=== PATIENT | male | born 1945 | race Caucasian/White ===

== ENCOUNTER → 2016-11-29 | Outpatient (CLI) | payer OTHER ==
[~2016-11-29] MED LIST: ASPEC81 PO; ATOR10TA88 PO; CLOP1TAB15 PO; GLIM4TAB2 PO; HYDR25TA4 PO; LISI40TA PO; LPD600 PO; METF-384 PO; METO100T14 PO; PRLSR20 PO; TAMS0.4C38 PO
[2016-11-29 12:49] LABS: HEMATOCRIT 42.7 % (42-52); MEAN CELL VOLUME 89.9 fL (80-100); MEAN CORPUSCULAR HGB CONC 35.6 g/dl (32-36); MEAN PLATELET VOLUME 10.4 fL (7.4-10.4); PLATELET COUNT 207 K/uL (130-400); RED BLOOD COUNT 4.75 M/uL (4.7-6.1); WHITE BLOOD COUNT 6.74 K/uL (4.8-10.8)
[2016-11-29 13:20] LABS: RATIO 7.8 mcg/mg (0-30.0)
[2016-11-29 13:27] LABS: ESTIMATED AVERAGE GLUCOSE 306 mg/dl; HA1C FLAG Normal (Normal)
[2016-11-29 14:09] LABS: ALB/GLOB RATIO 0.9 (0.9-2); ALKALINE PHOSPHATASE 84 U/L (45-117); ALT/SGPT 34 U/L (12-78); AST/SGOT 17 U/L (15-37); BLOOD UREA NITROGEN 25 mg/dl (7-18); BUN/CREATININE RATIO 17.9 (10-20); CALCIUM 8.7 mg/dl (8.5-10.1); CARBON DIOXIDE 31 mmol/L (21-32); CHLORIDE 94 mmol/L (98-107); CHOLESTEROL 276 mg/dl (0-200); CHOLESTEROL/HDL RATIO 7.9; GLUCOSE 435 mg/dl (70-99); HDL CHOLESTEROL 35 mg/dl; SODIUM 135 mmol/L (136-145); TRIGLYCERIDES 1386 mg/dl (0-150)
[2016-11-29 14:34] LABS: BETA-HYDROXYBUTYRATE 5.13 mg/dL (0.2-2.81)
== END | disposition home or self-care (01) ==
LOC: C.LABBFT 10:16
PROVIDERS: ATTEND Internal Medicine
DX: E11.9 Type 2 diabetes mellitus without complications (principal)

== ENCOUNTER 2016-12-29 15:06 | Inpatient (IN) | payer OTHER ==
[~2016-12-29] VITALS: Ht 172.7 cm; Wt 102.5 kg
[~2016-12-29 15:06] MED LIST changes: -ASPEC81 PO; +ATOR10TA82 PO; -ATOR10TA88 PO; -GLIM4TAB2 PO; -LPD600 PO; -METF-384 PO
[2016-12-29] MEDS ORDERED: SODIUM CHLORIDE 0.9% 1000ML 1,000 ML IV SCH (15:20)
--- NOTE | 2016-12-29 15:26 | EMERGENCY ROOM VISIT NOTE ---
History Report prepared by Lia: Angelina Cuenca Under the Supervision of: Dr. Xenia Singer, Anna MarieO. First contact with patient: 15:13 Chief Complaint: STROKE SYMPTOMS Stated Complaint: STROKE SYMPTOMS History of Present Illness The patient is a 71 year old male who presents to the Emergency Room with complaints of constant slurred speech that started 30 minutes ago while shopping. The patient states that he felt normal earlier today. Pt states some chronic vision changes/blurred - no acute change. No isolated extremity weakness/paresthesias. Pt denies WU. Denies dizziness. Patient's states that the patient suffered from a stroke 2 years ago, which showed similar symptoms. The patient denies cp, sob, n/v/d, leg swelling, or any other associated symptoms. He take Plavix 75 regularly as prescribed. He denies use of Aspirin. Had previously taken following first TIA, then changed. Recent new dx of DM, new additional meds added. 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 A total of 10 systems reviewed and were otherwise negative. Past Medical & Surgical Medical Problems: (1) Coronary artery disease (2) Gastroesophageal reflux disease (3) GERD (gastroesophageal reflux disease) (4) History of CVA (cerebrovascular accident) (5) Hyperlipidemia (6) Ischemic stroke (7) TIA (transient ischemic attack) Family History Unknown family medical history Social History Smoking Status: Never Smoker Alcohol Use: none Drug Use: none Marital Status: Housing Status: lives with family Occupation Status: employed Current/Historical Medications Scheduled Aspirin (Aspirin EC Low Dose), 81 MG PO QAM Atorvastatin (Lipitor), 10 MG PO QAM Clopidogrel (Plavix), 75 MG PO QAM Gemfibrozil (Gemfibrozil), 1 TAB PO BID Hydrochlorothiazide (Hctz), 25 MG PO QAM Lisinopril (Zestril), 40 MG PO QAM Metformin Hcl (Glucophage), 500 MG PO BID Metoprolol Tartrate (Lopressor) (Lopressor), 100 MG PO QAM Omeprazole (Prilosec), 20 MG PO QAM Tamsulosin Hcl (Flomax), 2 CAP PO QAM Allergies Coded Allergies: No Known Allergies (Verified , 12/29/16) Physical Exam Vital Signs Date Time Temp Pulse Resp B/P Pulse Ox O2 Delivery O2 Flow Rate FiO2 12/29/16 16:30 71 16 147/79 96 Room Air 12/29/16 16:02 78 20 122/77 97 Room Air 12/29/16 15:51 82 12/29/16 15:37 74 16 118/71 96 Room Air 12/29/16 15:21 Room Air 12/29/16 15:08 36.5 77 16 120/68 92 Room Air Physical Exam GENERAL: alert, non toxic appearing. slurred speech noted upon exam. EYE EXAM: normal conjunctiva, PERRL and EOM's grossly intact OROPHARYNX: no exudate, no erythema, lips, buccal mucosa, and tongue normal and mucous membranes are moist NECK: supple, no nuchal rigidity, no adenopathy, non-tender LUNGS: Clear to auscultation. Normal chest wall mechanics HEART: no murmurs, S1 normal and S2 normal ABDOMEN: abdomen soft, non-tender, normo-active bowel sounds, no masses, no rebound or guarding. BACK: Back is symmetrical on inspection and there is no deformity, no midline tenderness, no CVA tenderness. SKIN: no rashes and no bruising UPPER EXTREMITIES: upper extremities are grossly normal. LOWER EXTREMITIES: No pitting edema. NEURO EXAM: Left finger to nose intact. Gross sensation intact. Normal sensorium , cranial nerves II-XII grossly intact, normal speech, no gross weakness of arms, no gross weakness of legs. No drift. Slight deviation with right finger to nose. NIH Stroke Scale Score: 2. Medical Decision & Procedures ER Provider Diagnostic Interpretation: CT results have been interpreted by the radiologist and reviewed by me. CT HEAD WITHOUT CONTRAST (CT) CLINICAL HISTORY: Stroke COMPARISON STUDY: 06/14/2013 TECHNIQUE: Axial CT of the brain is performed from the vertex to the skull base. IV contrast was not administered for this examination. CT DOSE: 614.27 mGy.cm FINDINGS: No intra or extra-axial mass lesions are visualized. There is no CT evidence of acute cortical infarction. There is no evidence of midline shift. There is no acute hemorrhage. No calvarial fractures are visualized. There are patchy white matter hypodensities likely on a small vessel basis. There are multiple old lacunar infarcts including involvement of the left thalamus and both basal ganglia. There is no evidence of pathologic ventricular dilatation. There is sphenoid sinus mucosal thickening. There is trace sphenoid sinus fluid. IMPRESSION: Multiple old lacunar infarcts. No acute intracranial findings. Electronically signed by: Oli Llanos M.D. 12/29/2016 3:37 PM Dictated Date/Time: 12/29/2016 3:35 PM Laboratory Results Test 12/29/16 15:20 12/29/16 15:26 Prothrombin Time 10.9 SECONDS (9.0-12.0) Prothromb Time International Ratio 1.0 (0.9-1.1) Activated Partial Thromboplast Time 29.7 SECONDS (21.0-31.0) Partial Thromboplastin Ratio 1.1 Estimated Average Glucose 217 mg/dl Hemoglobin A1c 9.2 % (4.5-5.6) Total Creatine Kinase 55 U/L (39-308) Creatine Kinase MB 1.1 ng/ml (0.5-3.6) Creatine Kinase MB Ratio 2.0 (0-3.0) Troponin I < 0.015 ng/ml (0-0.045) Bedside Prothrombin Time INR 1.0 (0.9-1.1) Laboratory results per my review. Medications Administered Medications (Trade) Dose Ordered Sig/Nikko Route Start Time Stop Time Status Last Admin Dose Admin Sodium Chloride (Nss 1000ml) 1,000 ml @ 50 mls/hr Q20H IV 12/29/16 15:20 12/29/16 18:57 DC 12/29/16 15:51 50 MLS/HR Aspirin (Aspirin Supp) 300 mg ONE STAT MI 12/29/16 16:02 12/29/16 16:03 DC 12/29/16 16:12 300 MG ECG Indication: other (Stroke- like Symptoms) Rate (beats per minute): 76 Rhythm: sinus rhythm Findings: no acute ischemic change, no ectopy, other (Normal axis, normal interval ) ED Course 1515: The patient was evaluated in room A1. A complete history and physical exam was performed. 1517: Called a stroke alert 1519: After reviewing the chart, I found that the patient presented in June 2013 with similar slurred speech. NIH stroke scale was determined to be 2 at this time. Patient was not given TPA at this time. He did find improvement of symptoms. He was admitted for additional evaluation. 1520: Ordered Sodium Chloride 1,000 ml @ 50 mls/hr IV. 1522: I updated the patient's of the treatment plan and notes from my review of the patient's past medical records. 1525. Upon reevaluation, the patient's speech has not showed signs of improvement. 1540: Upon reevaluation, the patient's speech was found to be improving. 1542: I discussed the patient's case with Dr. Ordonez ([facility]). He does not recommend TPA at this time. 1545: Ordered Aspirin 325 mg PO. 1546: I updated the patient and his family. 1602: Ordered Aspirin 300 mg MI. 1610: I reviewed the patient's case with Dr. Burks ([facility]). He will evaluate the patient for further management. Medical Decision Differential diagnosis: Etiologies such as metabolic, infection, hypoglycemia, electrolyte abnormalities , cardiac sources, intracerebral event, toxicologic, neurologic, as well as others were entertained. Pt presented within window for stroke alert. NIHSS <4, symptoms improving by time came back from CT. Discussed with telestroke doc. No tPA given. Discussed with pt and . They verbalized understanding. Pt sx improved here. Pt with risk factors for CVA/TIA. Given ASA here. Doubt dissection, infectious etiology. Glucose within reasonable range. Similar presentation to prior. No chronic deficits from prior. Consults Time Called: 1538 Consulting Physician: Dr. Ordonez (Neurology) Returned Call: 1542 I discussed the patient's case with Dr. Ordonez ([facility]). He does not recommend TPA at this time. Additional Consults: Time Called: 1555 Consulted Physician: Dr. Burks ([facility]) Returned Call: 1610 Additional Comments: I reviewed the patient's case with Dr. Burks ([facility]). He will evaluate the patient for further management. Impression Primary Impression: CVA (cerebral vascular accident) Critical Care I have personally spent 35 minutes of critical care time in the direct management of this patient. This includes bedside care, interpretation of diagnostic studies, and testing, discussion with consultants, patient, and family members, and other required patient management activities. This 35 minutes is in excess of all separately billable procedures. Scribe Attestation The scribe's documentation has been prepared under my direction and personally reviewed by me in its entirety. I confirm that the note above accurately reflects all work, treatment, procedures, and medical decision making performed by me. Departure Information Dispostion Being Evaluated By Hospitalist Prescriptions Aspirin (Aspirin EC Low Dose) 81 Mg Ectab 81 MG PO QAM for 30 Days, #30 Prov: Sidra Lacy MD 12/30/16 Referrals Sebastián Bond M.D. (PCP) Patient Instructions My [facility] Stroke History Time Last Known Well 1445 Stroke t-PA Criteria Reviewed Does NOT meet criteria for t-PA Reason t-PA Not Given Treatment not indicated Problem Qualifiers Primary Impression: CVA (cerebral vascular accident) CVA mechanism: unspecified Qualified Codes: I63.9 - Cerebral infarction, unspecified
[2016-12-29 15:36] LABS: BASO % 0.6 %; BASO ABS # 0.03 K/uL (0-0.2); COMPLETE YES; EOS % 0.9 %; HEMATOCRIT 34.3 % (42-52); IG% 0.2 %; LYMPH % 37.8 %; LYMPH ABS # 2.06 K/uL (1.2-3.4); MEAN CELL VOLUME 93.5 fL (80-100); MEAN CORPUSCULAR HEMOGLOBIN 31.9 pg (25-34); MEAN CORPUSCULAR HGB CONC 34.1 g/dl (32-36); MEAN PLATELET VOLUME 8.7 fL (7.4-10.4); MONO % 5.3 %; NEUT % 55.2 %; PLATELET COUNT 203 K/uL (130-400); RED BLOOD COUNT 3.67 M/uL (4.7-6.1); WHITE BLOOD COUNT 5.45 K/uL (4.8-10.8)
--- NOTE | 2016-12-29 15:39 | DIAGNOSTIC IMAGING REPORT ---
CT HEAD WITHOUT CONTRAST (CT) CLINICAL HISTORY: Stroke COMPARISON STUDY: 06/14/2013 TECHNIQUE: Axial CT of the brain is performed from the vertex to the skull base. IV contrast was not administered for this examination. CT DOSE: 614.27 mGy.cm FINDINGS: No intra or extra-axial mass lesions are visualized. There is no CT evidence of acute cortical infarction. There is no evidence of midline shift. There is no acute hemorrhage. No calvarial fractures are visualized. There are patchy white matter hypodensities likely on a small vessel basis. There are multiple old lacunar infarcts including involvement of the left thalamus and both basal ganglia. There is no evidence of pathologic ventricular dilatation. There is sphenoid sinus mucosal thickening. There is trace sphenoid sinus fluid. IMPRESSION: Multiple old lacunar infarcts. No acute intracranial findings. Electronically signed by: Oli Llanos M.D. 12/29/2016 3:37 PM Dictated Date/Time: 12/29/2016 3:35 PM
[2016-12-29 15:45] LABS: PARTIAL THROMBOPLASTIN RATIO 1.1; PROTHROMBIN TIME (PATIENT) 10.9 SECONDS (9.0-12.0)
[2016-12-29] MEDS ORDERED: ASPIRIN 325 MG ECTAB PO STA (15:45)
[2016-12-29 15:52] LABS: BLOOD UREA NITROGEN 22 mg/dl (7-18); BUN/CREATININE RATIO 16.7 (10-20); CALCIUM 8.7 mg/dl (8.5-10.1); CARBON DIOXIDE 29 mmol/L (21-32); CHLORIDE 107 mmol/L (98-107); GLUCOSE 143 mg/dl (70-99); SODIUM 143 mmol/L (136-145)
[2016-12-29] MEDS ORDERED: ASPIRIN 300 MG SUPP PR STA (16:02)
[2016-12-29] MEDS ORDERED: ONDANSETRON INJ 2 MG/ML 2 ML VIAL IV PRN (16:30)
[2016-12-29] MEDS ORDERED: ACETAMINOPHEN 325 MG TAB PO PRN (16:30)
[2016-12-29] MEDS ORDERED: PHARMACIST DISCHARGE MED REC CONSULT PRN (16:30)
[2016-12-29 16:50] VITALS: O2SAT 96; Ht 172.7 cm; Wt 102.5 kg
[2016-12-29] MEDS ORDERED: LPD600 PO (17:09)
[2016-12-29] MEDS ORDERED: GLIM4TAB2 PO (17:09)
[2016-12-29] MEDS ORDERED: METF-384 PO (17:09)
--- NOTE | 2016-12-29 17:10 | History and Physical ---
History & Physical Date & Time of Service: Dec 29, 2016 at 16:46 Chief Complaint: Stroke Symptoms Primary Care Physician: Sebastián Bond M.D. History of Present Illness Source: patient, spouse, hospital records 71 yo male who was feeling well this morning, started suddenly with slurred speech and blurred vision at precisely 245pm, his was with him and knew the exact time. The patient has a small left sided stroke in 2012 and presented at that time with similar symptoms of slurred speech and weakness. The patient's evaluated what was going on and immediately called EMS and a stroke alert was called prior to the patient's arrival. CT scan did not show any hemorrhage. He was evaluated for tPA. During initial evaluation his speech started to improve and his vision returned to normal so he was ruled out for tPA. CBC and BMP were normal. Currently the patient's speech is slow but clear, not back to normal yet. He denies any other focal weakness. No loss of balance. He did fail his initial speech test and was given aspirin rectally. Old records from his hospitalization in 2012 show that he had a left lacunar ischemic stroke. Echo at that time was normal and carotid doppler only showed moderate plaque bilaterally, no severe stenosis. He was treated with aspirin and Plavix initially and then titrated to just Plavix. He has been compliant with his Plavix, Lipitor and BP medications. On November 29, 2016 he had blood work that showed an A1c of 12.3, diagnosing him with DM type II. He was notified by his PCP and he was started on Metformin 1000mg BID and Glimepiride. A few days later he had violent vomiting so he was told to stop the glimepiride and decrease Metformin to 500mg BID. He has made drastic dietary changes, he stopped alcohol and cut back significantly on carbohydrates. His has been very involved in his care, she is at the bedside now. Past Medical/Surgical History Ischemic stroke, left lacunar, 2012 Hyperlipidemia Hypertension DM type II (diagnosed November 2016) GERD BPH Family History HTN Coronary artery disease Social History Smoking Status: Never Smoker Smokeless Tobacco Use: No Alcohol Use: none Drug Use: none Marital Status: Occupational Status: employed Immunizations History of Influenza Vaccine: No Influenza Vaccine Date: Jun 16, 2013 History of Tetanus Vaccine?: Unknown History of Pneumococcal: No History of Hepatitis B Vaccine: No Multi-Drug Resistant Organisms History of MDRO: No Allergies Coded Allergies: No Known Allergies (Verified , 10/09/16) Home Medications Scheduled Atorvastatin (Lipitor), 10 MG PO QAM Clopidogrel (Plavix), 75 MG PO QAM Hydrochlorothiazide (Hctz), 25 MG PO QAM Lisinopril (Zestril), 40 MG PO QAM Metoprolol Tartrate (Lopressor) (Lopressor), 100 MG PO QAM Omeprazole (Prilosec), 20 MG PO QAM Tamsulosin Hcl (Flomax), 2 CAP PO QAM Review of Systems Constitutional: No chills, No fatigue, No fever, No problem reported, No sweats , No weakness, No weight loss Eyes: + worsening of vision (blurred vision at 245, has completely resolved), No diplopia, No discharge, No eye pain, No redness ENT: No dental problems, No hearing loss, No nasal symptoms, No problem reported, No sore throat, No tinnitus, No trouble swallowing, No unusual epistaxis Respiratory: No cough, No dyspnea at rest, No dyspnea on exertion, No hemoptysis, No problem reported, No shortness of breath, No sputum, No wheezing Cardiovascular: No PND, No chest pain, No claudication, No edema, No orthopnea , No palpitations, No problem reported Abdomen: No GI bleeding, No constipation, No diarrhea, No nausea, No pain, No problem reported, No vomiting Musculoskeletal: No calf pain, No joint pain, No muscle pain, No problem reported, No swelling Genitourinary - Male: No dysuria, No hematuria, No urinary frequency, No urinary urgency Neurologic: + problem reported (slurred speech, mumbled incoherent words, improving quickly now), No balance problems, No memory loss, No numbness/ tingling, No paralysis, No vertigo, No weakness Psychiatric: No anhedonism, No anxiety, No depression symptoms, No insomnia, No problem reported, No substance abuse Endocrine: No excessive thirst, No excessive urination, No fatigue, No problem reported Hematologic / Lymphatic: No abnormal bleeding/bruising, No clotting problems, No night sweats, No problem reported, No swollen lymph nodes Integumentary: No bleeding, No color change, No itch, No new/changing skin lesions, No problem reported, No rash Allergic / Immunologic: No environmental allergies, No food allergies, No frequent infections, No hives, No pet sensitivities, No poor healing, No problem reported, No prolonged convalescence, No seasonal allergies Physical Exam Vital Signs Date Time Temp Pulse Resp B/P Pulse Ox O2 Delivery O2 Flow Rate FiO2 12/29/16 16:30 71 16 147/79 96 Room Air 12/29/16 16:02 78 20 122/77 97 Room Air 12/29/16 15:51 82 12/29/16 15:37 74 16 118/71 96 Room Air 12/29/16 15:21 Room Air 12/29/16 15:08 36.5 77 16 120/68 92 Room Air General Appearance: WD/WN, no apparent distress Head: normocephalic, atraumatic Eyes: normal inspection, EOMI, sclerae normal ENT: normal ENT inspection, hearing grossly normal, pharynx normal Neck: supple, no adenopathy, no JVD, trachea midline Respiratory/Chest: chest non-tender, lungs clear, normal breath sounds, no respiratory distress, no accessory muscle use Cardiovascular: regular rate, rhythm, no edema, no gallop, no JVD, no murmur, normal peripheral pulses Abdomen/GI: normal bowel sounds, non tender, soft, no organomegaly Back: normal inspection, no CVA tenderness, no muscle spasm, normal range of motion Extremities/Musculoskelatal: normal inspection, no calf tenderness, normal capillary refill, no pedal edema, normal range of motion, pelvis stable Neurologic/Psych: dolphin trainer II-XII nml as tested, no motor/sensory deficits, alert, normal mood/affect, normal reflexes, oriented x 3 Skin: normal color, warm/dry, no rash Lymphatic: no adenopathy Diagnostics Laboratory Results Results Past 24 Hours Test 12/29/16 15:20 12/29/16 15:24 12/29/16 15:26 Range/Units White Blood Count 5.45 4.8-10.8 K/uL Red Blood Count 3.67 4.7-6.1 M/uL Hemoglobin 11.7 14.0-18.0 g/dL Hematocrit 34.3 42-52 % Mean Corpuscular Volume 93.5 80-100 fL Mean Corpuscular Hemoglobin 31.9 25-34 pg Mean Corpuscular Hemoglobin Concent 34.1 32-36 g/dl Platelet Count 203 130-400 K/uL Mean Platelet Volume 8.7 7.4-10.4 fL Neutrophils (%) (Auto) 55.2 % Lymphocytes (%) (Auto) 37.8 % Monocytes (%) (Auto) 5.3 % Eosinophils (%) (Auto) 0.9 % Basophils (%) (Auto) 0.6 % Neutrophils # (Auto) 3.01 1.4-6.5 K/uL Lymphocytes # (Auto) 2.06 1.2-3.4 K/uL Monocytes # (Auto) 0.29 0.11-0.59 K/uL Eosinophils # (Auto) 0.05 0-0.5 K/uL Basophils # (Auto) 0.03 0-0.2 K/uL RDW Standard Deviation 46.5 36.4-46.3 fL RDW Coefficient of Variation 13.5 11.5-14.5 % Immature Granulocyte % (Auto) 0.2 % Immature Granulocyte # (Auto) 0.01 0.00-0.02 K/uL Prothrombin Time 10.9 9.0-12.0 SECONDS Prothromb Time International Ratio 1.0 0.9-1.1 Activated Partial Thromboplast Time 29.7 21.0-31.0 SECONDS Partial Thromboplastin Ratio 1.1 Sodium Level 143 136-145 mmol/L Potassium Level 4.0 3.5-5.1 mmol/L Chloride Level 107 98-107 mmol/L Carbon Dioxide Level 29 21-32 mmol/L Anion Gap 7.0 3-11 mmol/L Blood Urea Nitrogen 22 7-18 mg/dl Creatinine 1.30 0.60-1.40 mg/dl Est Creatinine Clear Calc Drug Dose 62.7 ml/min Estimated GFR () 64.5 Estimated GFR (Non- 55.7 BUN/Creatinine Ratio 16.7 10-20 Random Glucose 143 70-99 mg/dl Calcium Level 8.7 8.5-10.1 mg/dl Total Creatine Kinase 55 39-308 U/L Creatine Kinase MB 1.1 0.5-3.6 ng/ml Creatine Kinase MB Ratio 2.0 0-3.0 Troponin I < 0.015 0-0.045 ng/ml Bedside Glucose 143 70-99 mg/dl Bedside Prothrombin Time INR 1.0 0.9-1.[address] HEAD WITHOUT CONTRAST (CT) CLINICAL HISTORY: Stroke COMPARISON STUDY: 06/14/2013 TECHNIQUE: Axial CT of the brain is performed from the vertex to the skull base. IV contrast was not administered for this examination. CT DOSE: 614.27 mGy.cm FINDINGS: No intra or extra-axial mass lesions are visualized. There is no CT evidence of acute cortical infarction. There is no evidence of midline shift. There is no acute hemorrhage. No calvarial fractures are visualized. There are patchy white matter hypodensities likely on a small vessel basis. There are multiple old lacunar infarcts including involvement of the left thalamus and both basal ganglia. There is no evidence of pathologic ventricular dilatation. There is sphenoid sinus mucosal thickening. There is trace sphenoid sinus fluid. IMPRESSION: Multiple old lacunar infarcts. No acute intracranial findings. Normal EKG Impression Assessment and Plan 71 yo male with slurred speech and blurred vision, symptoms quickly resolving in the ED, CT head with evidence of prior lacunar infarcts - Acute ischemic stroke, symptoms resolving admit to tele, urgent MRI brain, carotid dopplers had a normal Echo in 2012, would not repeat at this point hold Lisinopril and HCTZ to allow for permissive HTN, continue metoprolol continue Plavix once he passes formal speech evaluation with therapy continue Lipitor once he passes swallow - DM type II: new diagnosis, HbA1c 12.3, clearly not at goal with stroke patient continue Metformin once he can take pills Novolog SS, diabetic diet patient literally just started diet changes and trying to lose weight however, with second stroke and elevated A1c, would have low threshold to start a basal insulin - HTN: normal BP, continue metoprolol, hold Lisinopril and HCTZ to allow for some permissive HTN in acute stroke - Hyperlipidemia: Lipitor once cleared by speech - DVT prophylaxis: Lovenox Level of Care Telemetry Resuscitation Status FULL RESUSCITATION VTE Prophylaxis VTE Risk Assessment Done? Y/N: Yes Risk Level: High Given or contraindicated: Enoxaparin (Lovenox)SQ Additional Copies To Sebastián Bond M.D.
[2016-12-29] MEDS ORDERED: ENOXAPARIN 40 MG/0.4 ML SYR SC SCH (18:00)
[2016-12-29 18:14] VITALS: BP 132/80; PULSE 75; TEMP 36.8; O2SAT 98
[2016-12-29] MEDS: SODIUM CHLORIDE 0.9% 1000ML 1,000 ML IV SCH (18:21)
[2016-12-29] MEDS ORDERED: DEXTROSE 50% 50 ML SYR IV PRN (19:00)
[2016-12-29] MEDS ORDERED: GLUCOSE 40% GEL 15 GM TUBE PO PRN (19:00)
[2016-12-29] MEDS ORDERED: GLUCOSE 10 TABS/TUBE PO PRN (19:00)
[2016-12-29] MEDS ORDERED: GLUCAGON FOR INJ 1 MG VIAL SQ PRN (19:00)
[2016-12-29] MEDS ORDERED: GADAVIST IV PRN (19:45)
[2016-12-29 19:51] LABS: BENZODIAZEPINE, URINE NEG (NEG); COCAINE,URINE NEG (NEG); PHENCYCLIDINE, URINE NEG (NEG)
--- NOTE | 2016-12-29 19:57 | DIAGNOSTIC IMAGING REPORT ---
MRI OF THE BRAIN WITHOUT AND WITH IV CONTRAST CLINICAL HISTORY: Stroke mental status change COMPARISON STUDY: 06/14/2013 TECHNIQUE: Utilizing a 1.5 Kacy magnet and dedicated coil, multiplanar, multiecho imaging of the brain was performed pre and postcontrast administration. IV administration of 10 mL of Gadavist contrast was uneventful. FINDINGS: No evidence for an acute ischemic event. Moderate cerebellar as well as cerebral atrophy. Moderate chronic small vessel change. No evidence for abnormal postcontrast enhancement. Sella and parasellar regions are unremarkable. IMPRESSION: Age-related change. Atrophy. No acute intracranial abnormality. Electronically signed by: Walker Duron M.D. 12/29/2016 7:54 PM Dictated Date/Time: 12/29/2016 7:53 PM
[2016-12-29 20:00] VITALS: O2SAT 98
--- NOTE | 2016-12-29 20:25 | DIAGNOSTIC IMAGING REPORT ---
BILATERAL CAROTID DOPPLER STUDY HISTORY: Mental status change Stroke COMPARISON: None. TECHNIQUE: Real-time, grayscale, and color Doppler sonography of the carotid arteries was performed. Imaging reviewed in the transverse and longitudinal planes. All measurements were calculated based on NASCET criteria. FINDINGS: Antegrade flow is seen in the bilateral vertebral arteries. The brachial pressures are hemodynamically similar. Moderate plaque formation bilaterally The peak systolic velocity within the right ICA is 62. The right systolic ratio is 0.7. The peak systolic velocity within the left ICA is 77. The left systolic ratio is 0.8. IMPRESSION: No hemodynamically significant stenosis seen within the carotid arteries. Moderate plaque formation bilaterally Electronically signed by: Walker Duron M.D. 12/29/2016 8:22 PM Dictated Date/Time: 12/29/2016 8:22 PM
[2016-12-29 20:30] VITALS: BP 117/69; PULSE 82; TEMP 36.6; O2SAT 97
[2016-12-29] MEDS: INSULIN ASPART 100 UNITS/ML 3 ML PEN SC SCH (20:37)
[2016-12-29] MEDS ORDERED: PNEUMOCOCCAL POLYSACCHARIDES 25 MCG/0.5 ML VIAL/SYR IM. ONE (21:00)
[2016-12-29] MEDS ORDERED: PNEUMOCOCCAL ADMINISTRATION CHARGE ONE (21:00)
[2016-12-29 23:15] VITALS: BP 139/85; PULSE 73; TEMP 37.3; O2SAT 98
[2016-12-30 00:01] VITALS: O2SAT 98
[2016-12-30 03:30] VITALS: BP 124/77; PULSE 70; TEMP 37; O2SAT 97
[2016-12-30 04:00] VITALS: O2SAT 97
[2016-12-30] MEDS: SODIUM CHLORIDE 0.9% 1000ML 1,000 ML IV SCH (05:49)
[2016-12-30 05:55] LABS: BASO % 0.4 %; BASO ABS # 0.02 K/uL (0-0.2); COMPLETE YES; EOS % 1.3 %; HEMATOCRIT 33.1 % (42-52); IG% 0.2 %; LYMPH % 40.2 %; LYMPH ABS # 1.92 K/uL (1.2-3.4); MEAN CELL VOLUME 92.5 fL (80-100); MEAN CORPUSCULAR HGB CONC 33.5 g/dl (32-36); MEAN PLATELET VOLUME 8.7 fL (7.4-10.4); MONO % 9.6 %; NEUT % 48.3 %; PLATELET COUNT 176 K/uL (130-400); RED BLOOD COUNT 3.58 M/uL (4.7-6.1); WHITE BLOOD COUNT 4.78 K/uL (4.8-10.8)
[2016-12-30 06:26] LABS: ESTIMATED AVERAGE GLUCOSE 217 mg/dl; HA1C FLAG Normal (Normal)
[2016-12-30 06:34] LABS: CALCIUM 8.1 mg/dl (8.5-10.1); CREATININE 1.1 mg/dl (0.60-1.40); POTASSIUM 3.5 mmol/L (3.5-5.1)
[2016-12-30] MEDS: INSULIN ASPART 100 UNITS/ML 3 ML PEN SC SCH (07:00)
[2016-12-30 08:00] VITALS: O2SAT 97
[2016-12-30 08:21] VITALS: BP 126/80; PULSE 72; TEMP 36.8; O2SAT 95
--- NOTE | 2016-12-30 08:29 | Neurology Consultation ---
Neurology Consultation Date of Consultation: Dec 30, 2016. Attending Physician: Duc Burks D.O. Primary Care Physician: Sebastián Bond M.D. Reason for Consultation: Patient is a 71-year-old, who was asked to see the request of Dr. Burks, for neurologic consultation regarding new onset neurologic symptoms, question stroke versus TIA History of Present Illness Source: patient, caregiver, clinic records, hospital records In June 2013, the patient had the onset of slurred speech and unsteady gait. Evaluation revealed a small left durant radiata stroke and the patient was put on Plavix instead of the aspirin he had been taking. MRI at that time showed old small vessel ischemic changes of a mild to moderate nature. Carotid ultrasound showed some plaque but no significant stenoses. MRA of the head was unremarkable. He saw Dr. Garnett in consultation and follow-up later that fall showed that he was stable. He was kept on Plavix alone ever since. Patient has a history of hypertension fairly well controlled with medication. His hemoglobin A1c recently was 12.3 and he was recently put on medication for diabetes. He has significantly changed his diet and discontinued alcohol 3 weeks ago. He tells me that for decades he has drank about one case of beer per week or more. He has never had withdrawal symptoms that he relates, seizures, or blackout spells. Patient was shopping at [employer] on December 29 when at exactly 1445 hrs. she had the onset of slurred speech. His was with him and marked the time. He also noted some blurry vision. He did not have double vision or loss of vision. He specifically tells me he had no weakness, numbness, clumsiness, balance issues, pain, or headache. He was not confused and he could understand but his speech was slurred. He arrived in the emergency room December 29 at 1//08 hours with a temperature 36.5, pulse 77, respiratory rate 16, blood pressure 120/68, and O2 saturation 92 %. Neurologically he was improved by the time he arrived at the emergency room and he believes that his vision completely cleared up by 1 hour from the onset. Although his speech was improved by the time he got to the emergency room he felt that that did not completely clear up until 4-5 hours. On examination and his speech was described as "slow" but otherwise unremarkable. He had some dysmetria with finger to nose testing on the right but had no elin weakness and in 8 stroke scale of 2. Tele-stroke consultation with [facility] was performed and no TPA was given because of his rapidly resolving symptoms. CBC showed mild anemia and chemistry profile revealed a glucose of between 1:30 and 140. Cholesterol was low at 141 and triglycerides were high at 313. Urinalysis was unremarkable. Carotid ultrasound was unremarkable, with no significant stenoses. MRI of the brain showed no acute stroke. There was mild to moderate old diffuse ischemia as well as moderate generalized atrophy. Today the patient is asymptomatic. He feels back to baseline with no vision or speech problems. He has no new issues such as pain or headache. Past Medical/Surgical History Medical Problems: (1) CVA (cerebral vascular accident) Status: Acute Hypertension Type 2 diabetes Dyslipidemia Gastroesophageal reflux disease History of coronary artery disease with no other cardiac issues Benign prostatic hypertrophy Tonsillectomy History of right carpal tunnel syndrome repair Family History Patient has no medical information or knowledge about his mother. Patient's father age 40 after having been hit by a train. 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 He does not believe he is been exposed to any significant toxins or chemicals Smoking Status: Former smoker Smokeless Tobacco Use: No Alcohol Use: none Drug Use: none Marital Status: Housing Status: lives with family Occupation Status: employed Allergies Coded Allergies: No Known Allergies (Verified , 12/29/16) Current Inpatient Medications Current Inpatient Medications Medications (Trade) Dose Ordered Sig/Nikko Route Start Time Stop Time Status Last Admin Dose Admin Miscellaneous Information (Pharmacist Discharge Med Rec Consult) 1 ea UD PRN N/A 12/29/16 16:30 01/28/17 16:29 Enoxaparin Sodium (Lovenox Inj) 40 mg Q24H SC 12/29/16 18:00 01/28/17 17:59 12/29/16 20:31 40 MG Acetaminophen (Tylenol Tab) 650 mg Q4H PRN PO 12/29/16 16:30 01/28/17 16:29 Ondansetron HCl (Zofran Inj) 4 mg Q6H PRN IV 12/29/16 16:30 01/28/17 16:29 Atorvastatin Calcium (Lipitor Tab) 10 mg QAM PO 12/30/16 09:00 01/29/17 08:59 Clopidogrel Bisulfate (plAVix TAB) 75 mg QAM PO 12/30/16 09:00 01/29/17 08:59 Metoprolol Tartrate (Lopressor Tab) 100 mg QAM PO 12/30/16 09:00 01/29/17 08:59 Tamsulosin HCl (Flomax Cap) 0.8 mg QAM PO 12/30/16 09:00 01/29/17 08:59 Pantoprazole Sodium (Protonix Tab) 40 mg QAM PO 12/30/16 09:00 01/29/17 08:59 Insulin Aspart SLIDING SCALE G... ACHS SC 12/29/16 21:00 01/28/17 20:59 12/29/16 20:37 6 UNITS Sodium Chloride (Nss 1000ml) 1,000 ml @ 80 mls/hr [id number] IV 12/29/16 17:00 01/28/17 16:59 12/30/16 05:49 80 MLS/HR Glucose (Glucose 40% Gel) 15-30 GRAMS 15 GRAMS... UD PRN PO 12/29/16 19:00 01/28/17 18:59 Glucose (Glucose Chew Tab) 4-8 Tablets 4 Tabl... UD PRN PO 12/29/16 19:00 01/28/17 18:59 Dextrose (Dextrose 50% 50ML Syringe) 25-50ML OF 50% DW IV FOR... UD PRN IV 12/29/16 19:00 01/28/17 18:59 Glucagon (Glucagon Inj) 1 mg UD PRN SQ 12/29/16 19:00 01/28/17 18:59 Gadobutrol (Gadavist) 10 mmol UD PRN IV 12/29/16 19:45 01/02/17 19:44 Review of Systems Constitutional: No fatigue, No weakness Eyes: No diplopia, No worsening of vision ENT: No hearing loss, No tinnitus, No trouble swallowing Respiratory: No cough, No shortness of breath Cardiovascular: No chest pain, No palpitations Abdomen: No nausea, No pain Musculoskeletal: No joint pain, No muscle pain Genitourinary - Male: No dysuria, No urinary incontinence Neurologic: No balance problems, No memory loss, No numbness/tingling, No vertigo, No weakness Psychiatric: No anxiety, No depression symptoms Endocrine: No fatigue Hematologic / Lymphatic: No abnormal bleeding/bruising Integumentary: No rash Allergic / Immunologic: No hives Physical Exam Vital Signs (Past 24 Hrs): Date Time Temp Pulse Resp B/P Pulse Ox O2 Delivery O2 Flow Rate FiO2 12/30/16 04:00 97 Room Air 12/30/16 03:30 37.0 70 18 124/77 97 Room Air 12/30/16 00:01 98 Room Air 12/29/16 23:15 37.3 73 18 139/85 98 Room Air 12/29/16 20:30 36.6 82 117/69 97 Room Air 12/29/16 20:00 98 Room Air 12/29/16 18:14 36.8 75 16 132/80 98 Room Air 12/29/16 18:02 74 20 143/75 96 12/29/16 17:00 74 20 152/80 97 Room Air 12/29/16 16:50 96 Room Air 12/29/16 16:30 71 16 147/79 96 Room Air 12/29/16 16:02 78 20 122/77 97 Room Air 12/29/16 15:51 82 12/29/16 15:37 74 16 118/71 96 Room Air 12/29/16 15:21 Room Air 12/29/16 15:08 36.5 77 16 120/68 92 Room Air The patient is right-handed. The patient is awake and alert. Speech is normal without aphasia or dysarthria. Mentation and thought processes are intact with orientation and normal fund of knowledge. Mood and affect are normal and appropriate. Appearance and grooming are normal. The discs are sharp with positive venous pulsations. There are no exudates, hemorrhages, or blood vessel changes seen. Pupils are 4mm bilaterally and reactive to light. Extraocular eye muscles are intact without nystagmus. Visual acuity and visual uribe seem normal grossly to confrontation. There are no deficits to sensation of the face bilaterally. Corneal reflexes are positive bilaterally. Facial strength and symmetry is normal bilaterally. Hearing seems intact grossly to voice and finger rub. Palate moves well without asymmetry. There is normal sternocleidomastoid and trapezius strength bilaterally. Tongue is midline with good strength bilaterally. Neck is with full range of motion without discomfort. There are no cervical bruits. There are no cranial or ocular bruits. Heart is without murmur. Cervical, thoracic, and lumbar spine are nontender to palpation. Gait is normal. There is good are swing, turn, stance, and balance. Stance is normal eyes open or closed. With outstretched arms there is no drift. There are no resting tremors. The patient has mild left greater than right postural and action tremor bilaterally. There is no ataxia with [id number] testing. There is good facility in the hands. There are no abnormal involuntary movements noted. Motor strength is 5/5 diffusely in the arms bilaterally including deltoids, biceps, brachioradialis, wrist flexors and extensors, mellowing machine operator, and intrinsic hand muscles. Motor strength is 5/5 diffusely in the legs bilaterally including hip flexors, quadriceps, hamstring, gastrocnemius, tibialis anterior, tibialis posterior, and peroneii muscles bilaterally. Toe extensors are normal and there is good bulk in the extensor digitorum brevis muscle bilaterally. The limbs have good tone without rigidity or spasticity, and there is no atrophy noted. Muscle bulk is normal, there is no tenderness, no myotonia noted to percussion, and no fasciculations seen. Sensory examination is intact to pin and touch throughout all four limbs. Reflexes are 2/4 in the biceps, triceps, and quadriceps tendons bilaterally. Brachial radialis tendon reflexes are 1/4 and Achilles tendon reflexes are absent bilaterally. Toes are downgoing with plantar stimulation bilaterally. Peripheral pulses are present and of normal quality distally in all four limbs. There is no peripheral edema noted. Laboratory Results Past 24 Hours: 12/30/16 05:30 Red Blood Count 3.58, Mean Corpuscular Volume 92.5, Mean Corpuscular Hemoglobin 31.0, Mean Corpuscular Hemoglobin Concent 33.5, Mean Platelet Volume 8.7, Neutrophils (%) (Auto) 48.3, Lymphocytes (%) (Auto) 40.2, Monocytes (%) (Auto) 9.6, Eosinophils (%) (Auto) 1.3, Basophils (%) (Auto) 0.4, Neutrophils # (Auto) 2.31, Lymphocytes # (Auto) 1.92, Monocytes # (Auto) 0.46, Eosinophils # (Auto) 0.06, Basophils # (Auto) 0.02 12/30/16 05:30 Test 12/29/16 15:20 12/29/16 15:26 12/29/16 19:00 12/30/16 05:30 Prothrombin Time 10.9 SECONDS (9.0-12.0) Prothromb Time International Ratio 1.0 (0.9-1.1) Activated Partial Thromboplast Time 29.7 SECONDS (21.0-31.0) Partial Thromboplastin Ratio 1.1 Estimated Average Glucose 217 mg/dl Hemoglobin A1c 9.2 % (4.5-5.6) Total Creatine Kinase 55 U/L (39-308) Creatine Kinase MB 1.1 ng/ml (0.5-3.6) Creatine Kinase MB Ratio 2.0 (0-3.0) Troponin I < 0.015 ng/ml (0-0.045) Bedside Prothrombin Time INR 1.0 (0.9-1.1) Urine Opiates Screen NEG (NEG) Urine Methadone, Qualitative NEG (NEG) Urine Barbiturates NEG (NEG) Urine Phencyclidine (PCP) Level NEG (NEG) Ur Amphetamine/Methamphetamine NEG (NEG) MDMA (Ecstasy) Screen NEG (NEG) Urine Benzodiazepines Screen NEG (NEG) Urine Cocaine Metabolite NEG (NEG) Urine Marijuana (THC) NEG (NEG) White Blood Count 4.78 K/uL (4.8-10.8) Red Blood Count 3.58 M/uL (4.7-6.1) Hemoglobin 11.1 g/dL (14.0-18.0) Hematocrit 33.1 % (42-52) Mean Corpuscular Volume 92.5 fL (80-100) Mean Corpuscular Hemoglobin 31.0 pg (25-34) Mean Corpuscular Hemoglobin Concent 33.5 g/dl (32-36) Platelet Count 176 K/uL (130-400) Mean Platelet Volume 8.7 fL (7.4-10.4) Neutrophils (%) (Auto) 48.3 % Lymphocytes (%) (Auto) 40.2 % Monocytes (%) (Auto) 9.6 % Eosinophils (%) (Auto) 1.3 % Basophils (%) (Auto) 0.4 % Neutrophils # (Auto) 2.31 K/uL (1.4-6.5) Lymphocytes # (Auto) 1.92 K/uL (1.2-3.4) Monocytes # (Auto) 0.46 K/uL (0.11-0.59) Eosinophils # (Auto) 0.06 K/uL (0-0.5) Basophils # (Auto) 0.02 K/uL (0-0.2) RDW Standard Deviation 45.8 fL (36.4-46.3) RDW Coefficient of Variation 13.5 % (11.5-14.5) Immature Granulocyte % (Auto) 0.2 % Immature Granulocyte # (Auto) 0.01 K/uL (0.00-0.02) Anion Gap 9.0 mmol/L (3-11) Est Creatinine Clear Calc Drug Dose 73.5 ml/min Estimated GFR () 79.0 Estimated GFR (Non- 68.1 BUN/Creatinine Ratio 16.0 (10-20) Calcium Level 8.1 mg/dl (8.5-10.1) Triglycerides Level 313 mg/dl (0-150) Cholesterol Level 141 mg/dl (0-200) HDL Cholesterol 35 mg/dl LDL Cholesterol, Calculated 43 mg/dl VLDL Cholesterol, Calculated 63 mg/dl Cholesterol/HDL Ratio 4.0 Test 12/30/16 06:49 Bedside Glucose 133 mg/dl (70-99) Imaging [~ rep ct add3]] MRI OF THE BRAIN WITHOUT AND WITH IV CONTRAST CLINICAL HISTORY: Stroke mental status change COMPARISON STUDY: 06/14/2013 TECHNIQUE: Utilizing a 1.5 Kacy magnet and dedicated coil, multiplanar, multiecho imaging of the brain was performed pre and postcontrast administration. IV administration of 10 mL of Gadavist contrast was uneventful. FINDINGS: No evidence for an acute ischemic event. Moderate cerebellar as well as cerebral atrophy. Moderate chronic small vessel change. No evidence for abnormal postcontrast enhancement. Sella and parasellar regions are unremarkable. IMPRESSION: Age-related change. Atrophy. No acute intracranial abnormality. Electronically signed by: Walker Duron M.D. 12/29/2016 7:54 PM Impression 1. Acute onset dysarthria and blurry vision Katt 21, consistent with transient ischemic attack (TIA) . Symptoms are now resolved Neurologic examination is unremarkable with no focal neurologic findings, meningeal signs, or encephalopathy. NIH stroke scale equals 0 MRI of the brain showed no acute stroke. CT scan of the head showed no hemorrhage Carotid ultrasound showed no significant stenoses. Patient was not a TPA candidate because of his rapidly resolving symptoms 2. Multiple risk factors for stroke including hypertension, diabetes, and dyslipidemia. His diabetes has been much better recently but had been very [id number]. He quit cigarette smoking in 1992. 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 I note that he has moderate atrophy on MRI and alcoholic damage is probable. 3. Old small vessel ischemia including old small stroke in June 2013 4. Tremor. The patient has an essential tremor which could be familial from his father. There are no signs of Parkinson's disease with no rest tremor, rigidity, bradykinesia, or gait disturbance. Plan 1. Continue with 81 mg aspirin +75 mg Plavix daily. There is literature to suggest that this combination is useful for stroke and TIA prevention in the first 2-3 months. After 2-3 months I will likely keep him on Plavix alone. 2. Control risk factors. Keep blood pressure with the mean arterial pressure of about 100 Control glucose 2 fasting less than 1/20 possible and hemoglobin A1c less than 6.0 if possible Continue with current statin dose. With his cholesterol level of 141, high- dose statins are contraindicated. There is contraindication with low cholesterol as it may increase SHOWROOM CONSULTANT bleeding risk in elderly patients. 3. His tremor is mild and I see no need for medication treatment of this problem, at this time I have no further neurologic testing or treatment recommendations to make at this time. I would be happy to follow this patient as an outpatient in the next 1-2 weeks. I have spoken with Dr. Augustine regarding this case including differential diagnosis and treatment options.
[2016-12-30] MEDS ORDERED: TAMSULOSIN HCL 0.4 MG CAP PO SCH (09:00)
[2016-12-30] MEDS ORDERED: ATORVASTATIN 10 MG TAB PO SCH (09:00)
[2016-12-30] MEDS ORDERED: PANTOprazole SOD 40 MG TAB PO SCH (09:00)
[2016-12-30] MEDS ORDERED: METOPROLOL TARTRATE 100 MG TAB PO SCH (09:00)
[2016-12-30] MEDS ORDERED: CLOPIDOGREL BISULFATE 75 MG TAB PO SCH ×2 (09:00)
[2016-12-30] MEDS ORDERED: MAGNESIUM SULFATE 1GM / D5W 1 GM in PREMIXED IN D5W 100 ML IV STA (09:12)
--- NOTE | 2016-12-30 09:15 | Discharge Instructions ---
Discharge Instructions Date of Service Dec 30, 2016. Admission Reason for Admission: CVA Discharge Discharge Diagnosis / Problem: TIA ( warning stroke) Discharge Goals Goal(s): Improve function, Improve disease control, Improve nutritional status , Learn about illness, Therapeutic intervention Activity Recommendations Activity Limitations: per Instructions/Follow-up section Lifting Limitations: none Exercise/Sports Limitations: gradually increase as tolerated May Resume Sexual Activity: when tolerated Shower/Bathe: no limitations Follow up with PCP on sunday. Please schedule appointment with Dr Harris (Neurology). Metformin should be held for 72 hour because of contrast given for MRI Brain. . Instructions / Follow-Up Instructions / Follow-Up Risk Factors for Stroke: You can reduce your chances of stroke by working with your medical provider to adopt a healthy lifestyle. Some specific ways to lower your chance of stroke are: * If you are a smoker, now is the time to stop smoking cigarettes * If you are diabetic, improve the control of your blood sugars * Avoid excessive amounts of alcohol * Control high blood pressure * Lose weight if you are overweight * Be sure to lead an active lifestyle * Eat a healthy diet low in salt, cholesterol and fat You should know about other risk factors for stroke that you are unable to control. These include: * Age 55 years or older * Male gender * Certain racial groups: , or / * Family History of Stroke, Mini stroke or Heart Attack * Sickle Cell Disease Follow Up: It is important for you to keep your follow up appointments with your medical provider. Current Hospital Diet Patient's current hospital diet: AHA Diet (Heart Healthy), Diabetes Type 2 Diet Discharge Diet Recommended Diet: AHA Diet (Heart Healthy), Diabetes Type 2 Diet Fluid Restriction: None Procedures Procedures Performed: none Pending Studies Studies pending at discharge: no Laboratory Results Hemoglobin A1c Test 12/29/16 15:20 Range/Units Estimated Average Glucose 217 mg/dl Hemoglobin A1c 9.2 H 4.5-5.6 % Lipid Panel Test 12/30/16 05:30 Range/Units Triglycerides Level 313 H 0-150 mg/dl Cholesterol Level 141 0-200 mg/dl HDL Cholesterol 35 mg/dl Cholesterol/HDL Ratio 4.0 LDL Cholesterol, Calculated 43 mg/dl Work Instructions Return To Work: after follow-up Lifting Limitations: none Medical Emergencies . Who to Call and When: Medical Emergencies: Call 911 immediately if you experience any of the following warning signs and symptoms of Stroke: * Sudden numbness or weakness of the face, arm or leg, especially on one side of the body * Sudden confusion, trouble speaking or understanding * Sudden trouble seeing in one or both eyes * Sudden trouble walking, dizziness, loss of balance or coordination * Sudden severe headache with no cause Do not delay calling 911 if you experience any warning signs or symptoms of a stroke. Delay in seeking medical attention may affect what treatments can be given to you. . Non-Emergent Contact Non-Emergency issues call your: Primary Care Provider Call Non-Emergent contact if: you have a fever, you have any medication questions . Past History Medical & Surgical History: (1) Gastroesophageal reflux disease (2) Hyperlipidemia (3) History of CVA (cerebrovascular accident) (4) GERD (gastroesophageal reflux disease) . "Provider Documentation" section prepared by Sidra Peter . Door Serviceman Recommendations Door Serviceman Recommendations: Aspirin 81 mg by mouth daily Stroke Core Measures Reason no t-PA for Stroke: Treatment not indicated Reason no antithrom by day 2: Treatment not indicated Reason no antithrom at D/C: Treatment not indicated Reason no statin at D/C: Treatment provided - N/A Reason no anticoag w/a fib: Treatment not indicated VTE Core Measure Inpt VTE Proph given/why not?: Enoxaparin (Lovenox)SQ
[2016-12-30] MEDS ORDERED: ASPEC81 PO (10:59)
[2016-12-30 11:51] VITALS: BP 125/78; PULSE 65; TEMP 36.4; O2SAT 95
--- NOTE | 2016-12-30 12:39 | Discharge Summary ---
Discharge Summary Date of Service Dec 30, 2016. Discharge Summary Admission Date: Dec 29, 2016 at 16:30 Discharge Date: Dec 30, 2016 Discharge Disposition: Home Principal Diagnosis: TIA Problems/Secondary Diagnoses: HTN DM type 2 DLP Immunizations: Have You Had Influenza Vaccine: No Influenza Vaccine Date: Jun 16, 2013 History of Tetanus Vaccine?: Unknown History of Pneumococcal: No History of Hepatitis B Vaccine: No Procedures: none Consultations: Neurology Medication Reconciliation New Medications: Aspirin (Aspirin EC Low Dose) 81 Mg Ectab 81 MG PO QAM for 30 Days, #30 Continued Medications: Atorvastatin (Lipitor) 10 Mg Tab 10 MG PO QAM, TAB Clopidogrel (Plavix) 75 Mg Tab 75 MG PO QAM, TAB Gemfibrozil (Gemfibrozil) 600 Mg Tab 1 TAB PO BID, #60 Hydrochlorothiazide (Hctz) 25 Mg Tab 25 MG PO QAM, TAB Lisinopril (Zestril) 40 Mg Tab 40 MG PO QAM, TAB Metformin Hcl (Glucophage) 1,000 Mg Tab 500 MG PO BID, #60 Started within the past month Metoprolol Tartrate (Lopressor) (Lopressor) 100 Mg Tab 100 MG PO QAM, TAB Omeprazole (Prilosec) 20 Mg Capcr 20 MG PO QAM, CAP Tamsulosin Hcl (Flomax) 0.4 Mg Cap 2 CAP PO QAM, CAP Referrals At Discharge Follow up Referrals: Family Practice Referral - Within 1 Week with Sebastián Bond M.D. Neurologist Referral - Within a Month with Manda Harris M.D. Discharge Exam Medications (Trade) Dose Ordered Sig/Nikko Route Start Time Stop Time Status Last Admin Dose Admin Sodium Chloride (Nss 1000ml) 1,000 ml @ 50 mls/hr Q20H IV 12/29/16 15:20 12/29/16 18:57 DC 12/29/16 15:51 50 MLS/HR Aspirin (Aspirin Supp) 300 mg ONE STAT WI 12/29/16 16:02 12/29/16 16:03 DC 12/29/16 16:12 300 MG Enoxaparin Sodium (Lovenox Inj) 40 mg Q24H SC 12/29/16 18:00 01/28/17 17:59 12/29/16 20:31 40 MG Atorvastatin Calcium (Lipitor Tab) 10 mg QAM PO 12/30/16 09:00 01/29/17 08:59 12/30/16 08:25 10 MG Clopidogrel Bisulfate (plAVix TAB) 75 mg QAM PO 12/30/16 09:00 01/29/17 08:59 12/30/16 08:26 75 MG Metoprolol Tartrate (Lopressor Tab) 100 mg QAM PO 12/30/16 09:00 01/29/17 08:59 12/30/16 08:25 100 MG Tamsulosin HCl (Flomax Cap) 0.8 mg QAM PO 12/30/16 09:00 01/29/17 08:59 12/30/16 08:25 0.8 MG Pantoprazole Sodium (Protonix Tab) 40 mg QAM PO 12/30/16 09:00 01/29/17 08:59 12/30/16 08:26 40 MG Insulin Aspart SLIDING SCALE G... ACHS SC 12/29/16 21:00 01/28/17 20:59 12/30/16 07:00 4 UNITS Sodium Chloride 1,000 ml @ 80 mls/hr [id number] IV 12/29/16 17:00 01/28/17 16:59 12/30/16 05:49 80 MLS/HR Magnesium Sulfate/ Prmx (Magnesium Sulfate/Premixed D5W) 100 ml @ 100 mls/hr NOW STAT IV 12/30/16 09:12 12/30/16 10:11 DC 12/30/16 09:38 100 MLS/HR Aspirin (Ecotrin Tab) 81 mg QAM PO 12/31/16 09:00 01/30/17 08:59 12/30/16 11:48 81 MG Review of Systems: Constitutional: No chills, No fever Eyes: No diplopia, No worsening of vision ENT: No hearing loss, No sore throat, No trouble swallowing Respiratory: No cough, No dyspnea at rest, No dyspnea on exertion, No shortness of breath, No sputum, No wheezing Cardiovascular: No chest pain, No orthopnea Abdomen: No diarrhea, No nausea, No pain, No vomiting Genitourinary - Male: No hematuria, No urinary frequency, No urinary urgency Neurologic: No balance problems, No memory loss, No numbness/tingling, No paralysis, No problem reported, No vertigo, No weakness Psychiatric: No anxiety, No depression symptoms Endocrine: No fatigue Integumentary: No rash Physical Exam: General Appearance: WD/WN, no apparent distress Eyes: normal inspection, PERRL, EOMI Neck: supple, no adenopathy, thyroid normal Respiratory/Chest: chest non-tender, lungs clear, normal breath sounds, no respiratory distress, no accessory muscle use Cardiovascular: regular rate, rhythm, no edema, no gallop, no JVD, no murmur , normal peripheral pulses Abdomen / GI: normal bowel sounds, non tender, soft, no organomegaly, no pulsatile mass Extremities: normal inspection, no calf tenderness, no pedal edema Neurologic/Psychiatric: intensivist II-XII nml as tested, no motor/sensory deficits , alert, normal mood/affect, normal reflexes, oriented x 3 Skin: normal color, warm/dry, no rash Lymphatic: no adenopathy Hospital Course 71 yo male with slurred speech and blurred vision, symptoms quickly resolving in the ED, CT head with evidence of prior lacunar infarcts, no acute stroke in CT scan as well MRI of the brain with IV contrast. Pt doppler carotid US is unremarkable for stenosis.Pt was seen by neurology Dr Harris, and full and detail comprehensive neurology history and exam was done in my presence. Pt was told that he suffered with TIA, and was advised to have a strict control of risk factor, such as diabetes, Hypertension and dyslipidemia.Pt was started on dual therapy both aspirin and Plavix. Pt was advised to follow up with the PCP and neurology as out patient.Pt was at the bedside at discharge.Pt was elevated by PT/OT while in patient. - DM type II: new diagnosis, HbA1c 12.3, clearly not at goal with stroke patient continue Metformin once he can take pills Novolog SS, diabetic diet patient literally just started diet changes and trying to lose weight however, with second stroke and elevated A1c, would have low threshold to start a basal insulin, also at time of discharge patient was not to take metformin for 72 hours. - HTN: normal BP, continue metoprolol, hold Lisinopril and HCTZ to allow for some permissive HTN in acute stroke - Hyperlipidemia: Lipitor as prescribed, follow as per PCP. Pt left the hospital in stable condition. Total Time Spent: Greater than 30 minutes This includes examination of the patient, discharge planning, medication reconciliation, and communication with other providers. Discharge Instructions Discharge Discharge Diagnosis / Problem: TIA ( warning stroke) Discharge Goals Goal(s): Improve function, Improve disease control, Improve nutritional status , Learn about illness, Therapeutic intervention Activity Recommendations Activity Limitations: per Instructions/Follow-up section Lifting Limitations: none Exercise/Sports Limitations: gradually increase as tolerated May Resume Sexual Activity: when tolerated Shower/Bathe: no limitations Follow up with PCP on sunday. Please schedule appointment with Dr Harris (Neurology). Metformin should be held for 72 hour because of contrast given for MRI Brain. . Instructions / Follow-Up Instructions / Follow-Up Risk Factors for Stroke: You can reduce your chances of stroke by working with your medical provider to adopt a healthy lifestyle. Some specific ways to lower your chance of stroke are: * If you are a smoker, now is the time to stop smoking cigarettes * If you are diabetic, improve the control of your blood sugars * Avoid excessive amounts of alcohol * Control high blood pressure * Lose weight if you are overweight * Be sure to lead an active lifestyle * Eat a healthy diet low in salt, cholesterol and fat You should know about other risk factors for stroke that you are unable to control. These include: * Age 55 years or older * Male gender * Certain racial groups: , or / * Family History of Stroke, Mini stroke or Heart Attack * Sickle Cell Disease Follow Up: It is important for you to keep your follow up appointments with your medical provider. Current Hospital Diet Patient's current hospital diet: AHA Diet (Heart Healthy), Diabetes Type 2 Diet Discharge Diet Recommended Diet: AHA Diet (Heart Healthy), Diabetes Type 2 Diet Fluid Restriction: None Please refer to the electronic Patient Visit Report (Discharge Instructions) for additional information. Additional Copies To Manda Harris M.D.; Sebastián Bond M.D.
--- NOTE | 2016-12-30 17:46 | Pharmacy Progress Note ---
Pharmacist Stroke Counseling Date of Service Dec 30, 2016. Scope Pharmacy has been consulted to provide medication discharge counseling for this patient admitted with ischemic stroke/hemorrhagic stroke/ transient ischemic attack as per the Pharmacist Discharge Counseling for Stroke Patients Protocol. Medications on Discharge New Medications: Aspirin (Aspirin EC Low Dose) 81 Mg Ectab 81 MG PO QAM for 30 Days, #30 Continued Medications: Atorvastatin (Lipitor) 10 Mg Tab 10 MG PO QAM, TAB Clopidogrel (Plavix) 75 Mg Tab 75 MG PO QAM, TAB Gemfibrozil (Gemfibrozil) 600 Mg Tab 1 TAB PO BID, #60 Hydrochlorothiazide (Hctz) 25 Mg Tab 25 MG PO QAM, TAB Lisinopril (Zestril) 40 Mg Tab 40 MG PO QAM, TAB Metformin Hcl (Glucophage) 1,000 Mg Tab 500 MG PO BID, #60 Started within the past month Metoprolol Tartrate (Lopressor) (Lopressor) 100 Mg Tab 100 MG PO QAM, TAB Omeprazole (Prilosec) 20 Mg Capcr 20 MG PO QAM, CAP Tamsulosin Hcl (Flomax) 0.4 Mg Cap 2 CAP PO QAM, CAP Action The above medications, specifically ones for stroke treatment/prophylaxis, have been reviewed in detail with the patient and/or patient representative phlebotomy services(s) prior to discharge. This includes indication, common adverse reactions, drug interactions, and medication administration. Medication counseling has been employed using the teach-back method to ensure understanding. Outcome The patient and/or patient representative phlebotomy services(s) have demonstrated understanding of the medications. Please note, they are aware that the pharmacist will call them within 72 hours post-discharge to confirm that the appropriate medications are being taken and answer any further medication related questions the patient might have at that time. Contact information Individual to be contacted: Miles Relationship to patient (if applicable): N/A Phone number: [phone] Best time to call: Sunday AM or early afternoon (has f/u appt with Dr Bond [phone] Additional comments: N/A Thank you for allowing pharmacy to be involved in the care of this patient. Please call [phone] or [phone] with any additional questions
[2016-12-31] MEDS ORDERED: ASPIRIN 81 MG ECTAB PO SCH (09:00)
--- NOTE | 2017-01-02 14:40 | Pharmacy Progress Note ---
Pharmacist Post D/C Phone Note Date of phone call: Jan 02, 2017. Individual with whom pharmacist spoke to: The following questions were reviewed during the phone call with responses listed below each: Can you tell me the medications that you are currently taking as well as when and how you take each medication? Medications Dose Route/Sig Max Daily Dose Days Date Category Dose Instructions Aspirin EC Low Dose (Aspirin) 81 Mg Ectab 81 Mg PO QAM 30 12/30/16 Rx Gemfibrozil 600 Mg Tab 1 Tab PO BID 12/29/16 Reported Glucophage (Metformin Hcl) 1,000 Mg Tab 500 Mg PO BID 12/29/16 Reported Started within the past month Flomax (Tamsulosin Hcl) 0.4 Mg Cap 2 Cap PO QAM 10/09/16 Reported Zestril (Lisinopril) 40 Mg Tab 40 Mg PO QAM 10/09/16 Reported Hctz (Hydrochlorothiazide) 25 Mg Tab 25 Mg PO QAM 10/15/13 Reported Lipitor (Atorvastatin Calcium) 10 Mg Tab 10 Mg PO QAM 10/15/13 Reported Plavix (Clopidogrel Bisulfate) 75 Mg Tab 75 Mg PO QAM 10/15/13 Reported Prilosec (Omeprazole) 20 Mg Capcr 20 Mg PO QAM 06/14/13 Reported Lopressor (Metoprolol Tartrate) 100 Mg Tab 100 Mg PO QAM 06/14/13 Reported When have you missed any doses of your medications? - denies missed doses What side effects are you having from your medications? - denies side effects - specifically questioned regarding s/s of bleeding since patient is on dual antiplatelet therapy - denied What questions do you have about your medications? - denied questions What problems are you having obtaining your medications? - denies problems, purchased OTC ASA When is your next appointment with your primary care doctor? - Patient had follow up with PCP, Dr. Bond on 01/01/17. Patient's reported that Dr. Bond was pleased with lifestyle changes he has made in an effort to control T2DM. I reminded her that metformin should be taken with food to limit GI side effects. Additional comments: - Upon review of discharge medication list, it was found that the patient was continued on omeprazole 20 mg po qam. His reports he has taken this medication for years for GERD. I educated her that omeprazole reduces the effect of Plavix and recommended that she call Dr. Bond's office to discuss changing to Protonix. As per the Pharmacist Discharge Counseling for Stroke Patients Protocol, this phone call has been completed within 72 hours of discharge. Thank you for allowing us to be involved in the care of this patient.
== END 2016-12-30 12:20 | disposition home or self-care (01) | DRG 69 ==
LOC: ENRESERVTM → ENRESERVDT → C.EDB 15:07 → C.2T 16:30
PROVIDERS: ADMIT Internal Medicine; ATTEND Internal Medicine
DX: G45.9 Transient cerebral ischemic attack, unspecified (principal); R47.1 Dysarthria and anarthria; E78.5 Hyperlipidemia, unspecified; Z86.73 Personal history of transient ischemic attack (TIA), and cerebral infarction without residual deficits; E11.9 Type 2 diabetes mellitus without complications; I10 Essential (primary) hypertension; K21.9 Gastro-esophageal reflux disease without esophagitis; N40.0 Benign prostatic hyperplasia without lower urinary tract symptoms; Z87.891 Personal history of nicotine dependence; Z79.82 Long term (current) use of aspirin; Z79.899 Other long term (current) drug therapy

== ENCOUNTER → 2017-07-31 | Outpatient (CLI) | payer OTHER ==
[~2017-07-31] MED LIST changes: +LPD600 PO; +METF-384 PO
[2017-07-31 12:53] LABS: HEMATOCRIT 38.6 % (42-52); MEAN CELL VOLUME 93.5 fL (80-100); MEAN CORPUSCULAR HEMOGLOBIN 31.5 pg (25-34); MEAN CORPUSCULAR HGB CONC 33.7 g/dl (32-36); MEAN PLATELET VOLUME 9.7 fL (7.4-10.4); PLATELET COUNT 198 K/uL (130-400); RED BLOOD COUNT 4.13 M/uL (4.7-6.1); WHITE BLOOD COUNT 5.06 K/uL (4.8-10.8)
[2017-07-31 13:20] LABS: ALT/SGPT 23 U/L (12-78); BLOOD UREA NITROGEN 24 mg/dl (7-18); BUN/CREATININE RATIO 14.6 (10-20); CARBON DIOXIDE 30 mmol/L (21-32); CHLORIDE 100 mmol/L (98-107); CREATININE 1.66 mg/dl (0.60-1.40); GLUCOSE 131 mg/dl (70-99); SODIUM 137 mmol/L (136-145)
[2017-07-31 13:22] LABS: ESTIMATED AVERAGE GLUCOSE 111 mg/dl; HA1C FLAG Normal (Normal)
[2017-07-31 13:30] LABS: ALB/GLOB RATIO 1.1 (0.9-2); ALKALINE PHOSPHATASE 58 U/L (45-117); AST/SGOT 14 U/L (15-37); CHOLESTEROL 143 mg/dl (0-200); CHOLESTEROL/HDL RATIO 3.2; HDL CHOLESTEROL 45 mg/dl; LDL CHOLESTEROL CALCULATED 59 mg/dl; PROSTATE SPECIFIC ANTIGEN 0.655 ng/ml (0.000-4.000); TRIGLYCERIDES 197 mg/dl (0-150); VERY LOW DENSITY LIPOPROT CALC 39 mg/dl
== END | disposition home or self-care (01) ==
LOC: C.LABBFT 09:39
PROVIDERS: ATTEND Internal Medicine
DX: E11.9 Type 2 diabetes mellitus without complications (principal); Z12.5 Encounter for screening for malignant neoplasm of prostate

== ENCOUNTER 2018-01-09 17:24 | Inpatient (IN) | payer OTHER ==
[~2018-01-09] VITALS: Ht 172.7 cm; Wt 102.7 kg
--- NOTE | 2018-01-09 17:36 | EMERGENCY ROOM VISIT NOTE ---
History Report prepared by Lia: Howard De Paz Under the Supervision of: Dr. Juanito Borges M.D. First contact with patient: 17:25 Chief Complaint: NEURO SYMPTOMS Stated Complaint: CONFUSION, STROKE SX History of Present Illness The patient is a 72 year old male who presents to the Emergency Room via ALS with concerns of possible stroke-like symptoms that began 1 hour ago. Per EMS, the patient's phoned for them at 1630 because she thought the patient was "slurring his speech" and had an unsteady gait. Upon arrival to the ED the patient does believe his speech is slurred as well, which has persisted for the past hour. He denies any other headaches or focal weakness. The patient does have a history TIAs and is on Plavix. His last episode was a year or two ago. He denies any recent cold symptoms such as cough, congestion, chest pain, or shortness of breath. Source of History: patient Onset: 1 hour ago Position: head Quality: other (strokey sx, slurring speech) Timing: other (Persistant) Associated Symptoms: No cough, No weakness Review of Systems See HPI for pertinent positives & negatives. A total of 10 systems reviewed and were otherwise negative. Past Medical & Surgical Medical Problems: (1) Coronary artery disease (2) Gastroesophageal reflux disease (3) GERD (gastroesophageal reflux disease) (4) History of CVA (cerebrovascular accident) (5) Hyperlipidemia (6) Ischemic stroke (7) TIA (transient ischemic attack) Family History Unknown family medical history Social History Smoking Status: Never Smoker Alcohol Use: none Drug Use: none Marital Status: Housing Status: lives with family Occupation Status: employed Current/Historical Medications Scheduled Atorvastatin (Lipitor), 10 MG PO QAM Clopidogrel (Plavix), 75 MG PO QAM Hydrochlorothiazide (Hctz), 25 MG PO QAM Lisinopril (Zestril), 10 MG PO QAM Metoprolol Tartrate (Lopressor) (Lopressor), 100 MG PO QAM Omeprazole (Prilosec), 20 MG PO QAM Tamsulosin Hcl (Flomax), 1 CAP PO QAM Allergies Coded Allergies: No Known Allergies (Verified , 01/09/18) Physical Exam Vital Signs Date Time Temp Pulse Resp B/P (MAP) Pulse Ox O2 Delivery O2 Flow Rate FiO2 01/09/18 19:01 76 18 156/89 97 Room Air 01/09/18 18:15 83 18 145/86 99 Room Air 01/09/18 17:51 77 18 117/68 96 Room Air 01/09/18 17:34 77 01/09/18 17:25 36.9 80 17 97/71 96 Room Air 01/09/18 17:25 96 Room Air Physical Exam GENERAL: Patient is in no acute distress. HEENT: No acute trauma, normocephalic atraumatic, mucous membranes moist, no nasal congestion, no scleral icterus. NECK: No stridor, no adenopathy, no meningismus, trachea is midline. LUNGS: Clear to auscultation bilaterally, no wheeze, no rhonchi, breath sounds equal. HEART: 3/6 systolic murmur appreciated, regular rate and rhythm. ABDOMEN: Soft, nontender, bowel sounds positive, no hernias, no peritonitis. EXTREMITIES: No cyanosis or edema, full range of motion of all the joints without pain or difficulty, no signs for acute trauma. NEUROLOGIC: Awake and alert, Very subtle right facial droop noted. Slight speech slur. There is mild right leg drift. No upper extremity drift. No upper extremity cerebellar dysfunction. SKIN: No rash, no jaundice, no diaphoresis. Medical Decision & Procedures ER Provider Diagnostic Interpretation: Radiology results as stated below per my review and radiologist interpretation: CHEST ONE VIEW PORTABLE HISTORY: 72 years-old Male Stroke acute strokelike symptoms with confusion COMPARISON: Chest radiograph 6 10/15/2013 TECHNIQUE: Portable AP view of the chest FINDINGS: Cardiomediastinal and hilar silhouettes are within normal limits. Atherosclerosis of the aorta. There is no pneumothorax, pleural effusion, overt pulmonary edema or lobar airspace consolidation. There is minimal linear subsegmental bibasilar atelectasis. Degenerative changes of the shoulders and spine. The bones appear grossly intact. IMPRESSION: No acute process. The above report was generated using voice recognition software. It may contain grammatical, syntax or spelling errors. Electronically signed by: Colten Barrera M.D. 01/09/2018 6:06 PM Dictated Date/Time: 01/09/2018 6:[address] SCAN OF THE BRAIN WITHOUT IV CONTRAST CLINICAL HISTORY: Strokelike symptoms. COMPARISON STUDY: CT of the brain dated 12/29/2016. TECHNIQUE: Unenhanced axial CT scan of the brain is performed from the vertex to the skull base. A dose lowering technique was utilized adhering to the principles of ALARA. CT DOSE: 601.98 mGy.cm FINDINGS: Brain parenchyma: There are age-related involutional changes noting mild to moderate subcortical and periventricular microangiopathic change. Chronic lacunar infarct identified in the left caudate head, both thalami, and the anterior limb of the right internal capsule. There is no hemorrhage, mass effect, or evidence of acute territorial ischemia by CT criteria. Scott-white matter is preserved. No extra-axial fluid collection is seen. Ventricles, sulci, cisterns: Prominent secondary to involutional change. Intracranial vasculature: There is atherosclerotic calcification of the cavernous carotid and vertebral arteries. Calvarium: Unremarkable. Sinuses and mastoids: The visualized paranasal sinuses are clear. The mastoid air cells are well pneumatized. Orbits: The bony orbits are grossly intact. IMPRESSION: There is no hemorrhage, mass effect, or evidence of acute territorial ischemia by CT criteria. Electronically signed by: Juanito Moore M.D. 01/09/2018 5:47 PM Dictated Date/Time: 01/09/2018 5:40 PM Laboratory Results 01/09/18 17:05 Red Blood Count 3.61, Mean Corpuscular Volume 92.8, Mean Corpuscular Hemoglobin 32.1, Mean Corpuscular Hemoglobin Concent 34.6, Mean Platelet Volume 9.2, Neutrophils (%) (Auto) 53.9, Lymphocytes (%) (Auto) 36.0, Monocytes (%) (Auto) 8.6, Eosinophils (%) (Auto) 0.8, Basophils (%) (Auto) 0.5, Neutrophils # (Auto) 3.25, Lymphocytes # (Auto) 2.17, Monocytes # (Auto) 0.52, Eosinophils # (Auto) 0.05, Basophils # (Auto) 0.03 01/09/18 17:05 Test 01/09/18 17:05 01/09/18 17:31 White Blood Count 6.03 K/uL (4.8-10.8) Red Blood Count 3.61 M/uL (4.7-6.1) Hemoglobin 11.6 g/dL (14.0-18.0) Hematocrit 33.5 % (42-52) Mean Corpuscular Volume 92.8 fL (80-100) Mean Corpuscular Hemoglobin 32.1 pg (25-34) Mean Corpuscular Hemoglobin Concent 34.6 g/dl (32-36) Platelet Count 213 K/uL (130-400) Mean Platelet Volume 9.2 fL (7.4-10.4) Neutrophils (%) (Auto) 53.9 % Lymphocytes (%) (Auto) 36.0 % Monocytes (%) (Auto) 8.6 % Eosinophils (%) (Auto) 0.8 % Basophils (%) (Auto) 0.5 % Neutrophils # (Auto) 3.25 K/uL (1.4-6.5) Lymphocytes # (Auto) 2.17 K/uL (1.2-3.4) Monocytes # (Auto) 0.52 K/uL (0.11-0.59) Eosinophils # (Auto) 0.05 K/uL (0-0.5) Basophils # (Auto) 0.03 K/uL (0-0.2) RDW Standard Deviation 44.8 fL (36.4-46.3) RDW Coefficient of Variation 13.2 % (11.5-14.5) Immature Granulocyte % (Auto) 0.2 % Immature Granulocyte # (Auto) 0.01 K/uL (0.00-0.02) Prothrombin Time 10.6 SECONDS (9.0-12.0) Prothromb Time International Ratio 1.0 (0.9-1.1) Activated Partial Thromboplast Time 28.8 SECONDS (21.0-31.0) Partial Thromboplastin Ratio 1.1 Anion Gap 7.0 mmol/L (3-11) Est Creatinine Clear Calc Drug Dose 44.2 ml/min Estimated GFR () 42.4 Estimated GFR (Non- 36.6 BUN/Creatinine Ratio 20.5 (10-20) Calcium Level 8.7 mg/dl (8.5-10.1) Magnesium Level 1.6 mg/dl (1.8-2.4) Total Bilirubin 0.3 mg/dl (0.2-1) Direct Bilirubin < 0.1 mg/dl (0-0.2) Aspartate Amino Transf (AST/SGOT) 11 U/L (15-37) Alanine Aminotransferase (ALT/SGPT) 18 U/L (12-78) Alkaline Phosphatase 50 U/L (45-117) Troponin I < 0.015 ng/ml (0-0.045) Total Protein 7.0 gm/dl (6.4-8.2) Albumin 3.6 gm/dl (3.4-5.0) Thyroid Stimulating Hormone (TSH) 1.170 uIu/ml (0.300-4.500) Laboratory results reviewed by me. Medications Administered Medications (Trade) Dose Ordered Sig/Nikko Route Start Time Stop Time Status Last Admin Dose Admin Sodium Chloride 500 ml @ 999 mls/hr Q31M STAT IV 01/09/18 18:50 01/09/18 19:20 DC 01/09/18 18:57 999 MLS/HR Magnesium Sulfate (Magnesium Sulfate 1gm / D5W) 2 gm NOW STAT IV 01/09/18 18:50 01/09/18 18:52 DC 01/09/18 18:56 2 GM ECG Per My Interpretation Indication: other (Stroke-like Sx) Rate (beats per minute): 78 Rhythm: normal sinus Findings: no ectopy, other (No STACEY, No PVCs) ED Course 1725: The patient was evaluated in room B11B. A complete history and physical exam was performed. 175: I discussed the case with Dr. Ordonez - Neurology. He will evaluate the patient via TeleStroke. He states no TPA at this time, based off of initial story. 1848: I discussed the case with Dr. Ordonez again. He states no TPA. Suggests IV fluids and an MRI with inpatient stay. I will consult with [facility] [place]. 1849: Ordered Sodium Chloride 500 mL @ 999 mL/hr IV. 1917: I discussed the case with Dr. Fernandez - [facility] [place]. He will evaluate the patient for further treatment. Medical Decision Differential Diagnosis includes; CVA, infection, intracranial bleeding, electrolyte abnormality, anemia, and dehydration. There is no leukocytosis or concerning anemia. Renal panel testing shows a slight elevation to the creatinine consistent possibly with dehydration. Magnesium is low at 1.6. No hepatitis. No evidence for thyroid dysfunction. Urinalysis and urine tox are pending. There was no coagulopathy. EKG shows a normal sinus rhythm, no acute ischemia. Cardiac enzyme testing 1 is not consistent with acute cardiac injury. Chest x-ray does not show pneumonia or mediastinal widening. Brain CT shows no acute bleed or mass-effect. The patient presents with strokelike symptoms. Patient was aggressively managed. A stroke alert was called. Patient was seen by the tele-stroke neurologist. TPA was not recommended. The cause for the presentation was not completely clear and thought possibly secondary to some dehydration rather than CVA/TIA. Patient received IV saline, he was given IV magnesium. I talked with the patient and his family, case management has been involved. I did consult the on -call hospitalist. Medication Reconcilliation Current Medication List: was personally reviewed by me Blood Pressure Screening Patient's blood pressure: Elevated blood pressure Referred to inpatient staff. Consults Time Called: 1749 Consulting Physician: Dr. Ordonez - Neurology Returned Call: [phone]: I discussed the case with Dr. Ordonez - Neurology. He will evaluate the patient via TeleStroke. He states no TPA at this time, based off of initial story. 1849: I discussed the case with Dr. Ordonez again. He states no TPA. Suggests IV fluids and an MRI with inpatient stay. Additional Consults: Time Called: 1917 Consulted Physician: Dr. Rebecca PACHECO Hospitalist Returned Call: 1917 Additional Comments: I discussed the case with Dr. Rebecca PACHECO Hospitalist. He will evaluate the patient for further treatment. Impression Primary Impression: Stroke-like symptom Additional Impressions: Hypomagnesemia Dehydration Scribe Attestation The scribe's documentation has been prepared under my direction and personally reviewed by me in its entirety. I confirm that the note above accurately reflects all work, treatment, procedures, and medical decision making performed by me. Departure Information Dispostion Being Evaluated By Hospitalist Referrals Sebastián Bond M.D. (PCP) Patient Instructions My [facility] Stroke History Time Last Known Well 1 hour [address] Stroke t-PA Criteria Reviewed Does NOT meet criteria for t-PA Reason t-PA Not Given Treatment not indicated Problem Qualifiers
[2018-01-09] MEDS ORDERED: LISI-461 PO (17:47)
--- NOTE | 2018-01-09 17:48 | DIAGNOSTIC IMAGING REPORT ---
CT SCAN OF THE BRAIN WITHOUT IV CONTRAST CLINICAL HISTORY: Strokelike symptoms. COMPARISON STUDY: CT of the brain dated 12/29/2016. TECHNIQUE: Unenhanced axial CT scan of the brain is performed from the vertex to the skull base. A dose lowering technique was utilized adhering to the principles of ALARA. CT DOSE: 601.98 mGy.cm FINDINGS: Brain parenchyma: There are age-related involutional changes noting mild to moderate subcortical and periventricular microangiopathic change. Chronic lacunar infarct identified in the left caudate head, both thalami, and the anterior limb of the right internal capsule. There is no hemorrhage, mass effect, or evidence of acute territorial ischemia by CT criteria. Scott-white matter is preserved. No extra-axial fluid collection is seen. Ventricles, sulci, cisterns: Prominent secondary to involutional change. Intracranial vasculature: There is atherosclerotic calcification of the cavernous carotid and vertebral arteries. Calvarium: Unremarkable. Sinuses and mastoids: The visualized paranasal sinuses are clear. The mastoid air cells are well pneumatized. Orbits: The bony orbits are grossly intact. IMPRESSION: There is no hemorrhage, mass effect, or evidence of acute territorial ischemia by CT criteria. Electronically signed by: uJanito Moore M.D. 01/09/2018 5:47 PM Dictated Date/Time: 01/09/2018 5:40 PM
[2018-01-09 17:55] LABS: BASO % 0.5 %; BASO ABS # 0.03 K/uL (0-0.2); EOS % 0.8 %; EOS ABS # 0.05 K/uL (0-0.5); HEMATOCRIT 33.5 % (42-52); HEMOGLOBIN 11.6 g/dL (14.0-18.0); IG# 0.01 K/uL (0.00-0.02); LYMPH ABS # 2.17 K/uL (1.2-3.4); MEAN CELL VOLUME 92.8 fL (80-100); MEAN CORPUSCULAR HEMOGLOBIN 32.1 pg (25-34); MEAN CORPUSCULAR HGB CONC 34.6 g/dl (32-36); MEAN PLATELET VOLUME 9.2 fL (7.4-10.4); MONO % 8.6 %; MONO ABS # 0.52 K/uL (0.11-0.59); NEUT % 53.9 %; NEUT ABS # 3.25 K/uL (1.4-6.5); PLATELET COUNT 213 K/uL (130-400); RED CELL DISTRIBUTION WIDTH CV 13.2 % (11.5-14.5); RED CELL DISTRIBUTION WIDTH SD 44.8 fL (36.4-46.3); WHITE BLOOD COUNT 6.03 K/uL (4.8-10.8)
[2018-01-09 18:07] LABS: PTT PATIENT 28.8 SECONDS (21.0-31.0)
--- NOTE | 2018-01-09 18:07 | DIAGNOSTIC IMAGING REPORT ---
CHEST ONE VIEW PORTABLE HISTORY: 72 years-old Male Stroke acute strokelike symptoms with confusion COMPARISON: Chest radiograph 6 10/15/2013 TECHNIQUE: Portable AP view of the chest FINDINGS: Cardiomediastinal and hilar silhouettes are within normal limits. Atherosclerosis of the aorta. There is no pneumothorax, pleural effusion, overt pulmonary edema or lobar airspace consolidation. There is minimal linear subsegmental bibasilar atelectasis. Degenerative changes of the shoulders and spine. The bones appear grossly intact. IMPRESSION: No acute process. The above report was generated using voice recognition software. It may contain grammatical, syntax or spelling errors. Electronically signed by: Colten Barrera M.D. 01/09/2018 6:06 PM Dictated Date/Time: 01/09/2018 6:05 PM
[2018-01-09 18:14] LABS: ALBUMIN 3.6 gm/dl (3.4-5.0); ALT/SGPT 18 U/L (12-78); AST/SGOT 11 U/L (15-37); BLOOD UREA NITROGEN 37 mg/dl (7-18); CALCIUM 8.7 mg/dl (8.5-10.1); CARBON DIOXIDE 26 mmol/L (21-32); CREATININE 1.83 mg/dl (0.60-1.40); GLUCOSE 96 mg/dl (70-99); POTASSIUM 4.1 mmol/L (3.5-5.1); SODIUM 135 mmol/L (136-145)
[2018-01-09 18:25] LABS: ALKALINE PHOSPHATASE 50 U/L (45-117)
[2018-01-09] MEDS ORDERED: MAGNESIUM SULFATE 1GM / D5W 1 GM BAG IV STA (18:50)
[2018-01-09] MEDS ORDERED: SODIUM CHLORIDE 0.9% 500ML 500 ML IV STA (18:50)
--- NOTE | 2018-01-09 19:55 | History and Physical ---
History & Physical Date & Time of Service: January 09, 2018 at 19:55 Chief Complaint: Confusion, Stroke Sx Primary Care Physician: Sebastián Bond M.D. History of Present Illness Source: patient, hospital records 72 yo M with h/o HLD, HTN, DM II, GERD, CVA (2012), admitted 12/2016 for TIA, currently on Plavix, presenting with stroke-like symptoms. According to patient' s , around 4:30 pm today , patient exhibited slurred speech, after which she checked BSG was 233. She hydrated him, and speech didn't improve. Given stroke hx , decided to call 911. She also reports difficulty walking due to loss of balance. He denies any numbness weakness, or tingling loss of bladder or bowel continue. He denies chest pain, palpitation, abdominal pain. He was previously seen by Dr. Medina previously, but has not followed with her since. PCP is Dr. Bond. Pt arrived afebrile, mildly hypotensive 97/71, which later increased to 156/89. Labwork showed no leukocytosis, unremarkable h/h, elevated Cr 1.83 , (1.66 during 12/25 admission), prior to 1.1-1.4 Past Medical/Surgical History Medical Problems: (1) Acute febrile illness (2) Coronary artery disease (3) CVA (cerebral vascular accident) (4) Gastroesophageal reflux disease (5) GERD (gastroesophageal reflux disease) (6) History of CVA (cerebrovascular accident) (7) Hyperlipidemia (8) Influenza (9) Ischemic stroke (10) TIA (transient ischemic attack) (11) URI (upper respiratory infection) Family History Unknown family medical history Social History Smoking Status: Unknown if Ever Smoked Smokeless Tobacco Use: No Alcohol Use: none Drug Use: none Marital Status: Occupational Status: employed Immunizations History of Influenza Vaccine: No Influenza Vaccine Date: Jun 16, 2013 History of Tetanus Vaccine?: Unknown History of Pneumococcal: No History of Hepatitis B Vaccine: No Allergies Coded Allergies: No Known Allergies (Verified , 01/09/18) Home Medications Scheduled Aspirin (Aspirin Ec), 81 MG PO DAILY Atorvastatin (Lipitor), 1 TAB PO DAILY Clopidogrel (Plavix), 75 MG PO QAM Hydrochlorothiazide (Hctz), 25 MG PO QAM Lisinopril (Zestril), 10 MG PO QAM Metoprolol Tartrate (Lopressor) (Lopressor), 100 MG PO QAM Pantoprazole (Pantoprazole Sodium), 20 MG PO QAM Tamsulosin Hcl (Flomax), 1 CAP PO QAM Review of Systems Constitutional: No fever, No chills, No weakness Eyes: No worsening of vision, No diplopia Respiratory: No cough, No shortness of breath Cardiovascular: No chest pain, No edema, No palpitations Abdomen: No pain, No nausea, No vomiting, No diarrhea Genitourinary - Male: No dysuria, No urinary frequency, No urinary urgency Neurologic: + balance problems, No paralysis, No weakness, No numbness/tingling Endocrine: No fatigue, No excessive urination Hematologic / Lymphatic: No abnormal bleeding/bruising, No clotting problems Integumentary: No rash, No itch Physical Exam Vital Signs Date Time Temp Pulse Resp B/P (MAP) Pulse Ox O2 Delivery O2 Flow Rate FiO2 01/09/18 19:01 76 18 156/89 97 Room Air 01/09/18 18:15 83 18 145/86 99 Room Air 01/09/18 17:51 77 18 117/68 96 Room Air 01/09/18 17:34 77 01/09/18 17:25 36.9 80 17 97/71 96 Room Air 01/09/18 17:25 96 Room Air GENERAL: alert, well appearing, no distress, non-toxic EYE EXAM: normal conjunctiva, PERRL and EOM's grossly intact FACE: facial asymmetry( no-acute per family) OROPHARYNX: no exudate, no erythema, lips, buccal mucosa, and tongue normal and mucous membranes are moist NECK: supple,, no adenopathy, non-tender LUNGS: Clear to auscultation. Normal chest wall mechanics HEART: no murmurs, S1 normal and S2 normal ABDOMEN: abdomen soft, non-tender, normo-active bowel sounds, no masses, no rebound or guarding. BACK: Back is symmetrical on inspection and there is no deformity SKIN: no rashes and no bruising UPPER EXTREMITIES: upper extremities are grossly normal. LOWER EXTREMITIES: No pitting edema. NEURO EXAM: Normal sensorium, cranial nerves II-XII intact, normal speech, normal strength of arms, normal weakness of legs bilaterally Finger to nose intact. Gross sensation intact Diagnostics Laboratory Results Results Past 24 Hours Test 01/09/18 17:05 01/09/18 17:31 Range/Units White Blood Count 6.03 4.8-10.8 K/uL Red Blood Count 3.61 4.7-6.1 M/uL Hemoglobin 11.6 14.0-18.0 g/dL Hematocrit 33.5 42-52 % Mean Corpuscular Volume 92.8 80-100 fL Mean Corpuscular Hemoglobin 32.1 25-34 pg Mean Corpuscular Hemoglobin Concent 34.6 32-36 g/dl Platelet Count 213 130-400 K/uL Mean Platelet Volume 9.2 7.4-10.4 fL Neutrophils (%) (Auto) 53.9 % Lymphocytes (%) (Auto) 36.0 % Monocytes (%) (Auto) 8.6 % Eosinophils (%) (Auto) 0.8 % Basophils (%) (Auto) 0.5 % Neutrophils # (Auto) 3.25 1.4-6.5 K/uL Lymphocytes # (Auto) 2.17 1.2-3.4 K/uL Monocytes # (Auto) 0.52 0.11-0.59 K/uL Eosinophils # (Auto) 0.05 0-0.5 K/uL Basophils # (Auto) 0.03 0-0.2 K/uL RDW Standard Deviation 44.8 36.4-46.3 fL RDW Coefficient of Variation 13.2 11.5-14.5 % Immature Granulocyte % (Auto) 0.2 % Immature Granulocyte # (Auto) 0.01 0.00-0.02 K/uL Prothrombin Time 10.6 9.0-12.0 SECONDS Prothromb Time International Ratio 1.0 0.9-1.1 Activated Partial Thromboplast Time 28.8 21.0-31.0 SECONDS Partial Thromboplastin Ratio 1.1 Sodium Level 135 136-145 mmol/L Potassium Level 4.1 3.5-5.1 mmol/L Chloride Level 102 98-107 mmol/L Carbon Dioxide Level 26 21-32 mmol/L Anion Gap 7.0 3-11 mmol/L Blood Urea Nitrogen 37 7-18 mg/dl Creatinine 1.83 0.60-1.40 mg/dl Est Creatinine Clear Calc Drug Dose 44.2 ml/min Estimated GFR () 42.4 Estimated GFR (Non- 36.6 BUN/Creatinine Ratio 20.5 10-20 Random Glucose 96 70-99 mg/dl Calcium Level 8.7 8.5-10.1 mg/dl Magnesium Level 1.6 1.8-2.4 mg/dl Total Bilirubin 0.3 0.2-1 mg/dl Direct Bilirubin < 0.1 0-0.2 mg/dl Aspartate Amino Transf (AST/SGOT) 11 15-37 U/L Alanine Aminotransferase (ALT/SGPT) 18 12-78 U/L Alkaline Phosphatase 50 45-117 U/L Troponin I < 0.015 0-0.045 ng/ml Total Protein 7.0 6.4-8.2 gm/dl Albumin 3.6 3.4-5.0 gm/dl Thyroid Stimulating Hormone (TSH) 1.170 0.300-4.500 uIu/ml Diagnostic Radiology ] CT SCAN OF THE BRAIN WITHOUT IV CONTRAST CLINICAL HISTORY: Strokelike symptoms. COMPARISON STUDY: CT of the brain dated 12/29/2016. TECHNIQUE: Unenhanced axial CT scan of the brain is performed from the vertex to the skull base. A dose lowering technique was utilized adhering to the principles of ALARA. CT DOSE: 601.98 mGy.cm FINDINGS: Brain parenchyma: There are age-related involutional changes noting mild to moderate subcortical and periventricular microangiopathic change. Chronic lacunar infarct identified in the left caudate head, both thalami, and the anterior limb of the right internal capsule. There is no hemorrhage, mass effect, or evidence of acute territorial ischemia by CT criteria. Scott-white matter is preserved. No extra-axial fluid collection is seen. Ventricles, sulci, cisterns: Prominent secondary to involutional change. Intracranial vasculature: There is atherosclerotic calcification of the cavernous carotid and vertebral arteries. Calvarium: Unremarkable. Sinuses and mastoids: The visualized paranasal sinuses are clear. The mastoid air cells are well pneumatized. Orbits: The bony orbits are grossly intact. IMPRESSION: There is no hemorrhage, mass effect, or evidence of acute territorial ischemia by CT criteria. Electronically signed by: Juanito Moore M.D. 01/09/2018 5:47 PM Dictated Date/Time: 01/09/2018 5:40 PM ] CHEST ONE VIEW PORTABLE HISTORY: 72 years-old Male Stroke acute strokelike symptoms with confusion COMPARISON: Chest radiograph 6 10/15/2013 TECHNIQUE: Portable AP view of the chest FINDINGS: Cardiomediastinal and hilar silhouettes are within normal limits. Atherosclerosis of the aorta. There is no pneumothorax, pleural effusion, overt pulmonary edema or lobar airspace consolidation. There is minimal linear subsegmental bibasilar atelectasis. Degenerative changes of the shoulders and spine. The bones appear grossly intact. IMPRESSION: No acute process. The above report was generated using voice recognition software. It may contain grammatical, syntax or spelling errors. Electronically signed by: Colten Barrera M.D. 01/09/2018 6:06 PM Dictated Date/Time: 01/09/2018 6:05 PM ] MR ANGIOGRAM OF THE BRAIN CLINICAL HISTORY: Strokelike symptoms. COMPARISON STUDY: MRI of the brain performed concurrently on 01/09/2018. TECHNIQUE: 3-D [id number] MR angiography of the intracranial circulation is performed. 3-D tumble views are created and assessed. IV contrast was not administered for this examination. The examination is modestly degraded by motion artifact. FINDINGS: The internal carotid arteries are widely patent bilaterally, as are the anterior and middle cerebral arteries. The vertebrobasilar system and posterior cerebral arteries are widely patent. The vertebral arteries are codominant. There is no aneurysm, high-grade stenosis, or focal vessel cutoff seen throughout the intracranial circulation. The brain parenchyma is normal as visualized. IMPRESSION: Unremarkable MR angiogram of the brain. Electronically signed by: Juanito Moore M.D. 01/09/2018 10:13 PM ] ULTRASOUND OF THE CAROTID ARTERIES CLINICAL HISTORY: Strokelike symptoms. COMPARISON STUDY: Carotid artery ultrasound dated 12/29/2016. TECHNIQUE: Real-time, grayscale, and color Doppler sonography of the carotid arteries is performed. Images are reviewed in the transverse and longitudinal planes. FINDINGS: Blood pressure in the right arm measures 113/64 and blood pressure in the left arm measures 108/60. The carotid arteries are patent bilaterally and demonstrate antegrade flow. There is mild atherosclerotic plaque seen in the carotid bulbs bilaterally. Normal doppler arterial waveforms are seen throughout. Velocity measurements are listed below. Common carotid peak systolic velocity (cm/sec): RIGHT: 114 LEFT: 124 ICA proximal peak systolic velocity (cm/sec): RIGHT: 45 LEFT: 99 ICA mid peak systolic velocity (cm/sec): RIGHT: 69 LEFT: 84 ICA distal peak systolic velocity (cm/sec): RIGHT: 63 LEFT: 94 ICA/CC peak systolic ratio: RIGHT: 0.6 LEFT: 0.8 Antegrade flow was shown in the vertebral arteries. The external carotid arteries are patent. IMPRESSION: 1. There is no sonographic evidence of hemodynamically significant stenosis in the right or left carotid arterial system. 2. Antegrade flow is shown in the vertebral arteries. ] MRI OF THE BRAIN WITHOUT IV CONTRAST CLINICAL HISTORY: Strokelike symptoms. COMPARISON STUDY: CT of the brain dated 01/09/2018. MRI of the brain dated 12/29/2016. TECHNIQUE: MRI of the brain was performed utilizing various T1 and T2-weighted sequences in the axial, sagittal, and coronal planes. IV contrast was not administered for this examination. FINDINGS: Brain parenchyma: There are age-related involutional changes noting moderate subcortical and periventricular microangiopathic disease. Chronic lacunar infarcts are identified in the right internal capsule, the left thalamus, and the left caudate head. There is no hemorrhage or mass effect. There is no restricted diffusion to suggest acute ischemia. Scott-white matter differentiation is preserved. No extra-axial fluid collection is seen. The cerebellar tonsils are normal in configuration. Ventricles, sulci, and cisterns: Prominent secondary to involutional change. Pituitary and sella: Unremarkable. Intracranial vasculature: Normal flow voids are maintained at the skull base. Orbits: The bony orbits are grossly intact. Orbital contents are normal in appearance. Sinuses and mastoids: Clear. Calvarium: Unremarkable. Cervical cord: Partially visualized cervical spinal cord is normal in morphology and signal intensity. IMPRESSION: No acute intracranial abnormality. Electronically signed by: Juanito Moore M.D. 01/09/2018 10:16 PM Dictated Date/Time: 01/09/2018 10:13 PM Impression Assessment and Plan 72 yo M with h/o HLD, HTN, DM II, GERD, CVA (2012), admitted 12/2016 for TIA, currently on Plavix, presenting with episode of expressive aphasia Admit to Telemetry Aphasia, Suspected TIA - aphasia resolved, no significant acute focal neural signs, - given history of TIA/.CVA with similar presentations, TIA etiology likely - Previous history of CVA (2012), tia (2016), currently on Plavix - c/w Plavix, Lipitor 10 mg daily -q4h neuro checks -Ct Head ,MRI Brain, MRA Head Carotid Dopplers unremarkable -Neurology consult - NPO pending swallow eval JERAMY - Cr 1.83 on arrival. 1.66 on previous admission 07/27. otherwise 1.1-1.4 previously - likely prerenal - IV fluids - recheck BMP in AM - HCTZ, Lisinopril held HTN held HCTZ, Lisinopril fro JERAMY switched from Metoprol 100 qam to 50 mg bid T2DM Held Metformin 1000 mg bid Start ISS GERD c/w ppi BPH c/w Flomax DVT PPX Lovenox Code status: Full Attending addendum: I have physically seen this patient, have supervised the medical residents activities, and agree with the H&P unless as otherwise noted. Assessment and Plan: A fascia/TIA/history of CVA-- The patient will be admitted to telemetry for serial cardiac enzymes, serial EKG's, cardiac rhythm monitoring and a 2-D echocardiogram with Dopplers. All studies so far including CT of head, MRI of brain MRA head and carotid Dopplers are negative. Continue Plavix 75 mg daily. Neurochecks every 4 hours per protocol. Consult neurology. Acute kidney injury/hypertension-- Hold HCTZ and lisinopril. NSS at 100 mils per hour. For now, change metoprolol succinate 5 mg p.o. every morning to 50 mg p.o. twice daily with hold parameters. Serial BMP and magnesium levels. Diabetes mellitus-- Hold metformin, and do not restart it unless creatinine is less than 1.4. Placed on Accu-Cheks before meals and at bedtime with NovoLog coverage per scale. Advanced Directives Existing Advance Directive: No Existing Living Will: No Existing Power of Insulation Sprayer: No Resuscitation Status VTE Prophylaxis Will order VTE Prophylaxis: Yes Social Service Consult None Apply Resident Tracking Resident Involvement: Resident Care Provided Care Provided: Adult Hospital Medicine
[2018-01-09] MEDS ORDERED: ONDANSETRON INJ 2 MG/ML 2 ML VIAL IV PRN (20:00)
[2018-01-09] MEDS ORDERED: MAGNESIUM HYDROXIDE SUSP 30 ML UDC PO PRN (20:00)
[2018-01-09] MEDS ORDERED: ACETAMINOPHEN 325 MG TAB PO PRN (20:00)
[2018-01-09] MEDS ORDERED: PHARMACIST DISCHARGE MED REC CONSULT PRN (20:00)
[2018-01-09] MEDS ORDERED: ALUMINUM/MAGNESIUM/SIMETH (MAALOX MAX) 30 ML UDC PO PRN (20:00)
[2018-01-09] MEDS ORDERED: NITROGLYCERIN 0.4 MG SL PER TAB CHARGE SL PRN (20:00)
[2018-01-09 20:55] VITALS: O2SAT 98
[2018-01-09 21:53] VITALS: BP 141/77; PULSE 84; TEMP 36.8; Ht 172.7 cm; Wt 102.7 kg
--- NOTE | 2018-01-09 22:14 | DIAGNOSTIC IMAGING REPORT ---
MR ANGIOGRAM OF THE BRAIN CLINICAL HISTORY: Strokelike symptoms. COMPARISON STUDY: MRI of the brain performed concurrently on 01/09/2018. TECHNIQUE: 3-D [id number] MR angiography of the intracranial circulation is performed. 3-D tumble views are created and assessed. IV contrast was not administered for this examination. The examination is modestly degraded by motion artifact. FINDINGS: The internal carotid arteries are widely patent bilaterally, as are the anterior and middle cerebral arteries. The vertebrobasilar system and posterior cerebral arteries are widely patent. The vertebral arteries are codominant. There is no aneurysm, high-grade stenosis, or focal vessel cutoff seen throughout the intracranial circulation. The brain parenchyma is normal as visualized. IMPRESSION: Unremarkable MR angiogram of the brain. Electronically signed by: Juanito Moore M.D. 01/09/2018 10:13 PM Dictated Date/Time: 01/09/2018 10:11 PM
--- NOTE | 2018-01-09 22:17 | DIAGNOSTIC IMAGING REPORT ---
MRI OF THE BRAIN WITHOUT IV CONTRAST CLINICAL HISTORY: Strokelike symptoms. COMPARISON STUDY: CT of the brain dated 01/09/2018. MRI of the brain dated 12/29/2016. TECHNIQUE: MRI of the brain was performed utilizing various T1 and T2-weighted sequences in the axial, sagittal, and coronal planes. IV contrast was not administered for this examination. FINDINGS: Brain parenchyma: There are age-related involutional changes noting moderate subcortical and periventricular microangiopathic disease. Chronic lacunar infarcts are identified in the right internal capsule, the left thalamus, and the left caudate head. There is no hemorrhage or mass effect. There is no restricted diffusion to suggest acute ischemia. Scott-white matter differentiation is preserved. No extra-axial fluid collection is seen. The cerebellar tonsils are normal in configuration. Ventricles, sulci, and cisterns: Prominent secondary to involutional change. Pituitary and sella: Unremarkable. Intracranial vasculature: Normal flow voids are maintained at the skull base. Orbits: The bony orbits are grossly intact. Orbital contents are normal in appearance. Sinuses and mastoids: Clear. Calvarium: Unremarkable. Cervical cord: Partially visualized cervical spinal cord is normal in morphology and signal intensity. IMPRESSION: No acute intracranial abnormality. Electronically signed by: Juanito Moore M.D. 01/09/2018 10:16 PM Dictated Date/Time: 01/09/2018 10:13 PM
--- NOTE | 2018-01-09 23:06 | DIAGNOSTIC IMAGING REPORT ---
ULTRASOUND OF THE CAROTID ARTERIES CLINICAL HISTORY: Strokelike symptoms. COMPARISON STUDY: Carotid artery ultrasound dated 12/29/2016. TECHNIQUE: Real-time, grayscale, and color Doppler sonography of the carotid arteries is performed. Images are reviewed in the transverse and longitudinal planes. FINDINGS: Blood pressure in the right arm measures 113/64 and blood pressure in the left arm measures 108/60. The carotid arteries are patent bilaterally and demonstrate antegrade flow. There is mild atherosclerotic plaque seen in the carotid bulbs bilaterally. Normal doppler arterial waveforms are seen throughout. Velocity measurements are listed below. Common carotid peak systolic velocity (cm/sec): RIGHT: 114 LEFT: 124 ICA proximal peak systolic velocity (cm/sec): RIGHT: 45 LEFT: 99 ICA mid peak systolic velocity (cm/sec): RIGHT: 69 LEFT: 84 ICA distal peak systolic velocity (cm/sec): RIGHT: 63 LEFT: 94 ICA/CC peak systolic ratio: RIGHT: 0.6 LEFT: 0.8 Antegrade flow was shown in the vertebral arteries. The external carotid arteries are patent. IMPRESSION: 1. There is no sonographic evidence of hemodynamically significant stenosis in the right or left carotid arterial system. 2. Antegrade flow is shown in the vertebral arteries. Electronically signed by: Juanito Moore M.D. 01/09/2018 11:05 PM Dictated Date/Time: 01/09/2018 11:03 PM
[2018-01-09] MEDS ORDERED: SODIUM CHLORIDE 0.9% 1000ML 1,000 ML IV SCH (23:59)
[2018-01-10] MEDS ORDERED: GLUCOSE 10 TABS/TUBE PO PRN (00:15)
[2018-01-10] MEDS ORDERED: DEXTROSE 50% 50 ML SYR IV PRN (00:15)
[2018-01-10] MEDS ORDERED: GLUCOSE 40% GEL 15 GM TUBE PO PRN (00:15)
[2018-01-10] MEDS ORDERED: GLUCAGON FOR INJ 1 MG VIAL IM PRN (00:15)
[2018-01-10] MEDS ORDERED: CARBOHYDRATES FOR HYPOGLYCEMIA PO PRN (00:15)
[2018-01-10 04:17] VITALS: BP 108/68; PULSE 69; TEMP 36.6; O2SAT 97
[2018-01-10 06:49] LABS: HEMOGLOBIN A1C 5.5 % (4.5-5.6)
[2018-01-10 07:20] LABS: BASO % 0.5 %; BASO ABS # 0.03 K/uL (0-0.2); EOS % 1.2 %; EOS ABS # 0.07 K/uL (0-0.5); HEMATOCRIT 32.9 % (42-52); HEMOGLOBIN 11.5 g/dL (14.0-18.0); IG# 0.02 K/uL (0.00-0.02); LYMPH % 40.9 %; LYMPH ABS # 2.32 K/uL (1.2-3.4); MEAN CELL VOLUME 92.7 fL (80-100); MEAN CORPUSCULAR HEMOGLOBIN 32.4 pg (25-34); MONO % 10.1 %; MONO ABS # 0.57 K/uL (0.11-0.59); NEUT % 46.9 %; NEUT ABS # 2.66 K/uL (1.4-6.5); PLATELET COUNT 165 K/uL (130-400); RED CELL DISTRIBUTION WIDTH SD 44.1 fL (36.4-46.3); WHITE BLOOD COUNT 5.67 K/uL (4.8-10.8)
[2018-01-10 07:33] VITALS: BP 120/74; PULSE 70; TEMP 36.4; O2SAT 98
[2018-01-10 07:45] LABS: CALCIUM 8.2 mg/dl (8.5-10.1); CREATININE 1.49 mg/dl (0.60-1.40); POTASSIUM 3.9 mmol/L (3.5-5.1)
[2018-01-10] MEDS: INSULIN ASPART 100 UNITS/ML 3 ML PEN SC SCH ×2 (08:32→12:43)
[2018-01-10] MEDS ORDERED: ATORVASTATIN 10 MG TAB PO SCH (09:00)
[2018-01-10] MEDS ORDERED: METOPROLOL TARTRATE 50 MG TAB PO SCH (09:00)
[2018-01-10] MEDS ORDERED: TAMSULOSIN HCL 0.4 MG CAP PO SCH (09:00)
[2018-01-10] MEDS ORDERED: ENOXAPARIN 40 MG/0.4 ML SYR SC SCH (09:00)
[2018-01-10] MEDS ORDERED: PANTOprazole SOD 40 MG TAB PO SCH (09:00)
[2018-01-10] MEDS ORDERED: CLOPIDOGREL BISULFATE 75 MG TAB PO SCH (09:00)
--- NOTE | 2018-01-10 09:18 | Neurology Consultation ---
Neurology Consultation Date of Consultation: January 10, 2018. Attending Physician: Zeeshan Whitney D.O. Primary Care Physician: Sebastián Bond M.D. Reason for Consultation: Patient is a 72-year-old, was asked to see the request of Dr. Fernandez, for neurologic consultation regarding TIA History of Present Illness Source: patient, caregiver, hospital records This patient had a small left durant radiata area stroke in 2012 on aspirin. He was switched to Plavix. He had mild old small vessel ischemic changes on MRI at that time. Carotid ultrasound showed no significant stenosis and MRA of the head was unremarkable. He has a history of hypertension, diabetes, and dyslipidemia. In December of 2016 he had an episode of dysarthria blurry vision that was diagnosed as a TIA. At that time MRI of the brain showed no acute stroke and carotid ultrasound was unremarkable. He was put on aspirin plus Plavix for about 2 months then was put on Plavix alone. He has been on this ever since and has been doing well with no episodes or problems. He got up on January 09 of this year feeling well. 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 Sometime around 1630 hours he was noted to have the onset of slurred speech. His balance may been off a little bit and there may have been of facial droop on the right. He was brought by ambulance to the emergency room. At 1725 hours temperature was 36.9, pulse 80 and regular, respiratory rate 17, blood pressure 97/71, and O2 saturation 96 percent. In the emergency room he was felt to have a right facial droop, slight dysarthria, mild right lower extremity drift. The patient felt that the speech was getting better over time and by the time he got to the emergency room was much better. It finally faded completely away by 4 hours and he feels back to baseline since. He has had no new issues or problems. Chest x-ray was unremarkable CT scan of the head was unremarkable Carotid ultrasound showed no significant stenoses MRI of the brain showed no acute stroke. There was mild atrophy and old small vessel ischemia in general. MR angiography of the head was unremarkable. CBC showed mild anemia. Magnesium was mildly low and BUN creatinine were mildly high. TSH was normal. Triglyceride was elevated 217 and cholesterol is normal at 132 Patient denies having had any weakness or numbness of the limbs and has no pain or headache before during or after the spell. He could understand everything although his speech was slurred. He had no balance problems, vision problems, or incontinence. Past Medical/Surgical History Medical Problems: (1) CVA (cerebral vascular accident) Status: Acute (2) Dehydration Status: Acute (3) Hypomagnesemia Status: Acute (4) Stroke-like symptom Status: Acute Hypertension Type 2 diabetes Dyslipidemia Gastroesophageal reflux disease Coronary artery disease BPH Post tonsillectomy and right carpal tunnel syndrome repair Family History Patient's father age 40 after having been hit by a train. He is used alcohol and had a tremor. He has 2 half brothers 1 of which has severe diabetes. We know little about his mother's medical history. Social History The patient smokes cigarettes in his teenage years and about a pack per day quitting in 1992. He was a heavy alcohol user since his teenage years quitting last year. He would drink a case of beer per week. 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 He does not recall being exposed any significant toxins or chemicals. Smoking Status: Former smoker Smokeless Tobacco Use: No Alcohol Use: none Drug Use: none Marital Status: Housing Status: lives with family Occupation Status: employed Allergies Coded Allergies: No Known Allergies (Verified , 01/09/18) Current Inpatient Medications Current Inpatient Medications Medications (Trade) Dose Ordered Sig/Nikko Route Start Time Stop Time Status Last Admin Dose Admin Miscellaneous Information (Pharmacist Discharge Med Rec Consult) 1 ea UD PRN N/A 01/09/18 20:00 02/08/18 19:59 Enoxaparin Sodium (Lovenox Inj) 40 mg Q24H SC 01/10/18 09:00 02/09/18 08:59 01/10/18 08:32 40 MG Acetaminophen (Tylenol Tab) 650 mg Q4H PRN PO 01/09/18 20:00 02/08/18 19:59 Al Hydrox/Mg Hydrox/Simethicone (Maalox Max Susp) 15 ml Q4H PRN PO 01/09/18 20:00 02/08/18 19:59 Magnesium Hydroxide (Milk Of Magnesia Susp) 30 ml Q12H PRN PO 01/09/18 20:00 02/08/18 19:59 Ondansetron HCl (Zofran Inj) 4 mg Q6H PRN IV 01/09/18 20:00 02/08/18 19:59 Nitroglycerin (Nitrostat Tab) 0.4 mg UD PRN SL 01/09/18 20:00 02/08/18 19:59 Atorvastatin Calcium (Lipitor Tab) 10 mg QAM PO 01/10/18 09:00 02/09/18 08:59 01/10/18 08:32 10 MG Clopidogrel Bisulfate (plAVix TAB) 75 mg QAM PO 01/10/18 09:00 02/09/18 08:59 01/10/18 08:32 75 MG Tamsulosin HCl (Flomax Cap) 0.4 mg QAM PO 01/10/18 09:00 02/09/18 08:59 01/10/18 08:32 0.4 MG Pantoprazole Sodium (Protonix Tab) 40 mg QAM PO 01/10/18 09:00 02/09/18 08:59 01/10/18 08:32 40 MG Insulin Aspart (novoLOG ASPART) SLIDING SCALE ACHS SC 01/10/18 06:30 02/09/18 06:29 Glucose (Glucose 40% Gel) 15-30 GRAMS 15 GRAMS... UD PRN PO 01/10/18 00:15 02/09/18 00:14 Glucose (Glucose Chew Tab) 4-8 Tablets 4 Tabl... UD PRN PO 01/10/18 00:15 02/09/18 00:14 Dextrose (Dextrose 50% 50ML Syringe) 25-50ML 25ML FOR ... UD PRN IV 01/10/18 00:15 02/09/18 00:14 Glucagon (Glucagon Inj) 1 mg UD PRN IM 01/10/18 00:15 02/09/18 00:14 Carbohydrates (Carbohydrates For Hypoglycemia) 15-30 GRAMS 15 grams if BSG 54-69... UD PRN PO 01/10/18 00:15 02/09/18 00:14 Metoprolol Tartrate (Lopressor Tab) 50 mg BID PO 01/10/18 09:00 02/09/18 08:59 01/10/18 08:32 50 MG Review of Systems Constitutional: No weakness, No fatigue Eyes: No worsening of vision, No diplopia ENT: No sore throat, No trouble swallowing Respiratory: No cough, No shortness of breath Cardiovascular: No chest pain, No palpitations Abdomen: No pain, No nausea Musculoskeletal: No joint pain, No muscle pain Genitourinary - Male: No dysuria, No urinary incontinence Neurologic: No memory loss, No weakness, No numbness/tingling, No vertigo, No balance problems Psychiatric: No depression symptoms, No anxiety Endocrine: No fatigue Hematologic / Lymphatic: No abnormal bleeding/bruising Integumentary: No rash Allergic / Immunologic: No hives Physical Exam Vital Signs (Past 24 Hrs): Date Time Temp Pulse Resp B/P (MAP) Pulse Ox O2 Delivery O2 Flow Rate FiO2 01/10/18 08:03 Room Air 01/10/18 07:33 36.4 70 18 120/74 (89) 98 Room Air 01/10/18 04:17 36.6 69 16 108/68 (81) 97 Room Air 01/10/18 04:00 Room Air 01/10/18 00:00 Room Air 01/09/18 21:53 36.8 84 20 141/77 Room Air 01/09/18 20:55 81 18 116/66 98 Room Air 01/09/18 20:17 84 20 135/80 96 Room Air 01/09/18 19:01 76 18 156/89 97 Room Air 01/09/18 18:15 83 18 145/86 99 Room Air 01/09/18 17:51 77 18 117/68 96 Room Air 01/09/18 17:34 77 01/09/18 17:25 36.9 80 17 97/71 96 Room Air 01/09/18 17:25 96 Room Air Patient is right-handed. The patient is awake and alert. Speech is normal without aphasia or dysarthria. Mentation and thought processes are intact with full orientation and normal fund of knowledge. Mood and affect are normal and appropriate. Appearance and grooming are normal. Long and short-term memory are intact. The discs are sharp with positive venous pulsations. There are no exudates, hemorrhages, or blood vessel changes seen. Pupils are 4mm bilaterally and reactive to light. Extraocular eye muscles are intact without nystagmus. Visual acuity and visual uribe seem normal grossly to confrontation. There are no deficits to sensation of the face bilaterally. Corneal reflexes are positive bilaterally. Facial strength and symmetry is normal bilaterally although the right corner of the mouth does not raise quite as much with voluntary smile as the left. Hearing seems intact grossly to voice and finger rub. Palate moves well without asymmetry. There is normal sternocleidomastoid and trapezius strength bilaterally. Tongue is midline with good strength bilaterally. Neck is with full range of motion without discomfort. There are no cervical bruits. There are no cranial or ocular bruits. Heart is without murmur. Cervical, thoracic, and lumbar spine are nontender to palpation. Gait is normal. There is good arm swing, turn, stance, and balance. With outstretched arms there is no drift. There are no resting, postural, or action tremors. There is no ataxia with [id number] testing. There is good facility in the hands. There are no abnormal involuntary movements noted. Motor strength is 5/5 diffusely in the arms bilaterally including deltoids, biceps, brachioradialis, wrist flexors and extensors, quality improvement engineer, and intrinsic hand muscles. Motor strength is 5/5 diffusely in the legs bilaterally including hip flexors, quadriceps, hamstring, gastrocnemius, tibialis anterior, tibialis posterior, and peroneii muscles bilaterally. Toe extensors are normal and there is good bulk in the extensor digitorum brevis muscle bilaterally. The limbs have good tone without rigidity or spasticity, and there is no atrophy noted. Muscle bulk is normal, there is no tenderness, no myotonia noted to percussion, and no fasciculations seen. Sensory examination is intact to pin and touch throughout all four limbs. Reflexes are 1/4 in the biceps, triceps, brachioradialis, quadriceps, and Achilles tendons bilaterally. Toes are downgoing with plantar stimulation bilaterally. Peripheral pulses are present and of normal quality distally in all four limbs. There is no peripheral edema noted. Laboratory Results Past 24 Hours: 01/10/18 06:33 Red Blood Count 3.55, Mean Corpuscular Volume 92.7, Mean Corpuscular Hemoglobin 32.4, Mean Corpuscular Hemoglobin Concent 35.0, Mean Platelet Volume 9.0, Neutrophils (%) (Auto) 46.9, Lymphocytes (%) (Auto) 40.9, Monocytes (%) (Auto) 10.1, Eosinophils (%) (Auto) 1.2, Basophils (%) (Auto) 0.5, Neutrophils # (Auto ) 2.66, Lymphocytes # (Auto) 2.32, Monocytes # (Auto) 0.57, Eosinophils # (Auto ) 0.07, Basophils # (Auto) 0.03 01/10/18 06:33 Test 01/09/18 17:05 01/10/18 00:00 01/10/18 06:33 01/10/18 07:29 Prothrombin Time 10.6 SECONDS (9.0-12.0) Prothromb Time International Ratio 1.0 (0.9-1.1) Activated Partial Thromboplast Time 28.8 SECONDS (21.0-31.0) Partial Thromboplastin Ratio 1.1 Estimated Average Glucose 111 mg/dl Hemoglobin A1c 5.5 % (4.5-5.6) Magnesium Level 1.6 mg/dl (1.8-2.4) Total Bilirubin 0.3 mg/dl (0.2-1) Direct Bilirubin < 0.1 mg/dl (0-0.2) Aspartate Amino Transf (AST/SGOT) 11 U/L (15-37) Alanine Aminotransferase (ALT/SGPT) 18 U/L (12-78) Alkaline Phosphatase 50 U/L (45-117) Troponin I < 0.015 ng/ml (0-0.045) Total Protein 7.0 gm/dl (6.4-8.2) Albumin 3.6 gm/dl (3.4-5.0) Thyroid Stimulating Hormone (TSH) 1.170 uIu/ml (0.300-4.500) Urine Color YELLOW Urine Appearance CLEAR (CLEAR) Urine pH 5.5 (4.5-7.5) Urine Specific [place] 1.011 (1.000-1.030) Urine Protein NEG (NEG) Urine Glucose (UA) NEG (NEG) Urine Ketones NEG (NEG) Urine Occult Blood NEG (NEG) Urine Nitrite NEG (NEG) Urine Bilirubin NEG (NEG) Urine Urobilinogen NEG (NEG) Urine Leukocyte Esterase NEG (NEG) Urine Opiates Screen NEG (NEG) Urine Methadone, Qualitative NEG (NEG) Urine Barbiturates NEG (NEG) Urine Phencyclidine (PCP) Level NEG (NEG) Ur Amphetamine/Methamphetamine NEG (NEG) MDMA (Ecstasy) Screen NEG (NEG) Urine Benzodiazepines Screen NEG (NEG) Urine Cocaine Metabolite NEG (NEG) Urine Marijuana (THC) NEG (NEG) White Blood Count 5.67 K/uL (4.8-10.8) Red Blood Count 3.55 M/uL (4.7-6.1) Hemoglobin 11.5 g/dL (14.0-18.0) Hematocrit 32.9 % (42-52) Mean Corpuscular Volume 92.7 fL (80-100) Mean Corpuscular Hemoglobin 32.4 pg (25-34) Mean Corpuscular Hemoglobin Concent 35.0 g/dl (32-36) Platelet Count 165 K/uL (130-400) Mean Platelet Volume 9.0 fL (7.4-10.4) Neutrophils (%) (Auto) 46.9 % Lymphocytes (%) (Auto) 40.9 % Monocytes (%) (Auto) 10.1 % Eosinophils (%) (Auto) 1.2 % Basophils (%) (Auto) 0.5 % Neutrophils # (Auto) 2.66 K/uL (1.4-6.5) Lymphocytes # (Auto) 2.32 K/uL (1.2-3.4) Monocytes # (Auto) 0.57 K/uL (0.11-0.59) Eosinophils # (Auto) 0.07 K/uL (0-0.5) Basophils # (Auto) 0.03 K/uL (0-0.2) RDW Standard Deviation 44.1 fL (36.4-46.3) RDW Coefficient of Variation 13.0 % (11.5-14.5) Immature Granulocyte % (Auto) 0.4 % Immature Granulocyte # (Auto) 0.02 K/uL (0.00-0.02) Anion Gap 5.0 mmol/L (3-11) Est Creatinine Clear Calc Drug Dose 53.6 ml/min Estimated GFR () 54.3 Estimated GFR (Non- 46.9 BUN/Creatinine Ratio 18.9 (10-20) Calcium Level 8.2 mg/dl (8.5-10.1) Triglycerides Level 217 mg/dl (0-150) Cholesterol Level 132 mg/dl (0-200) HDL Cholesterol 35 mg/dl LDL Cholesterol, Calculated 54 mg/dl VLDL Cholesterol, Calculated 43 mg/dl Cholesterol/HDL Ratio 3.8 Bedside Glucose 141 mg/dl (70-99) Imaging [~ rep ct add3]] MRI OF THE BRAIN WITHOUT IV CONTRAST CLINICAL HISTORY: Strokelike symptoms. COMPARISON STUDY: CT of the brain dated 01/09/2018. MRI of the brain dated 12/29/2016. TECHNIQUE: MRI of the brain was performed utilizing various T1 and T2-weighted sequences in the axial, sagittal, and coronal planes. IV contrast was not administered for this examination. FINDINGS: Brain parenchyma: There are age-related involutional changes noting moderate subcortical and periventricular microangiopathic disease. Chronic lacunar infarcts are identified in the right internal capsule, the left thalamus, and the left caudate head. There is no hemorrhage or mass effect. There is no restricted diffusion to suggest acute ischemia. Scott-white matter differentiation is preserved. No extra-axial fluid collection is seen. The cerebellar tonsils are normal in configuration. Ventricles, sulci, and cisterns: Prominent secondary to involutional change. Pituitary and sella: Unremarkable. Intracranial vasculature: Normal flow voids are maintained at the skull base. Orbits: The bony orbits are grossly intact. Orbital contents are normal in appearance. Sinuses and mastoids: Clear. Calvarium: Unremarkable. Cervical cord: Partially visualized cervical spinal cord is normal in morphology and signal intensity. IMPRESSION: No acute intracranial abnormality. Electronically signed by: Juanito Moore M.D. 01/09/2018 10:16 PM Impression 1. Episode acute onset dysarthria and other features May 2nd, subsequently resolved, consistent with transient ischemic attack. NIH stroke scale equals 0 He has no focal neurologic signs, meningeal signs, or encephalopathy. MRI of the brain showed no acute stroke and vascular study shows no significant stenoses of the head or neck. He has multiple risk factors for stroke including hypertension, diabetes, dyslipidemia. There was a heavy alcohol user in the past and he quit smoking in 1992. 2. History of small left durant radiata stroke in 2012 he had a TIA in December 2016 MRI shows old, mild small vessel ischemic changes. Plan 1. Focus on controlling his multiple risk factors including blood pressure, glucose, and triglycerides. He could have his atorvastatin increased. 2. For now, I would use 81 milligram aspirin plus 75milligram clopidogrel together for 3 months and then switch him back to Plavix alone. I am not certain that any other treatment change will make that much difference in his course otherwise. Return to clinic in 1-2 weeks after discharge I can follow up.
[2018-01-10 11:30] VITALS: BP 112/72; PULSE 71; TEMP 36.9; O2SAT 97
[2018-01-10] MEDS ORDERED: ASPI81TA28 PO (11:31)
[2018-01-10] MEDS ORDERED: ATOR-24 PO (11:54)
--- NOTE | 2018-01-10 12:08 | Discharge Instructions ---
Discharge Instructions Date of Service January 10, 2018. Admission Reason for Admission: Tia (Transient Ischemic Attack) Discharge Discharge Diagnosis / Problem: TIA (transient ischemic attack) Discharge Goals Goal(s): Improve disease control, Diagnostic testing Activity Recommendations Activity Limitations: resume your previous activity . Instructions / Follow-Up Instructions / Follow-Up You were seen in hospital for stroke like symptoms. These resolved. Imaging was reassuring as no new concerning findings were found. On discharge continue clopidogrel (Plavix) and neurology recommends adding a daily baby aspirin for 3 months as well. Additionally, atorvastatin is increased to 40mg daily as this medication keeps plaques stable and will hopefully help to reduce risk of recurrence. Finally omeprazole has been discontinued and switched to pantoprazole (same class of medication, same dose) . Omeprazole has been noted in recent literature to decreased the effectiveness of clopidogrel, thus switching will again minimize this risk. Neurology follow up will be scheduled in 1-2 weeks. During admission, it was noted that you had a small bump in your creatinine. Please have a blood test tomorrow to recheck your kidney function, and make an appointment with your PCP next week to discuss results and possible changes in your blood pressure medication if creatinine is still elevated (these medications can affect kidney function). Otherwise, continue a healthy lifestyle with a balanced diet and exercise. Thank you for allowing us to participate in your care. Risk Factors for Stroke: You can reduce your chances of stroke by working with your medical provider to adopt a healthy lifestyle. Some specific ways to lower your chance of stroke are: * If you are a smoker, now is the time to stop smoking cigarettes * If you are diabetic, improve the control of your blood sugars * Avoid excessive amounts of alcohol * Control high blood pressure * Lose weight if you are overweight * Be sure to lead an active lifestyle * Eat a healthy diet low in salt, cholesterol and fat You should know about other risk factors for stroke that you are unable to control. These include: * Age 55 years or older * Male gender * Certain racial groups: , or / * Family History of Stroke, Mini stroke or Heart Attack * Sickle Cell Disease Follow Up: It is important for you to keep your follow up appointments with your medical provider. Current Hospital Diet Patient's current hospital diet: AHA Diet (Heart Healthy), Diabetes Type 2 Diet Discharge Diet Recommended Diet: AHA Diet (Heart Healthy), Diabetes Type 2 Diet Pending Studies Studies pending at discharge: no Laboratory Results Hemoglobin A1c Test 01/09/18 17:05 Range/Units Estimated Average Glucose 111 mg/dl Hemoglobin A1c 5.5 4.5-5.6 % Lipid Panel Test 01/10/18 06:33 Range/Units Triglycerides Level 217 H 0-150 mg/dl Cholesterol Level 132 0-200 mg/dl HDL Cholesterol 35 mg/dl Cholesterol/HDL Ratio 3.8 LDL Cholesterol, Calculated 54 mg/dl Medical Emergencies . Who to Call and When: Medical Emergencies: Call 911 immediately if you experience any of the following warning signs and symptoms of Stroke: * Sudden numbness or weakness of the face, arm or leg, especially on one side of the body * Sudden confusion, trouble speaking or understanding * Sudden trouble seeing in one or both eyes * Sudden trouble walking, dizziness, loss of balance or coordination * Sudden severe headache with no cause Do not delay calling 911 if you experience any warning signs or symptoms of a stroke. Delay in seeking medical attention may affect what treatments can be given to you. . Non-Emergent Contact Non-Emergency issues call your: Primary Care Provider, Neurologist . . "Provider Documentation" section prepared by Amairani Harris. . Stroke Core Measures Reason no t-PA for Stroke: Treatment not indicated Reason no antithrom by day 2: Treatment provided - N/A Reason no antithrom at D/C: Treatment provided - N/A Reason no statin at D/C: Treatment provided - N/A Reason no anticoag w/a fib: Treatment not indicated Resident Tracking Resident Involvement: Resident Care Provided Care Provided: Adult Hospital Medicine
[2018-01-10] MEDS ORDERED: PRT40 PO (12:49)
[2018-01-10 13:05] VITALS: BP 120/74; PULSE 70; TEMP 36.4; O2SAT 98
--- NOTE | 2018-01-10 13:22 | Discharge Summary ---
Discharge Summary Date of Service January 10, 2018. Discharge Summary Admission Date: January 09, 2018 at 20:28 Discharge Date: January 10, 2018 Discharge Disposition: Home Principal Diagnosis: TIA Immunizations: Have You Had Influenza Vaccine: No Influenza Vaccine Date: Jun 16, 2013 History of Tetanus Vaccine?: Unknown History of Pneumococcal: No History of Hepatitis B Vaccine: No Consultations: Neurology Medication Reconciliation New Medications: Aspirin (Aspirin Ec) 81 Mg Tab 81 MG PO DAILY, #60 TAB Atorvastatin (Lipitor) 40 Mg Tab 1 TAB PO DAILY for 30 Days, #30 TAB 5 Refills Pantoprazole (Pantoprazole Sodium) 40 Mg Tab 20 MG PO QAM, #30 TAB 3 Refills Continued Medications: Clopidogrel (Plavix) 75 Mg Tab 75 MG PO QAM Hydrochlorothiazide (Hctz) 25 Mg Tab 25 MG PO QAM Lisinopril (Zestril) 10 Mg Tab 10 MG PO QAM Metoprolol Tartrate (Lopressor) (Lopressor) 100 Mg Tab 100 MG PO QAM Tamsulosin Hcl (Flomax) 0.4 Mg Cap 1 CAP PO QAM Discontinued Medications: Atorvastatin (Lipitor) 10 Mg Tab 10 MG PO QAM Omeprazole (Prilosec) 20 Mg Capcr 20 MG PO QAM Discharge Exam Patient well. Describes complete resolution of symptoms. Denies fevers/chills, headaches, CP, palpitations, dyspnea, abdominal pain, lower extremity swelling or rashes. He is tolerating diet without nausea or vomiting, ambulating without exacerbating symptoms, and voiding and stooling appropriately. ROS is unremarkable except as noted above. Physical Exam: General Appearance: WD/WN, no apparent distress Eyes: PERRL, EOMI, sclerae normal ENT: hearing grossly normal Neck: supple Respiratory/Chest: normal breath sounds, no respiratory distress, no accessory muscle use Cardiovascular: regular rate, rhythm, no murmur, normal peripheral pulses Abdomen / GI: normal bowel sounds, non tender, soft Extremities: no calf tenderness, no pedal edema Neurologic/Psychiatric: freelance designer II-XII nml as tested, no motor/sensory deficits , alert, normal mood/affect, oriented x 3, + facial droop (mild on the left) Skin: normal color, warm/dry, no rash Hospital Course 72 yo M with h/o HLD, HTN, DM II, GERD, CVA (2012), admitted 12/2016 for TIA, currently on Plavix, presenting with episode of expressive aphasia TIA - history of CVA (2013), TIA (2017), currently on Plavix. Neurology consulted. - Aphasia resolved, no significant acute focal neural signs, Passed swallow eval. - CT Head, MRI Brain, MRA Head Carotid Dopplers unremarkable On discharge: - Continue clopidogrel and prescribed aspirin daily for 3 months as well. - Prescribed increased dose atorvastatin 40mg daily - Switched from omeprazole to pantoprazole given decreased effectiveness of clopidogrel in combination with omeprazole - Neurology follow in 1-2 weeks. JERAMY - Cr 1.83 on arrival. 1.66 on previous admission 07/27. Otherwise 1.1-1.4 previously - likely prerenal - Check BMP and follow up with PCP to discuss (?anti-HTN med alterations) HTN - Continue metoprolol, hydrochlorothiazide, lisinopril T2DM - Resume home regimen GERD - Prescribed pantoprazole to replace omeprazole, as above BPH - Continue tamsulosin Code status: Full Resident Physician Supervision Note: I interviewed and examined the patient. Discussed with Dr. Harris and agree with findings and plan as documented in the note. Any exceptions or clarifications are listed here: None Documented By: Zeeshan Whitney feeling fine now extensive d/w pt and on recurrent TIA and secondary prevention, discussed rationale for current med changes desirae noted nad breathing unlabored no pallor or icterus no focal neuro deficits recurrent TIA w established vascular disease - asa + plavix during high risk period of near term future then reduce per neuro on follow up; increase lipitor to 40mg for plaque stabilization stable for home Total Time Spent: Less than 30 minutes This includes examination of the patient, discharge planning, medication reconciliation, and communication with other providers. Discharge Instructions Please refer to the electronic Patient Visit Report (Discharge Instructions) for additional information. Additional Copies To Sebastián Bond M.D. Resident Tracking Resident Involvement: Resident Care Provided Care Provided: Adult Hospital Medicine
--- NOTE | 2018-01-10 13:29 | Pharmacy Progress Note ---
Pharmacist Stroke Counseling Date of Service January 10, 2018. Scope Pharmacy has been consulted to provide medication discharge counseling for this patient admitted with ischemic stroke/hemorrhagic stroke/ transient ischemic attack as per the Pharmacist Discharge Counseling for Stroke Patients Protocol. Medications on Discharge New Medications: Aspirin (Aspirin Ec) 81 Mg Tab 81 MG PO DAILY, #60 TAB Atorvastatin (Lipitor) 40 Mg Tab 1 TAB PO DAILY for 30 Days, #30 TAB 5 Refills Pantoprazole (Pantoprazole Sodium) 40 Mg Tab 20 MG PO QAM, #30 TAB 3 Refills Continued Medications: Clopidogrel (Plavix) 75 Mg Tab 75 MG PO QAM Hydrochlorothiazide (Hctz) 25 Mg Tab 25 MG PO QAM Lisinopril (Zestril) 10 Mg Tab 10 MG PO QAM Metoprolol Tartrate (Lopressor) (Lopressor) 100 Mg Tab 100 MG PO QAM Tamsulosin Hcl (Flomax) 0.4 Mg Cap 1 CAP PO QAM Discontinued Medications: Atorvastatin (Lipitor) 10 Mg Tab 10 MG PO QAM Omeprazole (Prilosec) 20 Mg Capcr 20 MG PO QAM Action The above medications, specifically ones for stroke treatment/prophylaxis, have been reviewed in detail with the patient and/or patient manufacturer representative(s) prior to discharge. This includes indication, common adverse reactions, drug interactions, and medication administration. Medication counseling has been employed using the teach-back method to ensure understanding. Outcome The patient and/or patient manufacturer representative(s) have demonstrated understanding of the medications. Please note, they are aware that the pharmacist will call them within 72 hours post-discharge to confirm that the appropriate medications are being taken and answer any further medication related questions the patient might have at that time. Contact information Individual to be contacted: Patient Relationship to patient (if applicable): self Phone number: [phone] Best time to call: Anytime Additional comments: Mr. Fitzgerald was previously on omeprazole outpatient, called and discussed change to protonix with Dr. Harris due to potential interaction. Dr. Harris changed to pantoprazole 20 mg qAM. Mr. Fitzgerald was very pleasant to speak with. He had previously been on atorvastatin and plavix. Discussed change to atorvastatin dose and reviewed potential side effects, although since previously tolerating will likely tolerate higher dose. Discussed addition of baby aspirin for 3 months, common side effects. Discussed change from prilosec/omeprazole to pantoprazole/ protonix due to potential interaction with plavix. No changes to other medications. Patient demonstrated understanding and had no further questions. Thank you for allowing pharmacy to be involved in the care of this patient. Please call [phone] or [phone] with any additional questions
--- NOTE | 2018-01-14 14:59 | Pharmacy Progress Note ---
Pharmacist Post D/C Phone Note Date of phone call: January 14, 2018. The patient and/or patient unit support representative(s) were unable to be reached for a follow-up phone call within the 72 hour time frame. Left message on voicemail for patient. Discharge counseling pharmacist contact information has already been provided to the patient should questions arise. Thank you for allowing us to be involved in the care of this patient.
== END 2018-01-10 14:15 | disposition home or self-care (01) | DRG 69 ==
LOC: EDBD 17:24 → C.EDB 17:25 → C.MED 20:28 → ENRESERV 20:51
PROVIDERS: ADMIT Hospitalist; ATTEND Family Medicine
DX: G45.9 Transient cerebral ischemic attack, unspecified (principal); R47.01 Aphasia; N17.9 Acute kidney failure, unspecified; R29.810 Facial weakness; I25.10 Atherosclerotic heart disease of native coronary artery without angina pectoris; E78.5 Hyperlipidemia, unspecified; I10 Essential (primary) hypertension; E11.9 Type 2 diabetes mellitus without complications; K21.9 Gastro-esophageal reflux disease without esophagitis; N40.0 Benign prostatic hyperplasia without lower urinary tract symptoms; Z79.02 Long term (current) use of antithrombotics/antiplatelets; Z79.899 Other long term (current) drug therapy; Z86.73 Personal history of transient ischemic attack (TIA), and cerebral infarction without residual deficits; Z87.891 Personal history of nicotine dependence; Z83.3 Family history of diabetes mellitus

== ENCOUNTER → 2018-01-11 | Outpatient (CLI) | payer OTHER ==
[~2018-01-11] MED LIST changes: +ASPI81TA28 PO; +ATOR-24 PO; -ATOR10TA82 PO; +LISI-461 PO; -LISI40TA PO; -LPD600 PO; -METF-384 PO; -PRLSR20 PO; +PRT40 PO
[2018-01-11 17:25] LABS: BLOOD UREA NITROGEN 25 mg/dl (7-18); CARBON DIOXIDE 26 mmol/L (21-32); CREATININE 1.44 mg/dl (0.60-1.40); GLUCOSE 211 mg/dl (70-99); POTASSIUM 3.7 mmol/L (3.5-5.1); SODIUM 135 mmol/L (136-145)
== END | disposition home or self-care (01) ==
LOC: C.LABBFT 11:20
PROVIDERS: ATTEND Family Medicine
DX: I10 Essential (primary) hypertension (principal); R79.89 Other specified abnormal findings of blood chemistry

== ENCOUNTER → 2018-01-18 | Outpatient (CLI) | payer OTHER ==
[2018-01-18 12:15] LABS: BASO % 0.4 %; BASO ABS # 0.02 K/uL (0-0.2); EOS % 0.8 %; EOS ABS # 0.04 K/uL (0-0.5); HEMATOCRIT 35.9 % (42-52); HEMOGLOBIN 12.1 g/dL (14.0-18.0); IG# 0.01 K/uL (0.00-0.02); LYMPH % 32.4 %; LYMPH ABS # 1.67 K/uL (1.2-3.4); MEAN CORPUSCULAR HEMOGLOBIN 31.7 pg (25-34); MEAN CORPUSCULAR HGB CONC 33.7 g/dl (32-36); MEAN PLATELET VOLUME 9.6 fL (7.4-10.4); MONO % 8.3 %; MONO ABS # 0.43 K/uL (0.11-0.59); NEUT % 57.9 %; NEUT ABS # 2.98 K/uL (1.4-6.5); PLATELET COUNT 212 K/uL (130-400); RED CELL DISTRIBUTION WIDTH SD 44.5 fL (36.4-46.3); WHITE BLOOD COUNT 5.15 K/uL (4.8-10.8)
[2018-01-18 12:43] LABS: HEMOGLOBIN A1C 5.5 % (4.5-5.6)
[2018-01-18 12:45] LABS: ALBUMIN 3.7 gm/dl (3.4-5.0); ALT/SGPT 20 U/L (12-78); AST/SGOT 11 U/L (15-37); BLOOD UREA NITROGEN 27 mg/dl (7-18); CALCIUM 8.5 mg/dl (8.5-10.1); CARBON DIOXIDE 27 mmol/L (21-32); CHOLESTEROL 136 mg/dl (0-200); CREATININE 1.68 mg/dl (0.60-1.40); GLUCOSE 190 mg/dl (70-99); POTASSIUM 4.1 mmol/L (3.5-5.1); SODIUM 139 mmol/L (136-145)
[2018-01-18 12:55] LABS: ALKALINE PHOSPHATASE 52 U/L (45-117); LDL CHOLESTEROL CALCULATED 63 mg/dl; TOTAL PROTEIN 7.2 gm/dl (6.4-8.2)
== END | disposition home or self-care (01) ==
LOC: C.LABBFT 09:50
PROVIDERS: ATTEND Physician Assistant Medical
DX: I10 Essential (primary) hypertension (principal); E11.9 Type 2 diabetes mellitus without complications

== ENCOUNTER → 2018-01-30 | Outpatient (CLI) | payer OTHER ==
[2018-01-30 12:40] LABS: BLOOD UREA NITROGEN 32 mg/dl (7-18); CALCIUM 8.8 mg/dl (8.5-10.1); CARBON DIOXIDE 28 mmol/L (21-32); CREATININE 1.59 mg/dl (0.60-1.40); GLUCOSE 163 mg/dl (70-99); POTASSIUM 3.9 mmol/L (3.5-5.1); SODIUM 137 mmol/L (136-145)
== END | disposition home or self-care (01) ==
LOC: C.LABBFT 10:22
PROVIDERS: ATTEND Physician Assistant Medical
DX: I10 Essential (primary) hypertension (principal); D64.9 Anemia, unspecified

== ENCOUNTER 2019-05-08 16:44 | Inpatient (IN) ==
--- NOTE | 2019-05-08 17:03 | CT Scan Report ---
CT OF THE HEAD WITHOUT CONTRAST CLINICAL HISTORY: Stroke evaluation. Right-sided weakness. COMPARISON STUDY: Head CT May 03, 2019. MRI of the brain January 09, 2018. CT DOSE: 773.57 mGy.cm TECHNIQUE: Helical axial images of the head were obtained without IV contrast. Automated exposure con trol was utilized for the study. A dose lowering technique was utilized adhering to the principles o f ALARA. FINDINGS: No acute intracranial hemorrhage, midline shift or mass effect is present. The ventricular system is unremarkable. Basilar cisterns are patent. There are no extra axial collections. Multiple o ld infarcts within the bilateral basal ganglia are again noted. These appear unchanged. There are no findings to suggest acute dural sinus thrombosis or acute territorial infarct. There are no calvarial fractures. There is mild sinus mucosal thickening. IMPRESSION: 1. No acute intracranial findings. 2. Multiple old infarcts within the bilateral basal ganglia. Electronically signed by: Sawyer Ennis M.D. 05/08/2019 5:01 PM
[2019-05-08 17:10] LABS: Basophils # (auto) 0.03 K/uL (0-0.2); Basophils % (auto) 0.5 %; Eosinophils # (auto) 0.05 K/uL (0-0.5); Eosinophils % (auto) 0.8 %; Hematocrit (blood only) 33.9 % (42-52); Hemoglobin 11.3 g/dL (14.0-18.0); Immature Granulocytes # (auto) 0.02 K/uL (0.00-0.02); Immature Granulocytes % (auto) 0.3 %; Lymphocytes # (auto) 1.67 K/uL (1.2-3.4); Lymphocytes % (auto) 27.4 %; Mean Corpuscular Hgb Conc 33.3 g/dL (32-36); Mean Corpuscular Volume 92.9 fL (80-100); Monocytes # (auto) 0.47 K/uL (0.11-0.59); Monocytes % (auto) 7.7 %; Neutrophils # (auto) 3.85 K/uL (1.4-6.5); Neutrophils % (auto) 63.3 %; Platelet Count 200 K/uL (130-400); RDW Coefficient of Variation 13.5 % (11.5-14.5); RDW Standard Deviation 46.1 fL (36.4-46.3); Red Blood Count 3.65 M/uL (4.7-6.1); White Blood Count 6.09 K/uL (4.8-10.8)
[2019-05-08] MEDS ORDERED: SODIUM CHLORIDE 0.9% 1000ML 1,000 ML IV ONE (17:13)
[2019-05-08] MEDS ORDERED: ALTEPLASE For Stroke IV STA (17:22)
[2019-05-08 17:26] LABS: Alanine Aminotransferase 21 U/L (12-78); Albumin Level 3.5 gm/dl (3.4-5.0); Aspartate Aminotransferase 9 U/L (15-37); BUN Creatinine Ratio 14.8 (10-20); Blood Urea Nitrogen 24 mg/dl (7-18); Calcium 8.7 mg/dl (8.5-10.1); Carbon Dioxide 28 mmol/L (21-32); Chloride 103 mmol/L (98-107); Creatinine Clr Calc Pharmacy 46.7 ml/min; Est GFR (Non-African American) 41.5; Glucose 205 mg/dl (70-99); INR 1.1 (0.9-1.1); Magnesium 1.6 mg/dl (1.8-2.4); Partial Thromboplastin Time 27.8 Seconds (21.0-31.0); Potassium 4.4 mmol/L (3.5-5.1); Prothrombin Time 11.1 Seconds (9.0-12.0); Sodium 138 mmol/L (136-145)
[2019-05-08 17:31] LABS: Albumin Globulin Ratio 1.1 (0.9-2); Alkaline Phosphatase 55 U/L (45-117); Bilirubin,Total 0.5 mg/dl (0.2-1); Globulin 3.2 gm/dl (2.5-4.0); Total Protein 6.7 gm/dl (6.4-8.2); Troponin I < 0.015 ng/ml (0-0.045)
[2019-05-08] MEDS ORDERED: ALTEPLASE BOLUS IV ONE (17:32)
[2019-05-08] MEDS ORDERED: RECOMBINANT IV ONE (17:33)
[2019-05-08] MEDS ORDERED: PRIMARY PLUMSET, PE LINED TUBING, 113 IN, NON-DEHP (2260-0500) IV ONE (17:33)
[2019-05-08] MEDS ORDERED: ALTEPLASE IV ONE (17:33)
--- NOTE | 2019-05-08 17:58 | History & Physical Report ---
Date of Service May 08, 2019 Assessment & Plan (1) Stroke: Main symptom is that of dysarthria. Surprisingly he does not have additional motor weakness or other neurological symptoms/signs. His presentation could be consistent with another lacunar infarct of the brainstem. He has an extensive stroke history (past MRIs/CTs have demonstrated multiple lacunar strokes). These have been thrombotic in nature based on records. He has no history of a.fib or carotid disease. Given his symptoms and the timing of his presentation he was deemed a TPA candidate. This was being given during my admission assessment. Plan - * TPA per protocol * admit to ICU * dysphagia screen; keep NPO if he does not pass such * avoid hypotension thus provide IV fluids and hold home BP meds * lipids, hemoglobin a1c in am * MRI brain * MRA head/neck (will defer on CTA given his mild-moderate renal impairment) * echo * telemetry to r/o PAF * if he passes dysphagia screen then continue asa/plavix until neurology sees; uncertain if aggrenox would be any better than the current combo of asa/plavix * high-intensity statin * PT, OT, speech evals * will need repeat head CT at 24 hours post-TPA * follow-up on EKG; however, EKG on 05/03 was wnl Of note - retrospectively the altered MS last Sunday could have been a TIA event but it would be hard to prove such given the nonspecific nature of his symptoms then. Present on Admission?: Yes (2) Essential (primary) hypertension: HOLD home BP meds (lisinopril, metoprolol, flomax). Allow permissive HTN (BP actually on low side during my assessment - provide IV fluids as relative hypotension will make symptoms worse). Present on Admission?: Yes (3) Hyperlipidemia: Check lipid profile in am. Resume statin once cleared to take PO. Present on Admission?: Yes (4) Chronic kidney disease, stage III (moderate): Baseline Cr is about 1.5 to 1.7. Cr stable at presentation. BMP in am. Present on Admission?: Yes (5) Hypomagnesemia: Replace with 2 grams of mag sulfate. Repeat mag level in am. (6) BPH (benign prostatic hyperplasia): HOLD flomax given the relative hypotension in the setting of his suspected stroke. Present on Admission?: Yes (7) Type 2 diabetes, uncontrolled, with neuropathy: Check hemoglobin a1c. BSGs ac/hs. Novolog correction. Keep euglycemic. Resume gabapentin for neuropathy once allowed to take PO. Hold metformin. Present on Admission?: Yes (8) GERD (gastroesophageal reflux disease): Hold PPI. Change to IV H2 jocelyn for now. (9) DVT prophylaxis: SCDs for now; cannot give chemical anticoagulation due to TPA given this afternoon. Can start lovenox or heparin SC if 24-hour CT head is negative for blood tomorrow. extensively updated at bedside. History of Present Illness Chief Complaint: slurred speech Primary Care Provider: Sebastián Bond MD 73yo male with history of HTN, hyperlipidemia, T2DM, and prior lacunar strokes - currently on chronic aspirin and plavix - who presents with the acute onset of dysarthria beginning sometime between 2 and 3pm. Much of the history was provided by the patient's who was at bedside during the visit. Apparently the patient was in his usual state of health this morning. He had breakfast and lunch in the usual fashion. About 2pm he and his got in their car for a drive. His does not recall the exact time but he developed the slurred speech while driving. The slurred speech continued and she brought him home to their house. While at home he had some difficulty standing and ambulating but he consistently denied that he had focal motor weakness. Denied any headache, sensory loss/paresthesias, vertigo, ataxia, visual field cuts. His ultimately dialed 911. Upon EMS arrival again he had a hard time standing to get up to the rhospers. Once in the [facility] ER a Code Stroke Alert was called and [facility] was consulted. They were concerned about acute stroke. CT head was obtained showing no ICH. He was deemed a TPA candidate and this was given starting at about 1730. When I visited with him in the ER he was actively receiving the TPA. By report his initial NIH stroke score was 4 and later improved to 2. Lastly, the patient was in the [facility] ER last Sunday after having had transient mental status changes. Apparently he had been out to dinner with his family when he started to act strangely and was confused. By the time of ER arrival last weekend the symptoms had resolved. Allergies Allergy/AdvReac Type Severity Reaction Status Date / Time No Known Allergies Allergy Verified 05/03/19 21:14 Home Medications Home Medications Medication Instructions Recorded Confirmed Type aspirin [Aspir-81] 81 mg PO QAM 05/03/19 05/08/19 History clopidogrel 75 mg PO QAM 05/03/19 05/08/19 History gabapentin 300 mg PO TID 05/03/19 05/08/19 History lisinopril 40 mg PO QAM 05/03/19 05/08/19 History metformin 1,000 mg PO BID 05/03/19 05/08/19 History metoprolol tartrate 100 mg PO QAM 05/03/19 05/08/19 History pantoprazole 40 mg PO QAM 05/03/19 05/08/19 History tamsulosin 0.8 mg PO QAM 05/03/19 05/08/19 History atorvastatin 40 mg tablet 40 mg PO HS #90 tab 05/08/19 05/08/19 Rx Past Med/Surg History Medical History GERD (gastroesophageal reflux disease) History of CVA (cerebrovascular accident) Ischemic stroke Chronic kidney disease, stage III (moderate) (Chronic) Essential (primary) hypertension (Chronic) Hyperlipidemia (Chronic) Influenza (Inactive) URI (upper respiratory infection) (Inactive) Surgical History No pertinent past surgical history Family History Brother Hypertension Social History Preferred Language: Guyanese marital status: marital status details: 1 daughter - now Current Living Situation: Spouse current occupational status: retired 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 Feels Safe at Home: Yes Smoking Status: Former smoker Age Started Using Tobacco: 12 ; packs per day: 1 ; Years Smoked: 30 ; Number of Years Since Quit: 30 ; Hx Alcohol Use: No (drank heavily in the past however) Hx Substance Use: No Review of Systems Constitutional: no fever, no chills, no fatigue and no anorexia Eyes: no loss of peripheral vision and no worsening vision Ear, Nose, Mouth, Throat: no nasal congestion and no sore throat Respiratory: no cough, no dyspnea and no dyspnea on exertion Cardiovascular: no chest pain, no orthopnea, no paroxysmal nocturnal dyspnea and no edema Gastrointestinal: no abdominal pain, no nausea, no vomiting and no diarrhea/loose stools Genitourinary: no dysuria Musculoskeletal: no joint pain Integumentary: no rash Neurologic: + gait abnormality and + abnormal speech; no localized weakness, no paralysis, no numbness, no seizure-like activity, no dizziness, no headache(s) and no confusion Psychiatric: no behavioral changes Endocrine: diabetes has been under good control Hematologic / Lymphatic: no easy bruising Physical Exam Constitutional: cooperative, comfortable and + overweight; no acute distress and no altered mental status dysarthric speech Eyes: PERRL; no nystagmus extraocular movements intact; visual uribe full by direct confrontation ENMT: external ear and nose normal, oropharynx normal Mouth: + tongue abnormality (large; crowded posterior pharynx) Neck: trachea midline, no thyromegaly Respiratory: normal respiratory effort, lungs clear to auscultation Cardiovascular: Rate/Rhythm: regular rate and regular rhythm Heart Sounds: normal S1, normal S2 and + murmur (1/6 LSB) Vessels: posterior tibial pulses present and dorsalis pedis pulses present; no JVD Extremities: no edema Gastrointestinal (Abdomen): normal bowel sounds, soft, nontender, no hepatosplenomegaly Musculoskeletal: Extremities: + clubbing Skin: no rashes, warm and dry Neurologic: patellar DTR's 2+ bilat, sensation intact normal touch/pain/proprioception, CN's II-XI intact bilaterally, moves all extremities and awake; no focal motor deficits Speech / Cognition: + abnormal speech (dysarthria ) Motor/Sensory: + tremor; no pronator drift Coordination: normal [id number] test Psychiatric: Orientation: alert Lymphatic: no cervical lymphadenopathy Results & Data Vital Signs (Past 12 Hours) Vital Signs Temp Pulse Pulse Resp BP BP Pulse Ox 05/08/19 17:52 78 16 117/71 96 05/08/19 17:45 75 20 115/70 96 05/08/19 17:37 74 20 115/70 96 05/08/19 17:30 74 83 21 129/72 129/72 96 05/08/19 17:16 75 19 121/51 L 96 05/08/19 17:15 76 76 16 121/51 L 96 05/08/19 17:13 78 25 H 96 05/08/19 17:00 80 80 17 91/62 L 91/62 L 96 05/08/19 16:44 36.7 C 80 82 18 114/70 114/70 94 Laboratory Results Laboratory Results - last 24 hr 05/08/19 05/08/19 05/08/19 16:56 17:02 17:02 WBC 6.09 RBC 3.65 L Hgb 11.3 L Hct 33.9 L MCV 92.9 MCH 31.0 MCHC 33.3 RDW Std Deviation 46.1 RDW Coeff of Laureen 13.5 Plt Count 200 MPV 9.0 Immature Gran % (Auto) 0.3 Neut % (Auto) 63.3 Lymph % (Auto) 27.4 Preston % (Auto) 7.7 Eos % (Auto) 0.8 Baso % (Auto) 0.5 Immature Gran # (Auto) 0.02 Neut # (Auto) 3.85 Lymph # (Auto) 1.67 Preston # (Auto) 0.47 Eos # (Auto) 0.05 Baso # (Auto) 0.03 PT 11.1 INR 1.1 APTT 27.8 PTT Ratio 1.0 Sodium Potassium Chloride Carbon Dioxide Anion Gap BUN Creatinine Est Cr Clr Drug Dosing Est GFR ( Amer) Est GFR (Non-Af Amer) BUN/Creatinine Ratio Glucose POC Glucose 193 H Calcium Magnesium Total Bilirubin AST ALT Alkaline Phosphatase Troponin I Total Protein Albumin Globulin Albumin/Globulin Ratio Blood Type Antibody Screen 05/08/19 05/08/19 17:02 17:02 WBC RBC Hgb Hct MCV MCH MCHC RDW Std Deviation RDW Coeff of Laureen Plt Count MPV Immature Gran % (Auto) Neut % (Auto) Lymph % (Auto) Preston % (Auto) Eos % (Auto) Baso % (Auto) Immature Gran # (Auto) Neut # (Auto) Lymph # (Auto) Preston # (Auto) Eos # (Auto) Baso # (Auto) PT INR APTT PTT Ratio Sodium 138 Potassium 4.4 Chloride 103 Carbon Dioxide 28 Anion Gap 6.0 BUN 24 H Creatinine 1.64 H Est Cr Clr Drug Dosing 46.7 Est GFR ( Amer) 48.0 Est GFR (Non-Af Amer) 41.5 BUN/Creatinine Ratio 14.8 Glucose 205 H POC Glucose Calcium 8.7 Magnesium 1.6 L Total Bilirubin 0.5 AST 9 L ALT 21 Alkaline Phosphatase 55 Troponin I < 0.015 Total Protein 6.7 Albumin 3.5 Globulin 3.2 Albumin/Globulin Ratio 1.1 Blood Type A Positive Antibody Screen NEGATIVE Diagnostic Findings CT head - IMPRESSION: 1. No acute intracranial findings. 2. Multiple old infarcts within the bilateral basal ganglia. Code Status & VTE Plan Code Status full code VTE Prophylaxis Plan VTE Prophylaxis will be ordered: Yes PG Care Time/CCT Total # of Minutes Spent Total Time Spent with Patient: Total time spent is greater than 50% in coordination of care (as documented) at patient's floor/unit and/or counseling patient: (1) Hyperlipidemia Hyperlipidemia type: mixed hyperlipidemia Qualified Code(s): E78.2 - Mixed hyperlipidemia (2) GERD (gastroesophageal reflux disease) Esophagitis presence: esophagitis presence not specified Qualified Code(s): K21.9 - Gastro-esophageal reflux disease without esophagitis (3) Stroke CVA mechanism: unspecified Qualified Code(s): I63.9 - Cerebral infarction, unspecified (4) BPH (benign prostatic hyperplasia) Lower urinary tract symptom presence: symptoms absent Qualified Code(s): N40.0 - Benign prostatic hyperplasia without lower urinary tract symptoms
--- NOTE | 2019-05-08 18:58 | Critical Care Consultation ---
Date of Consultation May 08, 2019 Assessment & Plan (1) Received intravenous tissue plasminogen activator (tPA) within last 24 hours: Reason Critically Ill: Miles is a 73-year-old male with a past medical history of GERD, CVA, type 2 diabetes mellitus not on insulin, TIA, and CKD who presented to the hospital with dysarthria and a NIH stroke scale of 4 and who was treated with TPA at 1732. Neuro - [facility] ICU: NEGATIVE Dysarthria, strokelike deficits status post TPA administration -Presented with dysarthria and a stroke scale of 4. He has a history of bilateral basal ganglia CVA without residual deficit at baseline, and has had and episode of confusion, dysarthria, and diaphoresis in the preceding week which may have been suggestive of a TIA His coordination, muscle strength, sensation is all intact and his deficits are limited to focal dysarthria which is improving CT head shows no acute changes, chronic changes consistent with his prior CVA Neurochecks every hour, post TPA protocol -Carotid MRA as below Neurology consulted MR head/brain pending Cardiac - He denies history of past coronary artery disease and arrhythmia Hypertension Blood pressure in low 100s over 80 on admission 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 mg and metoprolol tartrate 100 mg every morning MRA ordered over a CTA due to elevated creatinine TTE ordered Lipid profile pending Troponin negative Respiratory Denies history of respiratory disease or home oxygen requirement Upper airway wheeze appreciated during exam, [id number] smoking history Chest x-ray shows no acute disease GI - N.p.o., advance diet as tolerated following dysphagia screening and swallow eval Hold WELF[employer] ELIGIBILITY WORKER Protonix every morning RENAL/LYTES - CKD Creatinine elevated to 1.64 from a baseline of approximately 1.4 No sodium or potassium derangement BMP daily, replace electrolytes per protocol - Denies urinary symptoms ENDO - Type 2 diabetes mellitus on metformin monotherapy Hold W[employer] ELIGIBILITY WORKER metformin ICU hyperglycemia protocol HEME - Hemoglobin stable at approximately 11.3, no leukocytosis We will monitor for any drops following TPA administration CBC daily ID - Afebrile without leukocytosis, no infectious symptoms Follow fever curve INTEGUMENTARY - Intact, atraumatic LINES/IV ACCESS - PIVs intact. DVT PROPHYLAXIS - Contraindicated following TPA Thank you for allowing us to be part of this patient's care. Please refer to Dr. Khan's documentation for any further recommendations. (2) GERD (gastroesophageal reflux disease): (3) Coronary artery disease: (4) History of CVA (cerebrovascular accident): (5) Admitted to intensive care unit: Supervising Physician Co-Signing Physician Notes Dr. Noriega was resident physician during care of patient. I separately evaluated patient for bedolla portions of the history and the exam. I was present during the critical portion of medical decision making, and I discussed the case with the resident. I generally agree with the findings and plan. Patient admitted to the ICU status post TPA administration. History of Present Illness Reason for Consultation: TPA administration Requesting Physician: Roly Sethi Attending Physician: Roly Sethi History of Present Illness He was seen in the emergency departmentMiles is a 73-year-old male with past medical history of coronary artery disease, GERD, CVA, TIA, and baseline tremor who presented to the emergency department as a stroke alert when he developed dysarthria this morning. He reports his dysarthria started at around 11 AM, but his did not come home and noticed until about 2:58 PM. He denies other symptoms including vision loss, headache, focal weakness. On EMS arrival he was unable to stand due to weakness in both legs. He denies numbness, tingling, and aphasia. He reports that he has felt below his normal healthy baseline for the last month, and was seen in the emergency department 5 days ago after he developed an episode of confusion, nausea, vomiting, and sudden diaphoresis which had res olved by the time he reached the emergency department and during which she had a PSG of [address] normal pulse ox[address] CT head at that time did not show any intracranial abnormality, but did show old lacunar infarcts of the ventricular white matter and basal ganglia. Family had noted that between his episode of diaphoresis and weakness he had drank a soda before the entertainment musician arrived to check his blood sugar, and his family felt his presentation was likely due to low blood sugar. Pain that his CT did not show any acute changes, and his symptoms have all resolved by time of admission he was discharged with follow-up and return parameters. Patient's feels that he has been off of his normal baseline and may have had some slight dysarthria intermittently over the past month, but did not have any sudden or prominent episodes other than the emergency department previously mentioned in his current episode. He has a past medical history of type 2 diabetes mellitus with his last A1c approximately 7 on metformin oral therapy, he is not on insulin He denies history of cardiac disease and arrhythmia Endorses a past medical history of GERD and hypertension Home medications: Low-dose aspirin daily, atorvastatin 40 mg, Plavix, gabapentin 300 mg p.o. 3 times daily, lisinopril 40 mg, metformin 1 g twice daily, metoprolol 100 mg every morning, Protonix 40 mg daily, tamsulosin 0.8 mg daily Surgical history: Carpal tunnel decompression 20 years ago. Denies other surgery. Family history: Patient reports his parents when he was very young and he was raised by his paternal grandfather who had a stroke in old age, but otherwise he does not know his family history. Social: 30 pack/day former tobacco use, no tobacco use in the past 30 years Endorses heavy alcohol use in his youth, rare intermittent alcohol use subsequently Denies recreational drug use He lives in [facility] with his . They have a grandson who they raised due to their daughter passing away. Occupation: Former [employer] minor CODE STATUS: Full code, discussed and confirmed with patient and his Allergies Allergy/AdvReac Type Severity Reaction Status Date / Time No Known Allergies Allergy Verified 05/03/19 21:14 Home Medications Home Medications Medication Instructions Recorded Confirmed Type aspirin [Aspir-81] 81 mg PO QAM 05/03/19 05/08/19 History clopidogrel 75 mg PO QAM 05/03/19 05/08/19 History gabapentin 300 mg PO TID 05/03/19 05/08/19 History lisinopril 40 mg PO QAM 05/03/19 05/08/19 History metformin 1,000 mg PO BID 05/03/19 05/08/19 History metoprolol tartrate 100 mg PO QAM 05/03/19 05/08/19 History pantoprazole 40 mg PO QAM 05/03/19 05/08/19 History tamsulosin 0.8 mg PO QAM 05/03/19 05/08/19 History atorvastatin 40 mg tablet 40 mg PO HS #90 tab 05/08/19 05/08/19 Rx Patient History Medical History GERD (gastroesophageal reflux disease) History of CVA (cerebrovascular accident) Ischemic stroke Chronic kidney disease, stage III (moderate) (Chronic) Essential (primary) hypertension (Chronic) Hyperlipidemia (Chronic) Influenza (Inactive) URI (upper respiratory infection) (Inactive) Surgical History No pertinent past surgical history Family History Brother Hypertension Social History Preferred Language: Polish Communication Ability: Effective 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: No Beliefs That Will Affect Care: None marital status: marital status details: 1 daughter - now Current Living Situation: Spouse current occupational status: retired 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 Eyes: Denies double vision, vision change, eye pain, amaurosis ENT: Denies ear pain, sore throat, sinus pain. Endorses dysarthria Cardiovascular: Denies Chest pain, chest pressure, palpitations, extremity swelling Respiratory: Denies shortness of breath, cough, sputum production, difficulty breathing. Endorses some wheezing at baseline. Gastrointestinal: Denies abdominal pain, nausea, vomiting, constipation, diarrhea Genitourinary: Denies pain with urination, urinary urgency, urinary frequency Musculoskeletal: Denies weakness, muscle aches/pain, joint aches/pain Integumentary:Denies rash, lesions, bruising Neurological: Denies headache, numbness, tingling, focal weakness Physical Exam Physical Exam: General: A&Ox3. NAD. Cooperative. HEENT: Atraumatic, normocephalic. No facial asymmetry. Ear canals occluded by cerumen bilaterally. Pulm: Moderate air movement, expiratory upper wheeze otherwise CTAB A&P -rales, -rhonchi. Symmetrical chest rise. No increase work of breathing. No respiratory distress. Cardiac: RRR, -mrg. Radial pulses intact and symmetrical. Abdominal: Obese, nontender, nondistended, soft. BS present. Mental status: Alert, attentive, and oriented. Speech with mild dysarthria, otherwise fluent. Cranial nerves: Visual uribe are full to confrontation. Pupils are 2-3 mm, equal, and reactive to light and accommodation. No ocular deviation. Extraocular movements intact without nystagmus or saccades. No visual field cuts. Acuity grossly intact. Facial sensation is intact to soft touch in all 3 divisions bilaterally. Corneal responses are intact. Face is symmetric with normal eye closure, eyebrow raise, and smile. Hearing is grossly intact Palate elevates symmetrically. Head turning and shoulder shrug are intact Tongue protrudes midline Motor: There is no pronator drift of out-stretched arms. Resting 3-4 Hz tremor present bilaterally. Fittings Finisher strength, finger flexion/extension, interosseal, wrist flexion/extension, elbow flexion/extension, shoulder flexion/extension/internal rotation/external rotation, knee flexion/extension, hip flexion, ankle dorsiflexion/plantarflexion intact with 5/5 strength and no asymmetry. Sensation intact to soft touch without deficit in the distal arms and legs bila terally, no asymmetry. Coordination: Rapid alternating movements and fine finger movements are intact. There is no dysmetria on [id number] and [id number]. Tremors noted above. Results & Data Vital Signs (Past 12 Hours) Vital Signs Temp Pulse Pulse Resp BP BP Pulse Ox 05/08/19 18:37 36.7 C 74 74 20 128/78 128/78 97 05/08/19 18:22 74 74 20 106/73 106/73 97 05/08/19 18:15 80 16 121/76 97 05/08/19 18:07 72 75 24 125/91 125/91 96 05/08/19 18:00 73 17 96 05/08/19 17:52 75 78 19 117/71 117/71 97 05/08/19 17:45 75 20 115/70 96 05/08/19 17:37 74 20 115/70 96 05/08/19 17:30 74 83 21 129/72 129/72 96 05/08/19 17:16 75 19 121/51 L 96 05/08/19 17:15 76 76 16 121/51 L 96 05/08/19 17:13 78 25 H 96 05/08/19 17:00 80 80 17 91/62 L 91/62 L 96 05/08/19 16:44 36.7 C 80 82 18 114/70 114/70 94 PG Care Time/CCT Total # of Minutes Spent Total Time Spent with Patient: Total time spent is greater than 50% in coordination of care (as documented) at patient's floor/unit and/or counseling patient: Resident Activity Tracking Resident Involvement: Resident Care Provided Care Provided: Adult Hospital Medicine
--- NOTE | 2019-05-08 19:15 | Emergency Department Note ---
Entered by Lea Benton acting as a scribe for History of Present Illness General Chief complaint: Stroke Alert Stated complaint: STROKE SX Source: family History of Present Illness Onset (ago): hour(s) (2 hours 45 minutes) Location: head Pain Consistency: + other (sudden) Maximum Pain Intensity: 0 Quality: + other (stroke symptoms) Associated symptoms: + other (gargled speech, flat affect) The patient is a 73 year old male who presents to the Emergency Room with complaints of sudden stroke symptoms starting at 2 PM, 2 hours and 45 minutes ag o. The patients states that she got home at 1:40 PM. She states that they decided to go for a ride and he was acting fairly normally then. She notes that he was here about a week ago and he was dehydrated so she has been giving him water. She reports that at 2 they sat down to eat a restaurant with his sister and he started having difficulty speaking. She states that it seemed like his speech was gargled. The patients complains of the patient having a flat affect. She notes that he is on Plavix and Aspirin. The patients denies the patient being on Xarelto, Eliquis, or Coumadin and having a history of brain surgeries or masses. Home Medications Home Medications Medication Instructions Recorded Confirmed Type aspirin [Aspir-81] 81 mg PO QAM 05/03/19 05/08/19 History clopidogrel 75 mg PO QAM 05/03/19 05/08/19 History gabapentin 300 mg PO TID 05/03/19 05/08/19 History lisinopril 40 mg PO QAM 05/03/19 05/08/19 History metformin 1,000 mg PO BID 05/03/19 05/08/19 History metoprolol tartrate 100 mg PO QAM 05/03/19 05/08/19 History pantoprazole 40 mg PO QAM 05/03/19 05/08/19 History tamsulosin 0.8 mg PO QAM 05/03/19 05/08/19 History atorvastatin 40 mg tablet 40 mg PO HS #90 tab 05/08/19 05/08/19 Rx Allergies Allergy/AdvReac Type Severity Reaction Status Date / Time No Known Allergies Allergy Verified 05/03/19 21:14 Past Med/Surg History Medical History Acute febrile illness (Acute) Coronary artery disease GERD (gastroesophageal reflux disease) History of CVA (cerebrovascular accident) Influenza (Acute) Ischemic stroke TIA (transient ischemic attack) URI (upper respiratory infection) (Acute) Family History Brother Hypertension Social History Preferred Language: Citizen Of [place] marital status: Current Living Situation: Spouse current occupational status: retired Feels Safe at Home: Yes Smoking Status: Former smoker Review of Systems See HPI for pertinent positives & negatives. and A total of 10 systems reviewed and were otherwise negative Physical Exam Vital Signs Vital Signs - 24 hr 05/08/19 16:44 05/08/19 17:00 05/08/19 17:13 Temperature 36.7 C Temperature Source Oral Sepsis Recent Fever Within 48 Hours No Sepsis New/Unexplained Change in Mental Status No Sepsis Action Taken by Nursing No Action Required Pulse Rate 80 80 78 Pulse Rate [Apical] 82 80 Pulse Rate from SpO2 Sensor 75 77 Pulse Rhythm Regular Pulse Rhythm [Apical] Regular Regular Pulse Strength Normal Pulse Strength [Apical] Normal Normal Respiratory Rate 18 17 25 H Respiratory Effort / Characteristics Non-Labored Spontaneous Non-Labored Spontaneous Respiratory Depth Normal Normal Respiratory Pattern Regular Regular Blood Pressure 114/70 91/62 L Blood Pressure [Right Arm] 114/70 91/62 L Blood Pressure Mean 84 71 Blood Pressure Mean [Right Arm] 84 71 Blood Pressure Position Lying Blood Pressure Position [Right Arm] Lying Lying Pulse Oximetry 94 96 96 Oxygen Delivery Method Room Air Room Air 05/08/19 17:15 05/08/19 17:16 05/08/19 17:30 Temperature Temperature Source Sepsis Recent Fever Within 48 Hours Sepsis New/Unexplained Change in Mental Status Sepsis Action Taken by Nursing Pulse Rate 76 75 74 Pulse Rate [Apical] 76 83 Pulse Rate from SpO2 Sensor 74 82 75 Pulse Rhythm Pulse Rhythm [Apical] Regular Regular Pulse Strength Pulse Strength [Apical] Normal Normal Respiratory Rate 16 19 21 Respiratory Effort / Characteristics Non-Labored Spontaneous Non-Labored Spontaneous Respiratory Depth Normal Normal Respiratory Pattern Regular Regular Blood Pressure 121/51 L 129/72 Blood Pressure [Right Arm] 121/51 L 129/72 Blood Pressure Mean 74 91 Blood Pressure Mean [Right Arm] 74 91 Blood Pressure Position Blood Pressure Position [Right Arm] Lying Lying Pulse Oximetry 96 96 96 Oxygen Delivery Method Room Air Room Air 05/08/19 17:37 05/08/19 17:45 05/08/19 17:52 Temperature Temperature Source Sepsis Recent Fever Within 48 Hours Sepsis New/Unexplained Change in Mental Status Sepsis Action Taken by Nursing Pulse Rate 75 75 Pulse Rate [Apical] 74 78 Pulse Rate from SpO2 Sensor 74 75 Pulse Rhythm Pulse Rhythm [Apical] Regular Regular Pulse Strength Pulse Strength [Apical] Normal Normal Respiratory Rate 20 20 19 Respiratory Effort / Characteristics Non-Labored Spontaneous Non-Labored Spontaneous Respiratory Depth Normal Normal Respiratory Pattern Regular Regular Blood Pressure 115/70 117/71 Blood Pressure [Right Arm] 115/70 117/71 Blood Pressure Mean 85 86 Blood Pressure Mean [Right Arm] 85 86 Blood Pressure Position Blood Pressure Position [Right Arm] Lying Lying Pulse Oximetry 96 96 97 Oxygen Delivery Method Room Air Room Air 05/08/19 18:00 05/08/19 18:07 05/08/19 18:15 Temperature Temperature Source Sepsis Recent Fever Within 48 Hours Sepsis New/Unexplained Change in Mental Status Sepsis Action Taken by Nursing Pulse Rate 73 72 80 Pulse Rate [Apical] 75 Pulse Rate from SpO2 Sensor 72 73 76 Pulse Rhythm Pulse Rhythm [Apical] Regular Pulse Strength Pulse Strength [Apical] Normal Respiratory Rate 17 24 16 Respiratory Effort / Characteristics Non-Labored Spontaneous Respiratory Depth Normal Respiratory Pattern Regular Blood Pressure 125/91 121/76 Blood Pressure [Right Arm] 125/91 Blood Pressure Mean 102 91 Blood Pressure Mean [Right Arm] 102 Blood Pressure Position Blood Pressure Position [Right Arm] Lying Pulse Oximetry 96 96 97 Oxygen Delivery Method Room Air 05/08/19 18:22 05/08/19 18:37 05/08/19 18:52 Temperature 36.7 C Temperature Source Oral Sepsis Recent Fever Within 48 Hours Sepsis New/Unexplained Change in Mental Status Sepsis Action Taken by Nursing Pulse Rate 74 74 73 Pulse Rate [Apical] 74 74 73 Pulse Rate from SpO2 Sensor 73 73 73 Pulse Rhythm Pulse Rhythm [Apical] Regular Regular Regular Pulse Strength Pulse Strength [Apical] Normal Normal Normal Respiratory Rate 20 20 20 Respiratory Effort / Characteristics Non-Labored Spontaneous Non-Labored Spontaneous Non-Labored Spontaneous Respiratory Depth Normal Normal Normal Respiratory Pattern Regular Regular Regular Blood Pressure 106/73 128/78 123/80 Blood Pressure [Right Arm] 106/73 128/78 123/80 Blood Pressure Mean 84 94 94 Blood Pressure Mean [Right Arm] 84 94 94 Blood Pressure Position Blood Pressure Position [Right Arm] Lying Lying Lying Pulse Oximetry 97 97 97 Oxygen Delivery Method Room Air Room Air Room Air 05/08/19 19:07 Temperature Temperature Source Sepsis Recent Fever Within 48 Hours Sepsis New/Unexplained Change in Mental Status Sepsis Action Taken by Nursing Pulse Rate Pulse Rate [Apical] 74 Pulse Rate from SpO2 Sensor Pulse Rhythm Pulse Rhythm [Apical] Pulse Strength Pulse Strength [Apical] Respiratory Rate 20 Respiratory Effort / Characteristics Non-Labored Spontaneous Respiratory Depth Normal Respiratory Pattern Blood Pressure Blood Pressure [Right Arm] 121/82 Blood Pressure Mean Blood Pressure Mean [Right Arm] 95 Blood Pressure Position Blood Pressure Position [Right Arm] Pulse Oximetry 97 Oxygen Delivery Method Room Air HENT: Exam performed. - Head: Normocephalic and atraumatic. - Right Ear: External ear normal. No mastoid tenderness. - Left Ear: External ear normal. No mastoid tenderness. - Mouth/Throat: The oropharynx is clear and moist. No trismus in the jaw. No dental abscesses or uvula swelling. No oropharyngeal exudate or tonsillar abscesses. EYES: Conjunctivae and EOM are normal. Pupils are equal, round, and reactive to light. Right eye exhibits no discharge. Left eye exhibits no discharge. No scleral icterus. NECK: Normal range of motion. Neck supple. No JVD present. No spinous process tenderness present. No carotid bruit present. No rigidity. No tracheal deviation and normal range of motion present. No Brudzinski's sign and no Kernig's sign noted. CV: Normal rate, regular rhythm, normal heart sounds and intact distal pulses. There is no peripheral edema. Palpable radial pulses bue. PULM/CHEST: Effort normal and breath sounds normal. No respiratory distress. No stridor. He has no wheezes. He has no rales. - Chest Wall: He exhibits no tenderness. ABD: The abdomen is soft. Bowel sounds are normal. He has no distension. No mass is present. There is no tenderness. There is no rebound, no guarding, no Kenny's sign and no tenderness at McBurney's point. Rovsig negative. MUSC/SKEL: Normal range of motion. There is no peripheral edema, tenderness or deformity. LYMPH: No cervical adenopathy. NEURO: NIH stroke scale of 4. 2 for Level of Alertness (1B: not oriented to time or person), 1 for facial droop, and 1 for dysarthria. SKIN: Skin is warm and dry. He is not diaphoretic. Course 1630: I received a call from EMS for stroke like symptoms. The patient is having aphasia and abnormal gait starting at 2 PM. He was seen in the ED on May 04 for altered mental status and difficulty walking. Those symptoms resolved by the time he got to the ED. At that time, his labs and CT of his head were negative. Code stroke was called from the field. The patient is not on any blood thinners per EMS. 1646: Past medical records reviewed. The patient was evaluated in room A1. He was immediately sent to CT. 1653: The patient returned from CT. no intracranial hemorrhage on the CT viewed by me. Possible acute to subacute infarct on the CT viewed by me. 1658: I discussed the patient's case with Dr. Jarred Prasad Neurology. She states that the patient has been evaluated via telestroke many times and that she will evaluate him via telestroke at this time. 1700: I discussed the patient's case with Dr. Ennis- Victorino. He does not see an acute infarct, only old infarcts. 1709: I updated Dr. Solano on the finding of the CT scan via the telestroke. 1712: I reevaluated the patient and he is still being evaluated via telestroke. 1722: I discussed the patient's case with Dr. Solano again. She recommends pushing TPA. 1728: I discussed the patient's case with Dr. Khan- Technical Planner. He accepts the patient to the unit. 1730: I discussed the patient's case with Dr. Solano. She states that there is no need to do a CTA. She recommends an MRI, MRA, and echo in the morning. She doesn't feel the need to transfer him to [place] at this time. 1737: TPA was given at this time. 1742: I discussed the patient's case with Dr. Rosado [facility] Hospitalist. She will evaluate the patient for further management. Consultations Consultation #1: I discussed the patient's case with Dr. Jarred Prasad Neurology. She states that the patient has been evaluated via telestroke many times and that she will evaluate him via telestroke at this time. Time: 16:58 Consultation #2: I discussed the patient's case with Dr. Ennis- Radiology. He does not see an acute infarct. Time: 17:00 Consultation #3: I discussed the patient's case with Dr. Solano again. She recommends pushing TPA. Time: 17:22 Additional Consultation(s): 1728: I discussed the patient's case with Dr. Khan- Technical Planner. He accepts the patient to the unit. 1730: I discussed the patient's case with Dr. Solano. She states that there is no need to do a CTA. She recommends an MRI, MRA, and echo in the morning. She doesn't feel the need to transfer him to [place] at this time. 1742: I discussed the patient's case with Dr. Aguiar- [facility] Hospitalist. She will evaluate the patient for further management. Administered Medications Discontinued Medications Alteplase, Recombinant (Activase For Stroke) 1 ea IV NOW STA; Protocol Stop: 05/08/19 17:23 Last Admin: 05/08/19 17:47 Dose: Not Given Documented by: [id number] Sodium Chloride (Nss 1000ml) 1,000 mls @ 999 mls/hr IV .Q1H1M ONE Stop: 05/08/19 18:13 Last Infusion: 05/08/19 18:22 Dose: 0 mls/hr Documented by: [id number] Admin: 05/08/19 17:21 Dose: 999 mls/hr Documented by: [id number] Alteplase, Recombinant 79 mg/ (EMPTY BAG) 79 mls @ 79 mls/hr IV ONCE ONE Stop: 05/08/19 17:34 Last Infusion: 05/08/19 18:40 Dose: 0 mls/hr Documented by: [id number] Cosigned by: [id number] Admin: 05/08/19 17:40 Dose: 79 mls/hr Documented by: [id number] Cosigned by: [id number] Alteplase, Recombinant 8.8 mg/ (Syringe) 8.8 mls @ 8.8 mls/min IV ONCE ONE Stop: 05/08/19 17:33 Last Admin: 05/08/19 17:37 Dose: 8.8 mls/min Documented by: [id number] Cosigned by: [id number] Medical Decision Making Medical Records Attestation: I reviewed the patient's medical records. Home Medications Current Medication List: was personally reviewed by mn Laboratory Data Attestation: I reviewed the patient's lab results. Result diagrams: 05/08/19 17:02 05/08/19 17:02 Lab Results 05/08/19 05/08/19 05/08/19 Range/Units 16:56 17:02 17:02 WBC 6.09 (4.8-10.8) K/uL RBC 3.65 L (4.7-6.1) M/uL Hgb 11.3 L (14.0-18.0) g/dL Hct 33.9 L (42-52) % MCV 92.9 (80-100) fL MCH 31.0 (25-34) pg MCHC 33.3 (32-36) g/dL RDW Std Deviation 46.1 (36.4-46.3) fL RDW Coeff of Laureen 13.5 (11.5-14.5) % Plt Count 200 (130-400) K/uL MPV 9.0 (7.4-10.4) fL Immature Gran % (Auto) 0.3 % Neut % (Auto) 63.3 % Lymph % (Auto) 27.4 % Josephine % (Auto) 7.7 % Eos % (Auto) 0.8 % Baso % (Auto) 0.5 % Immature Gran # (Auto) 0.02 (0.00-0.02) K/uL Neut # (Auto) 3.85 (1.4-6.5) K/uL Lymph # (Auto) 1.67 (1.2-3.4) K/uL Josephine # (Auto) 0.47 (0.11-0.59) K/uL Eos # (Auto) 0.05 (0-0.5) K/uL Baso # (Auto) 0.03 (0-0.2) K/uL PT 11.1 (9.0-12.0) Seconds INR 1.1 (0.9-1.1) APTT 27.8 (21.0-31.0) Seconds PTT Ratio 1.0 Sodium (136-145) mmol/L Potassium (3.5-5.1) mmol/L Chloride (98-107) mmol/L Carbon Dioxide (21-32) mmol/L Anion Gap (3-11) BUN (7-18) mg/dl Creatinine (0.6-1.4) mg/dl Est Cr Clr Drug Dosing ml/min Est GFR ( Amer) Est GFR (Non-Af Amer) BUN/Creatinine Ratio (10-20) Glucose (70-99) mg/dl POC Glucose 193 H (70-99) Calcium (8.5-10.1) mg/dl Magnesium (1.8-2.4) mg/dl Total Bilirubin (0.2-1) mg/dl AST (15-37) U/L ALT (12-78) U/L Alkaline Phosphatase (45-117) U/L Troponin I (0-0.045) ng/ml Total Protein (6.4-8.2) gm/dl Albumin (3.4-5.0) gm/dl Globulin (2.5-4.0) gm/dl Albumin/Globulin Ratio (0.9-2) Blood Type Antibody Screen 05/08/19 05/08/19 Range/Units 17:02 17:02 WBC (4.8-10.8) K/uL RBC (4.7-6.1) M/uL Hgb (14.0-18.0) g/dL Hct (42-52) % MCV (80-100) fL MCH (25-34) pg MCHC (32-36) g/dL RDW Std Deviation (36.4-46.3) fL RDW Coeff of Laureen (11.5-14.5) % Plt Count (130-400) K/uL MPV (7.4-10.4) fL Immature Gran % (Auto) % Neut % (Auto) % Lymph % (Auto) % Josephine % (Auto) % Eos % (Auto) % Baso % (Auto) % Immature Gran # (Auto) (0.00-0.02) K/uL Neut # (Auto) (1.4-6.5) K/uL Lymph # (Auto) (1.2-3.4) K/uL Josephine # (Auto) (0.11-0.59) K/uL Eos # (Auto) (0-0.5) K/uL Baso # (Auto) (0-0.2) K/uL PT (9.0-12.0) Seconds INR (0.9-1.1) APTT (21.0-31.0) Seconds PTT Ratio Sodium 138 (136-145) mmol/L Potassium 4.4 (3.5-5.1) mmol/L Chloride 103 (98-107) mmol/L Carbon Dioxide 28 (21-32) mmol/L Anion Gap 6.0 (3-11) BUN 24 H (7-18) mg/dl Creatinine 1.64 H (0.6-1.4) mg/dl Est Cr Clr Drug Dosing 46.7 ml/min Est GFR ( Amer) 48.0 Est GFR (Non-Af Amer) 41.5 BUN/Creatinine Ratio 14.8 (10-20) Glucose 205 H (70-99) mg/dl POC Glucose (70-99) Calcium 8.7 (8.5-10.1) mg/dl Magnesium 1.6 L (1.8-2.4) mg/dl Total Bilirubin 0.5 (0.2-1) mg/dl AST 9 L (15-37) U/L ALT 21 (12-78) U/L Alkaline Phosphatase 55 (45-117) U/L Troponin I < 0.015 (0-0.045) ng/ml Total Protein 6.7 (6.4-8.2) gm/dl Albumin 3.5 (3.4-5.0) gm/dl Globulin 3.2 (2.5-4.0) gm/dl Albumin/Globulin Ratio 1.1 (0.9-2) Blood Type A Positive Antibody Screen NEGATIVE Imaging Data Radiologist's Impression: Radiology results as stated below per my review and the radiologist's interpretation: CT OF THE HEAD WITHOUT CONTRAST CLINICAL HISTORY: Stroke evaluation. Right-sided weakness. COMPARISON STUDY: Head CT May 03, 2019. MRI of the brain January 09, 2018. CT DOSE: 773.57 mGy.cm TECHNIQUE: Helical axial images of the head were obtained without IV contrast. Automated exposure control was utilized for the study. A dose lowering technique was utilized adhering to the principles of ALARA. FINDINGS: No acute intracranial hemorrhage, midline shift or mass effect is pres ent. The ventricular system is unremarkable. Basilar cisterns are patent. There are no extra axial collections. Multiple old infarcts within the bilateral basal ganglia are again noted. These appear unchanged. There are no findings to suggest acute dural sinus thrombosis or acute territorial infarct. There are no calvarial fractures. There is mild sinus mucosal thickening. IMPRESSION: 1. No acute intracranial findings. 2. Multiple old infarcts within the bilateral basal ganglia. Electronically signed by: Sawyer Ennis M.D. 05/08/2019 5:01 PM ECG Data Attestation: I personally reviewed and interpreted this ECG as follows: Indication: other (code stroke) Rate (beats per minute): 78 Rhythm: sinus with SA Findings: + other (NM, QRS, and QT-c intervals are within normal limits); no ST depression and no ST elevation Blood Pressure Blood Pressure Findings: Normal blood pressure Blood Pressure Disposition: did not require urgent referral MDM Narrative 1630: I received a call from EMS for stroke like symptoms. The patient is having aphasia and abnormal gait starting at 2 PM. He was seen in the ED on May 04 for altered mental status and difficulty walking. Those symptoms resolved by the time he got to the ED. At that time, his labs and CT of his head were negative. Code stroke was called from the field. The patient is not on any blood thinners per EMS. 1646: Past medical records reviewed. The patient was evaluated in room A1. He was immediately sent to CT. 1653: The patient returned from CT. no intracranial hemorrhage on the CT viewed by me. Possible acute to subacute infarct on the CT viewed by me. 1658: I discussed the patient's case with Dr. Solano- [place] [facility]. She states that the patient has been evaluated via telestroke many times and that she will evaluate him via telestroke at this time. 1700: I discussed the patient's case with Dr. Ennis- Radiology. He does not see an acute infarct, only old infarcts. 1709: I updated Dr. Solano on the finding of the CT scan via the telestroke. 1712: I reevaluated the patient and he is still being evaluated via telestroke. 1722: I discussed the patient's case with Dr. Solano again. She recommends pushing TPA. 1728: I discussed the patient's case with Dr. Khan- Technical Planner. He accepts the patient to the unit. 1730: I discussed the patient's case with Dr. Solano. She states that there is no need to do a CTA. She recommends an MRI, MRA, and echo in the morning. She doesn't feel the need to transfer him to [place] at this time. 1737: TPA was given at this time. 1742: I discussed the patient's case with Dr. Ashlee PACHECO Hospitalist. She will evaluate the patient for further management. Impression & Plan Stroke Critical Care Time Critical Care Time: Yes Total Critical Care Time: 58 I have personally spent 58 minutes of critical care time in the direct managem ent of this patient. This includes bedside care, interpretation of diagnostic studies, and testing, discussion with consultants, patient, and family members, and other required patient management activities. This 58 minutes is in excess of all separately billable procedures. Discharge Plan Visit Data Chief Complaint: Stroke Alert Stated Complaint: STROKE SX ED Provider: Андрей Luke Discharge Problem: Stroke Patient Disposition: Being Evaluated by Hospitalist Forms Stand Alone Forms: My [facility] Prescriptions Prescriptions: No Action atorvastatin 40 mg tablet 40 mg PO HS Qty: 90 RF: 3 aspirin [Aspir-81] 81 mg Tablet,Delayed Release (Dr/Ec) 81 mg PO QAM RF: 0 clopidogrel 75 mg tablet 75 mg PO QAM RF: 0 gabapentin 300 mg capsule 300 mg PO TID RF: 0 lisinopril 40 mg tablet 40 mg PO QAM RF: 0 metformin 1,000 mg tablet 1,000 mg PO BID RF: 0 metoprolol tartrate 100 mg tablet 100 mg PO QAM RF: 0 pantoprazole 40 mg tablet,delayed release (DR/EC) 40 mg PO QAM RF: 0 tamsulosin 0.4 mg capsule 0.8 mg PO QAM RF: 0 Referrals Referrals: Sebastián Bond III, MD [Primary Care Provider] - Discharge Problem: Stroke Qualifiers: CVA mechanism: unspecified Qualified Code(s): I63.9 - Cerebral infarction, unspecified The scribe's documentation has been prepared under my direction and personally reviewed by me in its entirety. I confirm that the note above accurately reflects all work, treatment, procedures, and medical decision making performed by me.
--- NOTE | 2019-05-08 19:38 | XRay Report ---
XR chest 1V portable CLINICAL HISTORY: 73 years-old Male presenting with stroke. TECHNIQUE: Portable upright AP view of the chest was obtained. COMPARISON: 05/03/2019. FINDINGS: Cardiomediastinal silhouette normal. No focal opacity. No large effusion or pneumothorax. Osseous str uctures normal. IMPRESSION: 1. No acute cardiopulmonary disease. Electronically signed by: Murtaza Jacome M.D. 05/08/2019 7:37 PM
[2019-05-08] MEDS ORDERED: ICU PROTOCOL FOR HYPERGLYCEMIA PRN (20:37)
[2019-05-08] MEDS ORDERED: PHARMACIST DISCHARGE MED REC CONSULT PRN (20:44)
[2019-05-08] MEDS: MAGNESIUM SULFATE / D5W 1 GM/100 ML BAG IV SCH ×2 (20:44→22:55)
[2019-05-08] MEDS ORDERED: INSULIN ASPART 100 UNITS/ML 3 ML PEN SC SCH (21:00)
[2019-05-08] MEDS ORDERED: Nursing to Pharmacy Communication ONE (21:29)
[2019-05-08] MEDS ORDERED: DEXTROSE 50% 50 ML SYRINGE IV PRN (21:45)
[2019-05-08] MEDS ORDERED: GLUCAGON FOR INJ 1 MG VIAL IM PRN (21:45)
[2019-05-08] MEDS ORDERED: GLUCOSE 40% GEL 15 GM TUBE PO PRN (21:45)
[2019-05-08] MEDS ORDERED: CARBOHYDRATES FOR HYPOGLYCEMIA PO PRN (21:45)
[2019-05-08] MEDS ORDERED: GLUCOSE 10 TABS/TUBE PO PRN (21:45)
[2019-05-08] MEDS ORDERED: GADOBUTROL 65ML VIAL IV PRN (21:50)
--- NOTE | 2019-05-08 21:56 | Magnetic Resonance Report ---
MR angio head wo con CLINICAL HISTORY: 73 years-old Male presenting with dysarthria, history of stroke. TECHNIQUE: MR angiography of the head was performed without the use of intravenous contrast using 3-D [id number] technique. 3-D volumetric and/or maximum intensity projection (MIP) images were subse quently reconstructed for review. IV contrast: None. COMPARISON: 01/09/2018. FINDINGS: Localizer images: Unremarkable. Anterior circulation: Intracranial portions of the internal carotid arteries patent to the level of t he termini. Anterior cerebral arteries patent. Middle cerebral arteries patent with mild diffuse irre gularity possibly related to atherosclerosis. Anterior communicating artery patent. Posterior circulation: Codominant vertebral arteries. Intradural portions of the vertebral arteries p atent with slight atherosclerotic plaque likely accounting for luminal irregularity. Posterior inferi or cerebellar arteries patent. Basilar artery patent. Anterior inferior cerebellar arteries poorly vi sualized. Superior cerebellar arteries patent. Posterior cerebral arteries patent. Posterior communic ating arteries hypoplastic or aplastic. IMPRESSION: 1. Suspected intracranial atherosclerosis. No significant stenosis, aneurysm, or focal vessel occlus ion. Electronically signed by: Murtaza Jacome M.D. 05/08/2019 9:55 PM
--- NOTE | 2019-05-08 22:01 | Magnetic Resonance Report ---
MR brain wo con CLINICAL HISTORY: 73 years-old Male presenting with stroke s/p TPA, dysarthria, history of stroke, TI A last week. TECHNIQUE: Multisequence, multiplanar MR imaging of the brain was performed without the use of intrav enous contrast. IV contrast: None. COMPARISON: 01/09/2018. FINDINGS: Localizer images: Unremarkable. Bone marrow signal intensity within the calvarium within normal limits. Mucosal thickening in paranas al sinuses. Normal midline sagittal structures. Proportional ventricular and sulcal prominence, likely age-relate d parenchymal volume loss. No mass effect or midline shift. No restricted diffusion or hemorrhage. Pe riventricular and subcortical white matter T2/FLAIR hyperintensity, nonspecific but likely indicative of chronic small vessel ischemic change. Old lacunar infarcts in the bilateral basal ganglia, caudat e head/body, and thalami. No extra-axial fluid collection. T2 skull base flow voids preserved. IMPRESSION: 1. Chronic small vessel ischemic change and scattered old lacunar infarcts. No acute intracranial ab normality. Electronically signed by: uMrtaza Jacome M.D. 05/08/2019 9:59 PM
[2019-05-08] MEDS: FAMOTIDINE 20 MG in SYRINGE 3 ML IV SCH (22:32)
[2019-05-08] MEDS: SODIUM CHLORIDE 0.9% 1000ML 1,000 ML IV SCH (22:32)
--- NOTE | 2019-05-08 22:56 | Magnetic Resonance Report ---
MR angio neck wo/w con CLINICAL HISTORY: 73 years-old Male presenting with TIA last week, history of stroke, dysarthria. TECHNIQUE: MR angiography of the neck was performed before and after the administration of intravenou s contrast. 3-D volumetric and/or maximum intensity projection (MIP) images were subsequently reconst ructed for review. IV contrast: 11 mL of Gadavist. Stenosis measurements were based on NASCET-like cr iteria (distal lumen diameter as the denominator for stenosis measurement). COMPARISON: Doppler ultrasound from 2018. FINDINGS: Localizer images: Unremarkable. Aortic arch: Atherosclerosis of the three-vessel aortic arch. Innominate artery: Patent. Right subclavian artery: Patent. Right common carotid artery: Patent. Right internal and external carotid arteries: Right carotid bifurcation patent. Right internal and ex ternal carotid arteries widely patent. Left common carotid artery: Patent. Left internal and external carotid arteries: Left carotid bifurcation with apparent stenosis of the o rigin of the right internal carotid artery. Left internal and external carotid arteries otherwise pat ent. Left subclavian artery: Patent. Vertebral arteries: Codominant vertebral arteries. Origins not well evaluated. Courses of the bilater al vertebral arteries patent. Other: Limited intracranial evaluation within normal limits. Soft tissues of the neck normal allowing for the phase of contrast. IMPRESSION: 1. Possible stenosis of the proximal left ICA. Doppler ultrasound to be considered for better charac terization, although no stenosis was evident in this region on prior Doppler ultrasound from 2018. Th is may relate to technique/artifact. Electronically signed by: Murtaza Jacome M.D. 05/08/2019 10:55 PM
[2019-05-09] MEDS: INSULIN ASPART 100 UNITS/ML 3 ML PEN SC SCH ×6 (00:19→21:26)
[2019-05-09 05:17] LABS: Chol HDL Ratio 4; Cholesterol 135 mg/dl (0-200); HDL Cholesterol 34 mg/dl; LDL Cholesterol Calculated 56 mg/dl; Triglycerides 224 mg/dl (0-150); VLDL Cholesterol 45 mg/dl
[2019-05-09 06:30] LABS: Estimated Average Glucose 126 mg/dl
[2019-05-09] MEDS: SODIUM CHLORIDE 0.9% 1000ML 1,000 ML IV SCH ×2 (07:57→14:31)
--- NOTE | 2019-05-09 08:05 | Critical Care Progress Note ---
Date of Service May 09, 2019 Assessment & Plan (1) Received intravenous tissue plasminogen activator (tPA) within last 24 hours: Reason Critically Ill: Miles is a 73-year-old male with a past medical history of GERD, CVA, type 2 diabetes mellitus not on insulin, TIA, and CKD who presented to the hospital with dysarthria and a NIH stroke scale of 4 and who was treated with TPA at 1732. Neuro - [facility]: NEGATIVE Dysarthria, strokelike deficits status post TPA administration -Presented with dysarthria and a stroke scale of 4. His coordination, muscle strength, sensation and extremities were intact at time of ICU admission Speech noticeably improved today with good volume, normal prosody, and decreased latency compared to yesterday. NIHSS 0. CT head shows no acute changes, chronic changes consistent with his prior CVA Neurochecks every hour until 24 hours post TPA -Carotid MRA suggestive of left ICA stenosis, carotid Dopplers ordered Neurology consulted. Recommend addition of high-dose statin, BP goal with map of 100, PT/OT, no indication for anticoagulation, and consider Plavix 75 mg daily versus Aggrenox twice daily MR head/brain shows no acute findings Pending CT head repeat and TPA day 2 orders (administration time 1737 hrs) Cardiac - He denies history of past coronary artery disease and arrhythmia Hypertension Blood pressure in low 100s over 80 on admission, currently with increased pressures Held [employer] WORK[employer] lisinopril and metoprolol, resume now that passed swallow study Troponin negative Respiratory Denies history of respiratory disease or home oxygen requirement Upper airway wheeze appreciated during exam, [id number] smoking history Chest x-ray shows no acute disease GI - Passed swallow eval, type II diabetic diet Continue famotidine 20 mg p.o. twice daily RENAL/LYTES - CKD Creatinine elevated from baseline 1.4, 1.6 today No sodium or potassium derangement BMP daily, replace electrolytes per protocol - Denies urinary symptoms ENDO - Type 2 diabetes mellitus on metformin monotherapy Hold [employer] metformin ICU hyperglycemia protocol HEME - Hemoglobin 11.3 on admit Follow for any signs of bleeding following TPA administration ID - Afebrile without leukocytosis, no infectious symptoms Follow fever curve INTEGUMENTARY - Intact, atraumatic LINES/IV ACCESS - PIVs intact. DVT PROPHYLAXIS - pharmacoprophylaxis contraindicated following TPA, SCDs Thank you for allowing us to be part of this patient's care. Please refer to Dr. Khan's documentation for any further recommendations. Supervising Physician Co-Signing Physician Notes Dr. Noriega was resident physician during care of patient. I separately evaluated patient for bedolla portions of the history and the exam. I was present during the critical portion of medical decision making, and I discussed the case with the resident. I generally agree with the findings and plan. I discussed the patient on multidisciplinary rounds and with neurology. MRI largely unremarkable, still having blood pressure fluctuations will transition to oral medication once the patient has been cleared and evaluated by speech therapy. Able to proceed with physical therapy today. Stable for downgrade once post 24 hours TPA. Results & Data Vital Signs (Past 12 Hours) Vital Signs Temp Pulse Pulse Resp BP BP Pulse Ox 05/09/19 05:00 69 15 159/97 H 99 05/09/19 04:00 36.6 C 72 18 150/95 H 100 05/09/19 03:00 62 17 157/79 H 98 05/09/19 02:30 65 14 159/91 H 99 05/09/19 02:00 70 14 157/97 H 97 05/09/19 01:30 70 13 157/92 H 98 05/09/19 01:00 74 12 168/88 H 95 05/09/19 00:31 70 17 147/93 H 98 05/09/19 00:05 36.4 C L 05/09/19 00:00 73 15 114/86 97 05/08/19 23:31 74 16 129/96 97 05/08/19 23:00 83 17 124/89 97 05/08/19 22:36 77 19 151/85 H 97 05/08/19 22:15 77 14 126/96 97 05/08/19 22:00 71 96 05/08/19 21:30 82 97 05/08/19 21:00 79 22 145/93 H 96 05/08/19 20:31 75 17 141/96 H 96 05/08/19 20:25 37 C 74 20 161/93 H 98 05/08/19 20:16 75 15 161/93 H 97 05/08/19 20:01 75 15 165/81 H 98 05/08/19 20:00 81 15 165/81 H 98 05/08/19 19:35 37.0 C 81 14 101/82 98 05/08/19 19:22 77 20 129/80 97 05/08/19 19:07 74 20 121/82 97 05/08/19 18:52 73 73 20 123/80 123/80 97 05/08/19 18:37 36.7 C 74 74 20 128/78 128/78 97 05/08/19 18:22 74 74 20 106/73 106/73 97 05/08/19 18:15 80 16 121/76 97 05/08/19 18:07 72 75 24 125/91 125/91 96 PG Care Time/CCT Total # of Minutes Spent Total Time Spent with Patient: Total time spent is greater than 50% in coordination of care (as documented) at patient's floor/unit and/or counseling patient: Resident Activity Tracking Resident Involvement: Resident Care Provided Care Provided: Adult Hospital Medicine
[2019-05-09] MEDS: METOPROLOL TARTRATE 1 MG/ML VIAL IV PRN ×2 (08:22→14:05)
[2019-05-09] MEDS ORDERED: METOPROLOL TARTRATE 1 MG/ML VIAL IV STA (09:17)
[2019-05-09] MEDS: FAMOTIDINE 20 MG in SYRINGE 3 ML IV SCH (09:21)
--- NOTE | 2019-05-09 09:39 | Neurology Consultation ---
Date of Consultation May 09, 2019 Assessment & Plan (1) TIA (transient ischemic attack): (2) Hypertension: (3) Type 2 diabetes, uncontrolled, with neuropathy: (4) History of CVA (cerebrovascular accident): This patient had the acute onset of dysarthria and some other nonspecific sympt oms May 08, which has resolved by today. He received tPA. Clinically he is back to baseline today with an NIH stroke scale of 0. MRI of the brain showed no acute stroke. It does show mild old small vessel ischemic changes and old small lacune owns as well as mild generalized atrophy. The patient has multiple risk factors for stroke including longstanding hypertension, diabetes, and dyslipidemia. He was a heavy cigarette smoker quitting in 1992. Unfortunately he had his event despite aspirin and Plavix. I am not convinced this patient had a true TIA although I cannot entirely exclu de this. He certainly does not have any source of embolus and this event was not consistent with an embolic phenomenon. Small vessel ischemia cannot be excluded although he has no significant stenoses on MR angiography. The patient had low blood pressure on admission and I wonder if the combination of gabapentin (to which he gets side effects) and the hypotension (which could cause decreased cerebral perfusion focally or globally) caused his symtoms. 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 This could give him a sensory ataxia and help add to his poor gait/stance. Recommendations: 1. Control blood pressure a meeting for a mean arterial pressure of approximately 100. 2. Hemoglobin A1c of 6.0 is reasonable but a little better glucose control would be beneficial, aiming for hemoglobin A1c of 5.8 or less. 3. The patient is a high dose statin candidate. 4. Increase activity as able and he needs physical, occupational, and speech therapy consults. 5. Echocardiogram, if not ordered. 6. I am not certain that changing his antiplatelet medication would be beneficial for him at this time. We could consider Aggrenox twice daily instead of aspirin and Plavix. In theory this may do better than either 1 alone. There is no neurologic literature to support the use of both Plavix and aspirin in the long-term as this does nothing more than Plavix alone and increases bleeding risk. Therefore the choices between continuing on clopidogrel 75 milligrams a day or switching to Aggrenox twice daily. I am not sure there is any solid literature supporting a clear choice here. 7. There is no indication for anticoagulation at this time. Overall, I spent a total of 110 minutes with this case including review of records, review of MRI films, direct evaluation the patient at bedside, and discussing the case with the patient at bedside, nursing staff, Dr. Khan, and Dr. Sethi, including differential diagnosis and treatment options. History of Present Illness Reason for Consultation: Patient is a 73-year-old, who I was asked to see at the request of Dr. Sethi, for neurologic consultation regarding possible stroke. Requesting Physician: Dr. Sethi Attending Physician: Romero Sethi History of Present Illness In June 2013 this patient had an episode of dysarthria and gait disturbance. He was on aspirin at the time and switch to Plavix. MRI of the brain showed an acute left durant radiata lacunar infarct. He had already had old lacune is by that time in the right basal ganglia, the right durant radiata, and left thalamus. There was mild old diffuse small vessel ischemic disease and atrophy only. Evaluation at that time revealed plaque on carotid ultrasound and negative MR angiography of the head. Echocardiogram was unremarkable as well. He was back to baseline by discharge and did well on Plavix. In December 2016 he had dysarthria blurry vision. MRI of the brain showed no acute stroke. He was placed on aspirin and Plavix for 2 months and then was put on Plavix alone. In January of 2018 he had an episode of slurred speech, right facial droop, right upper extremity drift, and gait disturbance. MRI of the brain did not show an acute stroke and showed a mild old small vessel ischemic disease and atrophy as before. MR angiography of the head was unremarkable. He has remained on aspirin and Plavix ever since. Emphasis at that time was on controlling risk factors, which included hypertension, diabetes, and dyslipidemia. He was a heavy cigarette smoker but quit in 1992. He was a heavy alcohol user and quit in 2016. Patient did well until recently. On May 03, he came to the emergency room with nausea, vomiting, diarrhea, nonspecific dizziness, and diaphoresis. He was sent home and felt the hydrated. Patient is on gabapentin technically at 300 milligrams 3 times a day. He does not take this regular and is not even sure what the medicines for although he takes that for his back pain. He claims the medicine give some side effects. On the morning of May 08 around 1000 he took to 300 milligram gabapentin pills. He felt that perhaps he was dizzy around 11 o'clock in the morning. However, when his came home at 1:30 in the afternoon she felt he was doing fairly well. Somewhere around 1400 he had the onset of slurred speech. A flat affect was noted and he had some trouble standing and leg weakness. He did not fall. He had no other focal weakness or other issues. He ride to the emergency room at 1644 with a temperature 36.7, pulse 80 and regular, respiratory rate 18, blood pressure 114/70, and O2 saturation 94 percent. He was described as not oriented to person or time, had a facial droop (side was not specified) and had dysarthria. He was given an NIH stroke scale of 4 and tPA was given. CBC showed some anemia of a mild degree. Magnesium was low at 1.6 and BUN and creatinine were mildly elevated. Glucose was 205. Triglycerides were 224, clue total cholesterol 135, LDL [address] scan of the head showed no acute changes. Chest x-ray was unremarkable. MR angiography of the head neck were performed and showed some plaque diffusely without significant stenosis in the head and a possible stenosis of the proximal left internal carotid artery but this was not clear either. MRI of the brain showed no acute stroke. It shows mild generalized atrophy and the mild old small vessel ischemic disease as before. Today he feels better with his speech and general condition. He has no fever, weakness, numbness, vision problems, or confusion. Blood pressure this morning was 182/111 and then later was 163/115. Allergies Allergy/AdvReac Type Severity Reaction Status Date / Time No Known Allergies Allergy Verified 05/03/19 21:14 Home Medications Home Medications Medication Instructions Recorded Confirmed Type aspirin [Aspir-81] 81 mg PO QAM 05/03/19 05/08/19 History clopidogrel 75 mg PO QAM 05/03/19 05/08/19 History gabapentin 300 mg PO TID 05/03/19 05/08/19 History lisinopril 40 mg PO QAM 05/03/19 05/08/19 History metformin 1,000 mg PO BID 05/03/19 05/08/19 History metoprolol tartrate 100 mg PO QAM 05/03/19 05/08/19 History pantoprazole 40 mg PO QAM 05/03/19 05/08/19 History tamsulosin 0.8 mg PO QAM 05/03/19 05/08/19 History atorvastatin 40 mg tablet 40 mg PO HS #90 tab 05/08/19 05/08/19 Rx Patient History Medical History GERD (gastroesophageal reflux disease) History of CVA (cerebrovascular accident) Ischemic stroke Chronic kidney disease, stage III (moderate) (Chronic) Essential (primary) hypertension (Chronic) Hyperlipidemia (Chronic) Influenza (Inactive) URI (upper respiratory infection) (Inactive) Surgical History H/O carpal tunnel repair No pertinent past surgical history S/P tonsillectomy Family History Brother Hypertension Brother Diabetes Father , age 40 in a train accident Benign familial tremor Social History Preferred Language: Qatari Communication Ability: Effective Croze Cutter Required: No Beliefs That Will Affect Care: None marital status: marital status details: 1 daughter - now Current Living Situation: Spouse current occupational status: retired 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 Feels Safe at Home: Yes Smoking Status: Former smoker Age Started Using Tobacco: 10 ; packs per day: 1 ; Years Smoked: 30 ; Number of Years Since Quit: 30 ; Second Hand Exposure: No ; Tobacco Cessation Education Requested by Patient: No Hx Alcohol Use: Yes Alcohol type: beer, wine and hard liquor Alcohol Intake Frequency Comment: Heavy alcohol user quitting in 2017 Hx Substance Use: No Review of Systems Constitutional: no fever, no fatigue and no weakness Eyes: no diplopia, no eye pain and no worsening vision Ear, Nose, Mouth, Throat: no ear pain, no tinnitus, no hearing loss, no dizziness, no snoring, no hoarseness and no dysphagia Respiratory: no cough and no dyspnea Cardiovascular: no chest pain, no palpitations and no lightheadedness Gastrointestinal: no abdominal pain, no nausea and no vomiting Musculoskeletal: + back pain; no neck pain, no radicular pain, no joint pain and no myalgia Integumentary: no rash and no lesions Neurologic: + gait abnormality; no localized weakness, no generalized weakness, no tingling, no numbness, no tremor(s), no abnormal movements, no headache(s), no abnormal speech, no confusion and no memory loss Psychiatric: no depression, no irritability, no anxiety, no difficulty concentrating, no confusion and no hallucinations Endocrine: no fatigue and no flushing Hematologic / Lymphatic: no easy bleeding and no easy bruising Allergy / Immunological: no urticaria and no problem reported Physical Exam Physical Exam: The patient is right-handed. The patient is awake, alert, and attentive. Speech is normal without any aphasia or significant dysarthria. he can name objects, repeat phrases, and has normal spontaneous speech. Mentation and thought processes are intact, with orientation to person, place and time, and normal fund of knowledge. Attention and concentration are normal. Mood and affect are normal and appropriate. General appearance and grooming are normal. Short and long-term memory are intact. The discs are sharp with positive venous pulsations bilaterally. There are no exudates, hemorrhages, or blood vessel changes seen. Pupils are 4 mm bilaterally and reactive to light. Extraocular eye muscles are intact without nystagmus. Visual acuity and visual uribe seem normal grossly to confrontation. There are no deficits to sensation in the face in all 3 distributions of the fifth cranial nerve bilaterally. Corneal reflexes are positive bilaterally. Facial strength and symmetry was normal bilaterally. Hearing seems normal to whisper and finger rub bilaterally. Palate moves well without asymmetry. There is normal sternocleidomastoid and trapezius (shoulder shrug) strength bilaterally. Tongue is midline with good strength bilaterally. Neck has a full range of motion without discomfort. There are no cervical bruits bilaterally. There are no cranial or ocular bruits. Heart is without murmur. There is a regular rhythm and rate. Cervical, thoracic, and lumbar spine are nontender to palpation. Gait is slightly wide-based and unsteady. He is cautious and needs assistance of at least 1 for support. Stance with eyes open is somewhat unsteady also. With outstretched arms there is no drift. There are no resting, postural, or action tremors. There is no ataxia with finger to nose testing. There is good facility in the hands. No other abnormal involuntary movements are noted. Motor strength is 5/5 diffusely in the arms bilaterally including deltoids, biceps, triceps, brachioradialis, wrist flexors and extensors, medication care manager, and intrinsic hand muscles. Motor strength is 5/5 diffusely in the legs bilaterally including hip flexors, quadriceps, hamstrings, gastrocnemius, tibialis anterior, tibialis posterior, and Peroneii muscles. Toe extensors are normal and there is good bulk in the extensor digitorum brevis muscles bilaterally. The limbs have good tone without rigidity or spasticity. There is no atrophy noted in the muscles. Muscle bulk is normal, there is no tenderness to palpation, no myotonia to percussion, and no fasciculations seen. Sensory examination is intact to touch and pin throughout all 4 limbs diffusely. Reflexes are 2/4 in the biceps, triceps, brachioradialis, and quadriceps tendons bilaterally. Achilles tendon reflexes were absent bilaterally There is no clonus bilaterally. Toes are downgoing with plantar stimulation bilaterally. Peripheral pulses are present and of normal quality distally in all 4 limbs. There is no peripheral edema noted in the limbs. Results & Data Vital Signs (Past 12 Hours) Vital Signs Temp Pulse Pulse Resp BP BP Pulse Ox 05/09/19 08:22 80 182/111 H 05/09/19 07:19 79 05/09/19 07:00 84 16 174/88 H 97 05/09/19 06:00 72 14 174/85 H 97 05/09/19 05:00 69 15 159/97 H 99 05/09/19 04:00 36.6 C 72 18 150/95 H 100 05/09/19 03:00 62 17 157/79 H 98 05/09/19 02:30 65 14 159/91 H 99 05/09/19 02:00 70 14 157/97 H 97 05/09/19 01:30 70 13 157/92 H 98 05/09/19 01:00 74 12 168/88 H 95 05/09/19 00:31 70 17 147/93 H 98 05/09/19 00:05 36.4 C L 05/09/19 00:00 73 15 114/86 97 05/08/19 23:31 74 16 129/96 97 05/08/19 23:00 83 17 124/89 97 05/08/19 22:36 77 19 151/85 H 97 05/08/19 22:15 77 14 126/96 97 05/08/19 22:00 71 96 05/08/19 21:30 82 97 Diagnostic Findings MR brain wo con CLINICAL HISTORY: 73 years-old Male presenting with stroke s/p TPA, dysarthria, history of stroke, TIA last week. TECHNIQUE: Multisequence, multiplanar MR imaging of the brain was performed without the use of intravenous contrast. IV contrast: None. COMPARISON: 01/09/2018. FINDINGS: Localizer images: Unremarkable. Bone marrow signal intensity within the calvarium within normal limits. Mucosal thickening in paranasal sinuses. Normal midline sagittal structures. Proportional ventricular and sulcal prominence, likely age-related parenchymal volume loss. No mass effect or midline shift. No restricted diffusion or hemorrhage. Periventricular and subcortical white matter T2/FLAIR hyperintensity, nonspecific but likely indicative of chronic small vessel ischemic change. Old lacunar infarcts in the bilateral basal ganglia, caudate head/body, and thalami. No extra-axial fluid collection. T2 skull base flow voids preserved. IMPRESSION: 1. Chronic small vessel ischemic change and scattered old lacunar infarcts. No acute intracranial abnormality. Electronically signed by: Murtaza Jacome M.D. 05/08/2019 9:59 PM PG Care Time/CCT Total # of Minutes Spent Total Time Spent with Patient: Total time spent is greater than 50% in coordination of care (as documented) at patient's floor/unit and/or counseling patient:
--- NOTE | 2019-05-09 11:01 | Ultrasound Report ---
US carotid doppler BI CLINICAL HISTORY: 73 years-old Male with ? L ICA stenosis on MRA. All of study in a patient with pos sible stenosis of the proximal left ICA described on MRA neck 05/08/2019 COMPARISON: MRA of the neck 05/08/2019 TECHNIQUE: Multiple real time sonographic images of the carotid bifurcations were obtained assessing villalba scale, color Doppler and spectral wave form appearance FINDINGS: RIGHT CAROTID: The peak systolic velocity within the right ICA measured 59 cm/sec. The end diastoli c velocity measured 18 cm/sec. The ICA to CCA ratio measured 1.0 which correlates with a stenosis of 0-50%. Severe mixed plaque of the carotid bulb and proximal right ICA. LEFT CAROTID: The peak systolic velocity within the left ICA measured 134 cm/sec. The end diastolic velocity measured 27 cm/sec. The ICA to CCA ratio measured 1.6 which correlates with a stenosis of 5 0-69%. Peak systolic velocity within the common carotid artery was measured at 85 cm/s, end diastolic velocity measured at 16 cm/s. Moderate to severe mixed plaque of the left carotid bulb and proximal left ICA. There is normal antegrade vertebral flow bilaterally. IMPRESSION: 1. Extensive mixed plaque about the bilateral carotid bulbs and proximal internal carotid arteries re sults in 50-69% stenosis of the proximal left ICA and less than 50 stenosis of the right ICA. 2. Antegrade flow of the bilateral vertebral arteries. The above report was generated using voice recognition software. It may contain grammatical, syntax o r spelling errors. Electronically signed by: Colten Barrera M.D. 05/09/2019 11:00 AM
[2019-05-09] MEDS: METOPROLOL TARTRATE 100 MG TAB PO SCH (11:23)
[2019-05-09] MEDS: LISINOPRIL 40 MG TAB PO SCH (11:23)
--- NOTE | 2019-05-09 16:56 | CT Scan Report ---
HEAD CT NONCONTRAST CT DOSE: 537.48 mGy.cm HISTORY: day 2 post tpa TECHNIQUE: Multiaxial CT images of the head were performed without the use of intravenous contrast. A utomated exposure control was utilized for this study. A dose lowering technique was utilized adheri ng to the principles of ALARA. Comparison: Head CT 05/08/2019. Findings: The paranasal sinuses and mastoid air cells are clear. The calvarium and skull base are int act. There is no mass, hematoma, midline shift, acute infarct. White matter hypodensity is nonspecifi c but suggestive of microvascular ischemic change. The ventricles and sulci demonstrate mild age-rela mp involutional changes. Old bilateral basal ganglia and left thalamus infarcts are again noted. Impression: No acute intracranial abnormality. Electronically signed by: Faizan Zaragoza M.D. 05/09/2019 4:53 PM
--- NOTE | 2019-05-09 20:15 | Hospitalist Progress Note ---
Date of Service May 09, 2019 Assessment & Plan (1) Stroke: Concern for such at time of ER presentation. s/p stroke alert; consultation with telestroke physician at [place] advised TPA administration. Dysarthria resolved several hours post-TPA. Interestingly his MRI brain is negative for acute stroke. Possibilities - TIA vs decreased hypoperfusion (BP was low-normal at presentation) to old stroke areas giving him neurological symptoms vs an "aborted stroke". Dr Harris favoring decreased hypoperfusion in setting of taking extra gabapentin. Either way all symptoms are resolved and he is stable/doing well. At this time Dr Harris recommending we simply continue the aspirin/plavix for se condary prevention rather than changing to aggrenox. Observe once again overnight. Possible d/c home tomorrow. Of note - 24-hour post-TPA CT head negative for bleeding. (2) Carotid artery stenosis: continue high-intensity statin. control HTN and T2DM well. no Rx at this time. continue asa/plavix. (3) Essential (primary) hypertension: Home BP meds resumed. (4) Hyperlipidemia: Lipids well-controlled. Cont high-intensity statin. (5) Chronic kidney disease, stage III (moderate): Baseline Cr is about 1.5 to 1.7. BMP in am. (6) Hypomagnesemia: Replaced with 2 grams of mag sulfate at admission. Repeat mag level in am. (7) BPH (benign prostatic hyperplasia): Resume flomax at d/c. (8) Type 2 diabetes, uncontrolled, with neuropathy: Hemoglobin a1c well-controlled. BSGs ac/hs thus far controlled. Novolog ac/hs. Keep euglycemic. Resume gabapentin for neuropathy tomorrow. See "stroke" for discussion on gabapentin. Resume metformin at d/c. (9) GERD (gastroesophageal reflux disease): H2 jocelyn. (10) DVT prophylaxis: SCDs for now d/c ICU status, change to tele status. possible d/c tomorrow. Subjective pt's dysarthria resolved several hours post-TPA. no bleeding complications noted. never developed weakness or sensory loss. feels good. cleared by PT/OT/speech. Review of Systems Constitutional: no fever Respiratory: no cough and no dyspnea Cardiovascular: no chest pain, no orthopnea and no paroxysmal nocturnal dyspnea Gastrointestinal: no abdominal pain Physical Exam Constitutional: well developed, well nourished and + obese; no acute distress dysarthria resolved ENMT: external ear and nose normal, oropharynx normal Respiratory: normal respiratory effort, lungs clear to auscultation Cardiovascular: RRR, no murmur, no edema Heart Sounds: normal S1 and normal S2 Vessels: no JVD Gastrointestinal (Abdomen): normal bowel sounds, soft, nontender, no hepatosplenomegaly Neurologic: no focal motor deficits Speech / Cognition: normal speech, no expressive aphasia and no receptive aphasia Motor/Sensory: + tremor Results & Data Vital Signs (Past 12 Hours) Vital Signs Temp Pulse Pulse Resp BP BP Pulse Ox 05/09/19 18:25 36.8 C 77 71 16 144/71 H 99 05/09/19 17:00 72 18 172/79 H 98 05/09/19 16:00 36.8 C 64 16 170/106 H 97 05/09/19 15:49 63 16 162/92 H 99 05/09/19 15:00 61 16 162/92 H 98 05/09/19 14:50 66 05/09/19 14:08 74 12 96 05/09/19 14:05 85 179/97 H 05/09/19 13:59 71 19 179/97 H 98 05/09/19 13:00 69 17 154/105 H 98 05/09/19 12:00 36.8 C 76 14 141/75 H 95 05/09/19 11:00 83 20 164/97 H 98 05/09/19 10:00 67 14 172/97 H 99 05/09/19 09:22 72 163/115 H 05/09/19 09:08 69 19 163/115 H 98 05/09/19 09:07 75 18 154/125 H 98 05/09/19 09:00 75 18 190/95 H 100 05/09/19 08:22 80 182/111 H 05/09/19 08:19 82 16 182/111 H 99 Laboratory Results Laboratory Results - last 24 hr 05/08/19 05/08/19 05/09/19 17:03 19:50 00:16 POC Glucose 169 H Estimat Average Glucose Hemoglobin A1c Triglycerides Cholesterol LDL Cholesterol, Calc VLDL Cholesterol, Calc HDL Cholesterol Cholesterol/HDL Ratio Nasal Screen MRSA (PCR) Negative Hepatitis C Ab Screen Neg 05/09/19 05/09/19 05/09/19 04:40 04:40 06:14 POC Glucose 160 H Estimat Average Glucose 126 Hemoglobin A1c 6.0 H Triglycerides 224 H Cholesterol 135 LDL Cholesterol, Calc 56 VLDL Cholesterol, Calc 45 HDL Cholesterol 34 Cholesterol/HDL Ratio 4 Nasal Screen MRSA (PCR) Hepatitis C Ab Screen 05/09/19 05/09/19 10:15 16:49 POC Glucose 167 H 133 H Estimat Average Glucose Hemoglobin A1c Triglycerides Cholesterol LDL Cholesterol, Calc VLDL Cholesterol, Calc HDL Cholesterol Cholesterol/HDL Ratio Nasal Screen MRSA (PCR) Hepatitis C Ab Screen PG Care Time/CCT Total # of Minutes Spent Total Time Spent with Patient: Total time spent is greater than 50% in coordination of care (as documented) at patient's floor/unit and/or counseling patient: (1) BPH (benign prostatic hyperplasia) Lower urinary tract symptom presence: symptoms absent Qualified Code(s): N40.0 - Benign prostatic hyperplasia without lower urinary tract symptoms (2) Hyperlipidemia Hyperlipidemia type: mixed hyperlipidemia Qualified Code(s): E78.2 - Mixed hyperlipidemia (3) GERD (gastroesophageal reflux disease) Esophagitis presence: esophagitis presence not specified Qualified Code(s): K21.9 - Gastro-esophageal reflux disease without esophagitis (4) Stroke CVA mechanism: unspecified Qualified Code(s): I63.9 - Cerebral infarction, unspecified (5) Carotid artery stenosis Laterality: bilateral Qualified Code(s): I65.23 - Occlusion and stenosis of bilateral carotid arteries
[2019-05-09] MEDS: ASPIRIN 81 MG ECTAB PO SCH (20:24)
[2019-05-09] MEDS: FAMOTIDINE 20 MG TAB PO SCH (20:24)
[2019-05-09] MEDS: CLOPIDOGREL BISULFATE 75 MG TAB PO SCH (20:24)
[2019-05-10 08:03] LABS: Calcium 8.5 mg/dl (8.5-10.1); Est GFR (African American) 55.8; Est GFR (Non-African American) 48.1; Potassium 3.8 mmol/L (3.5-5.1)
[2019-05-10] MEDS: CLOPIDOGREL BISULFATE 75 MG TAB PO SCH (08:12)
[2019-05-10] MEDS: ASPIRIN 81 MG ECTAB PO SCH (08:12)
[2019-05-10] MEDS: FAMOTIDINE 20 MG TAB PO SCH (08:12)
[2019-05-10] MEDS: LISINOPRIL 40 MG TAB PO SCH (08:13)
[2019-05-10] MEDS: METOPROLOL TARTRATE 100 MG TAB PO SCH (08:13)
[2019-05-10] MEDS: INSULIN ASPART 100 UNITS/ML 3 ML PEN SC SCH ×2 (08:16→13:16)
[2019-05-10] MEDS ORDERED: STROKE PATIENT DISCHARGE STA (15:09)
--- NOTE | 2019-05-10 16:34 | Pharmacy Report ---
Pharmacist Stroke Counseling - Date of Service May 10, 2019 - Scope: Pharmacy has been consulted to provide medication discharge counseling for this patient admitted with POSSIBLE ischemic stroke S/P TPA as per the Pharmacist Discharge Counseling for Stroke Patients Protocol. - Medications on Discharge: Home Medications Medication Instructions Recorded Confirmed aspirin [Aspir-81] 81 mg PO QAM 05/03/19 05/08/19 clopidogrel 75 mg PO QAM 05/03/19 05/08/19 gabapentin 300 mg PO TID 05/03/19 05/08/19 lisinopril 40 mg PO QAM 05/03/19 05/08/19 metformin 1,000 mg PO BID 05/03/19 05/08/19 metoprolol tartrate 100 mg PO QAM 05/03/19 05/08/19 pantoprazole 40 mg PO QAM 05/03/19 05/08/19 tamsulosin 0.8 mg PO QAM 05/03/19 05/08/19 New Rx's Medication Instructions Recorded atorvastatin 40 mg tablet 40 mg PO HS #90 tab 05/08/19 - Action: The above medications, specifically ones for stroke treatment/prophylaxis, have been reviewed in detail with the patient and HIS prior to discharge. This includes indication, common adverse reactions, drug interactions, and medication administration. Medication counseling has been employed using the teach-back method to ensure understanding. - Outcome: The patient and HIS have demonstrated understanding of the medications. Please note, they are aware that the pharmacist will call them within 72 hours post-discharge to confirm that the appropriate medications are being taken and answer any further medication related questions the patient might have at that time. Contact information Individual to be contacted: Relationship to patient (if applicable): -- Phone number: [phone] (PATIENT'S CELL IS [phone]) Best time to call: ANYTIME ON SUNDAY Additional comments: -PATIENT HAS BEEN ON ASPIRIN, PLAVIX, AND LIPITOR FOR SEVERAL YEARS. HE IS UNFAMILIAR WITH WHAT THESE MEDICATIONS DO. I REVIEWED THIS WITH HIM. REVIEWED SIDE EFFECTS OF ALL THREE MEDICATIONS. WHEN ASKED IF HE HAS ANY OF THESE SIDE EFFECTS HE DENIED. -PROVIDED PILL BOX -ENSURED ON PROTONIX NOT PRILOSEC OR NEXIUM - IS TAKING CARE OF MEDICATIONS NOW SO WE REQUESTED THAT WE CALL HER ON SUNDAY (ATTENDING ON SUNDAY) -PATIENT AND FAMILY VERY RECEPTIVE TO COUNSELING. Thank you for allowing pharmacy to be involved in the care of this patient. Please call [phone] or [phone] with any additional questions
--- NOTE | 2019-05-14 14:28 | Pharmacy Report ---
Pharmacist Post D/C Phone Note - Phone Note: Date of phone call: May 14, 2019. The patient and/or patient construction representative(s) were unable to be reached for a follow-up phone call within the 72 hour time frame. Discharge counseling pharmacist contact information has already been provided to the patient should questions arise. Thank you for allowing us to be involved in the care of this patient. - Home Medications: Home Medications Medication Instructions Recorded Confirmed aspirin [Aspir-81] 81 mg PO QAM 05/03/19 05/08/19 clopidogrel 75 mg PO QAM 05/03/19 05/08/19 gabapentin 300 mg PO TID 05/03/19 05/08/19 lisinopril 40 mg PO QAM 05/03/19 05/08/19 metformin 1,000 mg PO BID 05/03/19 05/08/19 metoprolol tartrate 100 mg PO QAM 05/03/19 05/08/19 pantoprazole 40 mg PO QAM 05/03/19 05/08/19 tamsulosin 0.8 mg PO QAM 05/03/19 05/08/19 New Rx's Medication Instructions Recorded atorvastatin 40 mg tablet 40 mg PO HS #90 tab 05/08/19
--- NOTE | 2019-05-18 22:31 | Discharge Summary ---
Date of Service date of admission - 05/08/19 date of discharge - 05/10/19 Admission HPI Per Admitting Provider 73yo male with history of HTN, hyperlipidemia, T2DM, and prior lacunar strokes - currently on chronic aspirin and plavix - who presents with the acute onset of dysarthria beginning sometime between 2 and 3pm. Much of the history was provided by the patient's who was at bedside during the visit. Apparently the patient was in his usual state of health this morning. He had breakfast and lunch in the usual fashion. About 2pm he and his got in their car for a drive. His does not recall the exact time but he developed the slurred speech while driving. The slurred speech continued and she brought him home to their house. While at home he had some difficulty standing and ambulating but he consistently denied that he had focal motor weakness. Denied any headache, sensory loss/paresthesias, vertigo, ataxia, visual field cuts. His ultimately dialed 911. Upon EMS arrival again he had a hard time standing to get up to the [facility] and the [facility]. Once in the [facility] ER a Code Stroke Alert was called and [place] [facility] was consulted. They were concerned about acute stroke. CT head was obtained showing no ICH. He was deemed a TPA candidate and this was given starting at about 1730. When I visited with him in the ER he was actively receiving the TPA. By report his initial NIH stroke score was 4 and later improved to 2. Lastly, the patient was in the [facility] ER last Sunday after having had transient mental status changes. Apparently he had been out to dinner with his family when he started to act strangely and was confused. By the time of ER arrival last the symptoms had resolved. Principal Diagnosis concern for acute stroke - ruled out Discharge Exam Constitutional well developed, well nourished, + obese, cooperative and comfortable; no acute distress and no altered mental status ENMT external ear and nose normal, oropharynx normal Neck trachea midline, no thyromegaly Respiratory normal respiratory effort, lungs clear to auscultation Cardiovascular RRR, no murmur, no edema Rate/Rhythm: regular rate and regular rhythm Heart Sounds: normal S1, normal S2 and + murmur (1/6 LSB) Vessels: posterior tibial pulses present and dorsalis pedis pulses present; no JVD Extremities: no edema Gastrointestinal (Abdomen) normal bowel sounds, soft, nontender, no hepatosplenomegaly Musculoskeletal Extremities: + clubbing Skin no rashes, warm and dry Neurologic patellar DTR's 2+ bilat, sensation intact normal touch/pain/proprioception, CN's II-XI intact bilaterally, moves all extremities and awake; no focal motor deficits Speech / Cognition: normal speech, no expressive aphasia and no receptive aphasia Motor/Sensory: + tremor; no pronator drift Coordination: normal [id number] test Discharge Data Allergies Allergy/AdvReac Type Severity Reaction Status Date / Time No Known Allergies Allergy Verified 05/03/19 21:14 Consultations 1. critical care 2. neurology 3. PT, OT, speech therapy Ordered Studies 1. MRI brain - FINDINGS: Localizer images: Unremarkable. Bone marrow signal intensity within the calvarium within normal limits. Mucosal thickening in paranasal sinuses. Normal midline sagittal structures. Proportional ventricular and sulcal prominence, likely age-related parenchymal volume loss. No mass effect or midline shift. No restricted diffusion or hemorrhage. Periventricular and subcortical white matter T2/FLAIR hyperintensity, nonspecific but likely indicative of chronic small vessel ischemic change. Old lacunar infarcts in the bilateral basal ganglia, caudate head/body, and thalami. No extra-axial fluid collection. T2 skull base flow voids preserved. IMPRESSION: 1. Chronic small vessel ischemic change and scattered old lacunar infarcts. No acute intracranial abnormality. 2. MRA neck - IMPRESSION: 1. Possible stenosis of the proximal left ICA. Doppler ultrasound to be considered for better characterization, although no stenosis was evident in this region on prior Doppler ultrasound from 2018. This may relate to technique/artifact. 3. MRA head - no aneurysm, stenosis, etc. 4. carotid ultrasound - IMPRESSION: 1. Extensive mixed plaque about the bilateral carotid bulbs and proximal internal carotid arteries results in 50-69% stenosis of the proximal left ICA and less than 50 stenosis of the right ICA. 2. Antegrade flow of the bilateral vertebral arteries. 5. echocardiogram - * EF 55-60% * mild aortic root dilatation * no PFO * no valvular abnormalities 6. CT head x 2 - no ICH. Old lacunar infarcts only. Hospital Course (1) Stroke: Concern for such at time of ER presentation due to dysarthria. s/p stroke alert; consultation with telestroke physician at [facility] advised TPA administration. Dysarthria resolved several hours post-TPA. His MRI brain was negative for acute stroke. Possibilities - TIA vs decreased hypoperfusion (BP was low-normal at presentation) to old stroke areas giving him neurological symptoms vs an "aborted stroke". Dr Hugh Harris from neurology saw the patient in consult. He favored hypoperfusion causing stroke-like symptoms as the cause of his presentation. Apparently the patient had taken extra gabapentin on the day of admission and this, too, could have contributed to some of his symptoms. Either way all symptoms resolved shortly after admission. Dr Harris recommended we simply continue the aspirin/plavix for secondary prevention rather than changing to aggrenox. (2) Carotid artery stenosis: continue high-intensity statin. control HTN and T2DM well. no Rx at this time. continue asa/plavix. will need follow-up CTA or carotid duplex study in 1 year for interval change. (3) Essential (primary) hypertension: Continue home BP meds. No changes made while here. (4) Hyperlipidemia: Lipids well-controlled. Cont high-intensity statin. LDL was 56. (5) Chronic kidney disease, stage III (moderate): Baseline Cr is about 1.5 to 1.7. Cr at discharge was 1.45. (6) Hypomagnesemia: Replaced with 2 grams of mag sulfate at admission. Normalized with such. (7) BPH (benign prostatic hyperplasia): Resumed flomax at d/c. (8) Type 2 diabetes, uncontrolled, with neuropathy: Hemoglobin a1c well-controlled. Continue metformin. (9) GERD (gastroesophageal reflux disease): H2 jocelyn. Total Time Total Time Spent Total Time Spent (In Minutes): 40 Total Time Includes: Examination of the Patient, Discharge Planning and Medication Reconciliation Discharge Plan Discharge Items Patient Disposition: Home - Self-Care Reason For Visit: Concern for stroke Discharge Diagnosis: Concern for stroke; TPA (clot-busting medication) given. Discharge Goals: Diagnostic testing, Learn about illness and Therapeutic intervention Activity: As commented below Activity Comment: no strenous activities for 4-5 days then gradually increase activity Exercise/Sports: Gradually increase as tolerated Driving/Machine Use Comment: Resume after you see your family doctor Non-emergency contact: Primary Care Provider Call non-emergency contact if: you have any medication questions, your symptoms worsen and your temperature is above 100.5 Follow-up/Referrals: Sebastián Bond III, MD [Primary Care Provider] - (see Dr Bond within 5-7 days) Diet: Carb Consistent or DM2 and Heart Healthy Addtl Provider Instructions: You presented to the hospital with slurred speech. A telestroke consult was held with [facility], and because of concern of a new stroke, it was recommended that you have "TPA" (an infusion of clot-busting drug). Within hours of the TPA your speech gradually returned to normal. Your MRI of the brain did not show stroke damage from this event. We did see multiple old strokes. There was no blood seen either. A repeat CAT scan of the brain 24 hours after the TPA was also negative for any blood. There were 2 possibilities for your presenting slurred speech - * you were indeed having a stroke but the TPA medication broke the clot up preventing you from having damage from the stroke (this is called an "aborted" stroke) * you took double your normal gabapentin and this made you sleepy/groggy; this, coupled with low-normal blood pressure, may have made your speech slurry Dr Harris, the neurologist who saw you in the hospital, was leaning towards the second possibility above as the cause of your symptoms. It would be difficult to prove, however, which one was the culprit cause. Either way all of your symptoms have resolved. Recommendations - 1. continue your aspirin and plavix as previous for prevention of a future stroke or stroke-like event. 2. have a repeat carotid ultrasound in 1 year. Your carotid ultrasound showed plaque build-up in both carotid arteries - worse on the left side. 3. take it easy the next 4-5 days then gradually increase your activities. 4. see Dr Bond in 5-7 days. 5. no driving until seen by Dr Bond. 6. be careful with your medications at home. Try to use a pill sorter box so that you don't accidentally take more medication than prescribed. Additional stroke instructions - Risk Factors for Stroke: You can reduce your chances of stroke by working with your medical provider to adopt a healthy lifestyle. Some specific ways to lower your chance of stroke are: * If you are a smoker, now is the time to stop smoking cigarettes * If you are diabetic, improve the control of your blood sugars * Avoid excessive amounts of alcohol * Control high blood pressure * Lose weight if you are overweight * Be sure to lead an active lifestyle * Eat a healthy diet low in salt, cholesterol and fat You should know about other risk factors for stroke that you are unable to control. These include: * Age 55 years or older * Male gender * Certain racial groups: , or / * Family History of Stroke, Mini stroke or Heart Attack * Sickle Cell Disease Follow Up: It is important for you to keep your follow up appointments with your medical p taco. Who to Call and When: Medical Emergencies: Call 911 immediately if you experience any of the following warning signs and symptoms of Stroke: * Sudden numbness or weakness of the face, arm or leg, especially on one side of the body * Sudden confusion, trouble speaking or understanding * Sudden trouble seeing in one or both eyes * Sudden trouble walking, dizziness, loss of balance or coordination * Sudden severe headache with no cause Do not delay calling 911 if you experience any warning signs or symptoms of a stroke. Delay in seeking medical attention may affect what treatments can be given to you. . Prescriptions: Continued atorvastatin 40 mg tablet 40 mg PO HS Qty: 90 RF: 3 aspirin [Aspir-81] 81 mg Tablet,Delayed Release (Dr/Ec) 81 mg PO QAM RF: 0 clopidogrel 75 mg tablet 75 mg PO QAM RF: 0 gabapentin 300 mg capsule 300 mg PO TID RF: 0 lisinopril 40 mg tablet 40 mg PO QAM RF: 0 metformin 1,000 mg tablet 1,000 mg PO BID RF: 0 metoprolol tartrate 100 mg tablet 100 mg PO QAM RF: 0 pantoprazole 40 mg tablet,delayed release (DR/EC) 40 mg PO QAM RF: 0 tamsulosin 0.4 mg capsule 0.8 mg PO QAM RF: 0 No Action primidone 50 mg tablet 50 mg PO DAILY Qty: 90 RF: 0 Stand-Alone Forms: Medications to Prevent Stroke, [facility] Discharge Orders: Discharge Order (Routine); Ordered 05/10/19 Ordered By: Romero Sethi Admission Data Admit Date/Time: 05/08/19 18:55 Attending Provider: Romero Sethi Admit Provider: Romero Sethi Primary Care Provider: Sebastián Bond III Other Providers: Bea Aguiar ; Trell Khan Emile Pierre III Service: Telemetry Other Interventions: Discharge Summary Assessment (RN) Last Done: 05/10/19 15:06 Pending Studies at Discharge: No DC Date/Time DO NOT enter until pt leaves facility: 05/10/19 16:02
== END 2019-05-10 16:02 | disposition home or self-care (01) | DRG 63 ==
LOC: ED 16:44 → 1E 18:55 → 2E 05-09 18:28

== ENCOUNTER 2022-04-20 21:12 | Inpatient (IN) ==
[2022-04-20] MEDS ORDERED: ONDANSETRON INJ 2 MG/ML 2 ML VIAL IV STA (21:30)
[2022-04-20] MEDS ORDERED: SODIUM CHLORIDE 0.9% 1000ML 1,000 ML IV ONE ×2 (21:30→22:30)
[2022-04-20 21:39] LABS: Basophils # (auto) 0.04 K/uL (0-0.2); Basophils % (auto) 0.5 %; Eosinophils # (auto) 0.02 K/uL (0-0.50); Eosinophils % (auto) 0.2 %; Hematocrit (blood only) 38.1 % (40.1-51.0); Hemoglobin 12.7 g/dl (14.0-18.0); Immature Granulocytes # (auto) 0.02 K/uL (0.00-0.02); Immature Granulocytes % (auto) 0.2 %; Lymphocytes # (auto) 0.97 K/uL (1.2-3.4); Lymphocytes % (auto) 11.2 %; Mean Corpuscular Hemoglobin 30.5 pg (25.0-34.0); Mean Corpuscular Hgb Conc 33.3 g/dL (32.0-36.0); Mean Corpuscular Volume 91.6 fL (80.0-100.0); Mean Platelet Volume 9.5 fL (9.4-12.4); Monocytes # (auto) 0.98 K/uL (0.24-0.82); Monocytes % (auto) 11.3 %; Neutrophils # (auto) 6.61 K/uL (1.4-6.5); Neutrophils % (auto) 76.6 %; Platelet Count 191 K/uL (130-400); RDW Coefficient of Variation 13.4 % (11.5-14.5); RDW Standard Deviation 45.2 fL (36.4-46.3); Red Blood Count 4.16 M/uL (4.63-6.08); White Blood Count 8.64 K/ul (4.8-10.8)
[2022-04-20 21:50] LABS: INR 1.1 (0.9-1.1); Partial Thromboplastin Time 28.5 Seconds (21.0-31.0); Prothrombin Time 11.6 Seconds (9.0-12.0)
[2022-04-20 22:07] LABS: Troponin I High Sensitivity 7.9 pg/ml (0-20)
[2022-04-20 22:21] LABS: Albumin Globulin Ratio 1.4 (0.9-2); Albumin Level 3.8 gm/dl (3.4-5.0); BUN Creatinine Ratio 13.2 (10-20); Bilirubin,Total 0.8 mg/dl (0.2-1.0); Calcium 8.5 mg/dl (8.5-10.1); Creatinine Clr Calc Pharmacy 63.8 ml/min; Est GFR (African American) 67.9 ml/min; Est GFR (Non-African American) 58.6 ml/min; Globulin 2.7 gm/dl (2.5-4.0); Potassium 4.1 mmol/L (3.5-5.1); Total Protein 6.5 gm/dl (6.0-8.3)
--- NOTE | 2022-04-20 22:30 | Emergency Department Note ---
History of Present Illness General Chief complaint: Illness Time Seen by Provider: 04/20/22 22:04 History of Present Illness This 76-year-old presents to the ER complaining of syncope was been feeling weak and dizzy for the past few weeks Location: Generalized Quality: Weak and dizzy Severity: Moderate Duration: Past few weeks Timing: Started few weeks ago Context: Patient passed out and family called EMS Modifying factors: better with rest; worse with activity Patient denies chest pain, dyspnea, abdominal pain, vomiting, diarrhea, headache, neck stiffness, neck pain. Per EMS report, patient is normally more interactive. He is slow to respond to questions but does follow commands. Home Medications Medication Instructions Recorded Confirmed Type aspirin 81 mg tablet,delayed 81 mg PO QAM #90 tabs 01/24/21 04/20/22 Rx release atorvastatin 80 mg tablet 80 mg PO DAILY #90 tabs 06/17/21 04/20/22 Rx clopidogrel 75 mg tablet 75 mg PO QAM #90 tabs 06/17/21 04/20/22 Rx lisinopril 40 mg tablet 40 mg PO QAM #90 tabs 06/17/21 04/20/22 Rx blood-glucose meter (True Metrix #1 ea 06/23/21 03/28/22 Rx Glucose Meter) lancets 33 gauge (TRUEplus Lancets) #100 ea 06/23/21 03/28/22 Rx amlodipine 5 mg tablet 5 mg PO DAILY #90 tabs 07/19/21 04/20/22 Rx metformin 1,000 mg tablet 1,000 mg PO BID #180 tabs 11/17/21 04/20/22 Rx blood sugar diagnostic (True #100 ea 12/07/21 03/28/22 Rx Metrix Glucose Test Strip) pen needle, diabetic 31 gauge x #100 ea 03/29/22 Rx 3/16" (Sure-Fine Pen [place]) insulin glargine 100 unit/mL 10 unit (0.1 mL) subcut QAM #10 mL 03/31/22 04/20/22 Rx subcutaneous solution (Lantus U-100 Insulin) metoprolol tartrate 100 mg tablet 100 mg PO QAM 04/20/22 04/20/22 History pantoprazole 40 mg tablet,delayed 40 mg PO QAM 04/20/22 04/20/22 History release tamsulosin 0.4 mg capsule 0.8 mg PO DAILY 04/20/22 04/20/22 History Allergies Allergy/AdvReac Type Severity Reaction Status Date / Time No Known Allergies Allergy Verified 04/20/22 22:10 Past Med/Surg History Medical History Chronic kidney disease, stage III (moderate) Essential (primary) hypertension GERD (gastroesophageal reflux disease) History of CVA (cerebrovascular accident) Hyperlipidemia Hypertension Hypomagnesemia Influenza Ischemic stroke Received intravenous tissue plasminogen activator (tPA) within last 24 hours TIA (transient ischemic attack) multiple occurrences Type 2 diabetes, uncontrolled, with neuropathy URI (upper respiratory infection) Surgical History H/O carpal tunnel repair No pertinent past surgical history S/P tonsillectomy Family History Brother Hypertension Brother Diabetes Father , age 40 in a train accident Benign familial tremor Denies family history of Ovarian cancer Prostate cancer Myocardial infarction Breast cancer Colorectal cancer Stroke Social History Smoking Status: Former smoker Age Started Using Tobacco: 18; Age Quit Using Tobacco: 48; packs per day: 1; Years Smoked: 30; Second Hand Exposure: No; Hx Alcohol Use: No (used to be heavy drinker, quit in 2017) Hx Substance Use: No Preferred Language: Swazi Communication Ability: Effective Visual Impairment: No Limitations Hearing Ability: Normal Pet Nutrition Specialist Required: No Beliefs That Will Affect Care: None marital status: marital status details: grandson lives with him Current Living Situation: Family Current Living Situation Comment: December 2019 after year long justin with uterine cancer, current occupational status: retired 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 Feels Safe at Home: Yes Childhood Exposure to Second-Hand Smoke: Yes caffeine: Yes Dental Care, Regularly: No Physical Activity Frequency: Does not Exercise Seatbelt Use: always Sunscreen Use: No Assistive Devices: Denture - Upper, Denture - Lower, Glasses and Walker Review of Systems A total of 10 systems reviewed and were otherwise negative Physical Exam Vital Signs Vital Signs - 24 hr 04/20/22 21:17 04/20/22 22:52 04/21/22 00:18 Temperature 36.6 C Temperature Source Temporal Artery Scan Pulse Rate 79 Pulse Rate [Right Finger] 83 89 Respiratory Rate 22 20 20 Blood Pressure 178/91 H Blood Pressure [Right Arm] 144/73 H 123/71 Blood Pressure Mean 120 Blood Pressure Mean [Right Arm] 96 88 Pulse Oximetry 94 97 98 Oxygen Delivery Method Nasal Cannula Oxygen Flow Rate 2 Sepsis Recent Fever Within 48 Hours No Sepsis New/Unexplained Change in Mental Status No VITALS: Vitals are noted on the nurse's note and reviewed by myself. Vital signs stable. GENERAL: Pleasant gentleman answering questions appropriately but slow to respond, in no acute distress, nondiaphoretic, well-developed well-nourished. SKIN: Nasal bridge abrasion, the rest of the skin was without rashes, erythema, edema, or bruising. There is no tenting of the skin. Capillary reflex less than 2 seconds. HEAD: Normocephalic atraumatic. EARS: External auditory canals clear, tympanic membranes pearly villalba without erythema or effusion bilaterally. EYES: Pupils equal round and reactive to light and accommodation. Conjunctivae without injection, sclerae without icterus. Extraocular movements intact. NOSE: Patent, turbinates without inflammation or discharge. No sinus tenderness. MOUTH: Mucous membranes moist. Pharynx without erythema or exudate. Uvula midline. Airway patent. Tongue does not deviate. NECK: Supple without nuchal rigidity. No lymphadenopathy. No thyromegaly. Cervical spine is nontender. No JVD. HEART: Regular rate and rhythm LUNGS: Clear to auscultation bilaterally without wheezes, rales or rhonchi. No retractions or accessory muscle use. ABDOMEN: Positive bowel sounds x 4. Normal tympanic percussion. Soft, tender lower abdomen, without masses or organomegaly. Kenny sign negative. No guarding or rebound tenderness. No CVA tenderness MUSCULOSKELETAL: No muscle atrophy, noted. NEURO: Patient was alert and oriented to person place and time. Normal sensation to light and sharp touch. No focal neurological deficits. Course Administered Medications Discontinued Medications Sodium Chloride (Nss 1000ml) 1,000 mls @ 999 mls/hr IV .Q1H1M ONE Stop: 04/20/22 22:30 Last Infusion: 04/20/22 22:35 Dose: 0 mls/hr Documented By: Admin: 04/20/22 21:35 Dose: 999 mls/hr Documented By: JENNY Sodium Chloride (Nss 1000ml) 1,000 mls @ 999 mls/hr IV .Q1H1M ONE Stop: 04/20/22 23:30 Last Infusion: 04/20/22 23:39 Dose: 0 mls/hr Documented By: Admin: 04/20/22 22:38 Dose: 999 mls/hr Documented By: JENNY Magnesium Sulfate/Dextrose (Magnesium Sulfate / D5w) 1 gm in 100 mls @ 200 mls/hr IV Q30M GRISEL Stop: 04/20/22 23:29 Last Infusion: 04/20/22 23:39 Dose: 0 mls/hr Documented By: Admin: 04/20/22 23:09 Dose: 200 mls/hr Documented By: Infusion: 04/20/22 23:08 Dose: 0 mls/hr Documented By: Admin: 04/20/22 22:37 Dose: 200 mls/hr Documented By: JENNY Ioversol (Optiray 320 125ml) 119 ml IV ONCE ONE Stop: 04/20/22 23:33 Last Admin: 04/20/22 23:32 Dose: 119 ml Documented By: CHRISTOPHER Ondansetron HCl (Ondansetron Inj 2 Mg/Ml 2 Ml Vial) 4 mg IV NOW STA Stop: 04/20/22 21:31 Last Admin: 04/20/22 21:35 Dose: 4 mg Documented By: JENNY Medical Decision Making Medical Records Attestation: I reviewed the patient's medical records. Home Medications Current Medication List: was personally reviewed by me Laboratory Data Attestation: I reviewed the patient's lab results. Result diagrams: 04/20/22 21:25 04/20/22 21:25 Lab Results 04/20/22 04/20/22 04/20/22 Range/Units 21:25 21:25 21:25 WBC 8.64 (4.8-10.8) K/ul RBC 4.16 L (4.63-6.08) M/uL Hgb 12.7 L (14.0-18.0) g/dl Hct 38.1 L (40.1-51.0) % MCV 91.6 (80.0-100.0) fL MCH 30.5 (25.0-34.0) pg MCHC 33.3 (32.0-36.0) g/dL RDW Std Deviation 45.2 (36.4-46.3) fL RDW Coeff of Laureen 13.4 (11.5-14.5) % Plt Count 191 (130-400) K/uL MPV 9.5 (9.4-12.4) fL Immature Gran % (Auto) 0.2 % Neut % (Auto) 76.6 % Lymph % (Auto) 11.2 % [place] % (Auto) 11.3 % Eos % (Auto) 0.2 % Baso % (Auto) 0.5 % Neut # (Auto) 6.61 H (1.4-6.5) K/uL Lymph # (Auto) 0.97 L (1.2-3.4) K/uL [place] # (Auto) 0.98 H (0.24-0.82) K/uL Eos # (Auto) 0.02 (0-0.50) K/uL Baso # (Auto) 0.04 (0-0.2) K/uL Immature Gran # (Auto) 0.02 (0.00-0.02) K/uL PT 11.6 (9.0-12.0) Seconds INR 1.1 (0.9-1.1) APTT 28.5 (21.0-31.0) Seconds PTT Ratio 1.0 Sodium 135 L (136-145) mmol/L Potassium 4.1 (3.5-5.1) mmol/L Chloride 99 (98-107) mmol/L Carbon Dioxide 25 (21-32) mmol/L Anion Gap 11 (3-11) BUN 16 (6-23) mg/dl Creatinine 1.21 (0.6-1.4) mg/dl Est Cr Clr Drug Dosing 63.8 ml/min Est GFR ( Amer) 67.9 ml/min Est GFR (Non-Af Amer) 58.6 ml/min BUN/Creatinine Ratio 13.2 (10-20) Glucose 264 H (70-99(Fasting)) mg/dl POC Glucose (70-99) mg/dl Lactate (0.4-2.0) mmol/L Calcium 8.5 (8.5-10.1) mg/dl Magnesium 1.0 L (1.7-2.4) mg/dl Total Bilirubin 0.8 (0.2-1.0) mg/dl AST 19 (13-39) U/L ALT 25 (7-52) U/L Alkaline Phosphatase 67 (34-104) U/L Ammonia (18-72) umol/L Troponin I High Sens 7.9 (0-20) pg/ml Total Protein 6.5 (6.0-8.3) gm/dl Albumin 3.8 (3.4-5.0) gm/dl Globulin 2.7 (2.5-4.0) gm/dl Albumin/Globulin Ratio 1.4 (0.9-2) Urine Color Urine Appearance (Clear) Urine pH (4.5-7.5) Ur Specific [place] (1.000-1.030) Urine Protein (Negative) Urine Glucose (UA) (Negative) Urine Ketones (Negative) Urine Blood (Negative) Urine Nitrite (Negative) Urine Bilirubin (Negative) Urine Urobilinogen (Negative) Ur Leukocyte Esterase (Negative) Urine WBC (Auto) (0-5) /hpf Urine RBC (Auto) (0-4) /hpf U Hyaline Cast (Auto) (0-5) /lpf U Epithel Cells (Auto) (0-5) /lpf Urine Bacteria (Auto) (Negative) SARS-CoV-2, RNA, NAAT (NEGATIVE) 04/20/22 04/20/22 04/20/22 Range/Units 21:40 21:40 22:08 WBC (4.8-10.8) K/ul RBC (4.63-6.08) M/uL Hgb (14.0-18.0) g/dl Hct (40.1-51.0) % MCV (80.0-100.0) fL MCH (25.0-34.0) pg MCHC (32.0-36.0) g/dL RDW Std Deviation (36.4-46.3) fL RDW Coeff of Laureen (11.5-14.5) % Plt Count (130-400) K/uL MPV (9.4-12.4) fL Immature Gran % (Auto) % Neut % (Auto) % Lymph % (Auto) % [place] % (Auto) % Eos % (Auto) % Baso % (Auto) % Neut # (Auto) (1.4-6.5) K/uL Lymph # (Auto) (1.2-3.4) K/uL [place] # (Auto) (0.24-0.82) K/uL Eos # (Auto) (0-0.50) K/uL Baso # (Auto) (0-0.2) K/uL Immature Gran # (Auto) (0.00-0.02) K/uL PT (9.0-12.0) Seconds INR (0.9-1.1) APTT (21.0-31.0) Seconds PTT Ratio Sodium (136-145) mmol/L Potassium (3.5-5.1) mmol/L Chloride (98-107) mmol/L Carbon Dioxide (21-32) mmol/L Anion Gap (3-11) BUN (6-23) mg/dl Creatinine (0.6-1.4) mg/dl Est Cr Clr Drug Dosing ml/min Est GFR ( Amer) ml/min Est GFR (Non-Af Amer) ml/min BUN/Creatinine Ratio (10-20) Glucose (70-99(Fasting)) mg/dl POC Glucose 257 H (70-99) mg/dl Lactate 2.5 H* (0.4-2.0) mmol/L Calcium (8.5-10.1) mg/dl Magnesium (1.7-2.4) mg/dl Total Bilirubin (0.2-1.0) mg/dl AST (13-39) U/L ALT (7-52) U/L Alkaline Phosphatase (34-104) U/L Ammonia 27.0 (18-72) umol/L Troponin I High Sens (0-20) pg/ml Total Protein (6.0-8.3) gm/dl Albumin (3.4-5.0) gm/dl Globulin (2.5-4.0) gm/dl Albumin/Globulin Ratio (0.9-2) Urine Color Urine Appearance (Clear) Urine pH (4.5-7.5) Ur Specific [place] (1.000-1.030) Urine Protein (Negative) Urine Glucose (UA) (Negative) Urine Ketones (Negative) Urine Blood (Negative) Urine Nitrite (Negative) Urine Bilirubin (Negative) Urine Urobilinogen (Negative) Ur Leukocyte Esterase (Negative) Urine WBC (Auto) (0-5) /hpf Urine RBC (Auto) (0-4) /hpf U Hyaline Cast (Auto) (0-5) /lpf U Epithel Cells (Auto) (0-5) /lpf Urine Bacteria (Auto) (Negative) SARS-CoV-2, RNA, NAAT (NEGATIVE) 04/20/22 04/20/22 04/20/22 Range/Units 22:27 22:34 23:44 WBC (4.8-10.8) K/ul RBC (4.63-6.08) M/uL Hgb (14.0-18.0) g/dl Hct (40.1-51.0) % MCV (80.0-100.0) fL MCH (25.0-34.0) pg MCHC (32.0-36.0) g/dL RDW Std Deviation (36.4-46.3) fL RDW Coeff of Laureen (11.5-14.5) % Plt Count (130-400) K/uL MPV (9.4-12.4) fL Immature Gran % (Auto) % Neut % (Auto) % Lymph % (Auto) % [place] % (Auto) % Eos % (Auto) % Baso % (Auto) % Neut # (Auto) (1.4-6.5) K/uL Lymph # (Auto) (1.2-3.4) K/uL [place] # (Auto) (0.24-0.82) K/uL Eos # (Auto) (0-0.50) K/uL Baso # (Auto) (0-0.2) K/uL Immature Gran # (Auto) (0.00-0.02) K/uL PT (9.0-12.0) Seconds INR (0.9-1.1) APTT (21.0-31.0) Seconds PTT Ratio Sodium (136-145) mmol/L Potassium (3.5-5.1) mmol/L Chloride (98-107) mmol/L Carbon Dioxide (21-32) mmol/L Anion Gap (3-11) BUN (6-23) mg/dl Creatinine (0.6-1.4) mg/dl Est Cr Clr Drug Dosing ml/min Est GFR ( Amer) ml/min Est GFR (Non-Af Amer) ml/min BUN/Creatinine Ratio (10-20) Glucose (70-99(Fasting)) mg/dl POC Glucose (70-99) mg/dl Lactate 1.5 (0.4-2.0) mmol/L Calcium (8.5-10.1) mg/dl Magnesium (1.7-2.4) mg/dl Total Bilirubin (0.2-1.0) mg/dl AST (13-39) U/L ALT (7-52) U/L Alkaline Phosphatase (34-104) U/L Ammonia (18-72) umol/L Troponin I High Sens (0-20) pg/ml Total Protein (6.0-8.3) gm/dl Albumin (3.4-5.0) gm/dl Globulin (2.5-4.0) gm/dl Albumin/Globulin Ratio (0.9-2) Urine Color Yellow Urine Appearance Clear (Clear) Urine pH 6.0 (4.5-7.5) Ur Specific [place] 1.026 (1.000-1.030) Urine Protein 1+ H (Negative) Urine Glucose (UA) 3+ H (Negative) Urine Ketones 1+ H (Negative) Urine Blood Negative (Negative) Urine Nitrite Negative (Negative) Urine Bilirubin Negative (Negative) Urine Urobilinogen Negative (Negative) Ur Leukocyte Esterase Negative (Negative) Urine WBC (Auto) 1-5 (0-5) /hpf Urine RBC (Auto) 0-4 (0-4) /hpf U Hyaline Cast (Auto) 1-5 (0-5) /lpf U Epithel Cells (Auto) >30 H (0-5) /lpf Urine Bacteria (Auto) Negative (Negative) SARS-CoV-2, RNA, NAAT POSITIVE A* (NEGATIVE) Imaging Data Attestation: I personally reviewed and interpreted this imaging study as follows: MDM Narrative Prior records/ancillary studies reviewed. Triage Nursing notes reviewed. Additional history obtained from nursing. The patient's history was concerning for syncope. Differential diagnosis: Etiologies such as vasovagal event, infection, hypoglycemia, electrolyte abnormalities, cardiac sources, intracerebral event, toxicologic, neurologic, as well as others were entertained. Physical examination: As above ER treatment provided: IV hydration with normal saline On reassessment the patient felt better. Magnesium An order was placed for continuous cardiac monitoring. The monitor shows a rate of 60-100 with a sinus rhythm. Diagnostics interpretation by me: ECG: Ordered for syncope EKG: Normal sinus, normal intervals, no acute ST-T wave changes. Impression normal sinus rhythm interpreted by myself I think arrhythmia is unlikely. EKG shows normal sinus rhythm with no interval abnormalities such as QT prolongation or WPW. There are no findings to suggest Brugada syndrome. Cardiac monitoring in the emergency department reveals no tachycardic or bradycardic dysrhythmia. Hypertrophic cardiomyopathy was considered but there are no clear historical elements pointing toward this. EKG is not suggestive. The QRS voltage is not extremely large and there are no suggestive Q waves. The labs revealed hyperglycemia without DKA Elevated lactic Hypomagnesia Imaging studies: Preliminary Findings Only See Final Report For Complete Findings CT ABDOMEN & PELVIS With Contrast: Fatty infiltration of the liver. The remaining solid organs are within normal limits. No bowel obstruction. Normal appendix. Moderate bilateral fat- containing inguinal hernias. No fracture. Radiologist: Di Minaya MD Preliminary Findings Only See Final Report For Complete Findings CT HEAD: No acute intracranial hemorrhage. No midline shift or mass effect. The territorial villalba-white matter differentiation is maintained throughout. Age-related cerebral volume loss. Periventricular and subcortical white matter hypoattenuation, consistent with chronic microangiopathy. Radiologist: Jeffry Camacho MD Preliminary Findings Only See Final Report For Complete Findings CT C SPINE: No fracture or dislocation. No prevertebral soft tissue swelling. There are degenerative changes of the spine. On the last slice of this examination there appears to be airspace opacity of the left upper lobe, this is of unknown clinical significance. Consider further evaluation with dedicated CT chest if clinically indicated. Radiologist: Di Minaya MD [facility] Patient: LORETA CARLIN (Male) : 49 Status: ER Date: 04/21/22 00:03 Room #: History: CHEST PAIN AND SOB COVID POSITIVE EVAL FOR PE OPTI 320 119 CC Slices: [id number] Priors: Tech: RAMIRO JO @ [id number] Exams: CTA CHEST Contrast: IV Amt: OPTI 320 119 CC Accession Numbers: [id number] Referring Physician: REFERRED SELF Preliminary Findings Only See Final Report For Complete Findings CTA CHEST: No pulmonary embolus. No aortic aneurysm or dissection. The lungs are clear. Heart size is normal. No pathologically enlarged lymph nodes. No fracture. A 2.3 cm right thyroid nodules present, recommend further evaluation with dedicated thyroid ultrasound on a nonemergent basis. Incidentally noted fatty infiltration of the liver. Radiologist: Di Minaya MD Consultation: A consultation was placed with the hospitalist. The case was discussed and diagnostics were reviewed. The patient was evaluated in the ER for further treatment. This appears to be consistent with covid, syncope with hypomagnesia and ongoing lightheadedness and dizziness. Medicine was consulted. He will be admitted. By the evaluation outlined above emergent etiologies such as hypoglycemia, intracerebral event, toxicologic, neurologic,as well as others were deemed relatively unlikely. The pt informed about the findings as listed above. All questions were answered and pleased with the treatment. The chart was completed utilizing [employer] Speech voice recognition software. Grammatical errors, random word insertions, pronoun errors, and incomplete sentences are an occassional consequence of this system due to software limi tations, ambient noise, and hardware issues. Any formal questions or concerns about the content, text, or information contained within the body of this dictation should be directly addressed to the physician assistant finance director for clarification. Impression & Plan COVID-19, Syncope, Hypomagnesemia, Weakness Discharge Plan Visit Data Chief Complaint: Illness ED Provider: Zeeshan Amaya ED Midlevel Provider: Clotilde Ramon Discharge Problem: COVID-19, Syncope, Hypomagnesemia, Weakness Patient Disposition: Admitted As Inpatient Condition: Fair Forms Stand Alone Forms: [facility] Prescriptions Prescriptions: No Action aspirin 81 mg tablet,delayed release (DR/EC) 81 mg PO QAM Qty: 90 3RF atorvastatin 80 mg tablet 80 mg PO DAILY Qty: 90 3RF clopidogrel 75 mg tablet 75 mg PO QAM Qty: 90 3RF lisinopril 40 mg tablet 40 mg PO QAM Qty: 90 3RF (DME) blood-glucose meter [True Metrix Glucose Meter] Misc See Rx Instructions .Route Qty: 1 0RF Rx Instructions: Test Blood Sugars as Needed (DME) lancets [TRUEplus Lancets] 33 gauge misc See Rx Instructions .Route Qty: 100 11RF Rx Instructions: Test Blood Sugars as Needed metformin 1,000 mg tablet 1,000 mg PO BID Qty: 180 3RF (DME) True Metrix Glucose Test Strip Strip See Rx Instructions .Route Qty: 100 11RF Rx Instructions: Test Blood Sugar BID (DME) pen needle, diabetic [Sure-Fine Pen [place]] 31 gauge x 3/16" needle See Rx Instructions .Route Qty: 100 3RF Rx Instructions: As directed once daily insulin glargine [Lantus U-100 Insulin] 100 unit/mL solution 10 unit subcut QAM Qty: 10 2RF Rx Instructions: E11.9 amlodipine 5 mg tablet 5 mg PO DAILY Qty: 90 3RF metoprolol tartrate 100 mg tablet 100 mg PO QAM Rx Instructions: TAKE 1 TABLET BY MOUTH EVERY MORNING tamsulosin 0.4 mg capsule 0.8 mg PO DAILY Rx Instructions: TAKE 2 CAPSULES BY MOUTH DAILY pantoprazole 40 mg tablet,delayed release (DR/EC) 40 mg PO QAM Rx Instructions: TAKE 1 TABLET BY MOUTH EVERY MORNING Referrals Referrals: Sebastián Bond III, MD [Physician] -
[2022-04-20] MEDS: MAGNESIUM SULFATE / D5W 1 GM/100 ML BAG IV SCH ×2 (22:37→23:09)
[2022-04-20 22:51] LABS: Appearance Urine Clear (Clear); Bacteria Urine Automated Negative (Negative); Bilirubin Urine Negative (Negative); Blood Urine Negative (Negative); Color Urine Yellow; Epithelial Cell Urine Auto >30 /lpf (0-5); Glucose Urine UA 3+ (Negative); Ketones Urine 1+ (Negative); Leukocyte Esterase Urine Negative (Negative); Nitrite Urine Negative (Negative); Protein Urine 1+ (Negative); RBC Urine Automated 0-4 /hpf (0-4); Specific Gravity Urine 1.026 (1.000-1.030); Urobilinogen Urine Negative (Negative)
[2022-04-20] MEDS ORDERED: OPTIRAY 320 125ml IV ONE (23:32)
--- NOTE | 2022-04-21 01:08 | History & Physical Report ---
Date of Service April 21, 2022 Assessment & Plan (1) COVID-19: Plan: Patient with Covid-19. No hypoxia. He is partially vaccinated -Admit to medical with telemetry -Maintain isolation precautions -Check CRP, Ferritin, LDH -Monitor oxygenation (2) Syncope: Plan: Etiology unclear. Possibly secondary to weakness/fatigue from Covid. No focal neurological deficits. No chest pain, palpitations. Patient is HD stable -Telemetry monitoring -Check Orthostatic VS x 1 -Check 2D echo -Fall precautions -PT/OT evaluation (3) Hypomagnesemia: Plan: Mg=1. Possible cause of patient's reported weakness and fatigue. Etiology uncertain. Patient reports eating well. He is on a daily PPI which can cause hypomagnesemia. Also reports recent vomiting and diarrhea -Mg 2g given in ER -Will give additional 4gm -Repeat Mg level in AM, will likely need additional replacement -K and Ca are WNL -Check PO4 -Hold Protonix (4) Thyroid nodule: Plan: Incidental discovery -Check TSH -Patient should have thyroid US performed as outpatient (5) TIA (transient ischemic attack): Plan: History of prior cerebral ischemia- TIA/CVA -Continue ASA, Plavix, Atorvastatin (6) Type 2 diabetes, uncontrolled, with neuropathy: Plan: Patient recently started on Insulin for HgbA1C of 9.6 on 03/20/24. Blood sugar elevated today at 264. He reports his sugars have typically been in the 200's. Denies low blood sugars. -Continue Lantus 10u daily -ISS -Hold metformin (7) Hypertension: Plan: Blood pressure controlled -Continue Amlodipine -Continue Lisinopril -Continue metoprolol (8) Chronic kidney disease, stage III (moderate): Plan: near baseline -Avoid nephrotoxic agents -Renal dosing where needed -Hydration and Mg repletion (9) Hyperlipidemia: Plan: Chronic. -Continue Atorvastatin 80mg po daily (10) GERD (gastroesophageal reflux disease): Plan: Chronic. -Hold Protonix in setting of low Mg F/E/N- Mg repletion as above, CC/AHA diet as tolerated Ppx - on ASA and Plavix - will hold Lovenox for now given recent fall Code - Full per discussion with patient Dispo - Admit to med with tele History of Present Illness Chief Complaint: weakness, syncope Primary Care Provider: NO PCP Miles Fitzgerald is a 76yo male with history of HTN, HLP, DM, Prior CVA, GERD and CKD. He presents today with complaint of weakness, dizziness, lightheadedness. Also with nausea, vomiting, diarrhea and lethargy. Patient had a ground-level fall today and struck his head off the ground. Complaining of mild SOB, otherwise denies chest pain, palpitations, abdominal pain. Found to be POSITIVE for Covid-19. He is partially vaccinated Found to be hypomagnesemic with Mg=1. 2gm ordered for ER Patient initially very lethargic and minimally responsive. He was incontinent of urine and stool. Clinically improved after IVF and magnesium administration. During my encounter patient awake and alert. Answering questions appropriately and following commands. Allergies Allergy/AdvReac Type Severity Reaction Status Date / Time No Known Allergies Allergy Verified 04/20/22 22:10 Home Medications Medication Instructions Recorded Confirmed Type aspirin 81 mg tablet,delayed 81 mg PO QAM #90 tabs 01/24/21 04/20/22 Rx release atorvastatin 80 mg tablet 80 mg PO DAILY #90 tabs 06/17/21 04/20/22 Rx clopidogrel 75 mg tablet 75 mg PO QAM #90 tabs 06/17/21 04/20/22 Rx lisinopril 40 mg tablet 40 mg PO QAM #90 tabs 06/17/21 04/20/22 Rx blood-glucose meter (True Metrix #1 ea 06/23/21 03/28/22 Rx Glucose Meter) lancets 33 gauge (TRUEplus Lancets) #100 ea 06/23/21 03/28/22 Rx amlodipine 5 mg tablet 5 mg PO DAILY #90 tabs 07/19/21 04/20/22 Rx metformin 1,000 mg tablet 1,000 mg PO BID #180 tabs 11/17/21 04/20/22 Rx blood sugar diagnostic (True #100 ea 12/07/21 03/28/22 Rx Metrix Glucose Test Strip) pen needle, diabetic 31 gauge x #100 ea 03/29/22 Rx 3/16" (Sure-Fine Pen [place]) insulin glargine 100 unit/mL 10 unit (0.1 mL) subcut QAM #10 mL 03/31/22 04/20/22 Rx subcutaneous solution (Lantus U-100 Insulin) metoprolol tartrate 100 mg tablet 100 mg PO QAM 04/20/22 04/20/22 History pantoprazole 40 mg tablet,delayed 40 mg PO QAM 04/20/22 04/20/22 History release tamsulosin 0.4 mg capsule 0.8 mg PO DAILY 04/20/22 04/20/22 History Past Med/Surg History Medical History Chronic kidney disease, stage III (moderate) Essential (primary) hypertension GERD (gastroesophageal reflux disease) History of CVA (cerebrovascular accident) Hyperlipidemia Hypertension Hypomagnesemia Influenza Ischemic stroke Received intravenous tissue plasminogen activator (tPA) within last 24 hours TIA (transient ischemic attack) multiple occurrences Type 2 diabetes, uncontrolled, with neuropathy URI (upper respiratory infection) Surgical History H/O carpal tunnel repair No pertinent past surgical history S/P tonsillectomy Family History Brother Hypertension Brother Diabetes Father , age 40 in a train accident Benign familial tremor Denies family history of Ovarian cancer Prostate cancer Myocardial infarction Breast cancer Colorectal cancer Stroke Social History Smoking Status: Former smoker Age Started Using Tobacco: 18; Age Quit Using Tobacco: 48; packs per day: 1; Years Smoked: 30; Second Hand Exposure: No; Hx Alcohol Use: No (used to be heavy drinker, quit in 2016) Hx Substance Use: No Preferred Language: [place] Communication Ability: Effective Visual Impairment: No Limitations Hearing Ability: Normal Collateral Clerk Required: No Beliefs That Will Affect Care: None marital status: marital status details: grandson lives with him Current Living Situation: Family Current Living Situation Comment: December 2019 after year long justin with uterine cancer, current occupational status: retired 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 Small laceration on bridge of nose from recent fall with bandage in place HEENT: PERRL, EOMI, anicteric sclera, conjunctiva without injection, external ear normal to inspection and nontender, nares patent, moist mucus membranes, dentition intact, no oropharyngeal lesions, neck supple, trachea midline, no LAD, no thyromegaly, no JVD Heart: +S1/S2, regular, no m/r/g Lungs: equal air entry bilaterally, no rales/rhonchi/wheezes Abd: +BS, soft, NT/ND, no masses/organomegaly/ascites Ext: warm, 2+ pulses in UE/LE bilaterally, no clubbing/cyanosis or edema Neuro: nonfocal, speech intact, no facial droop, moving all extremities on command with equal strength 5/5 Results & Data Results & Data ([facility]) Vital Signs (Past 12 Hours) Vital Signs Temp Pulse Pulse Resp BP BP Pulse Ox 04/21/22 00:18 89 20 123/71 98 04/20/22 22:52 83 20 144/73 H 97 04/20/22 21:17 36.6 C 79 22 178/91 H 94 O2 Del Method O2 Flow Rate 04/21/22 00:18 04/20/22 22:52 Nasal Cannula 2 04/20/22 21:17 Laboratory Results Laboratory Results WBC 8.64 K/ul (4.8-10.8) 04/20/22 21:25 RBC 4.16 M/uL (4.63-6.08) L 04/20/22 21:25 Hgb 12.7 g/dl (14.0-18.0) L 04/20/22 21:25 Hct 38.1 % (40.1-51.0) L 04/20/22 21:25 MCV 91.6 fL (80.0-100.0) 04/20/22 21:25 MCH 30.5 pg (25.0-34.0) 04/20/22 21:25 MCHC 33.3 g/dL (32.0-36.0) 04/20/22 21:25 RDW Std Deviation 45.2 fL (36.4-46.3) 04/20/22: RDW Coeff of Laureen 13.4 % (11.5-14.5) 04/20/22: Plt Count 191 K/uL (130-400) 04/20/22: MPV 9.5 fL (9.4-12.4) 04/20/22: Immature Gran % (Auto) 0.2 % 04/20/22: Neut % (Auto) 76.6 % 04/20/22: Lymph % (Auto) 11.2 % 04/20/22: [place] % (Auto) 11.3 % 04/20/22: Eos % (Auto) 0.2 % 04/20/22: Baso % (Auto) 0.5 % 04/20/22 Neut # (Auto) 6.61 K/uL (1.4-6.5) H 04/20/22: Lymph # (Auto) 0.97 K/uL (1.2-3.4) L 04/20/22: [place] # (Auto) 0.98 K/uL (0.24-0.82) H 04/20/22: Eos # (Auto) 0.02 K/uL (0-0.50) 04/20/22: Baso # (Auto) 0.04 K/uL (0-0.2) 04/20/22: Immature Gran # (Auto) 0.02 K/uL (0.00-0.02) 04/20/22: PT 11.6 Seconds (9.0-12.0) 04/20/22: INR 1.1 (0.9-1.1) 04/20/22: APTT 28.5 Seconds (21.0-31.0) 04/20/22: PTT Ratio 1.0 04/20/22: Sodium 135 mmol/L (136-145) L 04/20/22: Potassium 4.1 mmol/L (3.5-5.1) 04/20/22: Chloride 99 mmol/L (98-107) 04/20/22 21:25 Carbon Dioxide 25 mmol/L (21-32) 04/20/22 21:25 Anion Gap 11 (3-11) 04/20/22 21:25 BUN 16 mg/dl (6-23) 04/20/22 21:25 Creatinine 1.21 mg/dl (0.6-1.4) 04/20/22 21:25 Est Cr Clr Drug Dosing 63.8 ml/min 04/20/22 21:25 Est GFR ( Amer) 67.9 ml/min 04/20/22 21:25 Est GFR (Non-Af Amer) 58.6 ml/min 04/20/22 21:25 BUN/Creatinine Ratio 13.2 (10-20) 04/20/22 21:25 Glucose 264 mg/dl (70-99(Fasting)) H 04/20/22 21:25 POC Glucose 257 mg/dl (70-99) H 04/20/22 22:08 Lactate 1.5 mmol/L (0.4-2.0) 04/20/22 23:44 Calcium 8.5 mg/dl (8.5-10.1) 04/20/22 21:25 Magnesium 1.0 mg/dl (1.7-2.4) L 04/20/22 21:25 Total Bilirubin 0.8 mg/dl (0.2-1.0) 04/20/22 21:25 AST 19 U/L (13-39) 04/20/22 21:25 ALT 25 U/L (7-52) 04/20/22 21:25 Alkaline Phosphatase 67 U/L (34-104) 04/20/22 21:25 Ammonia 27.0 umol/L (18-72) 04/20/22 21:40 Troponin I High Sens 7.9 pg/ml (0-20) 04/20/22 21:25 Total Protein 6.5 gm/dl (6.0-8.3) 04/20/22 21:25 Albumin 3.8 gm/dl (3.4-5.0) 04/20/22 21:25 Globulin 2.7 gm/dl (2.5-4.0) 04/20/22 21:25 Albumin/Globulin Ratio 1.4 (0.9-2) 04/20/22 21:25 Urine Color Yellow 04/20/22: Urine Appearance Clear (Clear) 04/20/22: Urine pH 6.0 (4.5-7.5) 04/20/22: Ur Specific [place] 1.026 (1.000-1.030) 04/20/22: Urine Protein 1+ (Negative) H 04/20/22: Urine Glucose (UA) 3+ (Negative) H 04/20/22: Urine Ketones 1+ (Negative) H 04/20/22: Urine Blood Negative (Negative) 04/20/22: Urine Nitrite Negative (Negative) 04/20/22: Urine Bilirubin Negative (Negative) 04/20/22 Urine Urobilinogen Negative (Negative) 04/20/22: Ur Leukocyte Esterase Negative (Negative) 04/20/22: Urine WBC (Auto) 1-5 /hpf (0-5) 04/20/22 Urine RBC (Auto) 0-4 /hpf (0-4) 04/20/22 U Hyaline Cast (Auto) 1-5 /lpf (0-5) 04/20/22: U Epithel Cells (Auto) >30 /lpf (0-5) H 04/20/22: Urine Bacteria (Auto) Negative (Negative) 04/20/22 SARS-CoV-2, RNA, NAAT POSITIVE (NEGATIVE) A* 04/20/22 22:34 Diagnostic Findings Chest CTA - Per STAT-rad: NO PE. NO aortic aneurysm or dissection. The lungs are clear. Heart size is normal. No pathologically enlarged lymph nodes. No fracture. A 2.3cm right thyroid nodues is present. Recommend further evaluation with a dedicated thyroid ultrasound on a nonemergent basis. Incide ntally noted fatty infiltration of the liver. CT Abdomen and Pelvis - Per STAT rad - fatty infiltration of the liver. The remaining solid organs are within normal limits. No bowel obstruction. Normal appendix. Moderate bilateral fat-containing inguinal hernias. No fracture CT Facial Bones - Per STAT rad - No fracture CT Head - Per STAT rad - Julian acute intracranial hemorrhage. No midline shift or mass effect. The territorial villalba-white matter differentiation is maintained throughout. Age-related cerebral volume loss. PEriventricular and subcortical white matter hypoattenuation c/w chronic microangiopathy CT C-spine - Per STAT rad - Per STAT rad - No fracture or dislocation Code Status & VTE Plan VTE Prophylaxis Plan VTE Prophylaxis will be ordered: Yes PG Care Time/CCT Total # of Minutes Spent Total Time Spent with Patient: Total time spent is greater than 50% in coordination of care (as documented) at patient's floor/unit and/or counseling patient: Coding Level of Care Code 08138 Initial Inpt Care Lvl 3 Diagnoses COVID-19 U07.1 Syncope R55 Hypomagnesemia E83.42 Thyroid nodule E04.1 TIA (transient ischemic attack) G45.9 Type 2 diabetes, uncontrolled, with neuropathy E11.40; E11.65 Hypertension I10 Chronic kidney disease, stage III (moderate) N18.3 Hyperlipidemia E78.2 Hyperlipidemia type: mixed hyperlipidemia GERD (gastroesophageal reflux disease) K21.9 Esophagitis presence: esophagitis presence not specified (1) Hyperlipidemia Hyperlipidemia type: mixed hyperlipidemia Qualified Code(s): E78.2 - Mixed hyperlipidemia (2) GERD (gastroesophageal reflux disease) Esophagitis presence: esophagitis presence not specified Qualified Code(s): K21.9 - Gastro-esophageal reflux disease without esophagitis
[2022-04-21] MEDS ORDERED: GLUCAGON FOR INJ 1 MG VIAL SQ PRN (03:06)
[2022-04-21] MEDS ORDERED: GLUCOSE 10 TAB/TUBE PO PRN (03:06)
[2022-04-21] MEDS ORDERED: CARBOHYDRATES FOR HYPOGLYCEMIA PO PRN (03:06)
[2022-04-21] MEDS ORDERED: DEXTROSE 50% 50 ML SYRINGE IV PRN (03:06)
[2022-04-21] MEDS ORDERED: GLUCOSE 40% GEL 15 GM TUBE PO PRN (03:06)
[2022-04-21] MEDS: MAGNESIUM SULFATE / D5W 1 GM/100 ML BAG IV SCH ×4 (03:50→10:17)
[2022-04-21 07:02] LABS: Basophils # (auto) 0.03 K/uL (0-0.2); Basophils % (auto) 0.5 %; Hematocrit (blood only) 36.3 % (40.1-51.0); Immature Granulocytes # (auto) 0.01 K/uL (0.00-0.02); Immature Granulocytes % (auto) 0.2 %; Lymphocytes % (auto) 12.5 %; Mean Corpuscular Hemoglobin 30.2 pg (25.0-34.0); Mean Corpuscular Hgb Conc 33.1 g/dL (32.0-36.0); Mean Corpuscular Volume 91.4 fL (80.0-100.0); Mean Platelet Volume 9.3 fL (9.4-12.4); Monocytes # (auto) 0.74 K/uL (0.24-0.82); Monocytes % (auto) 11.5 %; Neutrophils # (auto) 4.83 K/uL (1.4-6.5); Neutrophils % (auto) 75.3 %; Platelet Count 176 K/uL (130-400); RDW Coefficient of Variation 13.5 % (11.5-14.5); RDW Standard Deviation 44.9 fL (36.4-46.3); Red Blood Count 3.97 M/uL (4.63-6.08); White Blood Count 6.41 K/ul (4.8-10.8)
[2022-04-21 07:52] LABS: Ferritin 277.6 ng/ml (8-388)
--- NOTE | 2022-04-21 07:58 | CT Scan Report ---
CT OF THE HEAD WITHOUT CONTRAST CLINICAL HISTORY: fall COMPARISON STUDY: MRI brain May 08, 2019. Head CT May 09, 2019. CT DOSE: 1207.26 mGy.cm TECHNIQUE: Helical axial images of the head were obtained without IV contrast. Automated exposure con trol was utilized for the study. A dose lowering technique was utilized adhering to the principles o f ALARA. FINDINGS: No acute intracranial hemorrhage, midline shift or mass effect is present. White matter hyp odensities are similar to prior exam and favor small vessel disease. Several old lacunar infarcts are also unchanged. The ventricular system is unremarkable. The basal cisterns are patent. No extra-axia l collections are present. There are no findings to suggest acute dural sinus thrombosis or acute ter ritorial infarct. No significant calvarial abnormalities are present. IMPRESSION: 1. No acute intracranial findings. No change in appearance of the brain. 2. No acute calvarial fracture. ACT 112: Negative or not required by law. Electronically signed by: Sawyer Ennis M.D. 04/21/2022 7:56 AM
--- NOTE | 2022-04-21 08:01 | CT Scan Report ---
CT OF THE CERVICAL SPINE WITHOUT CONTRAST CLINICAL HISTORY: fall COMPARISON STUDY: No previous studies for comparison. TECHNIQUE: Helical axial images of the cervical spine were obtained without IV contrast. Sagittal a nd coronal reconstructions were viewed. Automated exposure control was utilized for the study. A do se lowering technique was utilized adhering to the principles of ALARA. FINDINGS: Alignment of the cervical spine is anatomic. Vertebral body heights are maintained. No acut e cervical spine fracture or subluxation is present. There is no prevertebral edema. Facet joints are intact. Mild multilevel disc space narrowing is noted with moderate anterior osteophytosis. Moderat e multilevel facet arthrosis is present. IMPRESSION: No acute cervical spine fracture or subluxation. ACT 112: Negative or not required by law. Electronically signed by: Sawyer Ennis M.D. 04/21/2022 7:59 AM
[2022-04-21 08:05] LABS: BUN Creatinine Ratio 11.4 (10-20); C Reactive Protein 3.79 mg/dl (0-0.5); Calcium 8.2 mg/dl (8.5-10.1); Creatinine Clr Calc Pharmacy 67.7 ml/min; Magnesium 1.9 mg/dl (1.7-2.4); Phosphorus 3.2 mg/dl (2.5-4.9); Potassium 3.7 mmol/L (3.5-5.1)
--- NOTE | 2022-04-21 08:07 | CT Scan Report ---
MAXILLOFACIAL CT WITHOUT CONTRAST CLINICAL HISTORY: fall, pain COMPARISON STUDY: Head CT May 09, 2019. TECHNIQUE: A maxillofacial CT was performed without IV contrast. Coronal and sagittal reformats were viewed. Automated exposure control was utilized for the study. A dose lowering technique was utiliz ed adhering to the principles of ALARA. FINDINGS: Globes are intact. There is no retrobulbar hematoma. No acute facial fracture is identified . Orbital floors are intact. There is minimal sinus mucosal thickening. Alignment of the temporomandi bular joints is anatomic. Pterygoid plates are intact. No acute skull base fracture. Cervical spine C T will reported separately. IMPRESSION: No acute facial fracture. ACT 112: Negative or not required by law. Electronically signed by: Sawyer Ennis M.D. 04/21/2022 8:05 AM
--- NOTE | 2022-04-21 08:11 | CT Scan Report ---
CT ANGIOGRAPHY OF THE CHEST, PULMONARY EMBOLUS PROTOCOL CLINICAL HISTORY: Fall. Weakness. Evaluate for pulmonary embolus. COMPARISON STUDY: Chest radiograph March 24, 2020. TECHNIQUE: Following IV administration of 119 mL of Optiray, helical axial images of the chest were o btained utilizing the pulmonary embolus protocol. Maximal intensity projections and sagittal and cor onal reformats were viewed on an independent 3D workstation. IV contrast was administered without co mplication. Automated exposure control was utilized for the study. A dose lowering technique was ut ilized adhering to the principles of ALARA. FINDINGS: No pulmonary emboli are identified. There is no thoracic aortic dissection. A 2.1 cm hypod ense right lobe thyroid nodule is noted. Mild cardiomegaly and moderate coronary artery calcification are present. The possible abnormality within the left lung apex on cervical spine CT was artifactual . Minimal airspace opacities are noted within the medial basilar segment of the right lower lobe. The re is no pneumothorax or pleural effusion. Several old right anterior rib fractures are noted. Abdome n and pelvis CT will be reported separately. IMPRESSION: 1. No pulmonary emboli identified. 2. No acute traumatic findings within the chest. 3. Minimal airspace opacity within the medial basal segment of the right lower lobe. This may reflect a mild infectious process. ACT 112: Negative or not required by law. Electronically signed by: Sawyer Ennis M.D. 04/21/2022 8:10 AM
--- NOTE | 2022-04-21 08:26 | CT Scan Report ---
ABDOMEN AND PELVIS CT WITH IV CONTRAST CT DOSE: 3138.62 mGy.cm HISTORY: Acute weakness. Acute abdominal pain status post fall weak, pain TECHNIQUE: Multiaxial CT images of the abdomen and pelvis were performed following the IV administrat ion of 119 cc of Optiray, A dose lowering technique was utilized adhering to the principles of ALARA . COMPARISON STUDY: CTA chest of same day FINDINGS: Cardiomegaly with coronary artery calcifications. Minimal opacities of the medial basal seg ment right lower lobe. Lung bases are otherwise generally clear. No pneumatosis or pneumoperitoneum. The spleen is mildly enlarged at 13.3 cm probable acute laceration of the spleen on image 82 measures approximately 1.4 cm in length. Trace adjacent subcapsular hematoma measures up to 5 mm. There is ad ditional splenic laceration versus developmental cleft on image 110 measuring 2.6 cm. Unremarkable pa ncreas. Adrenal gland thickening suggestive of hyperplasia. Contracted gallbladder. Hepatic steatosis . Patency of the hepatic and portal veins. Mild nonspecific bilateral perinephric stranding. Subcentimeter bilateral renal hypodensities suggest probable cysts, however too small to adequately characterize. Decompressed urinary bladder with wall thickening. A Fuchs catheter is in place with air also noted within the bladder lumen. Prostamegaly. Small fat filled inguinal hernias. Atherosclerosis of the aorta with infrarenal ectasia, 2.9 x 2.9 c m. No dissection. No lymphadenopathy. No bowel obstruction. Mild wall thickening within the rectosigmoid is likely secondary to partial dis tention. Colonic diverticulosis. Normal appendix. Unremarkable soft tissues. No acute fracture. IMPRESSION: 1. There is an acute 1.4 cm splenic laceration with subcentimeter subcapsular hematoma. Additional sp lenic cleft versus laceration of the spleen measuring 2.6 cm. Findings are compatible with subacute g rade II splenic injury. This finding was called/faxed to the emergency department at time of dictatio n. 2. No acute fracture or additional acute posttraumatic intra-abdominal or intrapelvic abnormality lucía ntified. 3. Incidental findings as above. ACT 112: Negative or not required by law. The above report was generated using voice recognition software. It may contain grammatical, syntax o r spelling errors. Electronically signed by: Ramón Barrera M.D. 04/21/2022 8:25 AM
[2022-04-21] MEDS: amLODIPine BESYLATE 5 MG TAB PO SCH (09:37)
[2022-04-21] MEDS: ASPIRIN 81 MG ECTAB PO SCH (09:37)
[2022-04-21] MEDS: CLOPIDOGREL BISULFATE 75 MG TAB PO SCH (09:38)
[2022-04-21] MEDS: lisinopril 40 MG TAB PO SCH (09:38)
[2022-04-21] MEDS: METOPROLOL TARTRATE 100 MG TAB PO SCH (09:38)
[2022-04-21] MEDS: ATORVASTATIN 40 MG TAB PO SCH (09:38)
[2022-04-21] MEDS: TAMSULOSIN HCL 0.4 MG CAP PO SCH (09:39)
[2022-04-21] MEDS ORDERED: PNEUMOCOCCAL POLYSACCHARIDES 25 MCG/0.5 ML VIAL/SYR IM ONE (10:00)
[2022-04-21] MEDS: INSULIN ASPART PER UNIT SC SCH ×4 (10:07→20:26)
[2022-04-21] MEDS: LANTUS PER UNIT CHARGE SQ SCH (10:07)
--- NOTE | 2022-04-21 11:33 | Surgery Consultation ---
Date of Consultation April 21, 2022 Assessment & Plan (1) Splenic laceration: Clinically and hemodynamically stable at this point time. Asymptomatic regarding this bleeding. Would hold the Plavix and aspirin until we ensure he is not bleeding. Slight drop in his hemoglobin from yesterday. We will recheck this afternoon. Unlikely to require surgical intervention but will follow along in the short-term. (2) COVID-19: (3) Syncope: (4) Type 2 diabetes, uncontrolled, with neuropathy: (5) Hypertension: History of Present Illness Attending Physician: Vitaliy Foster MD History of Present Illness 76-year-old male who was admitted with nausea vomiting diarrhea lethargy and found to be COVID-positive. His main complaint currently is dizziness. He denies abdominal pain. He was found during his initial work-up to have a small splenic laceration. Allergies Allergy/AdvReac Type Severity Reaction Status Date / Time No Known Allergies Allergy Verified 04/20/22 22:10 Home Medications Medication Instructions Recorded Confirmed Type aspirin 81 mg tablet,delayed 81 mg PO QAM #90 tabs 01/24/21 04/20/22 Rx release atorvastatin 80 mg tablet 80 mg PO DAILY #90 tabs 06/17/21 04/20/22 Rx blood-glucose meter (True Metrix #1 ea 06/23/21 04/21/22 Rx Glucose Meter) lancets 33 gauge (TRUEplus Lancets) #100 ea 06/23/21 04/21/22 Rx amlodipine 5 mg tablet 5 mg PO DAILY #90 tabs 07/19/21 04/20/22 Rx blood sugar diagnostic (True #100 ea 12/07/21 04/21/22 Rx Metrix Glucose Test Strip) pen needle, diabetic 31 gauge x #100 ea 03/29/22 04/21/22 Rx 3/16" (Sure-Fine Pen [place]) insulin glargine 100 unit/mL 10 unit (0.1 mL) subcut QAM #10 mL 03/31/22 04/20/22 Rx subcutaneous solution (Lantus U-100 Insulin) metoprolol tartrate 100 mg tablet 100 mg PO QAM 04/20/22 04/20/22 History pantoprazole 40 mg tablet,delayed 40 mg PO QAM 04/20/22 04/20/22 History release tamsulosin 0.4 mg capsule 0.8 mg PO DAILY 04/20/22 04/20/22 History clopidogrel 75 mg tablet 75 mg PO QAM #90 tabs 04/21/22 Rx lisinopril 40 mg tablet 40 mg PO QAM #90 tabs 04/21/22 Rx metformin 1,000 mg tablet 1,000 mg PO BID #180 tabs 04/21/22 Rx Patient History Medical History Chronic kidney disease, stage III (moderate) Essential (primary) hypertension GERD (gastroesophageal reflux disease) History of CVA (cerebrovascular accident) Hyperlipidemia Hypertension Hypomagnesemia Influenza Ischemic stroke Received intravenous tissue plasminogen activator (tPA) within last 24 hours TIA (transient ischemic attack) multiple occurrences Type 2 diabetes, uncontrolled, with neuropathy URI (upper respiratory infection) Surgical History H/O carpal tunnel repair No pertinent past surgical history S/P tonsillectomy Family History Brother Hypertension Brother Diabetes Father , age 40 in a train accident Benign familial tremor Denies family history of Ovarian cancer Prostate cancer Myocardial infarction Breast cancer Colorectal cancer Stroke Social History Smoking Status: Former smoker Age Started Using Tobacco: 18; Age Quit Using Tobacco: 48; packs per day: 1; Years Smoked: 30; Second Hand Exposure: No; Hx Alcohol Use: No Hx Substance Use: No Preferred Language: Italian Communication Ability: Effective Visual Impairment: No Limitations Hearing Ability: Normal Import Clerk Required: No Beliefs That Will Affect Care: None marital status: marital status details: grandson lives with him Current Living Situation: Family Current Living Situation Comment: Son and grandson current occupational status: retired 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 He is alert and oriented. He does appear fatigued. He does spontaneously answer questions. Eyes: PERRL, conjunctivae normal, anicteric sclerae EOM intact bilaterally ENMT: external ear and nose normal, oropharynx normal Ears: no hearing impairment Neck: trachea midline, no thyromegaly Respiratory: normal respiratory effort; no respiratory distress and does not use accessory muscles Cardiovascular: Rate/Rhythm: regular rate and regular rhythm Gastrointestinal (Abdomen): Soft. Nontender nondistended. He is specifically nontender in the left upper quadrant. Skin: no rashes, warm and dry Psychiatric: Orientation: alert, oriented x 3 and cooperative Results & Data ([facility]) Vital Signs (Past 12 Hours) Vital Signs Temp Pulse Pulse Resp BP BP Pulse Ox 04/21/22 10:51 36.7 C 80 182/89 H 90 04/21/22 09:01 73 22 91 04/21/22 09:01 180/83 H 04/21/22 09:00 83 21 90 04/21/22 08:30 76 17 90 04/21/22 08:01 73 17 95 04/21/22 08:01 156/81 H 04/21/22 08:00 83 22 90 04/21/22 07:30 76 17 93 04/21/22 07:01 81 18 92 04/21/22 07:01 192/84 H 04/21/22 07:00 79 17 93 04/21/22 06:30 83 19 95 04/21/22 06:00 80 20 96 04/21/22 06:00 163/93 H 04/21/22 04:00 04/21/22 04:00 36.9 C 04/21/22 04:00 84 20 178/87 H 98 04/21/22 02:28 85 22 113/96 98 04/21/22 00:18 89 20 123/71 98 O2 Del Method O2 Flow Rate 04/21/22 10:51 Room Air 04/21/22 09:01 Room Air 04/21/22 09:01 04/21/22 09:00 Room Air 04/21/22 08:30 Room Air 04/21/22 08:01 Nasal Cannula 2 04/21/22 08:01 04/21/22 08:00 Nasal Cannula 2 04/21/22 07:30 Nasal Cannula 2 04/21/22 07:01 Nasal Cannula 2 04/21/22 07:01 04/21/22 07:00 Nasal Cannula 2 04/21/22 06:30 Nasal Cannula 2 04/21/22 06:00 Nasal Cannula 2 04/21/22 06:00 04/21/22 04:00 Nasal Cannula 2 04/21/22 04:00 04/21/22 04:00 Nasal Cannula 2 04/21/22 02:28 Room Air 04/21/22 00:18 PG Care Time/CCT Total # of Minutes Spent Total Time Spent with Patient: Total time spent is greater than 50% in coordination of care (as documented) at patient's floor/unit and/or counseling patient: Coding Level of Care Code 67628 Initial Inpt Care Lvl 3 Diagnoses Splenic laceration S36.039A COVID-19 U07.1 Syncope R55 Type 2 diabetes, uncontrolled, with neuropathy E11.40; E11.65 Hypertension I10
[2022-04-21] MEDS: ONDANSETRON INJ 2 MG/ML 2 ML VIAL IV PRN ×2 (11:38→18:05)
[2022-04-21] MEDS: SODIUM CHLORIDE 0.9% 1000ML 1,000 ML IV SCH (14:35)
[2022-04-21 16:04] LABS: Hematocrit (blood only) 36.3 % (40.1-51.0); Hemoglobin 12.2 g/dl (14.0-18.0)
--- NOTE | 2022-04-21 16:24 | History & Physical Bridge Note ---
Date of Service April 21, 2022 History & Physical Bridge Note I have examined the patient, reviewed the History & Physical and in the interval since the performance of the History & Physical I have noted the following changes of clinical significance: Patient hospitalized with generalized weakness, +covid-19 with symptoms of n/v/d, who sustained a fall (denies syncope) and struck his face when he fell. Pt currently without O2 requirements and therefore not a candidate for remdesivir/decadron at this time. Pt was found to have a splenic laceration via CT a/p upon read by our in-house radiology that was initially missed on Stat Rad read. Surgery consulted, hold ASA/Plavix and monitor. Exam: VSS, afebrile. Lungs clear, heart regular, abdomen soft/nontender with +bs throughout, salazar in place, and legs w/o edema, skin warm, dry intact. A/P: Resume some gentle IVF hydration. PT/OT eval. Hold ASA/Plavix d/t splenic laceration. Appreciate general surgery input. Follow up labs in AM. D/C planning -- suspect that he's going to require inpatient rehab prior to return home. Plan to be reviewed with Dr. Foster.
--- NOTE | 2022-04-21 22:42 | Communication Note ---
Date of Service: April 21, 2022 patient w/ dizziness. O2 sat 88-89 on room air and was placed on 2L NC, saturating 93%. Dizziness is slightly improved.
[2022-04-22] MEDS: SODIUM CHLORIDE 0.9% 1000ML 1,000 ML IV SCH ×2 (00:38→10:35)
--- NOTE | 2022-04-22 06:06 | Electrocardiogram Report ---
Test Reason : Blood Pressure : / mmHG Vent. Rate : 078 BPM Atrial Rate : 078 BPM P-R Int : 202 ms QRS Dur : 098 ms QT Int : 420 ms P-R-T Axes : 030 042 046 degrees QTc Int : 478 ms Normal sinus rhythm Normal ECG When compared with ECG of 24-MAR-2020 16:05, No significant change was found Confirmed by Raymon Hung ([id number]) on 04/22/2022 6:06:03 AM Referred By: REFERRED SELF Confirmed By:Raymon Hung
[2022-04-22 08:11] LABS: Basophils # (auto) 0.02 K/uL (0-0.2); Basophils % (auto) 0.4 %; Hematocrit (blood only) 37.1 % (40.1-51.0); Hemoglobin 12.3 g/dl (14.0-18.0); Immature Granulocytes # (auto) 0.02 K/uL (0.00-0.02); Immature Granulocytes % (auto) 0.4 %; Lymphocytes # (auto) 0.89 K/uL (1.2-3.4); Lymphocytes % (auto) 16.3 %; Mean Corpuscular Hemoglobin 30.6 pg (25.0-34.0); Mean Corpuscular Hgb Conc 33.2 g/dL (32.0-36.0); Mean Corpuscular Volume 92.3 fL (80.0-100.0); Mean Platelet Volume 8.9 fL (9.4-12.4); Monocytes # (auto) 0.71 K/uL (0.24-0.82); Neutrophils # (auto) 3.81 K/uL (1.4-6.5); Neutrophils % (auto) 69.9 %; Platelet Count 153 K/uL (130-400); RDW Coefficient of Variation 13.9 % (11.5-14.5); RDW Standard Deviation 47.3 fL (36.4-46.3); Red Blood Count 4.02 M/uL (4.63-6.08); White Blood Count 5.45 K/ul (4.8-10.8)
[2022-04-22] MEDS: ONDANSETRON INJ 2 MG/ML 2 ML VIAL IV PRN (08:21)
[2022-04-22] MEDS: TAMSULOSIN HCL 0.4 MG CAP PO SCH (08:22)
[2022-04-22] MEDS: lisinopril 40 MG TAB PO SCH (08:23)
[2022-04-22] MEDS: METOPROLOL TARTRATE 100 MG TAB PO SCH (08:23)
[2022-04-22] MEDS: amLODIPine BESYLATE 5 MG TAB PO SCH (08:23)
[2022-04-22] MEDS: CLOPIDOGREL BISULFATE 75 MG TAB PO SCH (08:23)
[2022-04-22] MEDS: ATORVASTATIN 40 MG TAB PO SCH (08:23)
[2022-04-22 08:40] LABS: BUN Creatinine Ratio 9.9 (10-20); Creatinine Clr Calc Pharmacy 58.9 ml/min; Est GFR (African American) 61.7 ml/min; Est GFR (Non-African American) 53.3 ml/min; Potassium 3.8 mmol/L (3.5-5.1)
[2022-04-22] MEDS: LANTUS PER UNIT CHARGE SQ SCH (09:11)
[2022-04-22] MEDS: INSULIN ASPART PER UNIT SC SCH ×4 (09:11→20:49)
--- NOTE | 2022-04-22 10:27 | History & Physical Bridge Note ---
Date of Service April 22, 2022 History & Physical Bridge Note No clinical deterioration. Hemoglobin stable/rising. No indication of splenic bleeding. Will sign off. Please call if any clinical changes. Could reinstitute anticoagulation tomorrow
[2022-04-22] MEDS ORDERED: REMDESIVIR 200 MG in SODIUM CHLORIDE 0.9% 210 ML IV STA (14:33)
--- NOTE | 2022-04-22 14:38 | Hospitalist Progress Note ---
Date of Service April 22, 2022 Assessment & Plan (1) COVID-19: Plan: Partially vaccinated male who developed symptoms on , 04/20 - Now requiring supplemental O2 - Start Remdesivir 200mg IV x1 and then 100mg daily day 2-5 - Start Decadrong 6mg IV daily x 10 days - Cap fluids - PT/OT - APAP as needed for fever/pain (2) Syncope: Plan: - Suspect d/t dehydration in setting of viral illness - No further recurrence - Pt actually denies syncope and states that he just fell (3) Hypomagnesemia: Plan: - supplemented (4) Thyroid nodule: Plan: - incidental finding, will need o/p follow up with thyroid ultrasound (5) TIA (transient ischemic attack): Plan: - Continue asa/plavix/statin (6) Type 2 diabetes, uncontrolled, with neuropathy: Plan: - carb consistent diet - accuchecks ac and hs - ISS and Lantus - metformin held (7) Hypertension: Plan: - Continue Amlodipine, Lisinopril, Metoprolol (8) Chronic kidney disease, stage III (moderate): Plan: - stable at baseline (9) Hyperlipidemia: Plan: - On statin (10) GERD (gastroesophageal reflux disease): Plan: - protonix on hold d/t low mag Plan Interventions as outlined above. PT/OT - d/c planning, ?rehab prior to return home. Wean O2 as able to keep sat >90%. Repeat labs in AM. Plan to be d/w Dr. Foster. Admission and Anticipated Discharge Date Admission Date: April 21, 2022 Subjective Patient seen on daily rounds this morning. Pt now with oxygen requirements - 2L to keep sat at 97%. He does admit to feeling slightly short of breath today with cough. Denies fever/chills. No abd pain. Still intermittent nausea but no vomiting since yesterday evening. Tolerating clear liquids. Requesting that salazar stay in place. Seems slightly less weak. No issues reported by RN. Review of Systems Review of Systems: All systems reviewed and are unremarkable except as noted in HPI and below. Denies fever, chills, fatigue, headache, nasal congestion, sore throat, chest pain, palpitations, orthopnea, PND, abdominal pain, n/v/d, constipation, dysuria, hematuria, frequency, back pain, joint pain or swelling, easy bruising or bleeding, skin lesions or rashes. Physical Exam Physical Exam: GENERAL: 76 yo Well-developed, well-nourished WM. NAD. LUNGS: Diminished in bases. Nonlabored. No wheezes/rhonchi or conversational dyspnea. CARDIOVASCULAR: Regular rate and rhythm. ABDOMEN: Soft, non-tender and non-distended. BS normoactive x 4 quad. EXTREMITIES: No edema. Non-tender. Peripheral pulses +2/4. NEUROLOGIC: A&O x3. Nonfocal PSYCHIATRIC: Cooperative. Appropriate mood and affect. SKIN: Warm, dry, intact. Abrasion noted to bridge of nose. Results & Data Results & Data ([facility]) Vital Signs (Past 12 Hours) Vital Signs Temp Pulse Pulse Resp BP Pulse Ox O2 Del Method 04/22/22 11:30 36.5 C 62 18 161/88 H 96 Nasal Cannula 04/22/22 09:57 Nasal Cannula 04/22/22 08:16 37.3 C 80 18 182/85 H 93 Nasal Cannula 04/22/22 07:28 76 04/22/22 03:20 37.6 C H 70 20 175/76 H 97 Nasal Cannula O2 Flow Rate 04/22/22 11:30 1.5 04/22/22 09:57 2 04/22/22 08:16 2 04/22/22 07:28 04/22/22 03:20 2 Laboratory Results 04/22/22 07:56 04/22/22 07:56 PG Care Time/CCT Total # of Minutes Spent Total Time Spent with Patient: Total time spent is greater than 50% in coordination of care (as documented) at patient's floor/unit and/or counseling patient: Coding Level of Care Code 52600 Subseq Hosp Care Lvl 2 Diagnoses COVID-19 U07.1 Syncope R55 Hypomagnesemia E83.42 Thyroid nodule E04.1 TIA (transient ischemic attack) G45.9 Type 2 diabetes, uncontrolled, with neuropathy E11.40; E11.65 Hypertension I10 Chronic kidney disease, stage III (moderate) N18.3 Hyperlipidemia E78.2 Hyperlipidemia type: mixed hyperlipidemia GERD (gastroesophageal reflux disease) K21.9 Esophagitis presence: esophagitis presence not specified (1) Hyperlipidemia Hyperlipidemia type: mixed hyperlipidemia Qualified Code(s): E78.2 - Mixed hyperlipidemia (2) GERD (gastroesophageal reflux disease) Esophagitis presence: esophagitis presence not specified Qualified Code(s): K21.9 - Gastro-esophageal reflux disease without esophagitis
[2022-04-22] MEDS: dexAMETHasone 6 MG in SYRINGE 0 ML IV SCH (15:51)
[2022-04-23 08:06] LABS: Basophils # (auto) 0.01 K/uL (0-0.2); Basophils % (auto) 0.2 %; Hematocrit (blood only) 38.5 % (40.1-51.0); Hemoglobin 12.9 g/dl (14.0-18.0); Immature Granulocytes # (auto) 0.01 K/uL (0.00-0.02); Immature Granulocytes % (auto) 0.2 %; Lymphocytes % (auto) 27.1 %; Mean Corpuscular Hemoglobin 30.1 pg (25.0-34.0); Mean Corpuscular Hgb Conc 33.5 g/dL (32.0-36.0); Mean Platelet Volume 9.2 fL (9.4-12.4); Monocytes # (auto) 0.58 K/uL (0.24-0.82); Monocytes % (auto) 13.1 %; Neutrophils # (auto) 2.63 K/uL (1.4-6.5); Neutrophils % (auto) 59.4 %; Platelet Count 173 K/uL (130-400); RDW Coefficient of Variation 13.6 % (11.5-14.5); Red Blood Count 4.28 M/uL (4.63-6.08); White Blood Count 4.43 K/ul (4.8-10.8)
[2022-04-23] MEDS: ATORVASTATIN 40 MG TAB PO SCH (08:15)
[2022-04-23] MEDS: amLODIPine BESYLATE 5 MG TAB PO SCH (08:15)
[2022-04-23] MEDS: lisinopril 40 MG TAB PO SCH (08:16)
[2022-04-23] MEDS: dexAMETHasone 6 MG in SYRINGE 0 ML IV SCH (08:16)
[2022-04-23] MEDS: CLOPIDOGREL BISULFATE 75 MG TAB PO SCH (08:16)
[2022-04-23] MEDS: TAMSULOSIN HCL 0.4 MG CAP PO SCH (08:17)
[2022-04-23] MEDS: METOPROLOL TARTRATE 100 MG TAB PO SCH (08:17)
[2022-04-23] MEDS: ASPIRIN 81 MG ECTAB PO SCH (08:25)
[2022-04-23 08:30] LABS: BUN Creatinine Ratio 13.3 (10-20); Calcium 8.4 mg/dl (8.5-10.1); Creatinine Clr Calc Pharmacy 56.6 ml/min; Est GFR (African American) 59.5 ml/min; Est GFR (Non-African American) 51.4 ml/min; Magnesium 1.8 mg/dl (1.7-2.4); Potassium 4.5 mmol/L (3.5-5.1)
[2022-04-23] MEDS: INSULIN ASPART PER UNIT SC SCH ×4 (08:41→21:32)
[2022-04-23] MEDS: LANTUS PER UNIT CHARGE SQ SCH (08:42)
[2022-04-23] MEDS: ONDANSETRON INJ 2 MG/ML 2 ML VIAL IV PRN ×2 (10:50→17:25)
--- NOTE | 2022-04-23 12:10 | Hospitalist Progress Note ---
Date of Service April 23, 2022 Assessment & Plan (1) COVID-19: Plan: Partially vaccinated male who developed symptoms on , 04/20 - Began requiring O2 on 04/22 with increased dyspnea complaints - Started on Remdesivir 200mg IV x1 and then 100mg daily day 2-5 & Decadron - Continue PT/OT-recommending rehab, will d/w Case management - APAP as needed for fever/pain - Showing favorable response/improvement (2) Syncope: Plan: - Suspect d/t dehydration in setting of viral illness - No further recurrence - Pt actually denies syncope and states that he just fell (3) Splenic laceration: Plan: - noted on CT on admission - seen by general surgery - pt's daughter claims he's been having frequent falls at home, ?etiology - per GS, no need for surgical intervention, no active bleeding, can continue/resume antiplatelet agents (4) Hypomagnesemia: Plan: - supplemented/normalized (5) Thyroid nodule: Plan: - incidental finding, will need o/p follow up with thyroid ultrasound (6) TIA (transient ischemic attack): Plan: - Continue asa/plavix/statin (7) Type 2 diabetes, uncontrolled, with neuropathy: Plan: - carb consistent diet - accuchecks ac and hs - ISS and Lantus - metformin held (8) Hypertension: Plan: - Continue Amlodipine, Lisinopril, Metoprolol (9) Chronic kidney disease, stage III (moderate): Plan: - stable at baseline (10) Hyperlipidemia: Plan: - On statin (11) GERD (gastroesophageal reflux disease): Plan: - protonix on hold d/t low mag Plan Labs stable. Fuchs removed this morning. Transition off tele to med/surg. Continue therapy. Pt and family agreeable to rehab upon dc which is what therapy is recommending. Approaching dc readiness. Case management consulted to assist in d/c planning. Plan to be d/w Dr. Foster. Admission and Anticipated Discharge Date Admission Date: April 21, 2022 Subjective Patient seen on daily rounds this morning. Pt weaned off oxygen but still 92% on room air at rest. He was started on Remdesivir and Decadron yesterday. Breathing improved today but still has productive cough. Denies n/v/d. Catheter removed this morning but hasn't voided yet since removal. No chest pain. Review of Systems Review of Systems: All systems reviewed and are unremarkable except as noted in HPI and below. Denies fever, chills, fatigue, headache, nasal congestion, sore throat, chest pain, palpitations, orthopnea, PND, abdominal pain, n/v/d, constipation, dysuria, hematuria, frequency, back pain, joint pain or swelling, easy bruising or bleeding, skin lesions or rashes. Physical Exam Physical Exam: GENERAL: 76 yo Well-developed, well-nourished WM. NAD. LUNGS: Nonlabored and no conversational dyspnea. Crackles in bases. No wheezes/rhonchi. CARDIOVASCULAR: Regular rate and rhythm. ABDOMEN: Soft, non-tender and non-distended. BS normoactive x 4 quad. EXTREMITIES: No edema. Non-tender. Peripheral pulses +2/4. NEUROLOGIC: A&O x3. Nonfocal PSYCHIATRIC: Cooperative. Appropriate mood and affect. SKIN: Warm, dry, intact. Abrasion noted to bridge of nose. Results & Data Results & Data ([facility]) Vital Signs (Past 12 Hours) Vital Signs Temp Pulse Pulse Resp BP BP Pulse Ox 04/23/22 12:01 37.1 C 61 24 167/85 H 92 04/23/22 10:22 04/23/22 07:51 36.3 C L 69 18 191/112 H 191/111 H 96 04/23/22 07:29 59 L 04/23/22 03:58 36.4 C L 67 12 176/89 H 99 O2 Del Method O2 Flow Rate 04/23/22 12:01 Room Air 04/23/22 10:22 Nasal Cannula 2 04/23/22 07:51 Room Air 04/23/22 07:29 04/23/22 03:58 Nasal Cannula 2 Laboratory Results 04/23/22 07:33 04/23/22 07:33 PG Care Time/CCT Total # of Minutes Spent Total Time Spent with Patient: Total time spent is greater than 50% in coordination of care (as documented) at patient's floor/unit and/or counseling patient: Coding Level of Care Code 47347 Subseq Hosp Care Lvl 2 Diagnoses COVID-19 U07.1 Syncope R55 Splenic laceration S36.039A Hypomagnesemia E83.42 Thyroid nodule E04.1 TIA (transient ischemic attack) G45.9 Type 2 diabetes, uncontrolled, with neuropathy E11.40; E11.65 Hypertension I10 Chronic kidney disease, stage III (moderate) N18.3 Hyperlipidemia E78.2 Hyperlipidemia type: mixed hyperlipidemia GERD (gastroesophageal reflux disease) K21.9 Esophagitis presence: esophagitis presence not specified (1) Hyperlipidemia Hyperlipidemia type: mixed hyperlipidemia Qualified Code(s): E78.2 - Mixed hyperlipidemia (2) GERD (gastroesophageal reflux disease) Esophagitis presence: esophagitis presence not specified Qualified Code(s): K21.9 - Gastro-esophageal reflux disease without esophagitis
[2022-04-23] MEDS: REMDESIVIR 100 MG in SODIUM CHLORIDE 0.9% 230 ML IV SCH (13:28)
[2022-04-24] MEDS: TAMSULOSIN HCL 0.4 MG CAP PO SCH (08:31)
[2022-04-24] MEDS: ATORVASTATIN 40 MG TAB PO SCH (08:32)
[2022-04-24] MEDS: METOPROLOL TARTRATE 100 MG TAB PO SCH (08:32)
[2022-04-24] MEDS: CLOPIDOGREL BISULFATE 75 MG TAB PO SCH (08:32)
[2022-04-24] MEDS: lisinopril 40 MG TAB PO SCH (08:33)
[2022-04-24] MEDS: amLODIPine BESYLATE 5 MG TAB PO SCH (08:33)
[2022-04-24] MEDS: ASPIRIN 81 MG ECTAB PO SCH (08:33)
[2022-04-24] MEDS: INSULIN ASPART PER UNIT SC SCH ×4 (08:34→22:01)
[2022-04-24] MEDS: LANTUS PER UNIT CHARGE SQ SCH (08:39)
[2022-04-24] MEDS: dexAMETHasone 6 MG in SYRINGE 0 ML IV SCH (08:59)
[2022-04-24] MEDS: REMDESIVIR 100 MG in SODIUM CHLORIDE 0.9% 230 ML IV SCH (12:40)
--- NOTE | 2022-04-24 15:34 | Hospitalist Progress Note ---
Date of Service April 24, 2022 Assessment & Plan (1) COVID-19: Plan: Partially vaccinated male who developed symptoms on , 04/20 - Began requiring O2 on 04/22 with increased dyspnea complaints - Started on Remdesivir 200mg IV x1 and then 100mg daily day 2-5 & Decadron - Continue PT/OT-recommending rehab, will d/w Case management - APAP as needed for fever/pain - Showing favorable response/improvement - Received total of 3/5 doses of Remdesivir, will stop as he is no longer requiring O2 and sat >94% (2) Syncope: Plan: - Suspect d/t dehydration in setting of viral illness - No further recurrence - Pt actually denies syncope and states that he just fell (3) Splenic laceration: Plan: - noted on CT on admission - seen by general surgery - pt's daughter claims he's been having frequent falls at home, ?etiology - per GS, no need for surgical intervention, no active bleeding, resumed antiplatelet agents (4) Hypomagnesemia: Plan: - supplemented/normalized (5) Thyroid nodule: Plan: - incidental finding, will need o/p follow up with thyroid ultrasound (6) TIA (transient ischemic attack): Plan: - Continue asa/plavix/statin (7) Type 2 diabetes, uncontrolled, with neuropathy: Plan: - carb consistent diet - accuchecks ac and hs - ISS and Lantus - metformin held (8) Hypertension: Plan: - Continue Amlodipine, Lisinopril, Metoprolol (9) Chronic kidney disease, stage III (moderate): Plan: - stable at baseline (10) Hyperlipidemia: Plan: - On statin (11) GERD (gastroesophageal reflux disease): Plan: - protonix on hold d/t low mag Plan Repeat bmp and mag in AM. Stop remdesivir. D/c planning-acute rehab, referral faxed to [facility] who is to submit for authorization. Can go once auth received. Plan to be d/w Dr. Foster. Admission and Anticipated Discharge Date Admission Date: April 21, 2022 Subjective Patient seen on daily rounds this morning. Responding favorably to treatment, pulse ox up to 96% now on room air. Voiding w/o issue since salazar removal. No c/o chest pain, dyspnea, v/d, f/c, headache, or gu symptoms. Some nausea and mild cough. Review of Systems Review of Systems: All systems reviewed and are unremarkable except as noted in HPI and below. Denies fever, chills, fatigue, headache, nasal congestion, sore throat, chest pain, palpitations, orthopnea, PND, abdominal pain, n/v/d, constipation, dysuria, hematuria, frequency, back pain, joint pain or swelling, easy bruising or bleeding, skin lesions or rashes. Physical Exam Physical Exam: GENERAL: 76 yo Well-developed, well-nourished WM. NAD. LUNGS: Nonlabored, no conversational dyspnea, diminished in bases but otherwise CTA w/o wheezes or rhonchi CARDIOVASCULAR: Regular rate and rhythm. ABDOMEN: Soft, non-tender and non-distended. BS normoactive x 4 quad. EXTREMITIES: No edema. Non-tender. Peripheral pulses +2/4. NEUROLOGIC: A&O x3. Nonfocal PSYCHIATRIC: Cooperative. Appropriate mood and affect. SKIN: Warm, dry, intact. Abrasion noted to bridge of nose. Results & Data Results & Data ([facility]) Vital Signs (Past 12 Hours) Vital Signs Temp Pulse Pulse Resp BP Pulse Ox O2 Del Method 04/24/22 08:00 Room Air 04/24/22 08:26 36.4 C L 60 16 168/90 H 96 Room Air 04/24/22 04:45 Room Air 04/24/22 03:53 61 Laboratory Results No labs drawn today PG Care Time/CCT Total # of Minutes Spent Total Time Spent with Patient: Total time spent is greater than 50% in coordination of care (as documented) at patient's floor/unit and/or counseling patient: Coding Level of Care Code 07160 Subseq Hosp Care Lvl 2 Diagnoses COVID-19 U07.1 Syncope R55 Splenic laceration S36.039A Hypomagnesemia E83.42 Thyroid nodule E04.1 TIA (transient ischemic attack) G45.9 Type 2 diabetes, uncontrolled, with neuropathy E11.40; E11.65 Hypertension I10 Chronic kidney disease, stage III (moderate) N18.3 Hyperlipidemia E78.2 Hyperlipidemia type: mixed hyperlipidemia GERD (gastroesophageal reflux disease) K21.9 Esophagitis presence: esophagitis presence not specified (1) Hyperlipidemia Hyperlipidemia type: mixed hyperlipidemia Qualified Code(s): E78.2 - Mixed hyperlipidemia (2) GERD (gastroesophageal reflux disease) Esophagitis presence: esophagitis presence not specified Qualified Code(s): K21.9 - Gastro-esophageal reflux disease without esophagitis
[2022-04-25] MEDS: ASPIRIN 81 MG ECTAB PO SCH (08:17)
[2022-04-25] MEDS: ATORVASTATIN 40 MG TAB PO SCH (08:17)
[2022-04-25] MEDS: lisinopril 40 MG TAB PO SCH (08:17)
[2022-04-25] MEDS: TAMSULOSIN HCL 0.4 MG CAP PO SCH (08:18)
[2022-04-25] MEDS: CLOPIDOGREL BISULFATE 75 MG TAB PO SCH (08:18)
[2022-04-25] MEDS: METOPROLOL TARTRATE 100 MG TAB PO SCH (08:18)
[2022-04-25] MEDS: amLODIPine BESYLATE 5 MG TAB PO SCH (08:18)
[2022-04-25] MEDS: dexAMETHasone 6 MG in SYRINGE 0 ML IV SCH (08:21)
[2022-04-25 08:25] LABS: Calcium 8.2 mg/dl (8.5-10.1); Creatinine Clr Calc Pharmacy 61.2 ml/min; Est GFR (African American) 65.3 ml/min; Est GFR (Non-African American) 56.4 ml/min; Magnesium 1.7 mg/dl (1.7-2.4); Potassium 3.5 mmol/L (3.5-5.1)
[2022-04-25] MEDS: LANTUS PER UNIT CHARGE SQ SCH (08:27)
[2022-04-25] MEDS: INSULIN ASPART PER UNIT SC SCH ×4 (08:28→20:40)
[2022-04-25] MEDS: REMDESIVIR 100 MG in SODIUM CHLORIDE 0.9% 230 ML IV SCH (12:33)
--- NOTE | 2022-04-25 13:16 | Discharge Summary ---
Date of Service April 25, 2022 Admission HPI Per Admitting Provider Miles Fitzgerald is a 76yo male with history of HTN, HLP, DM, Prior CVA, GERD and CKD. He presents today with complaint of weakness, dizziness, lightheadedness. Also with nausea, vomiting, diarrhea and lethargy. Patient had a ground-level fall today and struck his head off the ground. Complaining of mild SOB, otherwise denies chest pain, palpitations, abdominal pain. Found to be POSITIVE for Covid-19. He is partially vaccinated Found to be hypomagnesemic with Mg=1. 2gm ordered for ER Patient initially very lethargic and minimally responsive. He was incontinent of urine and stool. Clinically improved after IVF and magnesium administration. During my encounter patient awake and alert. Answering questions appropriately and following commands. Principal Diagnosis 1. covid-19 infection 2. generalized weakness 3. splenic laceration 4. hypomagnesemia-resolved 5. thyroid nodule Discharge Exam GENERAL: 76 yo Well-developed, well-nourished WM. NAD. LUNGS: Nonlabored, no conversational dyspnea, diminished in bases but otherwise CTA w/o wheezes or rhonchi CARDIOVASCULAR: Regular rate and rhythm. ABDOMEN: Soft, non-tender and non-distended. BS normoactive x 4 quad. EXTREMITIES: No edema. Non-tender. Peripheral pulses +2/4. NEUROLOGIC: A&O x3. Nonfocal PSYCHIATRIC: Cooperative. Appropriate mood and affect. SKIN: Warm, dry, intact. Abrasion noted to bridge of nose. Discharge Data Allergies Allergy/AdvReac Type Severity Reaction Status Date / Time No Known Allergies Allergy Verified 04/20/22 22:10 Consultations 04/21/22 00:57 ED Decision to Admit Stat 04/21/22 16:12 Consult General Surgery Routine Ordered Studies Cervical Spine CT 04/20/22 21:29 CT OF THE CERVICAL SPINE WITHOUT CONTRAST CLINICAL HISTORY: fall COMPARISON STUDY: No previous studies for comparison. TECHNIQUE: Helical axial images of the cervical spine were obtained without IV contrast. Sagittal and coronal reconstructions were viewed. Automated exposure control was utilized for the study. A dose lowering technique was utilized adhering to the principles of ALARA. FINDINGS: Alignment of the cervical spine is anatomic. Vertebral body heights are maintained. No acute cervical spine fracture or subluxation is present. There is no prevertebral edema. Facet joints are intact. Mild multilevel disc space narrowing is noted with moderate anterior osteophytosis. Moderate multilevel facet arthrosis is present. IMPRESSION: No acute cervical spine fracture or subluxation. ACT 112: Negative or not required by law. Electronically signed by: Sawyer Ennis M.D. 04/21/2022 7:[address] 04/20/22 21:29 CT OF THE HEAD WITHOUT CONTRAST CLINICAL HISTORY: fall COMPARISON STUDY: MRI brain May 08, 2019. Head CT May 09, 2019. CT DOSE: 1207.26 mGy.cm TECHNIQUE: Helical axial images of the head were obtained without IV contrast. Automated exposure control was utilized for the study. A dose lowering technique was utilized adhering to the principles of ALARA. FINDINGS: No acute intracranial hemorrhage, midline shift or mass effect is present. White matter hypodensities are similar to prior exam and favor small vessel disease. Several old lacunar infarcts are also unchanged. The ventricular system is unremarkable. The basal cisterns are patent. No extra-axial collections are present. There are no findings to suggest acute dural sinus thrombosis or acute territorial infarct. No significant calvarial abnormalities are present. IMPRESSION: 1. No acute intracranial findings. No change in appearance of the brain. 2. No acute calvarial fracture. ACT 112: Negative or not required by law. Electronically signed by: Sawyer Ennis M.D. 04/21/2022 7:56 AM Abdomen/Pelvis CT 04/20/22 22:[address] WITH IV CONTRAST CT DOSE: 3138.62 mGy.cm HISTORY: Acute weakness. Acute abdominal pain status post fall weak, pain TECHNIQUE: Multiaxial CT images of the abdomen and pelvis were performed following the IV administration of 119 cc of Optiray, A dose lowering technique was utilized adhering to the principles of ALARA. COMPARISON STUDY: CTA chest of same day FINDINGS: Cardiomegaly with coronary artery calcifications. Minimal opacities of the medial basal segment right lower lobe. Lung bases are otherwise generally clear. No pneumatosis or pneumoperitoneum. The spleen is mildly enlarged at 13.3 cm probable acute laceration of the spleen on image 82 measures approximately 1.4 cm in length. Trace adjacent subcapsular hematoma measures up to 5 mm. There is additional splenic laceration versus developmental cleft on image 110 measuring 2.6 cm. Unremarkable pancreas. Adrenal gland thickening suggestive of hyperplasia. Contracted gallbladder. Hepatic steatosis. Patency of the hepatic and portal veins. Mild nonspecific bilateral perinephric stranding. Subcentimeter bilateral renal hypodensities suggest probable cysts, however too small to adequately characterize. Decompressed urinary bladder with wall thickening. A Fuchs catheter is in place with air also noted within the bladder lumen. Prostamegaly. Small fat filled inguinal hernias. Atherosclerosis of the aorta with infrarenal ectasia, 2.9 x 2.9 cm. No dissection. No lymphadenopathy. No bowel obstruction. Mild wall thickening within the rectosigmoid is likely secondary to partial distention. Colonic diverticulosis. Normal appendix. Unremarkable soft tissues. No acute fracture. IMPRESSION: 1. There is an acute 1.4 cm splenic laceration with subcentimeter subcapsular hematoma. Additional splenic cleft versus laceration of the spleen measuring 2.6 cm. Findings are compatible with subacute grade II splenic injury. This finding was called/faxed to the emergency department at time of dictation. 2. No acute fracture or additional acute posttraumatic intra-abdominal or intrapelvic abnormality identified. 3. Incidental findings as above. ACT 112: Negative or not required by law. The above report was generated using voice recognition software. It may contain grammatical, syntax or spelling errors. Electronically signed by: Ramón Barrera M.D. 04/21/2022 8:[address] 04/20/22 22:[address] WITHOUT CONTRAST CLINICAL HISTORY: fall, pain COMPARISON STUDY: Head CT May 09, 2019. TECHNIQUE: A maxillofacial CT was performed without IV contrast. Coronal and sagittal reformats were viewed. Automated exposure control was utilized for the study. A dose lowering technique was utilized adhering to the principles of ALARA. FINDINGS: Globes are intact. There is no retrobulbar hematoma. No acute facial fracture is identified. Orbital floors are intact. There is minimal sinus mucosal thickening. Alignment of the temporomandibular joints is anatomic. Pterygoid plates are intact. No acute skull base fracture. Cervical spine CT will reported separately. IMPRESSION: No acute facial fracture. ACT 112: Negative or not required by law. Electronically signed by: Sawyer Ennis M.D. 04/21/2022 8:05 AM Chest CTA 04/20/22 23:05 CT ANGIOGRAPHY OF THE CHEST, PULMONARY EMBOLUS PROTOCOL CLINICAL HISTORY: Fall. Weakness. Evaluate for pulmonary embolus. COMPARISON STUDY: Chest radiograph March 24, 2020. TECHNIQUE: Following IV administration of 119 mL of Optiray, helical axial images of the chest were obtained utilizing the pulmonary embolus protocol. Maximal intensity projections and sagittal and coronal reformats were viewed on an independent 3D workstation. IV contrast was administered without complication. Automated exposure control was utilized for the study. A dose lowering technique was utilized adhering to the principles of ALARA. FINDINGS: No pulmonary emboli are identified. There is no thoracic aortic dissection. A 2.1 cm hypodense right lobe thyroid nodule is noted. Mild cardiomegaly and moderate coronary artery calcification are present. The possible abnormality within the left lung apex on cervical spine CT was artifactual. Minimal airspace opacities are noted within the medial basilar segment of the right lower lobe. There is no pneumothorax or pleural effusion. Several old right anterior rib fractures are noted. Abdomen and pelvis CT will be reported separately. IMPRESSION: 1. No pulmonary emboli identified. 2. No acute traumatic findings within the chest. 3. Minimal airspace opacity within the medial basal segment of the right lower lobe. This may reflect a mild infectious process. ACT 112: Negative or not required by law. Electronically signed by: Sawyer Ennis M.D. 04/21/2022 8:10 AM Hospital Course (1) COVID-19: Partially vaccinated male who developed symptoms on , 04/20 - Began requiring O2 on 04/22 with increased dyspnea complaints - Started on Remdesivir 200mg IV x1 and then 100mg daily day 2-5 & Decadron - Continue PT/OT-recommending rehab, will d/w Case management - APAP as needed for fever/pain - Showing favorable response/improvement - Received total of 3/5 doses of Remdesivir, stopped on 04/24 as he is no longer requiring O2 and sat >94% - Stop decadron today, sat 98% on room air, no wheezes (2) Syncope: - Suspect d/t dehydration in setting of viral illness - No further recurrence - Pt actually denies syncope and states that he just fell (3) Splenic laceration: - noted on CT on admission - seen by general surgery - pt's daughter claims he's been having frequent falls at home, ?etiology - per GS, no need for surgical intervention, no active bleeding, resumed antiplatelet agents (4) Hypomagnesemia: - supplemented/normalized (5) Thyroid nodule: - incidental finding, will need o/p follow up with thyroid ultrasound (6) TIA (transient ischemic attack): - Continue asa/plavix/statin (7) Type 2 diabetes, uncontrolled, with neuropathy: - carb consistent diet - accuchecks ac and hs - ISS and Lantus - metformin held (8) Hypertension: - Continue Amlodipine, Lisinopril, Metoprolol (9) Chronic kidney disease, stage III (moderate): - stable at baseline (10) Hyperlipidemia: - On statin (11) GERD (gastroesophageal reflux disease): - protonix on hold d/t low mag Plan He is medically and hemodynamically stable for discharge to acute rehab when insurance authorization received. Referral sent to [facility]. Case management to f/u with pt to determine if he has a back up should insurance deny [facility]. No beds at [facility]. Regardless, he is medically stable for d/c today if [facility] can take and insurance authorizes. D/w Dr. Radha Solo who is in agreement. Total Time Total Time Spent Total Time Spent (In Minutes): >30 minutes Discharge Plan Discharge Items Patient Disposition: Transfer Inpatient Rehab Fac Reason For Visit: COVID-19, HYPOMAGNESEMIA Discharge Diagnosis: covid-19 generalized weakness Condition on Discharge: Fair Activity: Per Instructions section Activity Comment: with assistance as tolerated Non-emergency contact: Primary Care Provider Call non-emergency contact if: you have any medication questions and your symptoms worsen Follow-up/Referrals: PCP,NO [Primary Care Provider] - Diet: Regular Addtl Attending Provider Instructions: you were hospitalized due to covid-19 infection with weakness and low magnesium level. you were also found to have a laceration of your spleen which probably occurred during one of your falls that you sustained at home. you were treated with antiviral medications, oxygen, and steroids for the covid- 19 as well as some IV fluids. Since you are no longer requiring oxygen, you no longer need steroids or anti-viral medications. therapy has worked with you and you were recommended to go to rehab. unfortunately, your facility of choice ([facility]) has no beds so referrals were sent to [facility]. you were also found to have a thyroid nodule so this will need to be followed up with an ultrasound of your thyroid and may need to be referred for a biopsy if needed. it is strongly advised that you establish care with a family doctor and plan to follow up with him/her upon discharge from rehab. Pending Studies at Discharge: No Stand-Alone Forms: [facility] Skilled Items Patient informed of condition?: Yes DNR: No Discharge Level of Care: Acute rehab Communicable Disease: Yes (covid-19) Discharge Prognosis: Improving Lines: None Urinary Catheter: No Medications and DC Order Prescriptions: Continued aspirin 81 mg tablet,delayed release (DR/EC) 81 mg PO QAM Qty: 90 3RF atorvastatin 80 mg tablet 80 mg PO DAILY Qty: 90 3RF (DME) blood-glucose meter [True Metrix Glucose Meter] Misc See Rx Instructions .Route Qty: 1 0RF Rx Instructions: Test Blood Sugars as Needed (DME) lancets [TRUEplus Lancets] 33 gauge misc See Rx Instructions .Route Qty: 100 11RF Rx Instructions: Test Blood Sugars as Needed (DME) True Metrix Glucose Test Strip Strip See Rx Instructions .Route Qty: 100 11RF Rx Instructions: Test Blood Sugar BID (DME) pen needle, diabetic [Sure-Fine Pen [place]] 31 gauge x 3/16" needle See Rx Instructions .Route Qty: 100 3RF Rx Instructions: As directed once daily insulin glargine [Lantus U-100 Insulin] 100 unit/mL solution 10 unit subcut QAM Qty: 10 2RF Rx Instructions: E11.9 clopidogrel 75 mg tablet 75 mg PO QAM Qty: 90 3RF lisinopril 40 mg tablet 40 mg PO QAM Qty: 90 3RF metformin 1,000 mg tablet 1,000 mg PO BID Qty: 180 3RF amlodipine 5 mg tablet 5 mg PO DAILY Qty: 90 3RF metoprolol tartrate 100 mg tablet 100 mg PO QAM Rx Instructions: TAKE 1 TABLET BY MOUTH EVERY MORNING tamsulosin 0.4 mg capsule 0.8 mg PO DAILY Rx Instructions: TAKE 2 CAPSULES BY MOUTH DAILY pantoprazole 40 mg tablet,delayed release (DR/EC) 40 mg PO QAM Rx Instructions: TAKE 1 TABLET BY MOUTH EVERY MORNING Discharge Orders: Discharge Order (Routine); Ordered 04/25/22 Ordered By: Tawana Duncan Admission Data Admit Date/Time: 04/21/22 01:08 Attending Provider: Jerome Solo Admit Provider: Yani Martel Primary Care Provider: PCP,NO Other Providers: Yani Martel ; Anderson Sanchez ; [facility] [place] Coding Level of Care Code D/C DAY MANAGEMENT >30 MINS Diagnoses COVID-19 U07.1 Syncope R55 Splenic laceration S36.039A Hypomagnesemia E83.42 Thyroid nodule E04.1 TIA (transient ischemic attack) G45.9 Type 2 diabetes, uncontrolled, with neuropathy E11.40; E11.65 Hypertension I10 Chronic kidney disease, stage III (moderate) N18.3 Hyperlipidemia E78.2 Hyperlipidemia type: mixed hyperlipidemia GERD (gastroesophageal reflux disease) K21.9 Esophagitis presence: esophagitis presence not specified
[2022-04-26] MEDS: TAMSULOSIN HCL 0.4 MG CAP PO SCH (08:36)
[2022-04-26] MEDS: METOPROLOL TARTRATE 100 MG TAB PO SCH (08:37)
[2022-04-26] MEDS: lisinopril 40 MG TAB PO SCH (08:37)
[2022-04-26] MEDS: ATORVASTATIN 40 MG TAB PO SCH (08:38)
[2022-04-26] MEDS: CLOPIDOGREL BISULFATE 75 MG TAB PO SCH (08:38)
[2022-04-26] MEDS: ASPIRIN 81 MG ECTAB PO SCH (08:38)
[2022-04-26] MEDS: amLODIPine BESYLATE 5 MG TAB PO SCH (08:38)
[2022-04-26] MEDS: INSULIN ASPART PER UNIT SC SCH ×4 (08:39→20:43)
[2022-04-26] MEDS: LANTUS PER UNIT CHARGE SQ SCH (08:40)
[2022-04-26] MEDS: REMDESIVIR 100 MG in SODIUM CHLORIDE 0.9% 230 ML IV SCH (12:25)
--- NOTE | 2022-04-26 17:39 | Hospitalist Progress Note ---
Date of Service April 26, 2022 Assessment & Plan (1) COVID-19: Plan: Partially vaccinated male who developed symptoms on , 04/20 - Began requiring O2 on 04/22 with increased dyspnea complaints - Started on Remdesivir 200mg IV x1 and then 100mg daily day 2-5 & Decadron - Continue PT/OT-recommending rehab, will d/w Case management - APAP as needed for fever/pain - Showing favorable response/improvement - Received total of 3/5 doses of Remdesivir, stopped on 04/24 as he is no longer requiring O2 and sat >94% - Stop decadron today, sat 98% on room air, no wheezes - Stable today. Awaiting placement. (2) Syncope: Plan: - Suspect d/t dehydration in setting of viral illness - No further recurrence - Pt actually denies syncope and states that he just fell (3) Splenic laceration: Plan: - noted on CT on admission - seen by general surgery - pt's daughter claims he's been having frequent falls at home, ?etiology - per GS, no need for surgical intervention, no active bleeding, resumed antiplatelet agents (4) Hypomagnesemia: Plan: - supplemented/normalized (5) Thyroid nodule: Plan: - incidental finding, will need o/p follow up with thyroid ultrasound (6) TIA (transient ischemic attack): Plan: - Continue asa/plavix/statin (7) Type 2 diabetes, uncontrolled, with neuropathy: Plan: - carb consistent diet - accuchecks ac and hs - ISS and Lantus - metformin held - Will tighten today due to poor control over last 24 hours. (8) Hypertension: Plan: BP stable today. - Continue Amlodipine, Lisinopril, Metoprolol (9) Chronic kidney disease, stage III (moderate): Plan: - stable at baseline (10) Hyperlipidemia: Plan: - On statin (11) GERD (gastroesophageal reflux disease): Plan: - protonix on hold d/t low mag Admission and Anticipated Discharge Date Admission Date: April 21, 2022 Subjective No complaints. No shortness of breath. Minimal cough. Good appetite. Reports no fevers/chills, chest pain, shortness of breath, abdominal pain, nausea, or vomiting. Physical Exam Constitutional: WD/WN, vitals as above Eyes: EOM intact bilaterally; no conjunctival abnormality ENMT: external ear and nose normal, oropharynx normal Neck: trachea midline, no thyromegaly normal visual inspection Respiratory: normal respiratory effort, lungs clear to auscultation no respiratory distress Cardiovascular: RRR, no murmur, no edema Gastrointestinal (Abdomen): Inspection/Auscultation: abdomen normal to inspection; abdomen not distended Musculoskeletal: no cyanosis or clubbing, extremities motor strength 5/5 Skin: no rashes, warm and dry Neurologic: moves all extremities and awake Psychiatric: Orientation: alert, oriented to person and cooperative Results & Data Results & Data ([facility]) Vital Signs (Past 12 Hours) Vital Signs Temp Pulse Resp BP Pulse Ox O2 Del Method 04/26/22 08:10 Room Air 04/26/22 08:42 36.4 C L 65 16 180/93 H 95 Room Air PG Care Time/CCT Total # of Minutes Spent Total Time Spent with Patient: Total time spent is greater than 50% in coordination of care (as documented) at patient's floor/unit and/or counseling patient: Coding Level of Care Code 30792 Subseq Hosp Care Lvl 2 Diagnoses COVID-19 U07.1 Syncope R55 Splenic laceration S36.039A Hypomagnesemia E83.42 Thyroid nodule E04.1 TIA (transient ischemic attack) G45.9 Type 2 diabetes, uncontrolled, with neuropathy E11.40; E11.65 Hypertension I10 Chronic kidney disease, stage III (moderate) N18.3 Hyperlipidemia E78.2 Hyperlipidemia type: mixed hyperlipidemia GERD (gastroesophageal reflux disease) K21.9 Esophagitis presence: esophagitis presence not specified (1) Hyperlipidemia Hyperlipidemia type: mixed hyperlipidemia Qualified Code(s): E78.2 - Mixed hyperlipidemia (2) GERD (gastroesophageal reflux disease) Esophagitis presence: esophagitis presence not specified Qualified Code(s): K21.9 - Gastro-esophageal reflux disease without esophagitis
[2022-04-27 06:42] LABS: Hematocrit (blood only) 41.6 % (40.1-51.0); Hemoglobin 14.1 g/dl (14.0-18.0); Mean Corpuscular Hemoglobin 30.1 pg (25.0-34.0); Mean Corpuscular Hgb Conc 33.9 g/dL (32.0-36.0); Mean Corpuscular Volume 88.9 fL (80.0-100.0); Mean Platelet Volume 9.1 fL (9.4-12.4); Platelet Count 192 K/uL (130-400); RDW Coefficient of Variation 13.4 % (11.5-14.5); RDW Standard Deviation 43.3 fL (36.4-46.3); Red Blood Count 4.68 M/uL (4.63-6.08); White Blood Count 9.49 K/ul (4.8-10.8)
[2022-04-27 07:00] LABS: BUN Creatinine Ratio 22.5 (10-20); Calcium 8.1 mg/dl (8.5-10.1); Est GFR (African American) 75.4 ml/min; Est GFR (Non-African American) 65.1 ml/min; Magnesium 1.7 mg/dl (1.7-2.4); Potassium 3.5 mmol/L (3.5-5.1)
[2022-04-27] MEDS: TAMSULOSIN HCL 0.4 MG CAP PO SCH (09:03)
[2022-04-27] MEDS: amLODIPine BESYLATE 5 MG TAB PO SCH (09:03)
[2022-04-27] MEDS: lisinopril 40 MG TAB PO SCH (09:03)
[2022-04-27] MEDS: ASPIRIN 81 MG ECTAB PO SCH (09:04)
[2022-04-27] MEDS: ATORVASTATIN 40 MG TAB PO SCH (09:04)
[2022-04-27] MEDS: METOPROLOL TARTRATE 100 MG TAB PO SCH (09:04)
[2022-04-27] MEDS: CLOPIDOGREL BISULFATE 75 MG TAB PO SCH (09:04)
[2022-04-27] MEDS: INSULIN ASPART PER UNIT SC SCH ×4 (09:29→20:52)
[2022-04-27] MEDS: LANTUS PER UNIT CHARGE SQ SCH (09:29)
--- NOTE | 2022-04-27 15:20 | Hospitalist Progress Note ---
Date of Service April 27, 2022 Assessment & Plan (1) COVID-19: Plan: Partially vaccinated male who developed symptoms on , 04/20 - Began requiring O2 on 04/22 with increased dyspnea complaints - Started on Remdesivir 200mg IV x1 and then 100mg daily day 2-5 & Decadron - Continue PT/OT-recommending rehab, will d/w Case management - APAP as needed for fever/pain -Clinically improved with treatment - Received total of 3/5 doses of Remdesivir, stopped on 04/24 as he is no longer requiring O2 and sat >94% -Drawn stopped 04/26, sat 98% on room air, no wheezes Stable, awaiting placement. May not be available until Sunday per case management (2) Syncope: Plan: - Suspect d/t dehydration in setting of viral illness - No further recurrence - Pt actually denies syncope and states that he just fell (3) Splenic laceration: Plan: - noted on CT on admission - seen by general surgery - pt's daughter claims he's been having frequent falls at home, ?etiology - per GS, no need for surgical intervention, no active bleeding, resumed antiplatelet agents (4) Hypomagnesemia: Plan: - supplemented/normalized (5) Thyroid nodule: Plan: - incidental finding, will need o/p follow up with thyroid ultrasound (6) TIA (transient ischemic attack): Plan: - Continue asa/plavix/statin (7) Type 2 diabetes, uncontrolled, with neuropathy: Plan: - carb consistent diet - accuchecks ac and hs - ISS and Lantus - metformin held -Meters tightened 04/26, adequate glycemic control 04/27 (8) Hypertension: Plan: BP stable today. - Continue Amlodipine, Lisinopril, Metoprolol (9) Chronic kidney disease, stage III (moderate): Plan: - stable at baseline (10) Hyperlipidemia: Plan: - On statin (11) GERD (gastroesophageal reflux disease): Plan: - protonix on hold d/t low mag Admission and Anticipated Discharge Date Admission Date: April 21, 2022 Subjective Seen the bedside, no acute distress. Is breathing comfortably on room air, and has not any fever, chills, sweats, chest pain, chest pressure, or difficulty breathing. No abdominal pain, tolerated meals comfortably. Awaiting placement, no questions or concerns at bedside Review of Systems Review of Systems: All systems reviewed & are unremarkable except as noted in Subjective Physical Exam Physical Exam: General: A&Ox3. NAD. Cooperative. HEENT: Atraumatic, normocephalic. Vision and hearing grossly intact Pulm: CTAB A&P. -wheezes, -rales, -rhonchi. Symmetrical chest rise. No increase in work of breathing. No respiratory distress. Cardiac: RRR, -mrg. Radial pulses intact and symmetrical. Abdominal: Nontender, nondistended, soft. BS present. Results & Data Results & Data ([facility]) Vital Signs (Past 12 Hours) Vital Signs Temp Pulse Resp BP Pulse Ox O2 Del Method 04/27/22 08:10 Room Air 04/27/22 09:00 36.5 C 67 18 97 04/27/22 09:00 72 153/84 H PG Care Time/CCT Total # of Minutes Spent Total Time Spent with Patient: Total time spent is greater than 50% in coordination of care (as documented) at patient's floor/unit and/or counseling patient: Coding Level of Care Code 44217 Subseq Hosp Care Lvl 1 Diagnoses COVID-19 U07.1 Syncope R55 Splenic laceration S36.039A Hypomagnesemia E83.42 Thyroid nodule E04.1 TIA (transient ischemic attack) G45.9 Type 2 diabetes, uncontrolled, with neuropathy E11.40; E11.65 Hypertension I10 Chronic kidney disease, stage III (moderate) N18.3 Hyperlipidemia E78.2 Hyperlipidemia type: mixed hyperlipidemia GERD (gastroesophageal reflux disease) K21.9 Esophagitis presence: esophagitis presence not specified (1) Hyperlipidemia Hyperlipidemia type: mixed hyperlipidemia Qualified Code(s): E78.2 - Mixed hyperlipidemia (2) GERD (gastroesophageal reflux disease) Esophagitis presence: esophagitis presence not specified Qualified Code(s): K21.9 - Gastro-esophageal reflux disease without esophagitis
[2022-04-28] MEDS: INSULIN ASPART PER UNIT SC SCH ×4 (08:52→21:47)
[2022-04-28] MEDS: LANTUS PER UNIT CHARGE SQ SCH ×2 (08:53→21:48)
[2022-04-28] MEDS: amLODIPine BESYLATE 5 MG TAB PO SCH (09:14)
[2022-04-28] MEDS: METOPROLOL TARTRATE 100 MG TAB PO SCH (09:15)
[2022-04-28] MEDS: CLOPIDOGREL BISULFATE 75 MG TAB PO SCH (09:15)
[2022-04-28] MEDS: ASPIRIN 81 MG ECTAB PO SCH (09:15)
[2022-04-28] MEDS: TAMSULOSIN HCL 0.4 MG CAP PO SCH (09:15)
[2022-04-28] MEDS: lisinopril 40 MG TAB PO SCH (09:15)
[2022-04-28] MEDS: ATORVASTATIN 40 MG TAB PO SCH (09:15)
--- NOTE | 2022-04-28 17:19 | Hospitalist Progress Note ---
Date of Service April 28, 2022 Assessment & Plan (1) COVID-19: Plan: Partially vaccinated male who developed symptoms on , 04/20 - Began requiring O2 on 04/22 with increased dyspnea complaints - Started on Remdesivir 200mg IV x1 and then 100mg daily day 2-5 & Decadron - Continue PT/OT-recommending rehab, pending placement at this time - APAP as needed for fever/pain - Clinically improved with treatment - Received total of 3/5 doses of Remdesivir, stopped on 04/24 as he is no longer requiring O2 and sat >94% - Stable, awaiting placement. May not be available until Sunday per case management (2) Syncope: Plan: - Suspect d/t dehydration in setting of viral illness - No further recurrence - Pt actually denies syncope and states that he just fell (3) Splenic laceration: Plan: - noted on CT on admission - seen by general surgery - pt's daughter claims he's been having frequent falls at home, ?etiology - per GS, no need for surgical intervention, no active bleeding, resumed antiplatelet agents (4) Hypomagnesemia: Plan: - supplemented/normalized (5) Thyroid nodule: Plan: - incidental finding, will need o/p follow up with thyroid ultrasound (6) TIA (transient ischemic attack): Plan: - Continue asa/plavix/statin (7) Type 2 diabetes, uncontrolled, with neuropathy: Plan: - carb consistent diet - accuchecks ac and hs - ISS and Lantus - metformin held -Meters tightened 04/26, adequate glycemic control 04/27 (8) Hypertension: Plan: BP stable today. - Continue Amlodipine, Lisinopril, Metoprolol (9) Chronic kidney disease, stage III (moderate): Plan: - stable at baseline (10) Hyperlipidemia: Plan: - On statin (11) GERD (gastroesophageal reflux disease): Plan: Restart his usual pantoprazole 40mg PO daily. Will start on magnesium supplementation. Plan VTE Prophylaxis - start on lovenox 40mg SQ daily Diet - T2DM, heart healthy Disposition - medically stable for discharge pending placement Admission and Anticipated Discharge Date Admission Date: April 21, 2022 Subjective No questions or concerns from patient. Awaiting placement at this time. No COVID-19 symptoms. Review of Systems Review of Systems: All systems reviewed & are unremarkable except as noted in Subjective Physical Exam Constitutional: WD/WN, vitals as above Respiratory: normal respiratory effort, lungs clear to auscultation Cardiovascular: RRR, no murmur, no edema Gastrointestinal (Abdomen): normal bowel sounds, soft, nontender, no hepatosplenomegaly Results & Data Results & Data ([facility]) Vital Signs (Past 12 Hours) Vital Signs Temp Pulse Resp BP Pulse Ox O2 Del Method 04/28/22 17:04 36.8 C 69 16 139/88 99 Room Air 04/28/22 09:04 Room Air 04/28/22 08:12 36.5 C 77 16 158/78 H 97 Room Air PG Care Time/CCT Total # of Minutes Spent Total Time Spent with Patient: Total time spent is greater than 50% in coordination of care (as documented) at patient's floor/unit and/or counseling patient: Coding Level of Care Code 03690 Subseq Hosp Care Lvl 1 Diagnoses COVID-19 U07.1 Syncope R55 Splenic laceration S36.039A Hypomagnesemia E83.42 Thyroid nodule E04.1 TIA (transient ischemic attack) G45.9 Type 2 diabetes, uncontrolled, with neuropathy E11.40; E11.65 Hypertension I10 Chronic kidney disease, stage III (moderate) N18.3 Hyperlipidemia E78.2 Hyperlipidemia type: mixed hyperlipidemia GERD (gastroesophageal reflux disease) K21.9 Esophagitis presence: esophagitis presence not specified (1) Hyperlipidemia Hyperlipidemia type: mixed hyperlipidemia Qualified Code(s): E78.2 - Mixed hyperlipidemia (2) GERD (gastroesophageal reflux disease) Esophagitis presence: esophagitis presence not specified Qualified Code(s): K21.9 - Gastro-esophageal reflux disease without esophagitis
[2022-04-28] MEDS: PANTOprazole 40 MG TAB PO SCH (17:49)
[2022-04-28] MEDS: metFORMIN HCL 500 MG TAB PO SCH (17:49)
[2022-04-28] MEDS: ENOXAPARIN INJ 40 MG/0.4 ML SYR SQ SCH (22:00)
[2022-04-29] MEDS: ASPIRIN 81 MG ECTAB PO SCH (08:57)
[2022-04-29] MEDS: metFORMIN HCL 500 MG TAB PO SCH ×2 (08:57→17:55)
[2022-04-29] MEDS: amLODIPine BESYLATE 5 MG TAB PO SCH (08:57)
[2022-04-29] MEDS: lisinopril 40 MG TAB PO SCH (08:58)
[2022-04-29] MEDS: ATORVASTATIN 40 MG TAB PO SCH (08:58)
[2022-04-29] MEDS: METOPROLOL TARTRATE 100 MG TAB PO SCH (08:58)
[2022-04-29] MEDS: CLOPIDOGREL BISULFATE 75 MG TAB PO SCH (08:58)
[2022-04-29] MEDS: PANTOprazole 40 MG TAB PO SCH (08:59)
[2022-04-29] MEDS: TAMSULOSIN HCL 0.4 MG CAP PO SCH (08:59)
[2022-04-29] MEDS: INSULIN ASPART PER UNIT SC SCH ×4 (09:11→20:52)
[2022-04-29] MEDS: LANTUS PER UNIT CHARGE SQ SCH ×2 (09:12→20:53)
[2022-04-29] MEDS: ACETAMINOPHEN 325 MG TAB PO PRN ×2 (09:18→17:55)
[2022-04-29] MEDS: ENOXAPARIN INJ 40 MG/0.4 ML SYR SQ SCH (20:57)
--- NOTE | 2022-04-29 22:54 | Hospitalist Progress Note ---
Date of Service April 29, 2022 Assessment & Plan (1) COVID-19: Plan: Partially vaccinated male who developed symptoms on , 04/20 - Began requiring O2 on 04/22 with increased dyspnea complaints - Started on Remdesivir 200mg IV x1 and then 100mg daily day 2-5 & Decadron - Continue PT/OT-recommending rehab, pending placement at this time - APAP as needed for fever/pain - Clinically improved with treatment - Received total of 3/5 doses of Remdesivir, stopped on 04/24 as he is no longer requiring O2 and sat >94% - No change in symptoms, patient stable - Awaiting placement. May not be available until Sunday per case management (2) Syncope: Plan: - Suspect d/t dehydration in setting of viral illness - No further recurrence - Pt actually denies syncope and states that he just fell (3) Splenic laceration: Plan: - noted on CT on admission - seen by general surgery - pt's daughter claims he's been having frequent falls at home, ?etiology - per GS, no need for surgical intervention, no active bleeding, resumed antiplatelet agents (4) Hypomagnesemia: Plan: - supplemented/normalized (5) Thyroid nodule: Plan: - incidental finding, will need o/p follow up with thyroid ultrasound (6) TIA (transient ischemic attack): Plan: - Continue asa/plavix/statin (7) Type 2 diabetes, uncontrolled, with neuropathy: Plan: - carb consistent diet - accuchecks ac and hs - ISS and Lantus - metformin held -Meters tightened 04/26, adequate glycemic control 04/27 (8) Hypertension: Plan: BP stable today. - Continue Amlodipine, Lisinopril, Metoprolol (9) Chronic kidney disease, stage III (moderate): Plan: - stable at baseline (10) Hyperlipidemia: Plan: - On statin (11) GERD (gastroesophageal reflux disease): Plan: Restart his usual pantoprazole 40mg PO daily. Will start on magnesium supplementation. Plan VTE Prophylaxis - Lovenox 40mg SQ daily Diet - T2DM, heart healthy Disposition - medically stable for discharge pending placement Admission and Anticipated Discharge Date Admission Date: April 21, 2022 Subjective No questions or concerns from patient. Awaiting placement at this time. No COVID-19 symptoms. Review of Systems Review of Systems: All systems reviewed & are unremarkable except as noted in Subjective Physical Exam Constitutional: WD/WN, vitals as above Respiratory: normal respiratory effort, lungs clear to auscultation Cardiovascular: RRR, no murmur, no edema Psychiatric: A+Ox3, euthymic affect Results & Data Results & Data ([facility]) Vital Signs (Past 12 Hours) Vital Signs Temp Pulse Resp BP Pulse Ox O2 Del Method 04/29/22 21:36 36.6 C 76 18 96/62 L 94 Room Air 04/29/22 17:42 37.0 C 67 16 118/66 97 Room Air PG Care Time/CCT Total # of Minutes Spent Total Time Spent with Patient: Total time spent is greater than 50% in coordination of care (as documented) at patient's floor/unit and/or counseling patient: Coding Level of Care Code 01574 Subseq Hosp Care Lvl 1 Diagnoses COVID-19 U07.1 Syncope R55 Splenic laceration S36.039A Hypomagnesemia E83.42 Thyroid nodule E04.1 TIA (transient ischemic attack) G45.9 Type 2 diabetes, uncontrolled, with neuropathy E11.40; E11.65 Hypertension I10 Chronic kidney disease, stage III (moderate) N18.3 Hyperlipidemia E78.2 Hyperlipidemia type: mixed hyperlipidemia GERD (gastroesophageal reflux disease) K21.9 Esophagitis presence: esophagitis presence not specified (1) Hyperlipidemia Hyperlipidemia type: mixed hyperlipidemia Qualified Code(s): E78.2 - Mixed hyperlipidemia (2) GERD (gastroesophageal reflux disease) Esophagitis presence: esophagitis presence not specified Qualified Code(s): K21.9 - Gastro-esophageal reflux disease without esophagitis
[2022-04-30] MEDS: metFORMIN HCL 500 MG TAB PO SCH ×2 (08:28→17:43)
[2022-04-30] MEDS: PANTOprazole 40 MG TAB PO SCH (08:28)
[2022-04-30] MEDS: ATORVASTATIN 40 MG TAB PO SCH (08:28)
[2022-04-30] MEDS: ASPIRIN 81 MG ECTAB PO SCH (08:28)
[2022-04-30] MEDS: CLOPIDOGREL BISULFATE 75 MG TAB PO SCH (08:28)
[2022-04-30] MEDS: TAMSULOSIN HCL 0.4 MG CAP PO SCH (08:28)
[2022-04-30] MEDS: amLODIPine BESYLATE 5 MG TAB PO SCH (08:28)
[2022-04-30] MEDS: lisinopril 40 MG TAB PO SCH (08:29)
[2022-04-30] MEDS: METOPROLOL TARTRATE 100 MG TAB PO SCH (08:29)
[2022-04-30] MEDS: INSULIN ASPART PER UNIT SC SCH ×4 (08:57→21:35)
[2022-04-30] MEDS: LANTUS PER UNIT CHARGE SQ SCH ×2 (08:57→21:35)
[2022-04-30] MEDS: ONDANSETRON INJ 2 MG/ML 2 ML VIAL IV PRN (13:21)
--- NOTE | 2022-04-30 19:25 | Hospitalist Progress Note ---
Date of Service April 30, 2022 Assessment & Plan (1) COVID-19: Plan: Partially vaccinated male who developed symptoms on , 04/20 - Began requiring O2 on 04/22 with increased dyspnea complaints - Started on Remdesivir 200mg IV x1 and then 100mg daily day 2-5 & Decadron - Continue PT/OT-recommending rehab, pending placement at this time - APAP as needed for fever/pain - Clinically improved with treatment - Received total of 3/5 doses of Remdesivir, stopped on 04/24 as he is no longer requiring O2 and sat >94% - Medically stable for discharge. Awaiting placement. (2) Syncope: Plan: - Suspect d/t dehydration in setting of viral illness - No further recurrence - Pt actually denies syncope and states that he just fell (3) Splenic laceration: Plan: - noted on CT on admission - seen by general surgery - pt's daughter claims he's been having frequent falls at home, ?etiology - per GS, no need for surgical intervention, no active bleeding, resumed antiplatelet agents (4) Hypomagnesemia: Plan: - supplemented/normalized (5) Thyroid nodule: Plan: - incidental finding, will need o/p follow up with thyroid ultrasound (6) TIA (transient ischemic attack): Plan: - Continue asa/plavix/statin (7) Type 2 diabetes, uncontrolled, with neuropathy: Plan: - carb consistent diet - accuchecks ac and hs - ISS and Lantus - metformin held -Meters tightened 04/26, adequate glycemic control 04/27 (8) Hypertension: Plan: BP stable today. - Continue Amlodipine, Lisinopril, Metoprolol (9) Chronic kidney disease, stage III (moderate): Plan: - stable at baseline (10) Hyperlipidemia: Plan: - On statin (11) GERD (gastroesophageal reflux disease): Plan: Restart his usual pantoprazole 40mg PO daily. Will start on magnesium supplementation. Plan VTE Prophylaxis - Lovenox 40mg SQ daily Diet - T2DM, heart healthy Disposition - medically stable for discharge pending placement Admission and Anticipated Discharge Date Admission Date: April 21, 2022 Subjective No acute changes overnight. No questions or concerns from patient. Review of Systems Review of Systems: All systems reviewed & are unremarkable except as noted in Subjective Physical Exam Constitutional: WD/WN, vitals as above Respiratory: normal respiratory effort Psychiatric: A+Ox3, euthymic affect Results & Data Results & Data ([facility]) Vital Signs (Past 12 Hours) Vital Signs Temp Pulse Resp BP Pulse Ox O2 Del Method 04/30/22 17:45 36.9 C 91 H 18 110/71 93 Room Air 04/30/22 08:20 Room Air 04/30/22 08:26 36.9 C 100 H 18 175/83 H 97 Room Air PG Care Time/CCT Total # of Minutes Spent Total Time Spent with Patient: Total time spent is greater than 50% in coordination of care (as documented) at patient's floor/unit and/or counseling patient: Coding Level of Care Code 79825 Subseq Hosp Care Lvl 1 Diagnoses COVID-19 U07.1 Syncope R55 Splenic laceration S36.039A Hypomagnesemia E83.42 Thyroid nodule E04.1 TIA (transient ischemic attack) G45.9 Type 2 diabetes, uncontrolled, with neuropathy E11.40; E11.65 Hypertension I10 Chronic kidney disease, stage III (moderate) N18.3 Hyperlipidemia E78.2 Hyperlipidemia type: mixed hyperlipidemia GERD (gastroesophageal reflux disease) K21.9 Esophagitis presence: esophagitis presence not specified (1) Hyperlipidemia Hyperlipidemia type: mixed hyperlipidemia Qualified Code(s): E78.2 - Mixed hyperlipidemia (2) GERD (gastroesophageal reflux disease) Esophagitis presence: esophagitis presence not specified Qualified Code(s): K21.9 - Gastro-esophageal reflux disease without esophagitis
[2022-04-30] MEDS: ENOXAPARIN INJ 40 MG/0.4 ML SYR SQ SCH (20:51)
[2022-05-01] MEDS: amLODIPine BESYLATE 5 MG TAB PO SCH (08:36)
[2022-05-01] MEDS: lisinopril 40 MG TAB PO SCH (08:36)
[2022-05-01] MEDS: PANTOprazole 40 MG TAB PO SCH (08:36)
[2022-05-01] MEDS: METOPROLOL TARTRATE 100 MG TAB PO SCH (08:36)
[2022-05-01] MEDS: metFORMIN HCL 500 MG TAB PO SCH (08:36)
[2022-05-01] MEDS: ASPIRIN 81 MG ECTAB PO SCH (08:36)
[2022-05-01] MEDS: ATORVASTATIN 40 MG TAB PO SCH (08:36)
[2022-05-01] MEDS: TAMSULOSIN HCL 0.4 MG CAP PO SCH (08:36)
[2022-05-01] MEDS: CLOPIDOGREL BISULFATE 75 MG TAB PO SCH (08:36)
[2022-05-01] MEDS: INSULIN ASPART PER UNIT SC SCH ×2 (08:44→12:27)
[2022-05-01] MEDS: LANTUS PER UNIT CHARGE SQ SCH (08:44)
--- NOTE | 2022-05-01 14:30 | Discharge Summary ---
Date of Service May 01, 2022 Admission HPI Per Admitting Provider Miles Fitzgerald is a 76yo male with history of HTN, HLP, DM, Prior CVA, GERD and CKD. He presents today with complaint of weakness, dizziness, lightheadedness. Also with nausea, vomiting, diarrhea and lethargy. Patient had a ground-level fall today and struck his head off the ground. Complaining of mild SOB, otherwise denies chest pain, palpitations, abdominal pain. Found to be POSITIVE for Covid-19. He is partially vaccinated Found to be hypomagnesemic with Mg=1. 2gm ordered for ER Patient initially very lethargic and minimally responsive. He was incontinent of urine and stool. Clinically improved after IVF and magnesium administration. During my encounter patient awake and alert. Answering questions appropriately and following commands. Principal Diagnosis covid-19 generalized weakness Discharge Exam Constitutional WD/WN, vitals as above Respiratory normal respiratory effort, lungs clear to auscultation normal respiratory effort Cardiovascular RRR, no murmur, no edema Gastrointestinal (Abdomen) normal bowel sounds, soft, nontender, no hepatosplenomegaly Psychiatric A+Ox3, euthymic affect Discharge Data Allergies Allergy/AdvReac Type Severity Reaction Status Date / Time No Known Allergies Allergy Verified 04/20/22 22:10 Consultations 04/21/22 00:57 ED Decision to Admit Stat 04/21/22 16:12 Consult General Surgery Routine Ordered Studies 04/20/22 21:29 CT cervical spine wo con Urgent IMPRESSION: No acute cervical spine fracture or subluxation. CT head/brain wo con Urgent IMPRESSION: 1. No acute intracranial findings. No change in appearance of the brain. 2. No acute calvarial fracture. 04/20/22 22:10 CT Abd and Pelvis [CT abd pelvis IV con only] Urgent IMPRESSION: 1. There is an acute 1.4 cm splenic laceration with subcentimeter subcapsular hematoma. Additional splenic cleft versus laceration of the spleen measuring 2.6 cm. Findings are compatible with subacute grade II splenic injury. This finding was called/faxed to the emergency department at time of dictation. 2. No acute fracture or additional acute posttraumatic intra-abdominal or intrapelvic abnormality identified. 3. Incidental findings as above. CT face [CT facial bones wo con] Urgent IMPRESSION: No acute facial fracture. 08/11/22 23:05 CT angio chest PE protocol Urgent IMPRESSION: 1. No pulmonary emboli identified. 2. No acute traumatic findings within the chest. 3. Minimal airspace opacity within the medial basal segment of the right lower lobe. This may reflect a mild infectious process. Hospital Course (1) COVID-19: Miles Fitzgerald is a 76 year old male admitted to [facility] from April 21 - 2021 due to Covid-19 infection with weakness and hypomagnesemia. He was also incidentally found to have a splenic laceration which probably occurred during one of his falls that he sustained at home. He was treated with remdesivir, oxygen, and dexamethasone for the covid-19. He slowly improved and O2 sats 98% on room air on discharge. He was seen by physical and occupational therapy and recommend rehabilitation on discharge. He was incidentally found to have a 2.1cm thyroid nodule. Recommend non-urgent follow up ultrasound for this +/- fine needle aspiration as needed. HbA1C 9.6. Recommend increasing his Lantus dosing from 10 to 15 units daily to be uptitrated by his PCP as needed. (2) Syncope: (3) Splenic laceration: (4) Hypomagnesemia: (5) Thyroid nodule: (6) TIA (transient ischemic attack): (7) Type 2 diabetes, uncontrolled, with neuropathy: (8) Hypertension: (9) Chronic kidney disease, stage III (moderate): (10) Hyperlipidemia: (11) GERD (gastroesophageal reflux disease): Total Time Total Time Spent Total Time Spent (In Minutes): 35 Discharge Plan Discharge Items Patient Disposition: Transfer Long-Term Fac Reason For Visit: COVID-19, HYPOMAGNESEMIA Discharge Diagnosis: covid-19 generalized weakness Condition on Discharge: Fair Activity: Per Instructions section Activity Comment: with assistance as tolerated Non-emergency contact: Primary Care Provider Call non-emergency contact if: you have any medication questions and your sympt oms worsen Follow-up/Referrals: PCP,NO [Physician] - Diet: Regular Addtl Attending Provider Instructions: You were hospitalized due to covid-19 infection with weakness and low magnesium level. you were also found to have a laceration of your spleen which probably occurred during one of your falls that you sustained at home. You were treated with antiviral medications, oxygen, and steroids for the covid- 19 as well as some IV fluids. Since you are no longer requiring oxygen, you no longer need steroids or anti-viral medications. Therapy has worked with you and you were recommended to go to rehab. You were also found to have a thyroid nodule so this will need to be followed up with an ultrasound of your thyroid and may need to be referred for a biopsy if needed. Given your HbA1C 9.6 recommend increasing your Lantus dosing from 10 to 15 units daily to help control your diabetes. This may need to be uptitrated as an outpatient. It is strongly advised that you establish care with a family doctor and plan to follow up with him/her upon discharge from rehab. Pending Studies at Discharge: No Stand-Alone Forms: My [facility] Skilled Items Patient informed of condition?: Yes DNR: No Discharge Level of Care: Acute rehab Communicable Disease: Yes (covid-19) Discharge Prognosis: Improving Lines: None Urinary Catheter: No Medications and DC Order Prescriptions: Continued aspirin 81 mg tablet,delayed release (DR/EC) 81 mg PO QAM Qty: 90 3RF atorvastatin 80 mg tablet 80 mg PO DAILY Qty: 90 3RF (DME) blood-glucose meter [True Metrix Glucose Meter] Misc See Rx Instructions .Route Qty: 1 0RF Rx Instructions: Test Blood Sugars as Needed (DME) lancets [TRUEplus Lancets] 33 gauge misc See Rx Instructions .Route Qty: 100 11RF Rx Instructions: Test Blood Sugars as Needed (DME) True Metrix Glucose Test Strip Strip See Rx Instructions .Route Qty: 100 11RF Rx Instructions: Test Blood Sugar BID (DME) pen needle, diabetic [Sure-Fine Pen Furlong] 31 gauge x 3/16" needle See Rx Instructions .Route Qty: 100 3RF Rx Instructions: As directed once daily clopidogrel 75 mg tablet 75 mg PO QAM Qty: 90 3RF lisinopril 40 mg tablet 40 mg PO QAM Qty: 90 3RF metformin 1,000 mg tablet 1,000 mg PO BID Qty: 180 3RF amlodipine 5 mg tablet 5 mg PO DAILY Qty: 90 3RF metoprolol tartrate 100 mg tablet 100 mg PO QAM Rx Instructions: TAKE 1 TABLET BY MOUTH EVERY MORNING tamsulosin 0.4 mg capsule 0.8 mg PO DAILY Rx Instructions: TAKE 2 CAPSULES BY MOUTH DAILY pantoprazole 40 mg tablet,delayed release (DR/EC) 40 mg PO QAM Rx Instructions: TAKE 1 TABLET BY MOUTH EVERY MORNING Changed insulin glargine [Lantus U-100 Insulin] 100 unit/mL solution 15 unit subcut QAM Qty: 10 2RF Rx Instructions: E11.9 Discharge Orders: Discharge Order (Routine); Ordered 05/01/22 Ordered By: Romero Zuñiga/Other Patient Handouts: Preventing Deep Vein Thrombosis Admission Data Admit Date/Time: 04/21/22 01:08 Attending Provider: Romero Christine Admit Provider: Yani Martel Primary Care Provider: Angelique Zuniga Other Providers: Yani Martel ; Anderson Sanchez ; [facility] ; Felipe Hart [facility] Other Interventions: Discharge Summary Assessment (RN) Last Done: 05/01/22 13:15 Coding Level of Care Code D/C DAY MANAGEMENT >30 MINS Diagnoses COVID-19 U07.1 Syncope R55 Splenic laceration S36.039A Hypomagnesemia E83.42 Thyroid nodule E04.1 TIA (transient ischemic attack) G45.9 Type 2 diabetes, uncontrolled, with neuropathy E11.40; E11.65 Hypertension I10 Chronic kidney disease, stage III (moderate) N18.3 Hyperlipidemia E78.2 Hyperlipidemia type: mixed hyperlipidemia GERD (gastroesophageal reflux disease) K21.9 Esophagitis presence: esophagitis presence not specified
== END 2022-05-01 15:53 | DRG 177 ==
LOC: ED 21:12 → SUATTDRO 04-21 01:08 → EDINP 04-21 01:08 → 2S 04-21 03:12 → 3E 04-24 04:45

== ENCOUNTER 2025-03-16 17:01 | Inpatient (IN) ==
--- NOTE | 2025-03-16 17:22 | Emergency Department Note ---
Impression & Plan Sepsis, Altered mental status, Hypoxia, Hematemesis, Anemia, Pneumonia, Anticoagulated, Hypomagnesemia ED Provider Note NAME: LORETA CARLIN AGE: 79 SEX: M : 1945 ARRIVES VIA: Ambulance INFORMANT: [Patient][ems] ED PROVIDER(S): [Juanito Borges MD] CHIEF COMPLAINT: Altered mental state HISTORY OF PRESENT ILLNESS: The patient is a 79-year-old male who was found outside. He was altered and had pushed his life alert. As per EMS, the patient was confused, hypoxic, he had vomited a coffee-ground material. As per the family, the patient seemed fine earlier. The patient does have a history of A-fib as well as CVA, he is on Eliquis. EMS was concerned for aspiration. Of note, as the patient became more responsive, he stated that he remembers being in [employer] and feeling dizzy. When he got home, he was dizzy and then slumped down by the side of the car, he hit his life alert. PMHx/PSHx/Social Hx: See Below PHYSICAL EXAM: GENERAL: Patient is in mild distress, somnolent. HEENT: No acute trauma, normocephalic atraumatic, mucous membranes moist, no nasal congestion. There is a coffee-ground material on the left side of his face. NECK: No stridor, no adenopathy, no meningismus, trachea is midline. LUNGS: Coarse breath sounds bilaterally with some scattered wheezes, increased respiratory rate but no obvious respiratory distress. HEART: Slightly tachycardic, irregular rhythm, no murmurs. Heart tones are distant. ABDOMEN: Soft, nontender, no peritonitis. EXTREMITIES: No cyanosis, full range of motion of all the joints without pain or difficulty. Moderate bilateral pedal edema with some chronic skin change/erythema bilaterally. NEUROLOGIC: Somnolent, awakes to voice, no acute motor or sensory deficits, no focal weakness. SKIN: No jaundice, no diaphoresis. DIFFERENTIAL DIAGNOSIS: Aspiration, sepsis or bacteremia, GI bleeding, stroke, intracranial bleeding, among others. EMERGENCY DEPARTMENT PROCEDURES: MEDICAL DECISION MAKING: There is no leukocytosis. The patient is anemic with a hemoglobin of 10.4. This appears to be a drop for him based on a result from a few years ago. There was a normal platelet count. No bandemia. No coagulopathy via laboratory testing. VBG did not show acidosis or CO2 retention. Creatinine was slightly elevated consistent with some dehydration. Magnesium is low at 1.4. Lactic acid level was elevated consistent with dehydration and/or potentially sepsis. No concerning liver enzyme elevation. ECG showed atrial fibrillation, no acute ischemia. Cardiac enzyme testing x 1 was not consistent with acute cardiac injury. Urinalysis did not show findings of infection. Babesia and anaplasmosis smears were negative. Lyme disease testing was negative. Respiratory bio fire was negative. Chest x-ray suggested a left lower lung pneumonia. Brain CT showed no acute bleed or mass effect. CT of the abdomen pelvis showed the left lower lung pneumonia but there was no acute surgical process within the abdomen/pelvis. On exam, the patient was initially hypoxic, febrile. He was somewhat somnolent and he had wheezing and rhonchi bilaterally on his lung exam. The patient was aggressively managed. He received IV cefepime as empiric antibiotic coverage. He was given IV Zofran for nausea. He was placed on BiPAP and given a DuoNeb. He received 2500 cc of IV saline. This should meet proper criteria for sepsis protocol at 30 cc/kg of saline based on his ideal body weight. He received IV Tylenol. He was given IV magnesium. He received IV Protonix. With the above interventions, the patient's mental status has cleared. He is more awake and interactive. He is doing well and breathing easily. He looks markedly improved. His blood pressure was adequate. Pressors were not needed. The patient presents with fever and confusion. He was found to have pneumonia, he was initially hypoxic, he met criteria for sepsis. Additionally, he had suffered coffee-ground emesis earlier and, is anticoagulated. He was anemic by our testing. The patient is in need of a hospital stay, I spoke with the patient and his family. I did speak with case management. The on-call hospitalist was consulted. Prior/Outside records/notes reviewed: Today's EMS notes describing his presentation and transport to this hospital. ECG per my interpretation: Indication was altered mental status and possible sepsis. The ECG shows atrial fibrillation with a rate of 88. There is no ST elevation, no PVCs. The QTc is 513. Continuous Cardiac Monitoring per my interpretation: An order was placed for continuous cardiac monitoring. The monitor shows a rate of 78 with atrial fibrillation. Imaging/x-ray results per my interpretation: Chest x-ray shows a potential left base infiltrate. There is poor inspiratory effort. No pneumothorax. Chronic Medical/Social conditions affecting care: Advanced age, on Eliquis Care/Management discussed with: Case management, the on-call hospitalist. Level of care consideration(s): After review of the information above and other included data: --I believe the patient requires escalation of care to admission Critical Care Note: I have personally spent 62 minutes of critical care time in the direct management of this patient. This includes bedside care, interpretation of diagnostic studies, and testing, discussion with consultants, patient, and family members, and other required patient management activities. This 62 minutes is in excess of all separately billable procedures. 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 Thyroid nodule Benign familial tremor (Acute) Lumbar disc disease (Chronic) Cerebral vascular disease (Chronic) Carotid artery stenosis Hypertension (Chronic) TIA (transient ischemic attack) multiple occurrences Type 2 diabetes, uncontrolled, with neuropathy (Chronic) BPH (benign prostatic hyperplasia) (Chronic) Hyperlipidemia (Chronic) Chronic kidney disease, stage III (moderate) (Chronic) Stroke (Acute 06/2013) acute left durant radiata and old right basal ganglia, right durant radiata and left thalamus on MRI 06/2013 GERD (gastroesophageal reflux disease) Medical History Splenic laceration COVID-19 Hypomagnesemia Essential (primary) hypertension Received intravenous tissue plasminogen activator (tPA) within last 24 hours URI (upper respiratory infection) Ischemic stroke Influenza History of CVA (cerebrovascular accident) Surgical History H/O carpal tunnel repair S/P tonsillectomy No pertinent past surgical history Family History Brother Hypertension Brother Diabetes Father Benign familial tremor Denies family history of Ovarian cancer Prostate cancer Myocardial infarction Breast cancer Colorectal cancer Stroke Social History Smoking Status: Never smoker Tobacco Type: Declines Age Started Using Tobacco: 18; Age Quit Using Tobacco: 48; packs per day: 1; Second Hand Exposure: Yes; Do You Dip or Chew Tobacco: No; Hx Alcohol Use: No Hx Substance Use: No Preferred Language: Swedish Communication Ability: Effective Visual Impairment: No Limitations Hearing Ability: Normal Blood Bank Business Manager Required: No Beliefs That Will Affect Care: None marital status: marital status details: grandson lives with him Current Living Situation: Family Current Living Situation Comment: Grandson current occupational status: retired 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 Feels Safe at Home: Yes Childhood Exposure to Second-Hand Smoke: Yes Diet: regular caffeine: Yes Dental Care, Regularly: No Physical Activity Frequency: Does not Exercise Seatbelt Use: always Sunscreen Use: No Assistive Devices: Cane and Walker Allergies Allergies Allergy/AdvReac Type Severity Reaction Status Date / Time No Known Allergies Allergy Verified 03/16/25 19:12 Home Meds Home Medications Medication Instructions Recorded Confirmed semaglutide 0.25 mg or 0.5 mg (2 0 mg subcut UD 12/23/24 03/16/25 mg/3 mL) subcutaneous pen injector ([employer]) amlodipine 5 mg tablet 5 mg PO QAM 03/16/25 03/16/25 atorvastatin 80 mg tablet 80 mg PO QAM 03/16/25 03/16/25 finasteride 1 mg tablet 1 mg PO QAM 03/16/25 03/16/25 metformin 1,000 mg tablet 1,000 mg PO BID 03/16/25 03/16/25 metoprolol succinate 100 mg 100 mg PO QAM 03/16/25 03/16/25 tablet,extended release 24 hr Previous Rx's Medication Instructions Recorded blood-glucose meter (True Metrix #1 ea 06/23/21 Glucose Meter) lisinopril 40 mg tablet 40 mg PO QAM #90 tabs 08/07/23 lancets 33 gauge (TRUEplus Lancets) #100 ea 01/09/24 blood sugar diagnostic (True #100 ea 01/17/24 Metrix Glucose Test Strip) pantoprazole 40 mg tablet,delayed 40 mg PO QAM #90 tabs 05/06/24 release apixaban 5 mg tablet (Eliquis) 5 mg PO BID #60 tabs 05/14/24 tamsulosin 0.4 mg capsule 0.8 mg (2 x 0.4 mg) PO DAILY #180 06/18/24 caps pen needle, diabetic 31 gauge x #100 ea 08/27/24 3/16" (Sure-Fine Pen Pierre) insulin glargine 100 unit/mL 20 unit (0.2 mL) subcut DAILY 90 09/30/24 subcutaneous solution (Lantus days #18 mL U-100 Insulin) Results & Data (ED) Vital Signs Vital Signs - 24 hr 03/16/25 17:15 03/16/25 17:24 03/16/25 17:31 Temperature 39.4 C H Temperature Source Rectal Pulse Rate 92 H Pulse Rate [Right Finger] Respiratory Rate 25 H Respiratory Effort / Characteristics Respiratory Depth Respiratory Pattern Blood Pressure 154/84 H Blood Pressure [Right Arm] Blood Pressure Mean 107 Blood Pressure Mean [Right Arm] Pulse Oximetry 78 L 78 L Oxygen Delivery Method Room Air Room Air BiPAP Fraction of Inspired Oxygen Sepsis Recent Fever Within 48 Hours Yes Sepsis New/Unexplained Change in Mental Status Yes Sepsis Action Taken by Nursing Physician Notified 03/16/25 17:34 03/16/25 17:57 Temperature Temperature Source Pulse Rate 86 Pulse Rate [Right Finger] 78 Respiratory Rate 22 20 Respiratory Effort / Characteristics Non-Labored Spontaneous Non-Labored Spontaneous Respiratory Depth Normal Normal Respiratory Pattern Regular Regular Blood Pressure Blood Pressure [Right Arm] 130/67 Blood Pressure Mean Blood Pressure Mean [Right Arm] 88 Pulse Oximetry 96 96 Oxygen Delivery Method BiPAP Fraction of Inspired Oxygen 60 Sepsis Recent Fever Within 48 Hours Sepsis New/Unexplained Change in Mental Status Sepsis Action Taken by Prison Medications Current Medication List: was personally reviewed by me Laboratory Data Attestation: I reviewed the patient's lab results. 03/16/25 17:30 03/16/25 17:30 Lab Results 03/16/25 03/16/25 03/16/25 Range/Units 17:30 17:35 17:38 WBC 10.54 (4.8-10.8) K/ul RBC 3.53 L (4.70-6.10) M/uL Hgb 10.4 L (14.0-18.0) g/dl POC Hgb 10.9 L (14.0-18.0) g/dl Hct 32.5 L (42.0-52.0) % POC Hct 32 L (42-52) % MCV 92.1 (80.0-100.0) fL MCH 29.5 (25.0-34.0) pg MCHC 32.0 (32.0-36.0) g/dL RDW Std Deviation 53.8 H (36.4-46.3) fL RDW Coeff of Laureen 16.3 H (11.5-14.5) % Plt Count 198 (130-400) K/uL MPV 9.3 L (9.4-12.4) fL Immature Gran % (Auto) 0.5 % Neut % (Auto) 85.3 % Lymph % (Auto) 8.3 % [place] % (Auto) 5.1 % Eos % (Auto) 0.5 % Baso % (Auto) 0.3 % Neut # (Auto) 9.00 H (1.40-6.50) K/uL Lymph # (Auto) 0.87 L (1.20-3.40) K/uL [place] # (Auto) 0.54 (0.11-0.59) K/uL Eos # (Auto) 0.05 (0.00-0.50) K/uL Baso # (Auto) 0.03 (0.00-0.20) K/uL Immature Gran # (Auto) 0.05 (0.01-0.20) K/uL PT 12.1 H (9.0-12.0) Seconds INR 1.1 (0.9-1.1) APTT 29 (21-31) Seconds PTT Ratio 1.1 VBG pH 7.36 (7.36-7.41) VBG pCO2 45 (38-50) mmHg VBG pO2 93 mmHg VBG HCO3 25 mmol/L VBG O2 Saturation 97.2 % VBG Base Excess -0.4 mEq/L POC Sodium 140 (135-144) mmol/L Sodium 140 (136-145) mmol/L POC Potassium 3.5 (3.3-5.0) mmol/L Potassium 3.5 (3.5-5.1) mmol/L POC Chloride 103 (101-112) mmol/L Chloride 106 (98-107) mmol/L Carbon Dioxide 25 (21-32) mmol/L POC Total CO2 23 L (24-31) mmol/L Anion Gap 9 (3-11) POC Anion Gap 19.0 (16-25) mmol/L POC BUN 22 H (7-18) mg/dl BUN 24 H (6-23) mg/dl Creatinine 1.53 H (0.6-1.4) mg/dl POC Creatinine 1.6 H (0.6-1.3) mg/dl Est Cr Clr Drug Dosing 51.2 ml/min eGFR 46.53 BUN/Creatinine Ratio 15.7 (10-20) Glucose 151 H (70-99(Fasting)) mg/dl POC Glucose (other) 154 H (70-99) mg/dl Lactate 2.1 H* (0.4-2.0) mmol/L Calcium 8.1 L (8.6-10.3) mg/dl POC Ioniz Calcium [place] 1.10 L (1.12-1.32) mmol/l Magnesium 1.4 L (1.7-2.4) mg/dl Total Bilirubin 0.8 (0.2-1.0) mg/dl Direct Bilirubin 0.2 (0-0.2) mg/dl AST 12 L (13-39) U/L ALT 8 (7-52) U/L Alkaline Phosphatase 87 (34-104) U/L Troponin I High Sens 9.6 (0-20) pg/ml Total Protein 6.4 (6.0-8.3) gm/dl Albumin 3.5 (3.4-5.0) gm/dl Procalcitonin 0.10 (0-0.5) ng/ml Urine Color Urine Appearance (Clear) Urine pH (4.5-7.5) Ur Specific [place] (1.000-1.030) Urine Protein (Negative) Urine Glucose (UA) (Negative) Urine Ketones (Negative) Urine Blood (Negative) Urine Nitrite (Negative) Urine Bilirubin (Negative) Urine Urobilinogen (Negative) Ur Leukocyte Esterase (Negative) Urine WBC (Auto) (0-5) /hpf Urine RBC (Auto) (0-2) /hpf U Hyaline Cast (Auto) (0-2) /lpf U Epithel Cells (Auto) (0-2) /hpf Urine Bacteria (Auto) (None Seen) Urine Comment Adenovirus (PCR) Not Detected (NotDetected) B. pertussis DNA (PCR) Not Detected (NotDetected) B.parapertussis DNA PCR Not Detected (NotDetected) C. pneumoniae DNA (PCR) Not Detected (NotDetected) Coronavirus OC43 (PCR) Not Detected (NotDetected) Coronavirus HKU1 (PCR) Not Detected (NotDetected) Coronavirus 229E (PCR) Not Detected (NotDetected) SARS-CoV-2 (PCR) Not Detected (NotDetected) Coronavirus NL63 (PCR) Not Detected (NotDetected) Human Metapneumovir PCR Not Detected (NotDetected) Influenza Type A (PCR) Not Detected (NotDetected) Influenza Type B (PCR) Not Detected (NotDetected) M. pneumoniae (PCR) Not Detected (NotDetected) Parainfluenza 1 (PCR) Not Detected (NotDetected) Parainfluenza 2 (PCR) Not Detected (NotDetected) Parainfluenza 3 (PCR) Not Detected (NotDetected) Parainfluenza 4 (PCR) Not Detected (NotDetected) RSV (PCR) Not Detected (NotDetected) Entero/Rhino (PCR) Not Detected (NotDetected) Blood Type Antibody Screen 03/16/25 03/16/25 Range/Units 18:01 18:19 WBC (4.8-10.8) K/ul RBC (4.70-6.10) M/uL Hgb (14.0-18.0) g/dl POC Hgb (14.0-18.0) g/dl Hct (42.0-52.0) % POC Hct (42-52) % MCV (80.0-100.0) fL MCH (25.0-34.0) pg MCHC (32.0-36.0) g/dL RDW Std Deviation (36.4-46.3) fL RDW Coeff of Laureen (11.5-14.5) % Plt Count (130-400) K/uL MPV (9.4-12.4) fL Immature Gran % (Auto) % Neut % (Auto) % Lymph % (Auto) % [place] % (Auto) % Eos % (Auto) % Baso % (Auto) % Neut # (Auto) (1.40-6.50) K/uL Lymph # (Auto) (1.20-3.40) K/uL [place] # (Auto) (0.11-0.59) K/uL Eos # (Auto) (0.00-0.50) K/uL Baso # (Auto) (0.00-0.20) K/uL Immature Gran # (Auto) (0.01-0.20) K/uL PT (9.0-12.0) Seconds INR (0.9-1.1) APTT (21-31) Seconds PTT Ratio VBG pH (7.36-7.41) VBG pCO2 (38-50) mmHg VBG pO2 mmHg VBG HCO3 mmol/L VBG O2 Saturation % VBG Base Excess mEq/L POC Sodium (135-144) mmol/L Sodium (136-145) mmol/L POC Potassium (3.3-5.0) mmol/L Potassium (3.5-5.1) mmol/L POC Chloride (101-112) mmol/L Chloride (98-107) mmol/L Carbon Dioxide (21-32) mmol/L POC Total CO2 (24-31) mmol/L Anion Gap (3-11) POC Anion Gap (16-25) mmol/L POC BUN (7-18) mg/dl BUN (6-23) mg/dl Creatinine (0.6-1.4) mg/dl POC Creatinine (0.6-1.3) mg/dl Est Cr Clr Drug Dosing ml/min eGFR BUN/Creatinine Ratio (10-20) Glucose (70-99(Fasting)) mg/dl POC Glucose (other) (70-99) mg/dl Lactate (0.4-2.0) mmol/L Calcium (8.6-10.3) mg/dl POC Ioniz Calcium [place] (1.12-1.32) mmol/l Magnesium (1.7-2.4) mg/dl Total Bilirubin (0.2-1.0) mg/dl Direct Bilirubin (0-0.2) mg/dl AST (13-39) U/L ALT (7-52) U/L Alkaline Phosphatase (34-104) U/L Troponin I High Sens (0-20) pg/ml Total Protein (6.0-8.3) gm/dl Albumin (3.4-5.0) gm/dl Procalcitonin (0-0.5) ng/ml Urine Color Dark Yellow Urine Appearance Clear (Clear) Urine pH 6.0 (4.5-7.5) Ur Specific [place] 1.028 (1.000-1.030) Urine Protein 2+ H (Negative) Urine Glucose (UA) Negative (Negative) Urine Ketones Trace H (Negative) Urine Blood Negative (Negative) Urine Nitrite Negative (Negative) Urine Bilirubin Negative (Negative) Urine Urobilinogen Positive H (Negative) Ur Leukocyte Esterase Negative (Negative) Urine WBC (Auto) 0-5 (0-5) /hpf Urine RBC (Auto) 0-2 (0-2) /hpf U Hyaline Cast (Auto) 0-2 (0-2) /lpf U Epithel Cells (Auto) 0-2 (0-2) /hpf Urine Bacteria (Auto) None Seen (None Seen) Urine Comment Adenovirus (PCR) (NotDetected) B. pertussis DNA (PCR) (NotDetected) B.parapertussis DNA PCR (NotDetected) C. pneumoniae DNA (PCR) (NotDetected) Coronavirus OC43 (PCR) (NotDetected) Coronavirus HKU1 (PCR) (NotDetected) Coronavirus 229E (PCR) (NotDetected) SARS-CoV-2 (PCR) (NotDetected) Coronavirus NL63 (PCR) (NotDetected) Human Metapneumovir PCR (NotDetected) Influenza Type A (PCR) (NotDetected) Influenza Type B (PCR) (NotDetected) M. pneumoniae (PCR) (NotDetected) Parainfluenza 1 (PCR) (NotDetected) Parainfluenza 2 (PCR) (NotDetected) Parainfluenza 3 (PCR) (NotDetected) Parainfluenza 4 (PCR) (NotDetected) RSV (PCR) (NotDetected) Entero/Rhino (PCR) (NotDetected) Blood Type A Positive Antibody Screen NEGATIVE Administered Medications Ceftriaxone Sodium (Rocephin) 2,000 mg in 50 mls @ 100 mls/hr IV HS GRISEL Stop: 03/21/25 21:14 Last Infusion: 03/16/25 21:57 Dose: Infused Documented By: Admin: 03/16/25 21:25 Dose: 100 mls/hr Documented By: GIOVANNI Azithromycin (Zithromax) 500 mg in 255 mls @ 127.5 mls/hr IV Q24H GRISEL Stop: 03/21/25 21:59 Last Admin: 03/16/25 22:07 Dose: 127.5 mls/hr Documented By: GIOVANNI Pantoprazole Sodium (Protonix) 40 mg in 10 mls @ 5 mls/min IV BID GRISEL Stop: 04/15/25 21:05 Last Admin: 03/16/25 21:25 Dose: 5 mls/min Documented By: GIOVANNI Insulin Aspart (Insulin Aspart Per Unit Charge) 0 units SC ACHS GRISEL Stop: 04/15/25 21:05 Last Admin: 03/16/25 21:54 Dose: 1 units Documented By: GIOVANNI Co-signed By: HARRISON Miscellaneous ((Finasteride 1 Mg Tablet)~Order Awaiting Action) 1 each N/A QS GRISEL Stop: 04/15/25 21:14 Last Admin: 03/16/25 21:59 Dose: Not Given Documented By: GIOVANNI Discontinued Medications Albuterol (Albut/Ipratrop 3mg/0.5mg Neb 3 Ml Vial) 3 ml NEB NOW STA; Protocol Stop: 03/16/25 17:18 Last Admin: 03/16/25 17:33 Dose: 3 ml Documented By: FIDELINA Acetaminophen (Ofirmev) 1,000 mg in 100 mls @ 400 mls/hr IV NOW STA Stop: 03/16/25 17:31 Last Infusion: 03/16/25 17:58 Dose: Infused Documented By: Admin: 03/16/25 17:47 Dose: 400 mls/hr Documented By: MARLON Sodium Chloride (Nss) 1,000 mls @ 999 mls/hr IV .Q1H1M ONE Stop: 03/16/25 18:17 Last Infusion: 03/16/25 18:56 Dose: Infused Documented By: Admin: 03/16/25 17:55 Dose: 999 mls/hr Documented By: Infusion: 03/16/25 17:55 Dose: Infused Documented By: Admin: 03/16/25 17:46 Dose: 999 mls/hr Documented By: MARLON Cefepime HCl (Maxipime 2000mg) 2,000 mg in 20 mls @ 5 mls/min IV NOW STA; Protocol Stop: 03/16/25 17:20 Last Admin: 03/16/25 17:45 Dose: 5 mls/min Documented By: MARLON Pantoprazole Sodium 80 mg/ (Dextrose) 120 mls @ 400 mls/hr IV NOW ONE Stop: 03/16/25 17:39 Last Infusion: 03/16/25 19:08 Dose: Infused Documented By: Admin: 03/16/25 17:54 Dose: 400 mls/hr Documented By: MARLON Sodium Chloride (Nss) 1,000 mls @ 999 mls/hr IV .Q1H1M ONE Stop: 03/16/25 18:42 Last Infusion: 03/16/25 19:08 Dose: Infused Documented By: Admin: 03/16/25 17:55 Dose: 999 mls/hr Documented By: MARLON Sodium Chloride (Nss) 500 mls @ 999 mls/hr IV .Q31M ONE Stop: 03/16/25 18:12 Last Infusion: 03/16/25 19:47 Dose: Infused Documented By: Admin: 03/16/25 17:55 Dose: 999 mls/hr Documented By: MARLON Magnesium Sulfate/Dextrose (Magnesium Sulfate / D5w) 1 gm in 100 mls @ 100 mls/hr IV NOW STA Stop: 03/16/25 19:09 Last Infusion: 03/16/25 21:17 Dose: Infused Documented By: Admin: 03/16/25 19:43 Dose: 100 mls/hr Documented By: CHAR Magnesium Sulfate/Dextrose (Magnesium Sulfate / D5w) 1 gm in 100 mls @ 50 mls/hr IV ONE ONE Stop: 03/16/25 23:05 Last Admin: 03/16/25 21:25 Dose: 50 mls/hr Documented By: GIOVANNI Ioversol (Optiray 320 100ml) 93 ml IV ONCE ONE Stop: 03/16/25 18:51 Last Admin: 03/16/25 18:50 Dose: 93 ml Documented By: EAB Ondansetron HCl (Ondansetron Inj 2 Mg/Ml 2 Ml Vial) 4 mg IV NOW STA Stop: 03/16/25 17:18 Last Admin: 03/16/25 17:48 Dose: 4 mg Documented By: NRB Imaging Data Radiologist's Impression: Chest X-Ray 03/16/25 17:19 EXAM: XR chest 1V portable CLINICAL HISTORY: Sepsis TECHNIQUE: An X-ray image of the chest is obtained in AP projection. COMPARISON: Chest x-ray on 03/24/2020 FINDINGS: Pulmonary Parenchyma: Lungs are clear bilaterally. No evidence of consolidation, collapse, or focal opacities. No pulmonary nodules are identified. Prominent bronchovascular markings, may be due to pulmonary congestion. No evidence of right pleural effusion or pleural thickening. Linear opacity at the left costophrenic angle suggests an atelectatic band. Heart and Mediastinum: Heart size and shape are normal. No mediastinal widening or masses. No hilar or mediastinal lymphadenopathy. Bony Thorax: Bony thorax appears intact without fractures or deformities. Soft Tissues: Soft tissues overlying the chest wall are unremarkable. IMPRESSION: 1. Prominent bronchovascular markings, may be due to pulmonary congestion. New finding 2. Linear opacity at the left costophrenic angle suggests an atelectatic band. New finding. 3. No pulmonary consolidations. Electronically signed by Jones Pierre 03-16-2025 7:[address] 03/16/25 17:20 Clinical History: Altered mental status Technique: Axial computed tomography images were obtained of the brain without intravenous contrast. Comparison is made to the prior CT dated 04/20/2022 Findings: There is unchanged cerebral atrophy, within expected limits for the patient's age. Areas of decreased attenuation are seen within the periventricular white matter, likely representing chronic small vessel ischemic disease. There is an unchanged small old infarct of the left thalamus. There are old infarcts of the basal ganglia bilaterally There is no definite sign of acute infarction. No intracranial hemorrhage is evident. No definite mass lesion is seen on this noncontrast examination. There is no midline shift or other form of herniation. No hydrocephalus is seen. No fracture is identified. The orbits and the visualized paranasal sinuses appear unremarkable. The mastoid air cells appear clear. Impression: 1. Cerebral atrophy and chronic small vessel ischemic disease 2. Multiple old infarcts Electronically signed by Radames Graham 03-16-2025 7:15 PM Abdomen/Pelvis CT 03/16/25 18:12 Clinical History: Altered mental status. Vomiting Technique: Axial computed tomography images were obtained of the abdomen and pelvis after the administration of intravenous contrast. Comparison is made to the prior CT dated 04/20/2022. Findings: The liver is enlarged measuring 22.4 cm craniocaudal. There is no sign of cirrhosis or significant fatty infiltration. No liver mass lesion is seen. The portal vein is patent. The gallbladder appears unremarkable. No bile duct dilatation is noted. The spleen is of normal size. No focal splenic lesion is evident. The pancreas appears normal with no sign of acute or chronic pancreatitis and no mass lesion noted. The pancreatic duct is of normal caliber. The adrenal glands appear unremarkable. No definite renal or proximal ureteral calculi are seen on this contrast-enhanced study. There is no hydronephrosis or perinephric stranding. No renal mass lesion is identified. There is left renal cortical scarring There is a mild infrarenal abdominal aortic aneurysm, measuring up to 3 cm anteroposterior. No abdominal adenopathy is seen. The stomach appears normal. There is no sign of small bowel obstruction. There is mild diverticulosis without evidence of diverticulitis. No free intraperitoneal fluid or air is identified. No distal ureteral or bladder calculi are seen. The bladder is decompressed, containing a Fuchs catheter. The iliac arteries are of normal caliber. No pelvic adenopathy is noted. There are small bilateral inguinal hernias containing only fat There are alveolar and interstitial opacities in the left lower lobe, concerning for pneumonia. There is right lower lobe atelectasis. Mild thoracolumbar degenerative disc disease is seen. There is bilateral hip osteoarthritis. No fracture is identified. No focal osseous lesion is seen Impression: 1. Suspected left lower lobe pneumonia 2. Mild abdominal aortic aneurysm 3. Hepatomegaly 4. Mild diverticulosis without evidence of diverticulitis 5. Small bilateral inguinal hernias containing only fat ACT 112: Positive. There are findings on this exam that require communication between the performing entity and the patient following Patient Test Result Information Act ([place] ACT 112) guidelines. Electronically signed by Radames Graham 03-16-2025 7:33 PM Discharge Plan Visit Data Chief Complaint: Altered Mental Status ED Provider: Juanito Borges Discharge Problem: Sepsis, Altered mental status, Hypoxia, Hematemesis, Anemia, Pneumonia, Anticoagulated, Hypomagnesemia Patient Disposition: Admitted As Inpatient Condition: Serious Discharge Instructions Interventions: ED Discharge Assessment Last Done: 03/16/25 20:33 Discharge Problem: Sepsis Qualifiers: Sepsis type: sepsis due to unspecified organism Sepsis acute organ dysfunction status: without acute organ dysfunction Qualified Code(s): A41.9 - Sepsis, unspecified organism Altered mental status Qualifiers: Altered mental status type: somnolence Qualified Code(s): R40.0 - Somnolence Hematemesis Qualifiers: Nausea presence: unspecified Qualified Code(s): K92.0 - Hematemesis Anemia Qualifiers: Anemia type: unspecified type Qualified Code(s): D64.9 - Anemia, unspecified Pneumonia Qualifiers: Pneumonia type: due to unspecified organism Laterality: left Lung location: l ower lobe of lung Qualified Code(s): J18.9 - Pneumonia, unspecified organism
[2025-03-16] MEDS: ALBUT/IPRATROP 3MG/0.5MG NEB 3 ML VIAL NEB STA (17:33)
[2025-03-16 17:43] LABS: Base Excess VBG -0.4 mEq/L; HCO3 VBG 25 mmol/L; Oxygen Saturation VBG 97.2 %; PCO2 VBG 45 mmHg (38-50); PO2 VBG 93 mmHg; pH VBG 7.36 (7.36-7.41)
[2025-03-16] MEDS: CEFEPIME 2000MG 2,000 MG/20 ML SYR IV STA (17:45)
[2025-03-16] MEDS: SODIUM CHLORIDE 0.9% 1,000 ML IV ONE ×2 (17:46→17:55)
[2025-03-16 17:47] LABS: Hematocrit (blood only) 32.5 % (42.0-52.0); Hemoglobin 10.4 g/dl (14.0-18.0); Immature Granulocytes # (auto) 0.05 K/uL (0.01-0.20); Immature Granulocytes % (auto) 0.5 %; Mean Corpuscular Hemoglobin 29.5 pg (25.0-34.0); Mean Corpuscular Volume 92.1 fL (80.0-100.0); Platelet Count 198 K/uL (130-400); RDW Standard Deviation 53.8 fL (36.4-46.3); Red Blood Count 3.53 M/uL (4.70-6.10); White Blood Count 10.54 K/ul (4.8-10.8)
[2025-03-16] MEDS: ACETAMINOPHEN 1,000 MG/100 ML VIAL IV STA (17:47)
[2025-03-16] MEDS: ONDANSETRON INJ 2 MG/ML 2 ML VIAL IV STA (17:48)
[2025-03-16] MEDS: SODIUM CHLORIDE 0.9% 500 ML IV ONE (17:55)
[2025-03-16 18:06] LABS: Alanine Aminotransferase 8.0 U/L (7-52); Alkaline Phosphatase 87.0 U/L (34-104); Anion Gap 9.0 (3-11); Bilirubin,Total 0.8 mg/dl (0.2-1.0); Blood Urea Nitrogen 24.0 mg/dl (6-23); Calcium 8.1 mg/dl (8.6-10.3); Carbon Dioxide 25.0 mmol/L (21-32); Chloride 106.0 mmol/L (98-107); Creatinine Clr Calc Pharmacy 51.2 ml/min; Glucose 151.0 mg/dl (70-99(Fasting)); Magnesium 1.4 mg/dl (1.7-2.4); Potassium 3.5 mmol/L (3.5-5.1); Sodium 140.0 mmol/L (136-145); Total Protein 6.4 gm/dl (6.0-8.3)
[2025-03-16 18:25] LABS: INR 1.1 (0.9-1.1); Partial Thromboplastin Time 29 Seconds (21-31); Prothrombin Time 12.1 Seconds (9.0-12.0)
[2025-03-16] MEDS: OPTIRAY 320 100ml IV ONE (18:50)
--- NOTE | 2025-03-16 18:55 | History & Physical Report ---
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 Pending bio fire. Serum blood cultures are obtained urine cultures pending will initiate antibiotic therapy for community-acquired pneumonia as the ceftriaxone will cover most tickborne illnesses also. He is volume resuscitated and at this time will be not given any additional IV fluids He had vomited with coffee-ground emesis concerned that since he is on apixaban for atrial fibrillation hemoglobin is stable at presentation apixaban is held the patient will be given Protonix #Atrial fibrillation as mentioned apixaban is held continues on metoprolol at this point time will reduce doses of antihypertensive medications until we see what his physiological course is. #Diabetes patient will be given sliding scale insulin diabetic diet clear liquids at this point time since were unsure of the upper GI status #Chronic kidney disease patient seems to be slightly worse than his baseline we will follow for JERAMY on CKD 3 we are reducing his lisinopril at this point time but if creatinine goes up we will discontinue it altogether and have an additional antihypertensive agent DVT prevention is SCDs at this time given concern for coffee-ground emesis apixaban is held Patient is a full code History of Present Illness Primary Care Provider: Kelsea Sanchez MD 79-year-old male arrives by EMS after pushing a life alert where he was found confused hypoxic with vomiting coffee-ground material after shopping at [employer]. 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 Patient is febrile to almost 103 degrees. Initial source of sepsis is unclear at this time he has a slightly abnormal chest x-ray urine is pending viral BioFire is pending Lyme is pending. Patient was resuscitated in the ER rescued from his hypoxia with BiPAP for his acute respiratory failure he was volume resuscitated and given antibiotics of cefepime. Blood cultures were obtained. Patient is recommended for admission due to possibility of sepsis Allergies Allergy/AdvReac Type Severity Reaction Status Date / Time No Known Allergies Allergy Verified 03/16/25 19:12 Home Medications Medication Instructions Recorded Confirmed Type blood-glucose meter (True Metrix #1 ea 06/23/21 03/16/25 Rx Glucose Meter) lisinopril 40 mg tablet 40 mg PO QAM #90 tabs 08/07/23 03/16/25 Rx lancets 33 gauge (TRUEplus Lancets) #100 ea 01/09/24 03/16/25 Rx blood sugar diagnostic (True #100 ea 01/17/24 03/16/25 Rx Metrix Glucose Test Strip) pantoprazole 40 mg tablet,delayed 40 mg PO QAM #90 tabs 05/06/24 03/16/25 Rx release apixaban 5 mg tablet (Eliquis) 5 mg PO BID #60 tabs 05/14/24 03/16/25 Rx tamsulosin 0.4 mg capsule 0.8 mg (2 x 0.4 mg) PO DAILY #180 06/18/24 03/16/25 Rx caps pen needle, diabetic 31 gauge x #100 ea 08/27/24 03/16/25 Rx 3/16" (Sure-Fine Pen [place]) insulin glargine 100 unit/mL 20 unit (0.2 mL) subcut DAILY 90 09/30/24 03/16/25 Rx subcutaneous solution (Lantus days #18 mL U-100 Insulin) semaglutide 0.25 mg or 0.5 mg (2 0 mg subcut UD 12/23/24 03/16/25 History mg/3 mL) subcutaneous pen injector (Ozempic) amlodipine 5 mg tablet 5 mg PO QAM 03/16/25 03/16/25 History atorvastatin 80 mg tablet 80 mg PO QAM 03/16/25 03/16/25 History finasteride 1 mg tablet 1 mg PO QAM 03/16/25 03/16/25 History metformin 1,000 mg tablet 1,000 mg PO BID 03/16/25 03/16/25 History metoprolol succinate 100 mg 100 mg PO QAM 03/16/25 03/16/25 History tablet,extended release 24 hr Past Med/Surg History Problem List (Updated 03/16/25 @ 18:51 by Vitaliy Foster MD) Sepsis Atrial fibrillation 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 Thyroid nodule Benign familial tremor (Acute) Lumbar disc disease (Chronic) Cerebral vascular disease (Chronic) Carotid artery stenosis Hypertension (Chronic) TIA (transient ischemic attack) multiple occurrences Type 2 diabetes, uncontrolled, with neuropathy (Chronic) BPH (benign prostatic hyperplasia) (Chronic) Hyperlipidemia (Chronic) Chronic kidney disease, stage III (moderate) (Chronic) Stroke (Acute 06/2013) acute left durant radiata and old right basal ganglia, right durant radiata and left thalamus on MRI 06/2013 GERD (gastroesophageal reflux disease) Medical History (Updated 03/16/25 @ 18:51 by Vitaliy Foster MD) Splenic laceration COVID-19 Hypomagnesemia Essential (primary) hypertension Received intravenous tissue plasminogen activator (tPA) within last 24 hours URI (upper respiratory infection) Ischemic stroke Influenza History of CVA (cerebrovascular accident) Surgical History H/O carpal tunnel repair S/P tonsillectomy No pertinent past surgical history Family History Brother Hypertension Brother Diabetes Father Benign familial tremor Denies family history of Ovarian cancer Prostate cancer Myocardial infarction Breast cancer Colorectal cancer Stroke Social History Smoking Status: Never smoker Tobacco Type: Declines Age Started Using Tobacco: 18; Age Quit Using Tobacco: 48; packs per day: 1; Second Hand Exposure: Yes; Do You Dip or Chew Tobacco: No; Hx Alcohol Use: No Hx Substance Use: No Preferred Language: Austrian Communication Ability: Effective Visual Impairment: No Limitations Hearing Ability: Normal Home Appraiser Required: No Beliefs That Will Affect Care: None marital status: marital status details: grandson lives with him Current Living Situation: Family Current Living Situation Comment: Son and grandson current occupational status: retired 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 Feels Safe at Home: Yes Childhood Exposure to Second-Hand Smoke: Yes Diet: regular caffeine: Yes Dental Care, Regularly: No Physical Activity Frequency: Does not Exercise Seatbelt Use: always Sunscreen Use: No Assistive Devices: Walker Review of Systems Review of Systems: Mild distress and fatigue, much improved from presentation no headache, no visual changes no speech or swallowing issues no chest pain, pressure or palpitations no shortness of breath, non productive cough or wheezes no abdominal pain, nausea or vomiting, diarrhea or constipation no dysuria, hematuria or frequency no focal joint pain chronic lower extremity swelling no back pain, CVA tenderness or radicular pain no bruising, bleeding or rashes no focal signs of weakness or numbness or altered sensation no complaints of anxiety or depression.. Physical Exam Physical Exam: The patient appeared well nourished and normally developed. Vital signs as documented. Head exam is normocephalic atraumatic Neck is without JVD, thyromegaly, or carotid bruits. Lungs are coarse breath sounds, no focal loss of breath sounds Cardiac exam, Rhythm is regular.. No murmurs, rubs or gallops. Abdominal exam reveals normal bowel sounds, soft non tender, no masses Extremities are chronic venous stasis wtih some open areas no clear cut cellulitis Neurologic exam is alert and oriented, no focal loss of strength or sensation Skin is stasis dermatitis Psychologically is without concerns for anxiety or depression.. Results & Data Results & Data Vital Signs (Past 12 Hours) Vital Signs Temp Pulse Pulse Resp BP BP Pulse Ox 03/16/25 17:57 78 20 130/67 96 03/16/25 17:34 86 22 96 03/16/25 17:31 03/16/25 17:24 78 L 03/16/25 17:15 102.9 F H 92 H 25 H 154/84 H 78 L O2 Del Method FiO2 03/16/25 17:57 BiPAP 03/16/25 17:34 60 03/16/25 17:31 BiPAP 03/16/25 17:24 Room Air 03/16/25 17:15 Room Air Laboratory Results Reviewed CBC reviewed chemistry elevated lactic acid reviewed EKG showing rate controlled sinus rhythm reviewed chest x-ray without overt lobar pulmonary infiltrate Code Status & VTE Plan VTE Prophylaxis Plan VTE Prophylaxis will be ordered: Yes PG Care Time/CCT Total # of Minutes Spent Total Time Spent with Patient: Total time spent is greater than 50% in coordination of care (as documented) at patient's floor/unit and/or counseling patient: Coding Level of Care Code 60446 INT INP/OBS CARE 3/75MIN Diagnoses Sepsis A41.9 Atrial fibrillation I48.91 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
[2025-03-16 19:06] LABS: Appearance Urine Clear (Clear); Bacteria Urine Automated None Seen (None Seen); Cast Urine Automated 0-2 /lpf (0-2); Epithelial Cell Urine Auto 0-2 /hpf (0-2); Glucose Urine UA Negative (Negative); RBC Urine Automated 0-2 /hpf (0-2); WBC Urine Automated 0-5 /hpf (0-5)
[2025-03-16 19:15] LABS: Chlamydia pneumoniae PCR Not Detected (NotDetected); Coronavirus 229E PCR Not Detected (NotDetected); Coronavirus CoV-2 (COVID19)PCR Not Detected (NotDetected); Coronavirus HKU1 PCR Not Detected (NotDetected); Coronavirus NL63 PCR Not Detected (NotDetected); Coronavirus OC43PCR Not Detected (NotDetected); Human Metapneumovirus PCR Not Detected (NotDetected); Parainfluenza Virus 1 PCR Not Detected (NotDetected); Parainfluenza Virus 2 PCR Not Detected (NotDetected); Parainfluenza Virus 3 PCR Not Detected (NotDetected); Parainfluenza Virus 4 PCR Not Detected (NotDetected); Respiratory Syncytial VirusPCR Not Detected (NotDetected); Rhinovirus/Enterovirus PCR Not Detected (NotDetected)
--- NOTE | 2025-03-16 19:15 | CT Scan Report ---
Clinical History: Altered mental status Technique: Axial computed tomography images were obtained of the brain without intravenous contrast. Comparison is made to the prior CT dated 04/20/2022 Findings: There is unchanged cerebral atrophy, within expected limits for the patient's age. Areas of decreased attenuation are seen within the periventricular white matter, likely representing chronic small vessel ischemic disease. There is an unchanged small old infarct of the left thalamus. There are old infarcts of the basal ganglia bilaterally There is no definite sign of acute infarction. No intracranial hemorrhage is evident. No definite mass lesion is seen on this noncontrast examination. There is no midline shift or other form of herniation. No hydrocephalus is seen. No fracture is identified. The orbits and the visualized paranasal sinuses appear unremarkable. The mastoid air cells appear clear. Impression: 1. Cerebral atrophy and chronic small vessel ischemic disease 2. Multiple old infarcts Electronically signed by Radames Graham 03-16-2025 7:15 PM
--- NOTE | 2025-03-16 19:34 | CT Scan Report ---
Clinical History: Altered mental status. Vomiting Technique: Axial computed tomography images were obtained of the abdomen and pelvis after the administration of intravenous contrast. Comparison is made to the prior CT dated 04/20/2022. Findings: The liver is enlarged measuring 22.4 cm craniocaudal. There is no sign of cirrhosis or significant fatty infiltration. No liver mass lesion is seen. The portal vein is patent. The gallbladder appears unremarkable. No bile duct dilatation is noted. The spleen is of normal size. No focal splenic lesion is evident. The pancreas appears normal with no sign of acute or chronic pancreatitis and no mass lesion noted. The pancreatic duct is of normal caliber. The adrenal glands appear unremarkable. No definite renal or proximal ureteral calculi are seen on this contrast-enhanced study. There is no hydronephrosis or perinephric stranding. No renal mass lesion is identified. There is left renal cortical scarring There is a mild infrarenal abdominal aortic aneurysm, measuring up to 3 cm anteroposterior. No abdominal adenopathy is seen. The stomach appears normal. There is no sign of small bowel obstruction. There is mild diverticulosis without evidence of diverticulitis. No free intraperitoneal fluid or air is identified. No distal ureteral or bladder calculi are seen. The bladder is decompressed, containing a Fuchs catheter. The iliac arteries are of normal caliber. No pelvic adenopathy is noted. There are small bilateral inguinal hernias containing only fat There are alveolar and interstitial opacities in the left lower lobe, concerning for pneumonia. There is right lower lobe atelectasis. Mild thoracolumbar degenerative disc disease is seen. There is bilateral hip osteoarthritis. No fracture is identified. No focal osseous lesion is seen Impression: 1. Suspected left lower lobe pneumonia 2. Mild abdominal aortic aneurysm 3. Hepatomegaly 4. Mild diverticulosis without evidence of diverticulitis 5. Small bilateral inguinal hernias containing only fat ACT 112: Positive. There are findings on this exam that require communication between the performing entity and the patient following Patient Test Result Information Act ([place] ACT 112) guidelines. Electronically signed by Radames Graham 03-16-2025 7:33 PM
--- NOTE | 2025-03-16 19:39 | XRay Report ---
EXAM: XR chest 1V portable CLINICAL HISTORY: Sepsis TECHNIQUE: An X-ray image of the chest is obtained in AP projection. COMPARISON: Chest x-ray on 03/24/2020 FINDINGS: Pulmonary Parenchyma: Lungs are clear bilaterally. No evidence of consolidation, collapse, or focal opacities. No pulmonary nodules are identified. Prominent bronchovascular markings, may be due to pulmonary congestion. No evidence of right pleural effusion or pleural thickening. Linear opacity at the left costophrenic angle suggests an atelectatic band. Heart and Mediastinum: Heart size and shape are normal. No mediastinal widening or masses. No hilar or mediastinal lymphadenopathy. Bony Thorax: Bony thorax appears intact without fractures or deformities. Soft Tissues: Soft tissues overlying the chest wall are unremarkable. IMPRESSION: 1. Prominent bronchovascular markings, may be due to pulmonary congestion. New finding 2. Linear opacity at the left costophrenic angle suggests an atelectatic band. New finding. 3. No pulmonary consolidations. Electronically signed by Jones Pierre 03-16-2025 7:38 PM
[2025-03-16] MEDS: MAGNESIUM SULFATE / D5W 1 GM/100 ML BAG IV STA (19:43)
[2025-03-16] MEDS ORDERED: ACETAMINOPHEN 325 MG TAB PO PRN (21:06)
[2025-03-16] MEDS ORDERED: MoRPHine SULFATE 2 MG/ML CARP IV PRN (21:06)
[2025-03-16] MEDS ORDERED: POLYETHYLENE (MIRALAX) 17 GM PACK PO PRN (21:06)
[2025-03-16] MEDS ORDERED: METOPROLOL TARTRATE 1 MG/ML VIAL IV PRN (21:06)
[2025-03-16] MEDS ORDERED: GLUCOSE 10 TAB/TUBE PO PRN (21:06)
[2025-03-16] MEDS ORDERED: DEXTROSE 50% 50 ML SYRINGE IV PRN (21:06)
[2025-03-16] MEDS ORDERED: ONDANSETRON INJ 2 MG/ML 2 ML VIAL IV PRN (21:06)
[2025-03-16] MEDS ORDERED: CARBOHYDRATES FOR HYPOGLYCEMIA PO PRN (21:06)
[2025-03-16] MEDS ORDERED: GLUCAGON FOR INJ 1 MG VIAL SQ PRN (21:06)
[2025-03-16] MEDS ORDERED: GLUCOSE 40% GEL 15 GM TUBE PO PRN (21:06)
[2025-03-16] MEDS: PANTOprazole 40 MG/10 ML SYR IV SCH (21:25)
[2025-03-16] MEDS: cefTRIAXone SODIUM 2,000 MG/50 ML BAG IV SCH (21:25)
[2025-03-16] MEDS: MAGNESIUM SULFATE / D5W 1 GM/100 ML BAG IV ONE (21:25)
[2025-03-16] MEDS: INSULIN ASPART PER UNIT CHARGE SC SCH (21:54)
[2025-03-16] MEDS: AZITHROMYCIN 500 MG/255 ML BAG IV SCH (22:07)
[2025-03-17] MEDS: ALBUT/IPRATROP 3MG/0.5MG NEB 3 ML VIAL ONE (02:12)
[2025-03-17 05:53] LABS: Hematocrit (blood only) 32.2 % (42.0-52.0); Hemoglobin 10.0 g/dl (14.0-18.0); Mean Corpuscular Hemoglobin 29.1 pg (25.0-34.0); Mean Corpuscular Volume 93.6 fL (80.0-100.0); Platelet Count 197 K/uL (130-400); RDW Standard Deviation 55.5 fL (36.4-46.3); Red Blood Count 3.44 M/uL (4.70-6.10); White Blood Count 11.02 K/ul (4.8-10.8)
[2025-03-17 06:10] LABS: Anion Gap 8.0 (3-11); Blood Urea Nitrogen 19.0 mg/dl (6-23); Calcium 7.6 mg/dl (8.6-10.3); Carbon Dioxide 25.0 mmol/L (21-32); Chloride 106.0 mmol/L (98-107); Creatinine Clr Calc Pharmacy 54.0 ml/min; Glucose 136.0 mg/dl (70-99(Fasting)); Magnesium 1.7 mg/dl (1.7-2.4); Potassium 3.7 mmol/L (3.5-5.1); Sodium 139.0 mmol/L (136-145)
[2025-03-17] MEDS: ALBUT/IPRATROP 3MG/0.5MG NEB 3 ML VIAL NEB PRN (06:26)
--- NOTE | 2025-03-17 06:59 | Hospitalist Progress Note ---
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 initial urine analysis is unimpressive. Serum blood cultures and urine cultures pending, increased oxygen demands, will have one dose of lasix. Ceftriaxone and azithromycin continue He had vomited with coffee-ground emesis and he is on apixaban for atrial fibrillation hemoglobin remains stable at present, apixaban is held the patient will be given Protonix Patient persists with significant hypoxia requiring high flow oxygen via nasal cannula #Atrial fibrillation as mentioned apixaban is held continues on metoprolol at this point time will reduce doses of antihypertensive medications until we see what his physiological course is. #Diabetes patient will be given sliding scale insulin diabetic diet clear liquids at this point time since were unsure of the upper GI status #Chronic kidney disease patient seems to be slightly worse than his baseline we will follow for JERAMY on CKD 3 we are reducing his lisinopril at this point time but if creatinine goes up we will discontinue it altogether and have an additional antihypertensive agent DVT prevention is SCDs at this time given concern for coffee-ground emesis apixaban is held Patient is a full code Admission and Anticipated Discharge Date Admission Date: March 16, 2025 Subjective Patient is better and conversant. He still requiring significant oxygen supplementation high flow nasal cannula he is eating breakfast. He says a productive cough Physical Exam Physical Exam: Pleasant cooperative alert and oriented x 3 Lungs have coarse breath sounds at the base however they are equal bilaterally Cardiac sounds regular that murmurs clicks rubs or gallop Abdomen NABS soft nontender Extremities are with trace edema Results & Data Results & Data Vital Signs (Past 12 Hours) Vital Signs Temp Pulse Pulse Resp BP BP Pulse Ox 03/17/25 06:26 100 H 20 95 03/17/25 06:00 98.6 F 97 H 17 119/96 92 03/17/25 02:57 91 H 20 138/88 94 03/17/25 02:13 78 17 94 03/17/25 01:56 80 03/17/25 01:46 84 17 91 03/17/25 01:00 97.9 F 82 18 155/109 H 91 03/16/25 22:37 03/16/25 22:17 97.9 F 73 17 132/72 97 03/16/25 21:50 97.9 F 81 17 132/72 97 03/16/25 21:06 03/16/25 20:33 81 20 129/90 94 03/16/25 19:50 98.2 F 78 20 157/91 H 94 03/16/25 19:16 84 16 169/87 H 90 Pulse Ox O2 Del Method O2 Del Method O2 Flow Rate O2 Flow Rate FiO2 03/17/25 06:26 Oxymask 11 03/17/25 06:00 Oxymask 11 03/17/25 02:57 BiPAP 03/17/25 02:13 BiPAP 50 03/17/25 01:56 03/17/25 01:46 50 03/17/25 01:00 BiPAP 03/16/25 22:37 Oxymask 8 03/16/25 22:17 Oxymask 8 03/16/25 21:50 Oxymask 8 03/16/25 21:06 95 Oxymask 8 03/16/25 20:33 Oxymask 8 03/16/25 19:50 BiPAP 03/16/25 19:16 BiPAP Laboratory Results Reviewed CBC reviewed chemistry Blood cultures reviewed still pending PG Care Time/CCT Total # of Minutes Spent Total Time Spent with Patient: Total time spent is greater than 50% in coordination of care (as documented) at patient's floor/unit and/or counseling patient: Coding Level of Care Code 98624 SUB INP/OBS CARE 3/50MIN Diagnoses Sepsis A41.9 Atrial fibrillation I48.91 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
[2025-03-17] MEDS: FUROSEMIDE INJ 20 MG/2 ML VIAL IV ONE (08:05)
[2025-03-17] MEDS: METOPROLOL SUCC 50MG EXT REL TAB PO SCH (08:08)
[2025-03-17] MEDS: TAMSULOSIN HCL 0.4 MG CAP PO SCH (08:08)
[2025-03-17] MEDS: LANTUS PER UNIT CHARGE SQ SCH (08:08)
[2025-03-17 08:49] LABS: Hemoglobin A1C 5.1 % (4.5-5.6)
--- NOTE | 2025-03-17 17:44 | Electrocardiogram Report ---
Test Reason : Blood Pressure : */* mmHG Vent. Rate : 88 BPM Atrial Rate : * BPM P-R Int : * ms QRS Dur : 94 ms QT Int : 424 ms P-R-T Axes : * 73 63 degrees QTcB Int : 513 ms Atrial fibrillation Prolonged QT Abnormal ECG When compared with ECG of 20-Apr-2022 21:24, Atrial fibrillation has replaced Sinus rhythm Nonspecific T wave abnormality now evident in Lateral leads Confirmed by Ovi Howard ([id number]) on 03/17/2025 5:44:05 PM Referred By: Confirmed By: Ovi Howard
[2025-03-18 06:22] LABS: Hematocrit (blood only) 30.1 % (42.0-52.0); Hemoglobin 9.2 g/dl (14.0-18.0); Mean Corpuscular Hemoglobin 28.3 pg (25.0-34.0); Mean Corpuscular Volume 92.6 fL (80.0-100.0); Platelet Count 185 K/uL (130-400); RDW Standard Deviation 55.8 fL (36.4-46.3); Red Blood Count 3.25 M/uL (4.70-6.10); White Blood Count 8.65 K/ul (4.8-10.8)
[2025-03-18 06:38] LABS: Anion Gap 6.0 (3-11); Blood Urea Nitrogen 16.0 mg/dl (6-23); Calcium 8.1 mg/dl (8.6-10.3); Carbon Dioxide 29.0 mmol/L (21-32); Chloride 102.0 mmol/L (98-107); Creatinine Clr Calc Pharmacy 51.2 ml/min; Glucose 117.0 mg/dl (70-99(Fasting)); Magnesium 1.7 mg/dl (1.7-2.4); Potassium 3.5 mmol/L (3.5-5.1); Sodium 137.0 mmol/L (136-145)
--- NOTE | 2025-03-18 07:25 | Hospitalist Progress Note ---
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 initial urine analysis is unimpressive. Serum blood cultures and urine cultures pending, increased oxygen demands,s/p one dose of lasix. Chest x-ray with some progression we will change antibiotics to cefepime and doxycycline Patient persists with significant hypoxia requiring high flow oxygen via nasal cannula #Atrial fibrillation he is apixaban is restarted continues on metoprolol at this point time we will continue with reduced doses of antihypertensive medications #Diabetes patient will be given sliding scale insulin diabetic diet clear liquids at this point time since were unsure of the upper GI status #Chronic kidney disease patient seems to be slightly worse than his baseline we will follow for JERAMY on CKD 3 we are reducing his lisinopril at this point time but if creatinine goes up we will discontinue it altogether and have an additional antihypertensive agent DVT prevention is SCDs at this time given concern for coffee-ground emesis apixaban is held Patient is a full code Admission and Anticipated Discharge Date Admission Date: March 16, 2025 Subjective Patient is better and conversant. He still requiring high flowoxygen supplementation. He says a productive cough despite hypoxia is not in much distress Physical Exam Physical Exam: Pleasant cooperative alert and oriented x 3 Lungs have coarse breath sounds at the base however they are equal bilaterally exam seems out of proportion to hypoxia Cardiac sounds regular that murmurs clicks rubs or gallop Abdomen NABS soft nontender Extremities are with trace edema Results & Data Results & Data Vital Signs (Past 12 Hours) Vital Signs Temp Pulse Pulse Resp BP Pulse Ox Pulse Ox 03/18/25 04:41 97.7 F 83 22 112/89 90 03/18/25 01:25 78 19 94 03/18/25 00:36 88 L 03/18/25 00:29 97.9 F 81 22 137/73 90 03/17/25 23:45 82 03/17/25 20:49 03/17/25 20:17 97.9 F 82 18 135/84 93 03/17/25 20:06 70 18 93 O2 Del Method O2 Del Method O2 Flow Rate O2 Flow Rate FiO2 03/18/25 04:41 High Flow Nasal Cannula 10 03/18/25 01:25 50 03/18/25 00:36 High Flow Nasal Cannula 10 03/18/25 00:29 Nasal Cannula, High Flow Nasal Cannula 10 03/17/25 23:45 03/17/25 20:49 High Flow Nasal Cannula 9 03/17/25 20:17 High Flow Nasal Cannula 9 03/17/25 20:06 Nasal Cannula 9 Laboratory Results Reviewed CBC reviewed chemistry PG Care Time/CCT Total # of Minutes Spent Total Time Spent with Patient: Total time spent is greater than 50% in coordination of care (as documented) at patient's floor/unit and/or counseling patient: Coding Level of Care Code 99788 SUB INP/OBS CARE 3/50MIN Diagnoses Sepsis A41.9 Atrial fibrillation I48.91 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
--- NOTE | 2025-03-18 08:25 | XRay Report ---
XR chest 1V portable CLINICAL HISTORY: Hypoxia. COMPARISON STUDY: Chest CT April 20, 2022. Chest radiograph March 16, 2025. FINDINGS: There is no pneumothorax. Bibasilar consolidation, greater on the left, has progressed. No definite pleural effusion is present. Cardiomegaly is again noted. There is pulmonary vascular conges tion. IMPRESSION: 1. Progression of bibasilar consolidation, left greater than right. This is suggestive of pneumonia o r aspiration pneumonitis. 2. Cardiomegaly with pulmonary vascular congestion. ACT 112: Negative or not required by law. Electronically signed by: Sawyer Ennis M.D. 03/18/2025 8:24 AM
[2025-03-18] MEDS: DOXYCYCLINE HYCLATE 100 MG in DEXTROSE 5% MINI-B 100 ML IV SCH (10:17)
[2025-03-18] MEDS: CEFEPIME 2000MG 2,000 MG/20 ML SYR IV SCH (10:17)
[2025-03-18] MEDS: APIXABAN 5 MG TABLET PO SCH (12:59)
[2025-03-18] MEDS: ALBUT/IPRATROP 3MG/0.5MG NEB 3 ML VIAL NEB SCH (22:19)
[2025-03-18] MEDS ORDERED: ALBUT/IPRATROP 3MG/0.5MG NEB 3 ML VIAL NEB SCH (23:00)
[2025-03-19 06:40] LABS: Hematocrit (blood only) 30.8 % (42.0-52.0); Hemoglobin 9.4 g/dl (14.0-18.0); Mean Corpuscular Hemoglobin 27.7 pg (25.0-34.0); Mean Corpuscular Volume 90.9 fL (80.0-100.0); Platelet Count 198 K/uL (130-400); RDW Standard Deviation 53.4 fL (36.4-46.3); Red Blood Count 3.39 M/uL (4.70-6.10); White Blood Count 7.35 K/ul (4.8-10.8)
[2025-03-19 07:10] LABS: Anion Gap 8.0 (3-11); Blood Urea Nitrogen 14.0 mg/dl (6-23); Calcium 8.3 mg/dl (8.6-10.3); Carbon Dioxide 27.0 mmol/L (21-32); Chloride 104.0 mmol/L (98-107); Creatinine Clr Calc Pharmacy 54.1 ml/min; Glucose 99.0 mg/dl (70-99(Fasting)); Magnesium 1.7 mg/dl (1.7-2.4); Potassium 3.6 mmol/L (3.5-5.1); Sodium 139.0 mmol/L (136-145)
--- NOTE | 2025-03-19 07:36 | Hospitalist Progress Note ---
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 initial urine analysis is unimpressive. Serum blood cultures negative at this time, increased oxygen demands,s/p one dose of lasix. Chest x-ray with some progression change antibiotics to cefepime and doxycycline 03/18, with persistent oxygen need, despite h/o apixiban, now with hemoptysis will have CTACTA did not show PE will have preventative affect DVT prophylaxis with heparin With hemoptysis patient does not have significant reduction in hemoglobin Hypoxia improving tapering oxygen down #Atrial fibrillation apixiban help due to hemoptysis continues on metoprolol at this point time we will continue with reduced doses of antihypertensive medications #Diabetes patient will be given sliding scale insulin diabetic diet clear liquids at this point time since were unsure of the upper GI status #Chronic kidney disease patient seems to be slightly worse than his baseline we will follow for JERAMY on CKD 3 we are reducing his lisinopril at this point time but if creatinine goes up we will discontinue it altogether and have an additional antihypertensive agent Patient did have some delirium at night we will continue to follow DVT prevention is we will use low-dose heparin at this time Patient is a full code Admission and Anticipated Discharge Date Admission Date: March 16, 2025 Subjective coughing up blood overnight, some confusion Physical Exam Physical Exam: Pleasant cooperative alert and oriented x 3 Lungs have coarse breath sounds at the base however they are equal bilaterally Tapering oxygen has been somewhat effective exam seems out of proportion to hypoxia Cardiac sounds regular that murmurs clicks rubs or gallop Abdomen NABS soft nontender Extremities are with trace edema Results & Data Results & Data Vital Signs (Past 12 Hours) Vital Signs Temp Pulse Pulse Resp BP Pulse Ox O2 Del Method 03/19/25 07:28 High Flow Nasal Cannula 03/19/25 07:13 77 03/19/25 07:01 97.9 F 77 21 153/88 H 95 High Flow Nasal Cannula 03/19/25 03:19 97.9 F 73 19 154/72 H 92 Nasal Cannula 03/19/25 02:51 76 03/19/25 01:52 75 18 93 Nasal Cannula 03/18/25 23:35 97.9 F 79 22 153/91 H 94 Nasal Cannula 03/18/25 22:21 83 24 94 Nasal Cannula 03/18/25 22:20 High Flow Nasal Cannula 03/18/25 20:43 97.7 F 79 20 144/84 H 92 High Flow Nasal Cannula O2 Flow Rate 03/19/25 07:28 8 03/19/25 07:13 03/19/25 07:01 03/19/25 03:19 8 03/19/25 02:51 03/19/25 01:52 9 03/18/25 23:35 8 03/18/25 22:21 9 03/18/25 22:20 8 03/18/25 20:43 9 Laboratory Results Reviewed CBC reviewed chemistry CTA is negative for PE PG Care Time/CCT Total # of Minutes Spent Total Time Spent with Patient: Total time spent is greater than 50% in coordination of care (as documented) at patient's floor/unit and/or counseling patient: Coding Level of Care Code 53949 SUB INP/OBS CARE 3/50MIN Diagnoses Sepsis A41.9 Atrial fibrillation I48.91 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
[2025-03-19] MEDS: OPTIRAY 320 125ml IV ONE (08:24)
--- NOTE | 2025-03-19 09:31 | CT Scan Report ---
CT ANGIOGRAM OF THE CHEST CLINICAL HISTORY: Chest pain, cough and shortness of breath. Evaluate for pulmonary embolus. COMPARISON STUDY: Chest CT April 20, 2022. Chest radiograph March 28, 2025. TECHNIQUE: Following the IV administration of 120 cc of Optiray 320, CT angiogram of the chest was pe rformed from the upper abdomen to the thoracic inlet utilizing the pulmonary embolus protocol. Images are reviewed in the axial, sagittal, and coronal planes. 3-D MIPS images are created and assessed. I V contrast was administered without complication. A dose lowering technique was utilized adhering to the principles of ALARA. CT DOSE: 960.92 mGy.cm FINDINGS: No pulmonary emboli are identified. There is no thoracic aortic dissection. The heart is mo derately enlarged. There is moderate coronary artery calcification. There is no pericardial effusion. Small to moderate left and small right pleural effusions have developed since CT of March 16, 2025. Bi lateral lower lobe consolidation is noted. This is mildly progressed. Interlobular septal thickening is present. Mildly enlarged mediastinal and bilateral hilar lymph nodes are noted. Index right infrah ilar node on image 105 of 243 measures 1.9 x 1.4 cm. A right paratracheal lymph node on image 157 chely sures 1.6 x 1.5 cm. This was portions of the upper abdomen are unremarkable. IMPRESSION: 1. No pulmonary emboli identified. 2. Increase in left lower lobe consolidation and right lower lobe airspace opacity suggestive of pneu monia or aspiration pneumonitis. A follow-up chest CT in 3 months to ensure resolution is recommended . 3. Mild mediastinal and bilateral hilar lymphadenopathy. This is likely reactive but should be assess ed on follow-up CT to ensure resolution. 4. Cardiomegaly with interstitial pulmonary edema. ACT 112: Positive. There are findings on this exam that require communication between the performing entity and the patient following Patient Test Result Information Act ([place] Act 112) guidelines. Electronically signed by: Sawyer Ennis M.D. 03/19/2025 9:29 AM
[2025-03-19] MEDS: HEPARIN SOD 5,000 UNIT/0.5 ML VIAL SQ SCH (21:31)
[2025-03-20 05:53] LABS: Hematocrit (blood only) 30.1 % (42.0-52.0); Hemoglobin 9.4 g/dl (14.0-18.0); Mean Corpuscular Hemoglobin 28.2 pg (25.0-34.0); Mean Corpuscular Volume 90.4 fL (80.0-100.0); Platelet Count 211 K/uL (130-400); RDW Standard Deviation 52.0 fL (36.4-46.3); Red Blood Count 3.33 M/uL (4.70-6.10); White Blood Count 5.81 K/ul (4.8-10.8)
[2025-03-20 06:08] LABS: Anion Gap 7.0 (3-11); Blood Urea Nitrogen 14.0 mg/dl (6-23); Calcium 8.3 mg/dl (8.6-10.3); Carbon Dioxide 28.0 mmol/L (21-32); Chloride 103.0 mmol/L (98-107); Creatinine Clr Calc Pharmacy 57.0 ml/min; Glucose 91.0 mg/dl (70-99(Fasting)); Potassium 3.6 mmol/L (3.5-5.1); Sodium 138.0 mmol/L (136-145)
--- NOTE | 2025-03-20 23:34 | Hospitalist Progress Note ---
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 initial urine analysis is unimpressive. Serum blood cultures negative at this time, increased oxygen demands,s/p one dose of lasix. Chest x-ray with some progression change antibiotics to cefepime and doxycycline 03/18, with persistent oxygen need, despite h/o apixiban, now with hemoptysis will have CTACTA did not show PE will have preventative affect DVT prophylaxis with heparin With hemoptysis patient does not have significant reduction in hemoglobin Now on room air. will monitor for another day. If continues to do well. Plan to discharge in AM. #Atrial fibrillation apixiban held due to hemoptysis continues on metoprolol at this point time we will continue with reduced doses of antihypertensive medications #Diabetes patient will be given sliding scale insulin diabetic diet clear liquids at this point time since were unsure of the upper GI status #Chronic kidney disease patient seems to be slightly worse than his baseline we will follow for JERAMY on CKD 3 we are reducing his lisinopril at this point time but if creatinine goes up we will discontinue it altogether and have an additional antihypertensive agent Patient did have some delirium at night we will continue to follow DVT prevention is we will use low-dose heparin at this time Patient is a full code chart review Admission and Anticipated Discharge Date Admission Date: March 16, 2025 Subjective Patient reports no new symptoms. He is breathing much better. Physical Exam Physical Exam: Pleasant cooperative alert and oriented x 3 Lungs sound less coarse. Now on room air. Cardiac sounds regular that murmurs clicks rubs or gallop Abdomen NABS soft nontender Extremities are with trace edema Results & Data Results & Data Vital Signs (Past 12 Hours) Vital Signs Temp Pulse Pulse Resp BP Pulse Ox O2 Del Method 03/20/25 23:19 36.8 C 80 19 129/72 93 Nasal Cannula 03/20/25 20:46 Room Air 03/20/25 19:30 79 20 97 Room Air 03/20/25 19:05 36.8 C 78 20 160/85 H 91 Nasal Cannula 03/20/25 15:58 36.8 C 75 16 179/88 H 93 Nasal Cannula 03/20/25 14:06 74 03/20/25 12:15 84 20 96 Room Air O2 Flow Rate 03/20/25 23:19 2 03/20/25 20:46 03/20/25 19:30 03/20/25 19:05 2 03/20/25 15:58 2 03/20/25 14:06 03/20/25 12:15 PG Care Time/CCT Total # of Minutes Spent Total Time Spent with Patient: Total time spent is greater than 50% in coordination of care (as documented) at patient's floor/unit and/or counseling patient: Coding Level of Care Code 30651 SUB INP/OBS CARE 3/50MIN Diagnoses Sepsis A41.9 Atrial fibrillation I48.91 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
[2025-03-21 06:42] LABS: Hematocrit (blood only) 34.7 % (42.0-52.0); Hemoglobin 10.6 g/dl (14.0-18.0); Mean Corpuscular Hemoglobin 27.8 pg (25.0-34.0); Mean Corpuscular Volume 91.1 fL (80.0-100.0); Platelet Count 236 K/uL (130-400); RDW Standard Deviation 52.5 fL (36.4-46.3); Red Blood Count 3.81 M/uL (4.70-6.10); White Blood Count 6.20 K/ul (4.8-10.8)
[2025-03-21 07:01] LABS: Anion Gap 10.0 (3-11); Blood Urea Nitrogen 20.0 mg/dl (6-23); Calcium 8.8 mg/dl (8.6-10.3); Carbon Dioxide 28.0 mmol/L (21-32); Chloride 103.0 mmol/L (98-107); Creatinine Clr Calc Pharmacy 52.0 ml/min; Glucose 98.0 mg/dl (70-99(Fasting)); Potassium 3.8 mmol/L (3.5-5.1); Sodium 141.0 mmol/L (136-145)
[2025-03-21 07:17] VITALS: TEMP 98.2
[2025-03-21 11:25] VITALS: PULSE 86; RESP 20
--- NOTE | 2025-03-21 11:25 | Discharge Summary ---
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 initial urine analysis is unimpressive. Serum blood cultures negative at this time, increased oxygen demands,s/p one dose of lasix. Chest x-ray with some progression change antibiotics to cefepime and doxycycline 03/18, with persistent oxygen need, despite h/o apixiban, now with hemoptysis will have CTACTA did not show PE will have preventative affect DVT prophylaxis with heparin With hemoptysis patient does not have significant reduction in hemoglobin Now on room air. will monitor for another day. If continues to do well. Plan to discharge in AM. #Atrial fibrillation apixiban held due to hemoptysis continues on metoprolol at this point time we will continue with reduced doses of antihypertensive medications #Diabetes patient will be given sliding scale insulin diabetic diet clear liquids at this point time since were unsure of the upper GI status #Chronic kidney disease patient seems to be slightly worse than his baseline we will follow for JERAMY on CKD 3 we are reducing his lisinopril at this point time but if creatinine goes up we will discontinue it altogether and have an additional antihypertensive agent Patient did have some delirium at night we will continue to follow DVT prevention is we will use low-dose heparin at this time Patient is a full code chart review Admission HPI Per Admitting Provider 79-year-old male arrives by EMS after pushing a life alert where he was found confused hypoxic with vomiting coffee-ground material after shopping at [employer]. 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 Patient is febrile to almost 103 degrees. Initial source of sepsis is unclear at this time he has a slightly abnormal chest x-ray urine is pending viral BioFire is pending Lyme is pending. Patient was resuscitated in the ER rescued from his hypoxia with BiPAP for his acute respiratory failure he was volume resuscitated and given antibiotics of cefepime. Blood cultures were obtained. Patient is recommended for admission due to possibility of sepsis Discharge Plan Discharge Items Patient Disposition: Home - Self-Care Reason For Visit: SEPSIS Discharge Diagnosis: sepsis Condition on Discharge: Serious Activity: Resume your previous activity Non-emergency contact: Primary Care Provider Call non-emergency contact if: you have any medication questions Follow-up/Referrals: Kelsea Sanchez MD [Primary Care Provider] - (Call the office on Sunday to schedule a follow up appointment.) Diet: Carb Consistent or DM2 Addtl Attending Provider Instructions: Recommend followup with PCP in 1-2 weeks. Continue antibiotics tonight and take twice a day. Doxycycline will be done tomorr AM. Cefpodoxime will be done Sunday. Resume Eliquis on Sunday Pending Studies at Discharge: No Stand-Alone Forms: [employer], Smoking Cessation Medications and DC Order Prescriptions: New cefpodoxime 200 mg tablet 200 mg PO BID Qty: 6 0RF Rx Instructions: must administer with a meal/food doxycycline monohydrate 100 mg tablet 100 mg PO BID Qty: 2 0RF Continued (DME) blood-glucose meter [True Metrix Glucose Meter] Misc See Rx Instructions .Route Qty: 1 0RF Rx Instructions: Test Blood Sugars as Needed (DME) lancets [TRUEplus Lancets] 33 gauge misc See Rx Instructions .Route Qty: 100 11RF Rx Instructions: Test Blood Sugars as Needed (DME) True Metrix Glucose Test Strip Strip See Rx Instructions .Route Qty: 100 11RF Rx Instructions: Test Blood Sugar BID (DME) pen needle, diabetic [Sure-Fine Pen Kyle] 31 gauge x 3/16" needle See Rx Instructions .Route Qty: 100 3RF Rx Instructions: As directed once daily insulin glargine [Lantus U-100 Insulin] 100 unit/mL solution 20 unit subcut DAILY 90 Days Qty: 18 3RF pantoprazole 40 mg tablet,delayed release (DR/EC) 40 mg PO QAM Qty: 90 3RF Rx Instructions: TAKE 1 TABLET BY MOUTH EVERY MORNING Ozempic 0.25 mg or 0.5 mg (2 mg/3 mL) pen injector 0 mg subcut UD Rx Instructions: sundays metformin 1,000 mg tablet 1,000 mg PO BID atorvastatin 80 mg tablet 80 mg PO QAM amlodipine 5 mg tablet 5 mg PO QAM metoprolol succinate 100 mg tablet extended release 24 hr 100 mg PO QAM finasteride 1 mg tablet 1 mg PO QAM Changed lisinopril 40 mg tablet 20 mg PO QAM Qty: 90 3RF tamsulosin 0.4 mg capsule 0.4 mg PO DAILY Qty: 180 3RF Rx Instructions: TAKE 2 CAPSULES BY MOUTH DAILY Held Eliquis 5 mg tablet 5 mg PO BID Qty: 60 2RF Hold Instructions: Resume on 03/25/25. resume eliquis on Sunday Discharge Orders: Discharge Order (Routine); Ordered 03/21/25 Ordered By: Sohail Rossi Admission Data Admit Date/Time: 03/16/25 18:41 Attending Provider: Sohail Rossi Admit Provider: Vitaliy Foster Primary Care Provider: Kelsea Sanchez Other Providers: Vitaliy Foster Hospital Stay Data Consultations 03/16/25 18:35 ED Decision to Admit Stat Diagnostic Imagining Performed 03/16/25 17:20 CT head/brain wo con Stat 03/16/25 18:12 CT abd pelvis IV con only Stat 03/19/25 07:34 CT angio chest PE protocol Routine Pending Results Patient Have Any Pending Studies at Discharge: No Discharge Instructions Given to Patient (Per Discharging Provider) Recommend followup with PCP in 1-2 weeks. Continue antibiotics tonight and take twice a day. Doxycycline will be done tomorrow AM. Cefpodoxime will be done Sunday AM. 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
[2025-03-21 11:44] VITALS: BP 144/81
[2025-03-21 12:43] VITALS: O2SAT 95
== END 2025-03-21 13:01 | disposition home health service (06) | DRG 871 ==
LOC: ED 17:01 → SUATTDRO 18:41 → 2E 18:41